=== PATIENT | female | born 1950 | race Caucasian/White ===

== ENCOUNTER 2021-03-23 06:52 | Day surgery (SDC) | payer MEDICARE, OTHER, SELFPAY ==
[2021-03-17 13:02] VITALS: BMI 25.2
[2021-03-17 14:22] VITALS: BMI 24.9
--- NOTE | 2021-03-22 11:51 | P.CONAN_ITS ---
HPI - Anesthesia Eval Consult details Narrative: 70yo F for Right Hammertoe Repair 2nd, 3rd & 4th Toe, Metatarsal Head Resection 2nd and 3rd Toe PCP cleared [facility] Past Medical History Medical History Arthritis, rheumatoid Heather's disease Depression GERD (gastroesophageal reflux disease) Hard of hearing History of anemia History of blood transfusion HTN (hypertension) Hx pulmonary embolism Lumbar post-laminectomy syndrome Nausea Osteoarthritis Peripheral neuropathy Rotator cuff syndrome Scoliosis Spinal stenosis Torn rotator cuff Tremor Wears hearing aid in both ears Surgical History Surgical History History of esophagogastroduodenoscopy (EGD) History of total hip replacement Hx of appendectomy Hx of cataract extraction Hx of colonoscopy Status post transsphenoidal pituitary resection Social History Social History (Updated 03/17/21 @ 14:21 by Anna Ramirez RN) Alcohol intake: current Alcohol intake frequency: a few times a month Alcohol type: wine Patient Tobacco Use Status: Former Tobacco user Quit Date: 1990 Use of substances other than those prescribed or required for medical reasons: No Are you DNR?: No Advance Directives: No Advance Directives Information Provided: Yes (mailed) Advance Directives on File: No Meds Allergies Allergy/AdvReac Type Severity Reaction Status Date / Time ciprofloxacin Allergy Unknown Verified 03/23/21 07:14 levofloxacin [From Allergy Unknown Verified 03/23/21 07:14 Levaquin] Home Medications Medication Instructions Recorded Confirmed Last Taken Type acetaminophen 650 mg PO Q6H 03/17/21 03/17/21 Unknown History 325 mg tablet PRN alendronate 70 70 mg PO QWEEK 03/17/21 03/17/21 Unknown History mg tablet amoxicillin 500 2,000 mg PO 03/17/21 03/17/21 Unknown History mg capsule ONCE baclofen 10 mg 10 mg PO BID 03/17/21 03/17/21 Unknown History tablet bupropion HCl 150 mg PO QAM 03/17/21 03/17/21 03/23/21 06:10 History 150 mg tablet,12 hr sustained-relea se cabergoline 0.5 0.5 mg PO 5XW 03/17/21 03/17/21 Unknown History mg tablet calcium cap PO 03/17/21 Unknown History carbonate 600 mg (1,500 mg)-vitamin D3 500 unit capsule (Calcium 600 with Vitamin D3) gabapentin 300 300 mg PO DAILY 03/17/21 03/17/21 Unknown History mg tablet hydrochlorothia 25 mg PO DAILY 03/17/21 03/17/21 Unknown History zide 25 mg tablet ibuprofen 800 800 mg PO Q8H 03/17/21 03/17/21 Unknown History mg tablet PRN metoprolol 50 mg PO BID 03/17/21 03/17/21 03/23/21 06:10 History tartrate 50 mg tablet omeprazole 20 20 mg PO DAILY 03/17/21 03/17/21 03/23/21 06:10 History mg tablet,delayed release sertraline 50 50 mg PO DAILY 03/17/21 03/17/21 03/23/21 06:10 History mg tablet simvastatin 40 40 mg PO 03/17/21 03/17/21 Unknown History mg tablet BEDTIME Exam Exam Date and Time: March 22, 2021 1151 Height,Weight and Vital Signs: Height 5 ft 4 in Weight 65.771 kg Narrative Narrative: EKG @ PCP = NSR Assessment and Plan Assessment Anesthesia Assessment: Chart Reviewed
--- NOTE | 2021-03-22 11:51 | HO.ANESPROP2 ---
HPI - Anesthesia Eval Consult details Narrative: 70yo F for Right Hammertoe Repair 2nd, 3rd & 4th Toe, Metatarsal Head Resection 2nd and 3rd Toe PCP cleared [facility] Past Medical History Medical History Arthritis, rheumatoid Heather's disease Depression GERD (gastroesophageal reflux disease) Hard of hearing History of anemia History of blood transfusion HTN (hypertension) Hx pulmonary embolism Lumbar post-laminectomy syndrome Nausea Osteoarthritis Peripheral neuropathy Rotator cuff syndrome Scoliosis Spinal stenosis Torn rotator cuff Tremor Wears hearing aid in both ears Surgical History Surgical History History of esophagogastroduodenoscopy (EGD) History of total hip replacement Hx of appendectomy Hx of cataract extraction Hx of colonoscopy Status post transsphenoidal pituitary resection Social History Social History (Updated 03/17/21 @ 14:21 by Anna Ramirez RN) Alcohol intake: current Alcohol intake frequency: a few times a month Alcohol type: wine Patient Tobacco Use Status: Former Tobacco user Quit Date: 1990 Use of substances other than those prescribed or required for medical reasons: No Are you DNR?: No Advance Directives: No Advance Directives Information Provided: Yes (mailed) Advance Directives on File: No Meds Allergies Allergy/AdvReac Type Severity Reaction Status Date / Time ciprofloxacin Allergy Unknown Verified 03/23/21 07:14 levofloxacin [From Levaquin] Allergy Unknown Verified 03/23/21 07:14 Home Medications Medication Instructions Recorded Confirmed Last Taken Type acetaminophen 325 mg tablet 650 mg PO Q6H PRN 03/17/21 03/17/21 Unknown History alendronate 70 mg tablet 70 mg PO QWEEK 03/17/21 03/17/21 Unknown History amoxicillin 500 mg capsule 2,000 mg PO ONCE 03/17/21 03/17/21 Unknown History baclofen 10 mg tablet 10 mg PO BID 03/17/21 03/17/21 Unknown History bupropion HCl 150 mg tablet,12 hr 150 mg PO QAM 03/17/21 03/17/21 03/23/21 06:10 History sustained-release cabergoline 0.5 mg tablet 0.5 mg PO 5XW 03/17/21 03/17/21 Unknown History calcium carbonate 600 mg (1,500 cap PO 03/17/21 Unknown History mg)-vitamin D3 500 unit capsule (Calcium 600 with Vitamin D3) gabapentin 300 mg tablet 300 mg PO DAILY 03/17/21 03/17/21 Unknown History hydrochlorothiazide 25 mg tablet 25 mg PO DAILY 03/17/21 03/17/21 Unknown History ibuprofen 800 mg tablet 800 mg PO Q8H PRN 03/17/21 03/17/21 Unknown History metoprolol tartrate 50 mg tablet 50 mg PO BID 03/17/21 03/17/21 03/23/21 06:10 History omeprazole 20 mg tablet,delayed 20 mg PO DAILY 03/17/21 03/17/21 03/23/21 06:10 History release sertraline 50 mg tablet 50 mg PO DAILY 03/17/21 03/17/21 03/23/21 06:10 History simvastatin 40 mg tablet 40 mg PO BEDTIME 03/17/21 03/17/21 Unknown History Exam Exam Date and Time: March 22, 2021 1151 Height,Weight and Vital Signs: Height 5 ft 4 in Weight 65.771 kg Narrative Narrative: EKG @ PCP = NSR Assessment and Plan Assessment Anesthesia Assessment: Chart Reviewed
--- NOTE | 2021-03-22 12:13 | HP_ITS ---
DATE OF SERVICE: 03/23/2021 DATE OF PROPOSED SURGERY: 03/23/2021. PREOPERATIVE DIAGNOSES: 1. Arthritis, right second metatarsophalangeal joint with dislocation. 2. Arthritis of the right third metatarsophalangeal joint. 3. Hammertoe deformities, right second toe. 4. Hammertoe deformities, right third toe. 5. Hammertoe deformities, right fourth toe. PLANNED PROCEDURES: 1. Total metatarsal head resection, right second and third metatarsophalangeal joints with reapproximation of the metatarsophalangeal joint and ORIF, right second MTP joint dislocation. 2. Hammertoe repair, right second, third, and fourth toes. PLANNED ANESTHESIA: MAC anesthesia. Planned use of mini C-arm visualization during the procedures. CHIEF COMPLAINT AND HISTORY OF PRESENT ILLNESS: Isa Bello is a 70-year-old female, who relates history of progressively painful overlapping hammertoes and multiple joints involving the right forefoot. The condition has been present over the past several years and has gradually worsened due to her rheumatoid arthritis. Conservative treatment consisting of accommodative padding as well as altered shoe gear has proven ineffective and the patient is now requesting surgical treatment. PAST MEDICAL HISTORY: Remarkable for rheumatoid arthritis, history of multiple musculoskeletal pain, depression, hypertension, anemia, high cholesterol, sciatica. CURRENT MEDICATIONS: Alendronate, baclofen, , cabergoline, hydrochlorothiazide, sertraline, simvastatin, metoprolol, folic acid, gabapentin. ALLERGIES: THE PATIENT HAS NEGATIVE REACTION TO LEVAQUIN AND CIPROFLOXACIN. FAMILY HISTORY: Significant for arthritis, hypertension, diabetes. SOCIAL HISTORY: The patient denies smoking, denies use of any recreational drugs. The patient does relates scant alcohol consumption and does drink coffee 1 cup daily. PODIATRIC PHYSICAL EXAM: VASCULAR EXAM: Reveals normal pulses. The DP and PT arteries bilateral with normal cap refill time noted bilateral feet. NEUROLOGIC EXAM: Reveals intact sensation. DERMATOLOGIC EXAM: Reveals intact skin with erythema, dorsum right second and third toe PIP joints. ORTHOPEDIC EXAM: Reveals hammertoe contracture of right second, third and fourth, with the right second toe completely overlapping the right great toe and dorsal and medial subluxation and dislocation of the right second and third metatarsophalangeal joints. The patient was seen most recently in my office on February 27, 2021. Preoperative informed consent was obtained from the patient that day. Preoperative medical clearance will be provided by her primary care physician, Dr. Kaur. DAMIEN Delaney/JIM / [id number]
[2021-03-23] VITALS (7 sets, daily range): BP systolic 121–172; BP diastolic 62–84; PULSE 49–66; RESP 16–18; TEMP 36.1–36.4; O2SAT 95–100
--- NOTE | ~2021-03-23 | FL_ITS ---
EXAMINATION: XR FLUOROSCOPY WITH IMAGES CLINICAL INFORMATION: Hammertoe. COMPARISON: None. TECHNIQUE: Fluoroscopy performed by Dr. Ricki Johnson Fluoroscopy time: 16.3 seconds DAP: [id number] mGycm2 Images: 1 FINDINGS: A single image was provided to the referring physician for insertion of pins for a hammertoe of right foot. No other images were obtained. FL/FL guidance in OR IMPRESSION: Fluoroscopy was provided to referring physician for correction of hammertoe.
[2021-03-23] MEDS: Lactated Ringers 1,000 ML 100 ML IVCONT (07:44)
--- NOTE | 2021-03-23 08:28 | MHC.SHP ---
Pre-Procedural Eval Section A Date of Service: 03/23/21 The patient is an INPATIENT: No The History & Physical has been completed within 30 days and I have reviewed it.: Yes Section B Chief Complaint: rheumatoid arthritis,hammer toe Relevant Family History (Specify if Yes): No Relevant Social History: None Allergies: Allergies Allergy/AdvReac Type Severity Reaction Status Date / Time ciprofloxacin Allergy Unknown Verified 03/23/21 07:14 levofloxacin [From Levaquin] Allergy Unknown Verified 03/23/21 07:14 Plan Diagnosis/Plan: Unchanged I have reviewed the history and physical and performed a pertinent physical examination on my patient. No changes have occurred unless specified.
--- NOTE | 2021-03-23 10:07 | PM.PROC ---
Brief Operative Note Date of procedure: 03/23/21 Pre-op diagnosis: arthritis with dislocation right 2,3 mtpj; hammertoe 2,3,4 right Post-op diagnosis: same Procedure: open reduction and internal fixation of right 2nd and 3rd mtpj dislocation with resection of metatarsal heads 2,3; hammertoe repair right 2,3,4 toes with kwire fixation Anesthesia: MAC Surgeon: Ricki Johnson Bench Assembly Inspector: Doretha Mclean IV fluids (mL): 1.0 Condition: stable Disposition: PACU
--- NOTE | 2021-03-23 20:47 | OP_ITS ---
SURGEON: Ricki Johnson DPM PREOPERATIVE DIAGNOSIS: POSTOPERATIVE DIAGNOSIS: PROCEDURE PERFORMED: ESTIMATED BLOOD LOSS: COMPLICATIONS: ANESTHESIA: Consisted of a total of 14 mL of an equal mix of 2% lidocaine with epinephrine 1:100,000 and 0.5% Marcaine plain. Intravenous sedation was provided by the Anesthesia Department. ASSISTANTS: Dr. Mclean. SPECIMENS: PREOPERATIVE DIAGNOSES: Arthritis with dislocation of the right second and third metatarsophalangeal joints; hammertoe deformity, right second, third, and fourth toes. PROCEDURES PERFORMED: Open reduction and internal fixation of right second and third metatarsophalangeal joint dislocations with resection of metatarsal heads of AC joints and hammertoe repair, right second, third, and fourth toes with K-wire fixation. INTRODUCTION: The patient was brought to the operating room and placed on the operating table in the supine position. After having been suitably anesthetized with local infiltrative anesthesia, the right lower extremity was then prepped and draped in usual sterile manner. Please note that prior to the start of the procedures, the right foot was exsanguinated utilizing Esmarch bandage and right ankle tourniquet was inflated to 250 mmHg pressure for the duration of the procedures. OPEN REDUCTION WITH INTERNAL FIXATION AND RESECTION OF THE RIGHT SECOND AND THIRD METATARSAL HEADS OF DISLOCATED JOINTS RIGHT SECOND AND THIRD METATARSOPHALANGEAL JOINTS. Attention was directed to the dorsal aspect of the right forefoot, where a lazy-S incision was effected on the dorsal aspect between the right second and third metatarsals extending from the midshaft area just beyond the metatarsophalangeal joints. The incision was deepened in same plane. Hemostasis was acquired as necessary. The skin margins were underscored and retracted. A dorsal linear capsule incision was first effected of the right second metatarsophalangeal joint from the distal shaft up to and beyond the MTP joint. The incision was deepened in same plane. Hemostasis was acquired. The capsule was underscored and retracted. Utilizing a sagittal saw, the second metatarsal was osteotomized to resect the hypertrophic head of the second metatarsal and excised from the wound in toto via sharp dissection. Likewise, the third metatarsal was treated in the exact same manner as previously described for the second metatarsal. The wound was irrigated with copious amounts of sterile saline. The osteotomies were fine-tune to make sure there was adequate muslim of the metatarsal parabola. The fixation to reduce the dislocation was going to be used from the hammertoe repairs and was delayed until hammertoe procedures were performed. HAMMERTOE REPAIR OF RIGHT SECOND, THIRD, AND FOURTH TOES. Attention was directed to the dorsal aspect of the right second, third, and fourth toe, where separate dorsal linear incisions were effected over each digits overlying the proximal interphalangeal joint. Incisions were effected to be approximately 2 to 2.5 cm in length. The incisions were deepened in same plane. Hemostasis was acquired as necessary. The skin margins were underscored and retracted. A transverse incision was effected through the extensor tendon complex at each respective digit and then the extensor tendons were underscored and retracted both proximally and distally. The hypertrophic heads of the proximal phalanx were delivered from the wound and resected utilizing sagittal saw. The base of the middle phalanx from the second and third toes were resected. The fourth toe was left untouched at the base of the middle phalanx. Wound was again irrigated. The phalanges were then fixated to reduce hammertoe contracture as well as then advanced under mini C-arm visualization to fixate and reduce the previous dislocation of the second and third metatarsophalangeal joints. Two wires were used. Each measuring 0.045 inch in diameter and were driven from the distal aspect of the second toe into the second metatarsal, maintaining the rectus alignment and likewise doing the same for the third toe and third metatarsophalangeal joint. Excess K-wire was bent, cut, and capped. All skin margins were closed once there was capsular closure utilizing 3-0 Dexon and skin margins were closed using a combination of 3-0 and 2-0 nylon for the MTP joint incisions and 4-0 nylon for the digital or hammertoe incisions. CONCLUSION: At the conclusion of these procedures, the operative sites were injected with a total of 5 mL of Marcaine 0.5% plain and 1 mL of dexamethasone phosphate. Sterile Xeroform, 1-inch Conform, Kerlix fluffs, 4-inch Conform, and Betadine-soaked gauze were applied to the right lower extremity. The right ankle tourniquet was deflated. Normal blood flow was reestablished to the right lower extremity. The patient tolerated the surgery and anesthesia well and left the operating room via cart to the recovery room with vital signs stable. FINAL DISPOSITION: The patient is discharged home with instructions for self-care include the followin. To keep the dressings dry, clean, and intact. 2. To keep the right leg elevated above the ankle with ice above the ankle as well. 3. To take all medications as prescribed. 4. To limit walking activity and utilize the surgical shoe and walker for partial weightbearing right foot whenever walking. 5. The patient has instructions to take Motrin 600 mg 1 p.o. t.i.d. p.c., gabapentin 300 mg total #10 one p.o. daily at bedtime, oxycodone 5 mg total #10 one p.o. q.6h. The patient is also instructed to utilize Tylenol in between and to take aspirin 325 mg daily for DVT prophylaxis for the next month. DAMIEN Delaney/JIM / [id number]
== END 2021-03-23 11:25 | disposition home or self-care (01) ==
PROVIDERS: PCP Family Medicine; Visit Provider Podiatrist
PROC: (CPT 28285; principal; 2021-03-23 08:40)
PROC: (CPT 28645; 2021-03-23 08:40)
DX: M24.374 Pathological dislocation of right foot, not elsewhere classified (principal); M20.41 Other hammer toe(s) (acquired), right foot; M19.071 Primary osteoarthritis, right ankle and foot; Z88.1 Allergy status to other antibiotic agents
CPT/HCPCS: 28645 ×2; 28285 ×3; 28112; 88304; 88311; J0690; J1100; J2250; J3010

== ENCOUNTER 2021-07-31 10:40 | Outpatient (REF) | payer MEDICARE, OTHER, SELFPAY ==
--- NOTE | ~2021-07-31 | MM_ITS ---
EXAMINATION: MM SCREENING DIGITAL BREAST TOMOSYNTHESIS, BILATERAL CLINICAL INFORMATION: Screening. Asymptomatic. The lifetime risk of breast cancer based on the Tyrer-Cuzick Model is 10%. COMPARISON: Mammography: 03/08/2020, 03/03/2019, 02/13/2018 TECHNIQUE: Digital breast tomosynthesis is performed in both the craniocaudal and mediolateral oblique views along with computer-aided detection (CAD). Synthesized 2D images are generated from the tomosynthesis. FINDINGS: There are scattered areas of fibroglandular density (ACR BI-RADS breast composition Category b). There are no significant masses, abnormal calcifications, or other abnormalities. Parenchymal pattern is similar to prior studies. Incidental intramammary node again seen posterior upper outer right breast. There are scattered vascular and benign round calcifications again seen. There are no significant changes. MM/MM tomosynthesis screening BI IMPRESSION: No mammographic evidence of malignancy. ASSESSMENT: BI-RADS 2: Benign RECOMMENDATION: Routine annual mammography screening. This patient's information was entered into a reminder system with a target due date for their next mammogram.
== END 2021-07-31 10:41 | disposition home or self-care (01) ==
LOC: HO.MAMMO 10:40
PROVIDERS: Visit Provider Family Medicine
DX: Z12.31 Encounter for screening mammogram for malignant neoplasm of breast (principal)
CPT/HCPCS: 77063; 77067

== ENCOUNTER → 2022-07-20 14:16 | Outpatient (BNVA) | payer MEDICARE, OTHER, SELFPAY | PROVIDERS: PCP Family Medicine; Visit Provider Student in an Organized Health Care Education/Training Program | DX: M06.9 Rheumatoid arthritis, unspecified (principal); M19.90 Unspecified osteoarthritis, unspecified site; G62.9 Polyneuropathy, unspecified; M96.1 Postlaminectomy syndrome, not elsewhere classified; R10.30 Lower abdominal pain, unspecified | CPT/HCPCS: 99202 ==

== ENCOUNTER 2022-08-31 09:53 | Outpatient (REF) | payer MEDICARE, OTHER, SELFPAY ==
--- NOTE | ~2022-08-31 | MM_ITS ---
EXAMINATION: MM SCREENING DIGITAL BREAST TOMOSYNTHESIS, BILATERAL CLINICAL INFORMATION: Screening. Asymptomatic. The lifetime risk of breast cancer based on the Tyrer-Cuzick Model is 9%. COMPARISON: Mammography: 07/31/2021, 03/08/2020, 03/03/2019 TECHNIQUE: Digital breast tomosynthesis is performed in both the craniocaudal and mediolateral oblique views along with computer-aided detection (CAD). Synthesized 2D images are generated from the tomosynthesis. FINDINGS: There are scattered areas of fibroglandular density (ACR BI-RADS breast composition Category b). There are no significant masses, abnormal calcifications, or other abnormalities. Parenchymal pattern borders on predominantly fatty. Background stromal markings are similar to prior studies and there is no developing density or architectural abnormality. Incidental intramammary node again seen posterior upper outer right breast. The axilla are unremarkable. No significant changes from prior exams. MM/MM tomosynthesis screening BI IMPRESSION: No mammographic evidence of malignancy. ASSESSMENT: BI-RADS 2: Benign RECOMMENDATION: Routine annual mammography screening. This patient's information was entered into a reminder system with a target due date for their next mammogram.
== END 2022-08-31 09:54 | disposition home or self-care (01) ==
LOC: HO.MAMMO 09:53
PROVIDERS: Visit Provider Family Medicine
DX: Z12.31 Encounter for screening mammogram for malignant neoplasm of breast (principal)
CPT/HCPCS: 77063; 77067

== ENCOUNTER 2023-11-07 11:22 | Outpatient (REF) | payer MEDICARE, OTHER, SELFPAY | END 2023-11-07 11:23 | disposition home or self-care (01) | LOC: HO.10HDL 11:22 | PROVIDERS: Visit Provider Otolaryngology | DX: J30.89 Other allergic rhinitis (principal) | CPT/HCPCS: 36415; 82785; 86003 ==

== ENCOUNTER 2024-01-14 10:27 | Outpatient (REF) | payer MEDICARE, OTHER, SELFPAY | END 2024-01-14 10:28 | disposition home or self-care (01) | LOC: HO.MAMMO 10:27 | PROVIDERS: PCP Internal Medicine; Visit Provider Internal Medicine | DX: Z12.31 Encounter for screening mammogram for malignant neoplasm of breast (principal) | CPT/HCPCS: 77063; 77067 ==

== ENCOUNTER → 2024-01-14 10:45 | Outpatient (BNV) | payer MEDICARE, OTHER, SELFPAY | PROVIDERS: PCP Internal Medicine; Visit Provider Radiology Diagnostic Radiology | DX: Z12.31 Encounter for screening mammogram for malignant neoplasm of breast (principal) | CPT/HCPCS: 77063; 77067 ==

== ENCOUNTER 2025-03-16 13:52 | Outpatient (REF) | payer SELFPAY ==
--- OUTSIDE RECORDS SUMMARY | 2016-02-23 | XMS_ITS | Encounter Summary ---
Author Organization [facility] Address [address] [place] [address] Phone Care Team Providers Care Study Coordinator Name Role Phone Heidi Solano MD Primary Care Provider + Reason for Visit * MRI/CAT Scan - Closed Specialty Diagnoses / Procedures Referred By Jennifer mcdaniel Referred To Contact Radiology Procedures MRI Spine (Neuro) Outside (No Interpretation) Dimitry Kent MD [address] [place] [phone] Phone: tel: fax: mailto:[email or web address] Referral ID Status Reason Start Date Expiration Date Visits Re quested Visits Authorized [id number] Closed 02/24/2016 02/23/2017 1 1 Encounter Details Date Type Department Care Team (Late st Contact Info) Description 02/23/2016 Hospital Encounter [facility] [address] [place] [address] Dimitry Kent MD [address] [place] [phone] [email or web address] Social History Tobacco Use Types Packs/Day Years [...] Care Team (Late st Contact Info) Description 04/20/2025 3:00 PM EST Telemedicine [facility] Clinical Center [address], [address] [place] [address] Kvng Agarwal MD, DSc [address] [facility] [address] [place] [address] [email or web address] 06/10/2029 Procedure Pass [facility] PERIOPERATIVE DEPT [address] [place] [address] [phone] documented as of this encounter Procedures Procedure Name Priority Date/Time Associated Diagnosis Comments MRI SPINE NEUROLOGIC FOCUS OUTSIDE (NO INTERPRETATION) Routine 02/23/2016 12:00 AM EDT documented in this encounter Results * MRI Spine (Neuro) Outside (No Interpretation) (02/23/2016 12:00 AM EDT) Narrative [facility] IMG INTERFACES - 02/24/2016 2:00 PM EDT This study is for PACS storage only and not for interpretation. Procedure Note SYSTEMGENERATED, DOCUMENTATION - 02/24/2016 This study is for PACS storage only and not for interpretation. us Dimitry Kent MD IMG OUTSIDE IMAGING W/OUT INT ERPRETATION Final Result [facility] IMG INTERFACES documented in this encounter Visit Diagnoses Not on filedocumented in this encounter Care Teams Study Coordinator Relationship Specialty Start Date End Date Heidi Solano MD [email or web address] PCP - General Family Medicine 08/12/14 10/23/16 documented as of this encounter Additional Source Comments The information contained in this document represents components of the legal health record. It is not the complete legal health record.[facility]
--- OUTSIDE RECORDS SUMMARY | 2016-07-13 01:00 | XMS_ITS | Encounter Summary ---
Author Organization [facility] Address [address] [facility] [address] [place] [address] Phone Care Team Providers Care Aircraft Fuselage Framer Name Role Phone Heidi Solano MD Primary Care Provider + Reason for Visit * MRI/CAT Scan - Closed Specialty Diagnoses / Procedures Referred By Jennifer mcdaniel Referred To Contact Procedures CT Spine (Neuro) Focus Outside (No Interpretation) Eliazar Peace MD [facility] [place] [address] Phone: tel: mailto:[email or web address] Referral ID Status Reason Start Date Expiration Date Visits Re quested Visits Authorized [id number] Closed 07/24/2016 07/24/2017 1 1 Encounter Details Date Type Department Care Team (Late st Contact Info) Description 07/13/2016 Hospital Encounter [facility] [address] [place] [address] Eliazar Peace MD [address] [place] [address] [email or web address] Social History Tobacco Use Types Packs/Day Years [...] Info) Description 04/20/2025 3:00 PM EST Telemedicine [facility] Clinical Center [address] [place] [address], [address] [place] [address] Kvng Agarwal MD, DSc [address] [facility] [address] [place] [address] BRYAN@[email or web address] 06/10/[address] [facility] PERIOPERATIVE DEPT [address] [place] [phone] documented as of this encounter Procedures Procedure Name Priority Date/Time Associated Diagnosis Comments CT SPINE (NEURO) OUTSIDE (NO INTERPRETATION) Routine 07/13/2016 12:00 AM EST documented in this encounter Results * CT Spine (Neuro) Focus Outside (No Interpretation) (07/13/2016 12:00 AM EST) Narrative [facility] IMG INTERFACES - 07/24/2016 12:24 PM EST This study is for PACS storage only and not for interpretation. us Eliazar Peace MD IMG OUTSIDE IMAGING W/OUT INTE RPRETATION Final Result [facility] IMG INTERFACES documented in this encounter Visit Diagnoses Not on filedocumented in this encounter Care Teams Aircraft Fuselage Framer Relationship Specialty Start Date End Date Heidi Solano MD [email or web address] PCP - General Family Medicine 08/12/14 10/23/16 documented as of this encounter Additional Source Comments The information contained in this document represents components of the legal health record. It is not the complete legal health record[facility]
--- NOTE | 2025-03-16 15:40 | MHC.AU.HA3 ---
Hearing Instrument Follow-Up- Binaural Date of Visit: 03/16/25 Right Ear: Make, Model, Color, Serial Number: Ottoi Hannah 1 [employer] SN: [id number] Cotton Opener Repair Warranty: 09/25/2026 Cotton Opener Loss and Damage Warranty: 09/25/2026 [facility] Service Plan: N/A Battery Size: Rechargeable Charge Entry/Slim Tube: 2/85 Earmold/Dome/CShell/SlimTip:8mm power dome with retention tail Type of Wax Guard: miniFit Dispensed By: Office of Dr. Lopez Date of Fitting: August 2023 Left Ear: Make, Model, Color, Serial Number: Ottoi Roseon 1 [employer] SN: [id number] Cotton Opener Repair Warranty: 09/25/2026 Cotton Opener Loss and Damage Warranty: 09/25/2026 [facility] Service Plan: N/A Battery Size: Rechargeable Charge Entry/Slim Tube: 2/85 Earmold/Dome/CShell/SlimTip: 8mm power dome with retention tail Type of Wax Guard: miniFit Dispensed By: Office of Dr. Lopez Date of Fitting: August 2023 Follow-Up Summary: Transfer care from Rodrigo Carlton who recently retired. Thinks HAs not providing enough benefit, still difficulty with understanding conversations, especially at book club or chair yoga. Lots of wax build up noted on domes. Cleaned HAs. Replaced domes, wax guards, and retention tails. Ran feedback technical support manager with 8mm double huerta domes which noted significant decrease in amplification. Switched to 8mm power dome. Reran feedback technical support manager with noted improvement. Increased high frequencies slightly. Reported sound clearer after cleaning and adjustment. Updated firmware. Helped re-pair to phone and [employer] kiel. Scheduled follow up to check in re: programming changes. Recommended full reprogramming with real ear measures following updated hearing test. Recommendations: An additional follow-up was scheduled to monitor progress. Diagnosis Code(s): Primary Diagnosis: H90.3 Bilateral Sensorineural Hearing Loss Signature: Provider: Lori Ibrara, [facility]
--- OUTSIDE RECORDS SUMMARY | 2025-03-16 17:07 | XMS_ITS | Encounter Summary ---
Author Organization [facility] Address [address] [facility] [address] [place] [address] Phone Care Team Providers Care Electrification Adviser Name Role Phone Whitney Kaur MD, MPH Primary Care Provider + Freda Garg MD Unavailable Mike Valladares MD Unavailable [phone] Freda Garg MD Unavailable Eren Mahoney MD Unavailable Whitney Kaur MD, MPH Unavailable [phone] Dajuan Hammer MD Primary Care Provider [phone] Whitney Kaur MD, MPH Primary Care Provider + Dajuan Hammer MD Unavailable [phone] Kim Noel MD Primary Care Provide r Encounter Details Date Type Department Care Team (Late st Contact Info) Description 04/16/2017 Procedure Pass [facility] [place], Goran 2 [address] [facility], 2nd Floor, [address] [place] [address] Social History Tobacco Use Types Packs/Day Years Used Date Smoking Tobacco: Former Cigarettes 1.5 10 0 10/19/1976 - 10/19/1986 Smokeless Tobacco: Never Alcohol Use Standard Drinks/Week Comments Yes 3 (1 standard drink = 0.6 oz pur e alcohol) Comments Unknown Sex and Gender Information Value Date Recorded Sex Assigned at Female 10/13/2022 10:34 AM EDT Legal Sex Female 3:24 PM EST Gender Identity Female 10/13/2022 10:34 AM EDT Sexual Orientation Not on file documented as of this encounter Functional Status * Patient is deaf or has serious difficulty with hearing Answer Date of Assessment Author No 10/29/2016 8:45 AM Rosa Schafer PA-C * 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, even when wearing glasses Answer Date of Assessment Author No 10/29/2016 8:45 AM Rosa Schafer PA-C * Patient has serious difficulty walking or climbing stairs (5yr old or older) Answer Date of Assessment Author No 10/29/2016 8:45 AM Rosa Schafer PA-C * Patient has serious difficulty dressing or bathing (5yr old or older) Answer Date of Assessment Author No 10/29/2016 8:45 AM Rosa Schafer PA-C * Patient has serious difficulty doing errands alone such as visiting a doctor???s office or shopping, due to physical, mental, or emotional condition (15 years old or older) Answer Date of Assessment Author No 10/29/2016 8:45 AM Rosa Schafer PA-C documented as of this encounter Mental Status * Patient has serious difficulty concentrating, remembering, or making decisions due to physical, mental, or emotional condition Answer Entry Date Author No 10/29/2016 8:45 AM Rosa Schafer PA-C documented in this encounter Plan of Treatment Upcoming Encounters Date Type Department Care Team (Late st Contact Info) Description 04/20/2025 3:00 PM EST Telemedicine [address], [address] [place] [address] Kvng Agarwal MD, DSc [address] [place] [address] [address] [email or web address] 06/10/2029 Procedure Pass [facility] [place] PER[facility]OPER[facility]IVE DEPT 55 [place] [address] documented as of this encounter Visit Diagnoses Not on filedocumented in this encounter Care Teams Electrification Adviser Relationship Specialty Start Date End Date Whitney Kaur MD, MPH 70 [place] [address] [email or web address] PCP - General 02/06/17 02/24/18 Dajuan Hammer MD 55 [facility] [address] [place] [phone] [email or web address] PCP - General Rheumatology 02/25/18 04/16/18 Whitney Kaur MD, MPH 70 [place] [address] [email or web address] PCP - General Family Medicine 04/17/18 06/25/23 Kim Noel MD [address] [place] [address] PCP - General Internal Medicine 06/26/23 Freda Garg MD [address] [place] [address] [email or web address] Referring OBGYN Obstetrics and Gynecology 02/28/17 Mike Valladares MD [address] [place] [address], 2nd [place] [address] [email or web address] Historical LMR Provider 03/27/17 06/17/21 Freda Garg MD [address] [place] [address] Historical LMR Provider 03/27/17 Eren Mahoney MD [address] [facility], [address] [place] [address] julio Historical LMR Provider 03/27/17 06/17/21 Whitney Kaur MD, MPH 70 [place] [address] Historical LMR Provider 03/27/17 Dajuan Hammer MD [address] [place] [phone] [email or web address] [facility] Referring Physician Rheumatology 04/17/18 documented as of this encounter Additional Source Comments The information contained in this document represents components of the legal health record. It is not the complete legal health record.[facility]
--- OUTSIDE RECORDS SUMMARY | 2025-03-16 17:07 | XMS_ITS | Encounter Summary ---
Author Organization [facility] Address [address] [facility] [address] [place] [address] Phone Care Team Providers Care Torsion Spring Coiling Machine Setter Name Role Phone Whitney Kaur MD, MPH Primary Care Provider + Freda Garg MD Unavailable Mike Valladares MD Unavailable Freda Garg MD Unavailable Eren Mahoney MD Unavailable Whitney Kaur MD, MPH Unavailable [phone] Dajuan Hammer MD Primary Care Provider [phone] Whitney Kaur MD, MPH Primary Care Provider + Dajuan Hammer MD Unavailable Kim Noel MD Primary Care Provide r Encounter Details Date Type Department Care Team (Late st Contact Info) Description 04/16/2017 Procedure Pass [facility] [place] [place]. [place] [address] [facility], 1st [place] [address] Social History Tobacco Use Types Packs/Day Years [...] Info) Description 04/20/2025 3:00 PM EST Telemedicine [address], [address] [place] [address] Kvng Agarwal MD, DSc [address] [place] [address] [address] [place] [address] [email or web address] 06/10/2029 Procedure Pass [facility] [place] [place] [facility]IOPER[facility]IVE [place]PT 55 [place] [address] documented as of this encounter Visit Diagnoses Not on filedocumented in this encounter Care Teams Torsion Spring Coiling Machine Setter Relationship Specialty Start Date End Date Whitney Kaur MD, MPH 70 [place] [address] [email or web address] PCP - General 02/06/17 02/24/18 Dajuan Hammer MD 55 [facility] [address]BYAW [address] [place] [phone] [email or web address] [email or web address] PCP - General Rheumatology 02/25/18 04/16/18 Whitney Kaur MD, MPH 70 [place] [address] [email or web address] PCP - General Family Medicine 04/17/18 06/25/23 Kim Noel MD [address] [place] [address] PCP - General Internal Medicine 06/26/23 Freda Garg MD [address] [place] [address] [email or web address] Referring OBGYN Obstetrics and Gynecology 02/28/17 Mike Valladares MD [address] [place] [address], 2nd [place] [address] [email or web address] Historical LMR Provider 03/27/17 06/17/21 Freda Garg MD [address] [place] [address] [email or web address] Historical LMR Provider 03/27/17 Eren Mahoney MD 22 [facility], [address] [place] [address] julio Historical LMR Provider 03/27/17 06/17/21 Whitney Kaur MD, MPH [address] [place] [address] Historical LMR Provider 03/27/17 Dajuan Hammer MD [address] [place] [phone] [email or web address] [email or web address] Referring Physician Rheumatology 04/17/18 documented as of this encounter Additional Source Comments The information contained in this document represents components of the legal health record. It is not the complete legal health record.[facility]
--- OUTSIDE RECORDS SUMMARY | 2025-03-16 17:07 | XMS_ITS | Patient Health Record ---
Author Organization [facility] Address [address] [address] Support Name Relationship Address Phone GRETEL MEEK Guarantor Unknown [phone] Reason For Referral No Information Medications Medication SIG (Take, Route, Frequency, Duration) Notes Start Date End Date Status Leflunomide 20MG ORAL; Duration: -3 [facility] 03/05/2014 Active Metoprolol Tartrate 100MG 1 ORAL twice d aily; Duration: -3 [facility] 12/28/2011 Active Wellbutrin XL 150MG 1 ORAL daily; Duration: -3 [facility] 12/28/2011 Active Vitamin B-12 100MCG ORAL; Duration: -3 [facility] 12/28/2011 Active hydroCHLOROthiazide 12.5MG 1 ORAL daily; Duration: -3 [facility] 02/20/2013 Active Hydroxychloroquine Sulfate 200MG ORAL; Duration: -3 [facility] 03/05/2014 Active Sertraline HCl 50MG 1 ORAL daily; Duration: -3 [facility] 12/28/2011 Active Simvastatin 40MG 1 ORAL DAILY; Duration: -3 [facility] 12/28/2011 Active Folic Acid 1MG 1 ORAL daily; Duration: -3 [facility] 12/28/2011 Active sulfaSALAzine 500MG ORAL; Duration: -3 [facility] 03/05/2014 Active Gabapentin 300MG 1 ORAL three times daily; Duration: -3 [facility] 12/28/2011 Active Terconazole 0.4% 1 Vaginal once daily at hs1; Duration: -3 [facility] 03/05/2014 Active Problems Problem Type SNOMED Code ICD Code Onset Dates Problem Status W/U Status Risk Notes Problem Hyperlipidemia (58139701) Other and unspecified hyperlipidemia (272.4) Active confirmed Major Problem Benign essential hypertension (7014701) Essential hypertension, benign (401.1) Active confirmed Major Problem Rheumatoid arthritis (15069994) Rheumatoid arthritis (714.0) Active confirmed Major Problem Gynecological examination normal (008980711962245) Routine gynecological examination (V72.31) Active confirmed Diag Problem Dietary management surveillance (868810680) Dietary surveillance and counseling (V65.3) Active confirmed Diag Problem Exercises teaching, guidance, and counseling (395496300) Exercise counseling (V65.41) Active confirmed Diag Plan Of Treatment No Information Insurance Providers Payer Name Payer Address Payer Phone Subscriber Number Group Number Insured Name Patient Relationship to Insured Coverage Start Date Coverage End Date [facility] [address] [place] [id number] [id number] GRETEL MEEK Self - patient is the insured
--- OUTSIDE RECORDS SUMMARY | 2025-03-16 17:07 | XMS_ITS | Encounter Summary ---
Author Organization [facility] Address [address] [facility] [address] [place] [address] Phone Care Team Providers Care Public Relations Player Name Role Phone Whitney Kaur MD, MPH Primary Care Provider + Freda Garg MD Unavailable Mike Valladares MD Unavailable [phone] Freda Garg MD Unavailable Eren Mahoney MD Unavailable [phone] Whitney Kaur MD, MPH Unavailable [phone] Dajuan Hammer MD Primary Care Provider [phone] Whitney Kaur MD, MPH Primary Care Provider + Dajuan Hammer MD Unavailable [phone] Kim Noel MD Primary Care Provide r Encounter Details Date Type Department Care Team (Late st Contact Info) Description 04/24/2017 Ancillary Orders [facility] Neurosurgery [address] [place] [address], 3rd Floor, [address] [place] [address] Saba Lai MD [address] [address] [email or web address] Pituitary tumor Social History Tobacco Use Types Packs/Day Years [...] Info) Description 04/20/2025 3:00 PM EST Telemedicine [facility] [address] [place] [address], [address] [place] [address] Kvng Agarwal MD, DSc [address] [place] [address] [email or web address] 06/10/2029 Procedure Pass [facility] PERIOPERATIVE DEPT 55 [place] [address] documented as of this encounter Results * [place] Fluoroscopy Guidance - No Charge (05/14/2017 12:00 PM EST) 05/15/2017 12:2 2 AM EST Narrative [facility] - 05/15/2017 12:22 AM EST Dose (mGy): 1.09 mGy Dose Area Product (DAP): n/a Fluoro time (min): 8.3 sec Number of Spot Films: n/a Procedure Note Manager Of Global, Dictation - 05/15/2017 Dose (mGy): 1.09 mGy Dose Area Product (DAP): n/a Fluoro time (min): 8.3 sec Number of Spot Films: n/a us Saba Lai MD IMG [place] EXAMS Final Resul t [facility] [address] [facility] 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 documented in this encounter Care Teams Public Relations Player Relationship Specialty Start Date End Date Whitney Kaur MD, MPH 70 [place] [address] [email or web address] PCP - General 02/06/17 02/24/18 Dajuan Hamemr MD [address] [place] [address] [place] [address] [place] [phone] [email or web address] PCP - General Rheumatology 02/25/18 04/16/18 Whitney Kaur MD, MPH 70 [place] [address] PCP - General Family Medicine 04/17/18 06/25/23 Kim Noel MD [address] [place] [address] PCP - General Internal Medicine 06/26/23 Freda aGrg MD 22 [facility], [address] [address] Referring OBGYN Obstetrics and Gynecology 02/28/17 Mike Valladares MD 22 [facility], 2nd [place] [address] Historical LMR Provider 03/27/17 06/17/21 Freda Garg MD [address] [address] Historical LMR Provider 03/27/17 Eren Mahoney MD [address] [place] [address], [address] [address] julio Historical LMR Provider 03/27/17 06/17/21 Whitney Kaur MD, MPH 70 [place] [address] Historical LMR Provider 03/27/17 Dajuan Hammer MD [address] [phone] [email or web address] Referring Physician Rheumatology 04/17/18 documented as of this encounter Additional Source Comments The information contained in this document represents components of the legal health record. It is not the complete legal health record.[facility]
--- OUTSIDE RECORDS SUMMARY | 2025-03-16 17:07 | XMS_ITS | Clinical Summary ---
Author Organization [employer] Address [address] [facility] 7t [place] [address] Care Team Providers Care Adult Neurologist Name Role Phone Unavailable Primary Care Provider Unavailabl e Allergies Active Allergy Reactions Criticality Noted Date Comments Ciprofloxacin Rash Low 07/25/2023 Other Reaction(s): rash, itching Medications buPROPion SR (Wellbutrin SR) 150 MG 12 hr tablet Take 1 tablet by mouth 2 times daily. 09/14/2024 Active cabergoline (Dostinex) 0.5 MG tablet TAKE 1 TABLET (0.5 MG TOTAL) BY MOUTH 4 (FOUR) TIMES A WEEK. PLEASE TAKE AT BEDTIME WITH SMALL SNACK Active methylPREDNISol one (Medrol Dospak) 4 MG tablets TAKE 6 TABLETS ON DAY 1 DIRECTED ON PACKAGE AND DECREASE BY 1 TAB EACH DAY FOR A TOTAL OF 6 DAYS 09/22/2024 Active metoprolol tartrate (Lopressor) 50 MG tablet Take 50 mg by mouth 2 times daily. Active simvastatin (Zocor) 40 MG tablet Take 40 mg by mouth Once per day. Active Active Problems No known active problems Social History Tobacco Use Types Packs/Day Years Used Date Smoking Tobacco: Unknown Tobacco Cessation:Counseling Given: Not Answered Comments Unknown Sex and Gender Information Value Date Recorded Sex Assigned at Female 08/26/2024 9:04 AM EDT Legal Sex Female 9:03 AM EDT Gender Identity Female 08/26/2024 9:04 AM EDT Sexual Orientation Don't know 08/26/2024 9: 04 AM EDT Plan of Treatment Health Maintenance Due Date Last Done Comments CT Colonography 1950 Colonoscopy 1950 Colorectal Cancer Screening 1950 Depression Screening 1950 FIT DNA/Cologuard 1950 FIT 1950 FOBT 1950 Lipid Panel 1950 SDOH Screening 1950 Sigmoidoscopy 1951 Alcohol/Substance Use Screening 1963 Hepatitis C Screening 1969 Hepatitis A Vaccines (1 of 2 - Risk 2-dose series) 1970 Mammogram 1991 Hepatitis B Vaccines (1 of 3 - Risk 3-dose series) 2011 Influenza Vaccine (#1) 2025 , 02/16/2024, 03/26/2023, Additional history exists Tobacco Screening 10/06/2025 10/06/2024 DTaP/Tdap/Td Vaccines (4 - Td or Tdap) 02/19/2034 02/20/2024, 10/30/2013, 03/14/2012 Zoster Vaccines Completed 07/22/2019, 05/05/2019 Pneumococcal Vaccine: 50+ Years Completed 12/24/2022, 06/11/2015, 11/08/2005, Additional history exists RSV Patients and Patients Aged 60 years or older Completed 04/26/2023 COVID-19 Vaccine Completed 10/01/2024, 01/2024, 04/02/2023, Additional history exists HIB Vaccines Aged Out No longer eligi ble based on patient's age to complete this topic HPV Vaccines Aged Out No longer eligi ble based on patient's age to complete this topic IPV Vaccines Aged Out No longer eligi ble based on patient's age to complete this topic Meningococcal B Vaccine Aged Out No l onger eligible based on patient's age to complete this topic Meningococcal Vaccine Aged Out No patrice fina eligible based on patient's age to complete this topic RSV under 20 months Aged Out No longe r eligible based on patient's age to complete this topic Rotavirus Vaccines Aged Out No longer eligible based on patient's age to complete this topic Insurance * Guarantor: Isa Bello Account Type Relation to Patient Date of Phone Billing Address Personal/Family Self 1950 [address] [place] [address] MEDICARE
--- OUTSIDE RECORDS SUMMARY | 2025-03-16 17:07 | XMS_ITS | Encounter Summary ---
Author Organization [facility] Address [address] [facility] [address] [place] [address] Phone Care Team Providers Care Sulfuric Acid Plant Operator Name Role Phone Whitney Kaur MD, MPH Primary Care Provider + Freda Garg MD Unavailable Mike Valladares MD Unavailable Freda Garg MD Unavailable Eren Mahoney MD Unavailable [phone] Whitney Kaur MD, MPH Unavailable [phone] Dajuan Hammer MD Primary Care Provider [phone] Whitney Kaur MD, MPH Primary Care Provider + Dajuan Hammer MD Unavailable [phone] Kim Noel MD Primary Care Provide r Encounter Details Date Type Department Care Team (Late st Contact Info) Description 05/16/2017 Procedure Pass [facility] INDERJIT, Judy [address] [facility], 6th [place] [address] Social History Tobacco Use Types Packs/Day Years [...] Entry Date Author No 10/29/2016 8:45 AM Rsoa Schafer PA-C documented in this encounter Plan of Treatment Upcoming Encounters Date Type Department Care Team (Late st Contact Info) Description 04/20/2025 3:00 PM EST Telemedicine [address], [address] [place] [address] Kvng Agarwal MD, DSc [address] [place] [address] [address] [place] [address] [email or web address] 06/10/2029 Procedure Pass [facility] PERIOPERATIVE DEPT 55 [place] [address] documented as of this encounter Visit Diagnoses Not on filedocumented in this encounter Care Teams Sulfuric Acid Plant Operator Relationship Specialty Start Date End Date Whitney Kaur MD, MPH [address] [place] [address] [email or web address] PCP - General 02/06/17 02/24/18 Dajuan Hammer MD 55 [facility] [address] [place] [phone] [email or web address] [email or web address] PCP - General Rheumatology 02/25/18 04/16/18 Whitney Kaur MD, MPH [address] [place] [address] [email or web address] PCP - General Family Medicine 04/17/18 06/25/23 Kim Noel MD [address] [place] [address] PCP - General Internal Medicine 06/26/23 Freda Garg MD [address] [place] [address] [email or web address] Referring OBGYN Obstetrics and Gynecology 02/28/17 Mike Valladares MD [address] [place] [address], 2nd [place] [address] [email or web address] Historical LMR Provider 03/27/17 06/17/21 Freda Garg MD [address] [place] [address] [email or web address] Historical LMR Provider 03/27/17 Eren Mahoney MD 22 [facility], [address] [place] [address] julio Historical LMR Provider 03/27/17 06/17/21 Whitney Kaur MD, MPH [address] [place] [address] Historical LMR Provider 03/27/17 Dajuan Hammer MD [address] [place] [phone] [email or web address] [facility] Referring Physician Rheumatology 04/17/18 documented as of this encounter Additional Source Comments The information contained in this document represents components of the legal health record. It is not the complete legal health record.[facility]
--- OUTSIDE RECORDS SUMMARY | 2025-03-16 17:07 | XMS_ITS | Encounter Summary ---
Author Organization [facility] Address [address] [facility] [address] [place] [address] Phone Care Team Providers Care Asbestos Wire Finisher Name Role Phone Freda Garg MD Unavailable Mike Valladares MD Unavailable [phone] Freda Garg MD Unavailable Eren Mahoney MD Unavailable [phone] Whitney Kaur MD, MPH Unavailable [phone] Whitney Kaur MD, MPH Primary Care Provider + Dajuan Hammer MD Unavailable [phone] Kim Noel MD Primary Care Provide r Encounter Details Date Type Department Care Team (Late st Contact Info) Description 08/10/2020 Procedure Pass [facility], [address] [address] Social History Tobacco Use Types Packs/Day Years [...] Telemedicine [facility] Center [address] [place] [address], [address] [place] [address] Kvng Agarwal MD, DSc [address] [facility] [address] [place] [address] [email or web address] 06/10/2029 Procedure Pass [facility] PERIOPER[facility]IVE DEPT [address] [place] [phone] documented as of this encounter Visit Diagnoses Not on filedocumented in this encounter Care Teams Asbestos Wire Finisher Relationship Specialty Start Date End Date Whitney Kaur MD, MPH 70 [place] [address] [email or web address] PCP - General Family Medicine 04/17/18 06/25/23 Kim Noel MD [address] [place] [address] PCP - General Internal Medicine 06/26/23 Freda Garg MD [address] [address] [email or web address] Referring OBGYN Obstetrics and Gynecology 02/28/17 Mike Valladares MD 22 [facility], 2nd [place] [address] [email or web address] Historical LMR Provider 03/27/17 06/17/21 Freda Garg MD [address] [place] [address] Historical LMR Provider 03/27/17 Eren Mahoney MD [address] [place] [address] julio Historical LMR Provider 03/27/17 06/17/21 Whitney Kaur MD, MPH 70 [place] [address] [email or web address] Historical LMR Provider 03/27/17 Dajuan Hammer MD [address] [place] [address] [address] [place] [phone] [email or web address] Referring Physician Rheumatology 04/17/18 documented as of this encounter Additional Source Comments The information contained in this document represents components of the legal health record. It is not the complete legal health record.[facility]
--- OUTSIDE RECORDS SUMMARY | 2025-03-16 17:07 | XMS_ITS | Encounter Summary ---
Author Organization [facility] Address [address] [place] [address] Phone Care Team Providers Care Earth Science Laboratory Technician Name Role Phone Whitney Kaur MD, MPH Primary Care Provider + Freda Garg MD Unavailable Mike Valladares MD Unavailable [phone] Freda Garg MD Unavailable Eren Mahoney MD Unavailable [phone] Whitney Kaur MD, MPH Unavailable [phone] Dajuan Hammer MD Primary Care Provider [phone] Whitney Kaur MD, MPH Primary Care Provider + Dajuan Hammer MD Unavailable [phone] Kim Noel MD Primary Care Provide r Encounter Details Date Type Department Care Team (Late st Contact Info) Description 05/14/2017 Procedure Pass [facility] PERIOPER[facility]IVE DEPT [address] [place] [phone] Social History Tobacco Use Types Packs/Day Years [...] Info) Description 04/20/2025 3:00 PM EST Telemedicine [facility] [address] [facility], [address] [place] [address] Kvng Agarwal MD, DSc [address] [facility] [address] [place] [address] [email or web address] 06/10/2029 Procedure Pass [facility] PERIOPER[facility]IVE DEPT [address] [place] [phone] documented as of this encounter Visit Diagnoses Not on filedocumented in this encounter Care Teams Earth Science Laboratory Technician Relationship Specialty Start Date End Date Whitney Kaur MD, MPH [address] [place] [address] [email or web address] PCP - General 02/06/17 02/24/18 Dajuan Hammer MD [address] [facility] [address] [place] [phone] [email or web address] [facility] PCP - General Rheumatology 02/25/18 04/16/18 Whitney Kaur MD, MPH [address] [place] [address] [email or web address] PCP - General Family Medicine 04/17/18 06/25/23 Kim Noel MD [address] [place] [address] PCP - General Internal Medicine 06/26/23 Freda Garg MD [address] [place] [address] [email or web address] Referring OBGYN Obstetrics and Gynecology 02/28/17 Mike Valladares MD [address] [place] [address], 2nd [place] [address] [email or web address] Historical LMR Provider 03/27/17 06/17/21 Freda Garg MD [address] [place] [address] Historical LMR Provider 03/27/17 Eren Mahoney MD [address] [facility] [address] [place] [address] julio [email or web address] Historical LMR Provider 03/27/17 06/17/21 Whitney Kaur MD, MPH [address] [place] [address] [email or web address] Historical LMR Provider 03/27/17 Dajuan Hammer MD [address] [place], [place] [address] [phone] [email or web address] [facility] Referring Physician Rheumatology 04/17/18 documented as of this encounter Additional Source Comments The information contained in this document represents components of the legal health record. It is not the complete legal health record.[facility]
--- OUTSIDE RECORDS SUMMARY | 2025-03-16 17:08 | XMS_ITS | Encounter Summary ---
Author Organization [facility] Address [address] [facility] [address] [place] [address] Phone Care Team Providers Care Retail Sales Associate Name Role Phone Freda Garg MD Unavailable Freda Garg MD Unavailable Whitney Kaur MD, MPH Unavailable [phone] Whitney Kaur MD, MPH Primary Care Provider + Dajuan Hammer MD Unavailable [phone] Kim Noel MD Primary Care Provide r Encounter Details Date Type Department Care Team (Late st Contact Info) Description 07/26/2022 Procedure Pass [place] Admitting Dept - Virtual Department [address] [place] [address] Social History Tobacco Use Types Packs/Day Years Used Date Smoking Tobacco: Former Cigarettes 1.5 10 0 10/19/1976 - 10/19/1986 Smokeless Tobacco: Never Alcohol Use Standard Drinks/Week Comments Yes 1 (1 standard drink = 0.6 oz pur e alcohol) Comments No Sex and Gender Information Value [...] Info) Description 04/20/2025 3:00 PM EST Telemedicine [address], [address] [place] [address] Kvng Agarwal MD, DSc [address] [place] [address] [address] [place] [address] [email or web address] 06/10/2029 Procedure Pass [facility] [address] [place] [phone] documented as of this encounter Visit Diagnoses Not on filedocumented in this encounter Care Teams Retail Sales Associate Relationship Specialty Start Date End Date Whitney Kaur MD, MPH [address] [place] [address] [email or web address] PCP - General Family Medicine 04/17/18 06/25/23 Kim Noel MD [address] [address] PCP - General Internal Medicine 06/26/23 Freda Garg MD [address] [address] [email or web address] Referring OBGYN Obstetrics and Gynecology 02/28/17 Freda Garg MD [address] [address] Historical LMR Provider 03/27/17 Whitney Kaur MD, MPH 70 [place] [address] [email or web address] Historical LMR Provider 03/27/17 Dajuan Hammer MD 55 [facility] [address] [place] [phone] [email or web address] [email or web address] Referring Physician Rheumatology 04/17/18 documented as of this encounter Additional Source Comments The information contained in this document represents components of the legal health record. It is not the complete legal health record.[facility]
--- OUTSIDE RECORDS SUMMARY | 2025-03-16 17:08 | XMS_ITS | Encounter Summary ---
Author Organization [facility] Address [address] [place] [address] Phone Care Team Providers Care Blender Conveyor Operator Name Role Phone Heidi Solano MD Primary Care Provider + Whitney Kaur MD, MPH Primary Care Provider + Freda Garg MD Unavailable Mike Valladares MD Unavailable Freda Garg MD Unavailable Eren Mahoney MD Unavailable Whitney Kaur MD, MPH Unavailable Dajuan Hammer MD Primary Care Provider [phone] Whitney Kaur MD, MPH Primary Care Provider + Dajuan Hammer MD Unavailable Kim Noel MD Primary Care Provide r Encounter Details Date Type Department Care Team (Latest Contact Info) Description 02/04/[address] [facility]PARTMENT [address] [place] [phone] Eliazar Peace MD [address] [place] [address] [email or web address] Other form of scoliosis of lumbar spine Social History Tobacco Use Types Packs/Day Years Used Date Smoking Tobacco: Former Cigarettes 1.5 10 0 10/19/1976 - 10/19/1986 Alcohol Use Standard Drinks/Week Comments Yes 3 [...] Info) Description 04/20/2025 3:00 PM EST Telemedicine [address], [address] [place] [address] Kvng Agarwal MD, DSc [address] [facility] [address] [place] [address] [email or web address] 06/10/[address] [facility] PERIOPERATIVE DEPT 55 [place] [phone] documented as of this encounter Visit Diagnoses Diagnosis Other form of scoliosis of lumbar spine documented in this encounter Care Teams Blender Conveyor Operator Relationship Specialty Start Date End Date Heidi Solano MD [email or web address] PCP - General Family Medicine 01/14/17 02/05/17 Whitney Kaur MD, MPH 70 [place] [address] [email or web address] PCP - General 02/06/17 02/24/18 Dajuan Hammer MD 55 [facility] [address] [place] [phone] [email or web address] PCP - General Rheumatology 02/25/18 04/16/18 Whitney Kaur MD, MPH 70 [place] [address] [email or web address] PCP - General Family Medicine 04/17/18 06/25/23 Kim Noel MD [address] [address] PCP - General Internal Medicine 06/26/23 Freda Garg MD [address] [place] [address], [address] [place] [address] Referring OBGYN Obstetrics and Gynecology 02/28/17 Mike Valladares MD 22 [facility], 2nd [place] [address] Historical LMR Provider 03/27/17 06/17/21 Freda Garg MD [address] [place] [address] Historical LMR Provider 03/27/17 Eren Mahoney MD [address] [place] [address] julio Historical LMR Provider 03/27/17 06/17/21 Whitney Kaur MD, MPH [address] [place] [address] Historical LMR Provider 03/27/17 Dajuan Hammer MD [address] [place] [address] [address] [place] [phone] [email or web address] .[facility] Referring Physician Rheumatology 04/17/18 documented as of this encounter Additional Source Comments The information contained in this document represents components of the legal health record. It is not the complete legal health record.[facility]
--- OUTSIDE RECORDS SUMMARY | 2025-03-16 17:08 | XMS_ITS | Encounter Summary ---
Author Organization [facility] Address [address] [facility] [address] [place] [address] Phone Care Team Providers Care Teaching Aide Name Role Phone Freda Garg MD Unavailable Freda Garg MD Unavailable Whitney Kaur MD, MPH Unavailable [phone] Whitney Kaur MD, MPH Primary Care Provider + Dajuan Hammer MD Unavailable [phone] Kim Noel MD Primary Care Provide r Encounter Details Date Type Department Care Team (Late st Contact Info) Description 02/16/2022 Procedure Pass [facility] [address] [address] Social History Tobacco Use Types Packs/Day Years [...] Description 04/20/2025 3:00 PM EST Telemedicine [address], [address] [place] [address] Kvng Agarwal MD, DSc [address] [place] [address] [address] [place] [address] [email or web address] 06/10/2029 Procedure Pass [facility] PERI[facility] DEPT [address] [place] [phone] documented as of this encounter Visit Diagnoses Not on filedocumented in this encounter Care Teams Teaching Aide Relationship Specialty Start Date End Date Whitney Kaur MD, MPH [address] [place] [address] [email or web address] PCP - General Family Medicine 04/17/18 06/25/23 Kim Noel MD [address] [address] PCP - General Internal Medicine 06/26/23 Freda Garg MD [address] [address] [email or web address] Referring OBGYN Obstetrics and Gynecology 02/28/17 Freda Garg MD [address] [address] Historical LMR Provider 03/27/17 Whitney Kaur MD, MPH 70 [place] [address] [email or web address] Historical LMR Provider 03/27/17 Dajuan Hamemr MD 55 [facility] [address] [place] [phone] [email or web address] .[email or web address] Referring Physician Rheumatology 04/17/18 documented as of this encounter Additional Source Comments The information contained in this document represents components of the legal health record. It is not the complete legal health record.[facility]
--- OUTSIDE RECORDS SUMMARY | 2025-03-16 17:08 | XMS_ITS | Encounter Summary ---
Author Organization [facility] Address [address] [facility] [address] [place] [address] Phone Care Team Providers Care Mobility Scooter Repairer Name Role Phone Whitney Kaur MD, MPH Primary Care Provider + Freda Garg MD Unavailable Mike Valladares MD Unavailable Freda Garg MD Unavailable Eren Mahoney MD Unavailable Whitney Kaur MD, MPH Unavailable [phone] Dajuan Hammer MD Primary Care Provider [phone] Whitney Kaur MD, MPH Primary Care Provider + Dajuan Hammer MD Unavailable [phone] Kim Noel MD Primary Care Provide r Encounter Details Date Type Department Care Team (Late st Contact Info) Description 02/20/2017 Procedure Pass [facility] [address] [place] [phone] Social History Tobacco Use Types Packs/Day Years [...] Info) Description 04/20/2025 3:00 PM EST Telemedicine [facility] [address] [facility], [address] [place] [address] Kvng Agarwal MD, DSc [address] [facility] [address] [place] [address] [email or web address] 06/10/2029 Procedure Pass [facility] [address] [place] [phone] documented as of this encounter Visit Diagnoses Not on filedocumented in this encounter Care Teams Mobility Scooter Repairer Relationship Specialty Start Date End Date Whitney Kaur MD, MPH 70 [place] [address] [email or web address] PCP - General 02/06/17 02/24/18 Dajuan Hammer MD 55 [facility] [address] [place] [phone] [email or web address] [facility] PCP - General Rheumatology 02/25/18 04/16/18 Whitney Kaur MD, MPH 70 [place] [address] [email or web address] PCP - General Family Medicine 04/17/18 06/25/23 Kim Noel MD [address] [address] PCP - General Internal Medicine 06/26/23 Freda Garg MD [address] [place] [address] [email or web address] Referring OBGYN Obstetrics and Gynecology 02/28/17 Mike Valladares MD [address] [place] [address], 2nd [place] [address] [email or web address] Historical LMR Provider 03/27/17 06/17/21 Freda Garg MD [address] [place] [address] Historical LMR Provider 03/27/17 Eren Mahoney MD 22 [facility] 102 [place] [address] julio Historical LMR Provider 03/27/17 06/17/21 Whitney Kaur MD, MPH 70 [place] [address] [email or web address] Historical LMR Provider 03/27/17 Dajuan Hammer MD [address] [place] [phone] [email or web address] [facility] Referring Physician Rheumatology 04/17/18 documented as of this encounter Additional Source Comments The information contained in this document represents components of the legal health record. It is not the complete legal health record.[facility]
--- OUTSIDE RECORDS SUMMARY | 2025-03-16 17:08 | XMS_ITS | Encounter Summary ---
Author Organization [facility] Address [address] [facility] [address] [place] [address] Phone Care Team Providers Care Ensemble Member Name Role Phone Whitney Kaur MD, MPH Primary Care Provider + Freda Garg MD Unavailable Mike Valladares MD Unavailable Freda Garg MD Unavailable Eren Mahoney MD Unavailable Whitney Kaur MD, MPH Unavailable Dajuan Hammer MD Primary Care Provider [phone] Whitney Kaur MD, MPH Primary Care Provider + Dajuan Hammer MD Unavailable [phone] Kim Noel MD Primary Care Provide r Encounter Details Date Type Department Care Team (Late st Contact Info) Description 02/26/2017 Procedure Pass [facility] [address] [place] [address] Social History Tobacco Use Types Packs/Day Years [...] Info) Description 04/20/2025 3:00 PM EST Telemedicine [facility] [address] [facility], [address] [place] [address] Kvng Agarwal MD, DSc 55 [facility] [address] [place] [address] [email or web address] 06/10/2029 Procedure Pass [facility] [address] [place] [phone] documented as of this encounter Visit Diagnoses Not on filedocumented in this encounter Care Teams Ensemble Member Relationship Specialty Start Date End Date Whitney Kaur MD, MPH 70 [place] [address] [email or web address] PCP - General 02/06/17 02/24/18 Dajuan Hammer MD 55 [facility] [address] [place] [phone] [email or web address] .[facility] PCP - General Rheumatology 02/25/18 04/16/18 Whitney Kaur MD, MPH 70 [place] [address] [email or web address] PCP - General Family Medicine 04/17/18 06/25/23 Kim Noel MD [address] [place] [address] PCP - General Internal Medicine 06/26/23 Freda Garg MD [address] [place] [address] [email or web address] Referring OBGYN Obstetrics and Gynecology 02/28/17 Mike Valladares MD [address] [place] [address], 2nd [place] [address] [email or web address] Historical LMR Provider 03/27/17 06/17/21 Freda Garg MD [address] [place] [address] Historical LMR Provider 03/27/17 Eren Mahoney MD 22 [facility] 102 [place] [address] julio Historical LMR Provider 03/27/17 06/17/21 Whitney Kaur MD, MPH [address] [place] [address] [email or web address] Historical LMR Provider 03/27/17 Dajuan Hammer MD [address] [place] [phone] [email or web address] .[facility] Referring Physician Rheumatology 04/17/18 documented as of this encounter Additional Source Comments The information contained in this document represents components of the legal health record. It is not the complete legal health record.[facility]
--- OUTSIDE RECORDS SUMMARY | 2025-03-16 17:08 | XMS_ITS | Encounter Summary ---
Author Organization [facility] Address [address] [facility] [address] [place] [address] Phone Care Team Providers Care Template Checker Name Role Phone Whitney Kaur MD, MPH Primary Care Provider + Freda Garg MD Unavailable Mike Valladares MD Unavailable [phone] Freda Garg MD Unavailable Eren Mahoney MD Unavailable [phone] Whitney Kaur MD, MPH Unavailable Dajuan Hammer MD Primary Care Provider [phone] Whitney Kaur MD, MPH Primary Care Provider + Dajuan Hammer MD Unavailable Kim Noel MD Primary Care Provide r Encounter Details Date Type Department Care Team (Late st Contact Info) Description 03/27/2017 Procedure Pass [facility] [address] [place] [address] Social History Tobacco Use Types Packs/Day Years [...] Description 04/20/2025 3:00 PM EST Telemedicine [facility] [address] [facility], [address] [place] [address] Kvng Agarwal MD, DSc [address] [facility] [address] [place] [address] [email or web address] 06/10/2029 Procedure Pass [facility] PERI[facility]PT [address] [place] [phone] documented as of this encounter Visit Diagnoses Not on filedocumented in this encounter Care Teams Template Checker Relationship Specialty Start Date End Date Whitney Kaur MD, MPH [address] [place] [address] [email or web address] PCP - General 02/06/17 02/24/18 Dajuan Hammer MD 55 [facility] [address] [place] [phone] [email or web address] [email or web address] PCP - General Rheumatology 02/25/18 04/16/18 Whitney Kaur MD, MPH [address] [place] [address] [email or web address] PCP - General Family Medicine 04/17/18 06/25/23 Kim Noel MD [address] [place] [address] PCP - General Internal Medicine 06/26/23 Freda Garg MD [address] [place] [address] [email or web address] Referring OBGYN Obstetrics and Gynecology 02/28/17 Mike Valladares MD [address] [place] [address], 2nd [place] [address] [email or web address] Historical LMR Provider 03/27/17 06/17/21 Freda Garg MD [address] [place] [address] Historical LMR Provider 03/27/17 Eren Mahoney MD 22 [facility] [address] [place] [address] julio Historical LMR Provider 03/27/17 06/17/21 Whitney Kaur MD, MPH [address] [place] [address] [email or web address] Historical LMR Provider 03/27/17 Dajuan Hammer MD [address] [place] [phone] [email or web address] [facility] Referring Physician Rheumatology 04/17/18 documented as of this encounter Additional Source Comments The information contained in this document represents components of the legal health record. It is not the complete legal health record.[facility]
--- OUTSIDE RECORDS SUMMARY | 2025-03-16 17:08 | XMS_ITS | Encounter Summary ---
Author Organization [facility] Address [address] [facility] [address] [place] [address] Phone Care Team Providers Care Inserting Machine Operator Name Role Phone Whitney Kaur MD, MPH Primary Care Provider + Freda Garg MD Unavailable Mike Valladares MD Unavailable Freda Garg MD Unavailable Eren Mahoney MD Unavailable Whitney Kaur MD, MPH Unavailable Dajuan Hammer MD Primary Care Provider [phone] Whitney Kaur MD, MPH Primary Care Provider + Dajuan Hammer MD Unavailable [phone] Kim Noel MD Primary Care Provide r Encounter Details Date Type Department Care Team (Late st Contact Info) Description 03/27/2017 Procedure Pass [facility] Imaging [address] [place] [address] Social History Tobacco Use Types Packs/Day Years [...] Info) Description 04/20/2025 3:00 PM EST Telemedicine [facility] Clinical Center [address] [facility], [address] [place] [address] Kvng Agarwal MD, DSc 55 [facility] [address] [place] [address] [email or web address] 06/10/2029 Procedure Pass [facility] PERIOPERATIVE DEPT [address] [place] [phone] documented as of this encounter Visit Diagnoses Not on filedocumented in this encounter Care Teams Inserting Machine Operator Relationship Specialty Start Date End Date Whitney Kaur MD, MPH [address] [place] [address] [email or web address] PCP - General 02/06/17 02/24/18 Dajuan Hammer MD 55 [facility] [address] [place] [phone] [email or web address] [email or web address] PCP - General Rheumatology 02/25/18 04/16/18 Whitney Kaur MD, MPH [address] [place] [address] [email or web address] PCP - General Family Medicine 04/17/18 06/25/23 Kim Noel MD [address] [place] [address] PCP - General Internal Medicine 06/26/23 Freda Garg MD [address] [place] [address] [email or web address] Referring OBGYN Obstetrics and Gynecology 02/28/17 Mike Valladares MD [address] [place] [address], 2nd [place] [address] [email or web address] Historical LMR Provider 03/27/17 06/17/21 Freda Garg MD [address] [place] [address] Historical LMR Provider 03/27/17 Eren Mahoney MD 22 [facility] 102 [place] [address] julio Historical LMR Provider 03/27/17 06/17/21 Whitney Kaur MD, MPH [address] [place] [address] [email or web address] Historical LMR Provider 03/27/17 Dajuan Hammer MD [address] [place] [phone] [email or web address] [email or web address] Referring Physician Rheumatology 04/17/18 documented as of this encounter Additional Source Comments The information contained in this document represents components of the legal health record. It is not the complete legal health record.[facility]
--- OUTSIDE RECORDS SUMMARY | 2025-03-16 17:08 | XMS_ITS | Encounter Summary ---
Author Organization [facility] Address [address] [facility] [address] [place] [address] Phone Care Team Providers Care Tray Packer Name Role Phone Freda Garg MD Unavailable Freda Garg MD Unavailable Whitney Kaur MD, MPH Unavailable [phone] Whitney Kaur MD, MPH Primary Care Provider + Dajuan Hammer MD Unavailable [phone] Kim Noel MD Primary Care Provide r Encounter Details Date Type Department Care Team (Late st Contact Info) Description 07/25/2021 Procedure Pass MRI, [facility] - [address], [address] [place] [address] Social History Tobacco Use Types Packs/Day Years [...] Info) Description 04/20/2025 3:00 PM EST Telemedicine [address], [address] [place] [address] Kvng Agarwal MD, DSc [address] [place] [address] [address] [place] [address] [email or web address] 06/10/2029 Procedure Pass [facility] PERIOPER[facility]IVE DEPT [address] [place] [phone] documented as of this encounter Visit Diagnoses Not on filedocumented in this encounter Care Teams Tray Packer Relationship Specialty Start Date End Date Whitney Kaur MD, MPH [address] [place] [address] [email or web address] PCP - General Family Medicine 04/17/18 06/25/23 Kim Noel MD [address] [address] PCP - General Internal Medicine 06/26/23 Freda Garg MD [address] [address] [email or web address] Referring OBGYN Obstetrics and Gynecology 02/28/17 Freda Garg MD [address] [address] Historical LMR Provider 03/27/17 Whitney Kaur MD, MPH 70 [place] [address] [email or web address] Historical LMR Provider 03/27/17 Dajuan Hammer MD 55 [facility] [address] [place] [phone] [email or web address] [facility] Referring Physician Rheumatology 04/17/18 documented as of this encounter Additional Source Comments The information contained in this document represents components of the legal health record. It is not the complete legal health record.[facility]
--- OUTSIDE RECORDS SUMMARY | 2025-03-16 17:08 | XMS_ITS | Encounter Summary ---
Author Organization [facility] Address [address] [facility] [address] [place] [address] Phone Care Team Providers Care Director Of Vendor Management Name Role Phone Whitney Kaur MD, MPH Primary Care Provider + Freda Garg MD Unavailable Mike Valladares MD Unavailable Freda Garg MD Unavailable Eren Mahoney MD Unavailable [phone] Whitney Kaur MD, MPH Unavailable Dajuan Hammer MD Primary Care Provider [phone] Whitney Kaur MD, MPH Primary Care Provider + Dajuan Hammer MD Unavailable [phone] Kim Noel MD Primary Care Provide r Encounter Details Date Type Department Care Team (Late st Contact Info) Description 02/26/2017 Procedure Pass [facility] [address] [place] [address] Social History Tobacco Use Types Packs/Day Years [...] Info) Description 04/20/2025 3:00 PM EST Telemedicine [facility] Clinical Center [address] [facility], [address] [place] [address] Kvng Agarwal MD, DSc 55 [facility] [address] [place] [address] [email or web address] 06/10/2029 Procedure Pass [facility] PERI[facility]IVE DEPT [address] [place] [phone] documented as of this encounter Visit Diagnoses Not on filedocumented in this encounter Care Teams Director Of Vendor Management Relationship Specialty Start Date End Date Whitney Kaur MD, MPH 70 [place] [address] [email or web address] PCP - General 02/06/17 02/24/18 Dajuan Hammer MD 55 [facility] [address] [place] [phone] [email or web address] [email or web address] PCP - General Rheumatology 02/25/18 04/16/18 Whitney Kaur MD, MPH 70 [place] [address] [email or web address] PCP - General Family Medicine 04/17/18 06/25/23 Kim Noel MD [address] [place] [address] PCP - General Internal Medicine 06/26/23 Freda Garg MD [address] [place] [address] [email or web address] Referring OBGYN Obstetrics and Gynecology 02/28/17 Mike Valladares MD [address] [place] [address], 2nd [place] [address] [email or web address] Historical LMR Provider 03/27/17 06/17/21 Freda Garg MD [address] [place] [address] Historical LMR Provider 03/27/17 Eren Mahoney MD 22 [facility], [facility] 102 [place] [address] julio Historical LMR Provider 03/27/17 06/17/21 Whitney Kaur MD, MPH [address] [place] [address] [email or web address] Historical LMR Provider 03/27/17 Dajuan Hammer MD [address] [place] [phone] [email or web address] Referring Physician Rheumatology 04/17/18 documented as of this encounter Additional Source Comments The information contained in this document represents components of the legal health record. It is not the complete legal health record.[facility]
--- OUTSIDE RECORDS SUMMARY | 2025-03-16 17:08 | XMS_ITS | Encounter Summary ---
Author Organization [facility] Address [address] [facility] [address] [place] [address] Phone Care Team Providers Care Delimer Name Role Phone Freda Garg MD Unavailable Freda Garg MD Unavailable Whitney Kaur MD, MPH Unavailable [phone] Dajuan Hammer MD Unavailable [phone] Kim Noel MD Primary Care Provide r Encounter Details Date Type Department Care Team (Late st Contact Info) Description 04/01/2024 Procedure Pass [facility], [address] [address] Social History Tobacco Use Types Packs/Day Years [...] Info) Description 04/20/2025 3:00 PM EST Telemedicine [facility]ocrine Clinical Center [address] [facility], [address] [place] [address] Kvng Agarwal MD, DSc 55 [facility] [address] [place] [address] [email or web address] 06/10/2029 Procedure Pass [facility] PERIOPERATIVE DEPT 55 [place] [phone] documented as of this encounter Visit Diagnoses Not on filedocumented in this encounter Care Teams Delimer Relationship Specialty Start Date End Date Kim Noel MD [address] [address] PCP - General Internal Medicine 06/26/23 Freda Garg MD 22 [facility] 102 [place] [address] [email or web address] Referring OBGYN Obstetrics and Gynecology 02/28/17 Freda Garg MD 22 [facility] 102 [place] [address] [email or web address] Historical LMR Provider 03/27/17 Whitney Kaur MD, MPH 70 [place] [address] [email or web address] Historical LMR Provider 03/27/17 Dajuan Hammer MD 55 [facility] [place] [address] [place] [phone] [email or web address] Referring Physician Rheumatology 04/17/18 documented as of this encounter Additional Source Comments The information contained in this document represents components of the legal health record. It is not the complete legal health record.[facility]
--- OUTSIDE RECORDS SUMMARY | 2025-03-16 17:08 | XMS_ITS | Encounter Summary ---
Author Organization [facility] Address [address] [facility] [address] [place] [address] Phone Care Team Providers Care Market Developer Name Role Phone Freda Garg MD Unavailable Freda Garg MD Unavailable Whitney Kaur MD, MPH Unavailable [phone] Dajuan Hammer MD Unavailable [phone] Kim Noel MD Primary Care Provide r Encounter Details Date Type Department Care Team (Late st Contact Info) Description 06/26/2023 Procedure Pass [facility] Admitting Dept Virtual Department 30 [place], [place] [phone] Social History Tobacco Use Types Packs/Day Years [...] Info) Description 04/20/2025 3:00 PM EST Telemedicine [facility] Neuro[facility]ocrine Clinical Center [address] [facility], [address] [place] [address] Kvng Agarwal MD, DSc [address] [facility] [address] [place] [address] [email or web address] 06/10/2029 Procedure Pass [facility] PERIOPERATIVE DEPT 55 [place] [phone] documented as of this encounter Visit Diagnoses Not on filedocumented in this encounter Care Teams Market Developer Relationship Specialty Start Date End Date Kim Noel MD [address] [address] PCP - General Internal Medicine 06/26/23 Freda Garg MD 22 [facility] 102 [place] [address] [email or web address] Referring OBGYN Obstetrics and Gynecology 02/28/17 Freda Garg MD 22 [facility] 102 [place] [address] [email or web address] Historical LMR Provider 03/27/17 Whitney Kaur MD, MPH 70 [place] [address] [email or web address] Historical LMR Provider 03/27/17 Dajuan Hammer MD [address] [facility] [address] [place] [phone] [email or web address] Referring Physician Rheumatology 04/17/18 documented as of this encounter Additional Source Comments The information contained in this document represents components of the legal health record. It is not the complete legal health record.[facility]
--- OUTSIDE RECORDS SUMMARY | 2025-03-16 17:08 | XMS_ITS | Encounter Summary ---
Author Organization [facility] Address [address] [facility] [address] [place] [address] Phone Care Team Providers Care Coal Passer Name Role Phone Whitney Kaur MD, MPH Primary Care Provider + Freda Garg MD Unavailable Mike Valladares MD Unavailable [phone] Freda Garg MD Unavailable Eren Mahoney MD Unavailable Whitney Kaur MD, MPH Unavailable [phone] Dajuan Hammer MD Primary Care Provider [phone] Whitney Kaur MD, MPH Primary Care Provider + Dajuan Hammer MD Unavailable Kim Noel MD Primary Care Provide r Encounter Details Date Type Department Care Team (Late st Contact Info) Description 07/26/2017 Documentation [facility] [address] [facility], 5th Floor, [address] [place] [address] Kevin Medina MD 55 [facility] [address] [place] [address] [email or web address] Social History Tobacco Use Types Packs/Day Years [...] Info) Description 04/20/2025 3:00 PM EST Telemedicine [address], [address] [place] [address] Kvng Agarwal MD, DSc [address] [facility] [address] [place] [address] [email or web address] 06/10/2029 Procedure Pass [facility]PT 55 [place] [phone] documented as of this encounter Visit Diagnoses Not on filedocumented in this encounter Care Teams Coal Passer Relationship Specialty Start Date End Date Whitney Kaur MD, MPH 70 [place] [address] [email or web address] PCP - General 02/06/17 02/24/18 Dajuan Hammer MD [address] [place] [address] [address] [place] [phone] [email or web address] PCP - General Rheumatology 02/25/18 04/16/18 Whitney Kaur MD, MPH 70 [place] [address] [email or web address] PCP - General Family Medicine 04/17/18 06/25/23 Kim Noel MD [address] [place] [address] PCP - General Internal Medicine 06/26/23 Freda Garg MD 22 [facility], [address] [place] [address] [email or web address] Referring OBGYN Obstetrics and Gynecology 02/28/17 Mike Valladares MD 22 [facility], 2nd [place] [address] Historical LMR Provider 03/27/17 06/17/21 Freda Garg MD [address] [place] [address] Historical LMR Provider 03/27/17 Eren Mahoney MD [address] [place] [address] julio Historical LMR Provider 03/27/17 06/17/21 Whitney Kaur MD, MPH [address] [place] [address] Historical LMR Provider 03/27/17 Dajuan Hammer MD [address] [place] [address] [address] [place] [phone] [email or web address] .[email or web address] Referring Physician Rheumatology 04/17/18 documented as of this encounter Additional Source Comments The information contained in this document represents components of the legal health record. It is not the complete legal health record.[facility]
--- OUTSIDE RECORDS SUMMARY | 2025-03-16 17:08 | XMS_ITS | Encounter Summary ---
Author Organization [facility] Address [address] [place] [address] Phone Care Team Providers Care Co Founder & Ceo Name Role Phone Freda Garg MD Unavailable Mike Valladares MD Unavailable [phone] Freda Garg MD Unavailable Eren Mahoney MD Unavailable [phone] Whitney Kaur MD, MPH Unavailable [phone] Whitney Kaur MD, MPH Primary Care Provider + Dajuan Hammer MD Unavailable [phone] Kim Noel MD Primary Care Provide r Reason for Referral * MRI/CAT Scan - Closed Specialty Diagnoses / Procedures Referred By Jennifer t Referred To Contact Radiology Diagnoses Lower abdominal pain Upper abdominal pain Nausea Constipation, unspecified constipation type Procedures CT Abdomen/Pelvis Isabela Carmona PA-C Phone: tel: fax: mailto: Referral ID Status Reason Start Date Expiration Date Visits Re quested Visits Authorized [id number] Closed 04/03/2021 04/03/2022 1 1 Encounter Details Date Type Department Care Team (Latest Contact Info) Description 04/03/2021 Transcribe Orders Virtual Department [address] [place] [address] Isabela Carmona PA-C [address], 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, even when wearing glasses Answer Date of Assessment Author No 10/29/2016 8:45 AM Rosa Schafer PA-C * Patient has serious difficulty walking or climbing stairs (5yr old or older) Answer Date of Assessment Author No 10/29/2016 8:45 AM EDRosa Tafoya PA-C * Patient has serious difficulty dressing or bathing (5yr old or older) Answer Date of Assessment Author No 10/29/2016 8:45 AM Rosa Schafer PA-C * Patient has serious difficulty doing errands alone such as visiting a doctor???s office or shopping, due to physical, mental, or emotional condition (15 years old or older) Answer Date of Assessment Author No 10/29/2016 8:45 AM EDT Rosa Ga PA-C documented as of this encounter Mental Status * Patient has serious difficulty concentrating, remembering, or making decisions due to physical, mental, or emotional condition Answer Entry Date Author No 10/29/2016 8:45 AM EDT Rosa Ga PA-C documented in this encounter Plan of Treatment Upcoming Encounters Date Type Department Care Team (Late st Contact Info) Description 04/20/2025 3:00 PM EST Telemedicine [facility] [address], [address] [place] [address] Kvng Agarwal MD, DSc [address] [place] [address] [address] [place] [address] [email or web address] 06/10/2029 Procedure Pass [facility] [address] [place] [phone] documented as of this encounter Results * CT ABDOMEN/PELVIS WITH CONTRAST (04/27/2021 1:48 PM EST) Anatomical Region Laterality Modality Abdomen, Pelvis Computed Tomogra phy 04/27/2021 1:57 PM EST Impressions 04/27/2021 2:20 PM EST 1.Large hiatal hernia. No evidence of obstruction. No evidence of acute pathology in the abdomen or pelvis. 2.A few tiny hypodense lesions within the liver and a 5 mm hypodense lesion in the spleen too small to actively characterize but very likely benign. 3.Mild pelvocaliectasis versus small parapelvic cysts on the left. 4.Scoliosis and prominent degenerative changes in the lumbar spine. Narrative 04/27/2021 2:[address] ABDOMEN/PELVIS WITH CONTRAST HISTORY: Upper and lower abdominal pain, nausea, constipation. TECHNIQUE: Multidetector-row CT of the abdomen and pelvis was performed after administration of intravenous contrast using tailored dose modulation techniques. Images were reconstructed in the axial, coronal, and sagittal planes. COMPARISON: MRI pelvis 02/14/2017. FINDINGS: Lower Chest: No significant abnormalities. Liver: There are approximately 3 tiny scattered hypodense lesions within the liver too small to actively characterize but very likely benign, probably cysts and/or hemangiomas. Liver margins are smooth. Liver normal in size. Biliary: No evidence of biliary ductal dilatation. Spleen: 5 mm hypodense focus within the central portion of the spleen too small to actively characterize but also very likely benign, probably a cyst or hemangioma. Pancreas: The pancreas is diffusely atrophic but no focal pancreatic lesions. Peripancreatic fat well-preserved. Adrenal Glands: No evidence of adrenal masses. Kidneys/Ureters: Mild-moderate diffuse cortical atrophy of the kidneys. Kidneys enhance normally. 1.8 cm cyst in the interpolar region of the right kidney. Mild cystic changes in the central portion of the left kidney consistent with mild pelvocaliectasis or small parapelvic cysts. The ureters are normal in caliber. Bowel: Large hiatal hernia. No marked bowel distention or evidence of bowel wall thickening. Multiple diverticula within the distal descending and sigmoid colon. No free air. Peritoneum/Retroperitoneum: No free fluid, free air or evidence of organized collection. Lymph Nodes: No suspicious lymph nodes. Pelvic Organs/Bladder: The bladder is largely obscured by intense metallic streak artifact from the left hip prosthesis. The uterus is partially visualized. No visible pelvic masses. Vessels: The portal vein is patent. Abdominal aorta is normal in caliber. Diffuse atherosclerotic changes. Bones/Soft Tissues: Moderate-severe levoscoliotic deformity involving the lumbar spine. Severe degenerative changes at L2-L3, L3-L4 and L4-L5. A left total hip prosthesis is in place. Procedure Note Syed Galvez MD - 04/27/2021 CT ABDOMEN/PELVIS WITH CONTRAST HISTORY: Upper and lower abdominal pain, nausea, constipation. TECHNIQUE: Multidetector-row CT of the abdomen and pelvis was performedafter administration of intravenous contrast using tailored dosemodulation techniques. Images were reconstructed in the axial, coronal,and sagittal planes. COMPARISON: MRI pelvis 02/14/2017. FINDINGS: Lower Chest: No significant abnormalities. Liver: There are approximately 3 tiny scattered hypodense lesions withinthe liver too small to actively characterize but very likely benign,probably cysts and/or hemangiomas. Liver margins are smooth. Liver normalin size. Biliary: No evidence of biliary ductal dilatation. Spleen: 5 mm hypodense focus within the central portion of the spleen toosmall to actively characterize but also very likely benign, probably acyst or hemangioma. Pancreas: The pancreas is diffusely atrophic but no focal pancreaticlesions. Peripancreatic fat well-preserved. Adrenal Glands: No evidence of adrenal masses. Kidneys/Ureters: Mild-moderate diffuse cortical atrophy of the kidneys.Kidneys enhance normally. 1.8 cm cyst in the interpolar region of theright kidney. Mild cystic changes in the central portion of the leftkidney consistent with mild pelvocaliectasis or small parapelvic cysts.The ureters are normal in caliber. Bowel: Large hiatal hernia. No marked bowel distention or evidence ofbowel wall thickening. Multiple diverticula within the distal descendingand sigmoid colon. No free air. Peritoneum/Retroperitoneum: No free fluid, free air or evidence oforganized collection. Lymph Nodes: No suspicious lymph nodes. Pelvic Organs/Bladder: The bladder is largely obscured by intense metallicstreak artifact from the left hip prosthesis. The uterus is partiallyvisualized. No visible pelvic masses. Vessels: The portal vein is patent. Abdominal aorta is normal in caliber.Diffuse atherosclerotic changes. Bones/Soft Tissues: Moderate-severe levoscoliotic deformity involving thelumbar spine. Severe degenerative changes at L2-L3, L3-L4 and L4-L5. Aleft total hip prosthesis is in place. IMPRESSION: 1.Large hiatal hernia. No evidence of obstruction. No evidence of acutepathology in the abdomen or pelvis. 2.A few tiny hypodense lesions within the liver and a 5 mm hypodenselesion in the spleen too small to actively characterize but very likelybenign. 3.Mild pelvocaliectasis versus small parapelvic cysts on the left. 4.Scoliosis and prominent degenerative changes in the lumbar spine. Isabela Carmona PA-C IMNupur CT ABD/PELVIS Final Result documented in this encounter Visit Diagnoses Diagnosis Lower abdominal pain- Primary Abdominal pain, other specified site Upper abdominal pain Nausea Nausea alone Constipation, unspecified constipation type Lower abdominal pain Abdominal pain, other specified site Upper abdominal pain Nausea Nausea alone Constipation, unspecified constipation type documented in this encounter Care Teams Co Founder & Ceo Relationship Specialty Start Date End Date Whitney Kaur MD, MPH [address] [place] [address] PCP - General Family Medicine 04/17/18 06/25/23 Kim Noel MD [address] [place] [address] PCP - General Internal Medicine 06/26/23 Freda Garg MD [address] [facility], [address] [address] Referring OBGYN Obstetrics and Gynecology 02/28/17 Mike Valladares MD [address] [facility], [address]nd [place] [address] Historical LMR Provider 03/27/17 06/17/21 Freda Garg MD [address] [place] [address], [address] [address] Historical LMR Provider 03/27/17 Eren Mahoney MD [address] [place] [address], [address] [address] julio Historical LMR Provider 03/27/17 06/17/21 Whitney Kaur MD, MPH 70 [place] [address] Historical LMR Provider 03/27/17 Dajuan Hammer MD 55 [facility] [address] [phone] (work) [email or web address] Referring Physician Rheumatology 04/17/18 documented as of this encounter Additional Source Comments The information contained in this document represents components of the legal health record. It is not the complete legal health record.[facility]
--- OUTSIDE RECORDS SUMMARY | 2025-03-16 17:08 | XMS_ITS | Encounter Summary ---
Author Organization [facility] Address [address] [place] [address] Phone Care Team Providers Care Trauma Nurse Name Role Phone Freda Garg MD Unavailable Mike Valladares MD Unavailable [phone] Freda Garg MD Unavailable Eren Mahoney MD Unavailable Whitney Kaur MD, MPH Unavailable [phone] Whitney Kaur MD, MPH Primary Care Provider + Dajuan Hammer MD Unavailable [phone] Kim Noel MD Primary Care Provide r Encounter Details Date Type Department Care Team (Latest Contact Info) Description 05/12/2021 Transcribe Orders Virtual Department [address] [place] [address] Syed Maharaj MD [address] [place] [phone] [email or web address] Encounter for preprocedure screening laboratory testing for COVID-19 (Primary Dx) Social History Tobacco Use Types Packs/Day Years [...] Description 04/20/2025 3:00 PM EST Telemedicine [address], [address] [place] [address] Kvng Agarwal MD, DSc [address] [place] [address] [id number] [place] [address] [email or web address] 06/10/[address] [facility] PERIOPER[facility]IVE DEPT [address] [place] [address] documented as of this encounter Results * COVID-19 PCR Order (05/14/2021 3:25 PM EST) COVID-19 Comment [id number] [facility] COVID Testing Status Sent to [facility] Micro Lab [facility] Other 05/14/2021 3:25 PM EST 05/14/2021 6:11 PM EST us Syed Maharaj MD BODY FLUIDS AND STOOLS ORDER DELMA Final Result Performing Organization Address City/State/[facility] Co de Phone Number [facility] [address] [place] [address] documented in this encounter Visit Diagnoses Diagnosis Encounter for preprocedure screening laboratory testing for COVID-19- Primary documented in this encounter Care Teams Trauma Nurse Relationship Specialty Start Date End Date Whitney Kaur MD, MPH [address] [place] [address] [email or web address] PCP - General Family Medicine 04/17/18 06/25/23 Kim Noel MD [address] [address] PCP - General Internal Medicine 06/26/23 Freda Garg MD [address] [facility], [address] [place] [address] [email or web address] Referring OBGYN Obstetrics and Gynecology 02/28/17 Mike Valladares MD [address] [facility], 2[address] [place] [address] [email or web address] Historical LMR Provider 03/27/17 06/17/21 Freda Garg MD [address] [address] Historical LMR Provider 03/27/17 Eren Mahoney MD [address] [place] [address] julio Historical LMR Provider 03/27/17 06/17/21 Whitney Kaur MD, MPH [address] [place] [address] Historical LMR Provider 03/27/17 Dajuan Hammer MD [address] [place] [phone] [email or web address] Referring Physician Rheumatology 04/17/18 documented as of this encounter Additional Source Comments The information contained in this document represents components of the legal health record. It is not the complete legal health record.[facility]
--- OUTSIDE RECORDS SUMMARY | 2025-03-16 17:08 | XMS_ITS | Patient Health Record ---
[facility] Address [address] [place] [address] Care Team Providers Care Security Assessor Name Role Phone Whitney Kaur MD Primary Care Provider Ricki Matson [phone] Allergies Allergen (clinical drug ingredient) Drug/Non Drug Allergy documented on EMR Reaction Allergy Type Onset Date Status ciprofloxacin Cipro rash, itching Drug Allergy Active Levaquin itchy, rash Drug Allergy Activ e Reason For Referral No Information Medications Medication SIG (Take, Route, Frequency, Duration) Notes Start Date End Date Status Cimetidine 300 MG 1 tablet at bedtime Orally Once a day Active buPROPion HCl 100 MG 1 tablet Orally Onc e a day Active Baclofen 10 MG/20ML Intrathecal Active Alendronate Sodium A ctive hydroCHLOROthiazide 25 MG 1 tablet in th e morning Orally Once a day Active Folic Acid 2.5 mg No t-Taking Gabapentin 300 MG 1 capsule Orally Once a day hs; Duration: 10 days 02/27/2021 Active Cabergoline 0.5 MG 1 tablet Orally Active Calcium Active Metoprolol Succinate 200 mg once a day Not-Taking Methotrexate 2.5 mg Not-Taking hydroCHLOROthiazide 12.5 mg Not-Taking Gabapentin 300 MG 2 capsules Orally p.m.; Duration: 30 day(s) Not-Taking Vitamin D 2000 mg once a day N ot-Taking Orencia Not-Taking Sertraline HCl 50 mg Active Metoprolol Tartrate 50 MG 1 tablet with food Orally Twice a day Active Iron Active Ibuprofen 600 MG 1 tablet with food or milk as needed Orally Three times a day; Duration: 10 days 02/27/2021 Active Actemra Not-Taking Vitamin D 400 UNIT/ML Orally Active Vitamin C 500 MG Orally Act isamar Simvastatin 40 mg Ac tive buPROPion HCl 150 mg Not-Taking Desipramine HCl 10 MG Orally Not-Taking Immunizations Vaccine Route Administration Date Status Comme nts Influenza Unknown 03/10/2021 Administered COVID-19 Moderna Vaccine Unknown 04/13/2021 Administered 1st 07/30/2020 2nd 08/27/2020 Social History Tobacco Use: Social History Observation Description Date Details (start date - stop date) Former Smoker NA - NA Tobacco Use/Smoking Question Answer Notes Are you a: former smoker Additional Findings: Tobacco Non-User Current no n-smoker Alcohol Screen Question Answer Notes Did you have a drink containing alcohol in the p ast year? Yes Points 0 Interpretation Negative Tobacco use other than smoking: Question Answer Notes Are you an other tobacco user? No Problems Problem Type SNOMED Code ICD Code Onset Dates Problem Status W/U Status Risk Notes Problem Acquired hammer toe of right foot (39514274297031 05) Other hammer toe(s) (acquired), right foot (M20.41) Active confirmed Problem Rheumatoid arthritis (23843413) Rheumatoid arthritis involving multiple sites with positive rheumatoid factor (M05.79) Active confirmed Plan Of Treatment Pending Test Test Name Order Date X ray : Foot, right 3V 03/10/2018 X ray : Foot, right 3V 11/16/2020 X ray : Foot, right 3V 03/27/2021 X ray : Foot, right 3V 04/12/2021 X ray : Foot, right 3V 05/01/2021 X ray : Foot, right 3V 06/14/2021 X ray : Foot, right 3V 05/13/2012 18499- Debride <25 sq cm 05/30/2012 [id number] SKIN/TISSUE 05/30/2012 [id number] SKIN/TISSUE 05/13/2012 Insurance Providers Payer Name Payer Address Payer Phone Subscriber Number Group Number Insured Name Patient Relationship to Insured Coverage Start Date Coverage End Date Medicare National [employer] [address] [place] [address] [id number] Isa Bello Self - patient is the insured 7 [employer]) [address] [place] [address] [phone] [id number] Isa Bello Self - patient is the insured Medical (General) History Medical History History ICD Code Arthritis back, hip, knee pain broken bones chicken pox depression hypertension joint implants/screws measles mumps neuropathy psoriasis/eczema transfusions Anemia Cholesterol Sciatica Vascular phlebitis (clots) Neuralgia - Neuritis Ulcer of Other Part of Foot Arthritis - Degenerative Hammer toe Pain in Limb Surgical History Surgery Date(Month/Year) bunionectomy rotator cuff 2009 sparc sling 2006 left hip replacement 2016 lumbar laminectomy 2014 Pituitary Adenoma - complication of pulm onary embolism 2017 MT head resection R 2,3, HT Repair R 2-4 03/23/2021 Hospitalization History Reason Date(Month/Year) [facility] -2 days GI issues -Antibi otics given 05/2021
--- OUTSIDE RECORDS SUMMARY | 2025-03-16 17:08 | XMS_ITS | Encounter Summary ---
Author Organization [facility] Address [address] [place] [address] Phone Care Team Providers Care Bariatric Nurse Name Role Phone Freda Garg MD Unavailable Mike Valladares MD Unavailable [phone] Freda Garg MD Unavailable Eren Mahoney MD Unavailable Whitney Kaur MD, MPH Unavailable [phone] Whitney Kaur MD, MPH Primary Care Provider + Dajuan Hammer MD Unavailable [phone] Kim Noel MD Primary Care Provide r Encounter Details Date Type Department Care Team (Late st Contact Info) Description 04/03/2021 Procedure Pass [facility], Ct Scan - [facility] [address] [place] [address] Social History Tobacco Use Types Packs/Day Years [...] 8:45 AM EDRosa Tafoya PA-C * 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, even when wearing glasses Answer Date of Assessment Author No 10/29/2016 8:45 AM EDRosa Tafoya PA-C * Patient has serious difficulty walking [...] Info) Description 04/20/2025 3:00 PM EST Telemedicine [facility] [address] [place] [address], [address] [place] [address] Kvng Agarwal MD, DSc [address] [facility] [address] [place] [address] [email or web address] 06/10/2029 Procedure Pass [facility] PERIOPER[facility]IVE DEPT [address] [place] [phone] documented as of this encounter Visit Diagnoses Not on filedocumented in this encounter Care Teams Bariatric Nurse Relationship Specialty Start Date End Date Whitney Kaur MD, MPH [address] [place] [address] PCP - General Family Medicine 04/17/18 06/25/23 Kim Noel MD [address] [place] [address] PCP - General Internal Medicine 06/26/23 Freda Garg MD [address] [place] [address] [email or web address] Referring OBGYN Obstetrics and Gynecology 02/28/17 Mike Valladares MD [address] [facility] 2[address] [place] [address] [email or web address] Historical LMR Provider 03/27/17 06/17/21 Freda Garg MD [address] [place] [address] Historical LMR Provider 03/27/17 Eren Mahoney MD [address] [place] [address] julio Historical LMR Provider 03/27/17 06/17/21 Whitney Kaur MD, MPH [address] [place] [address] Historical LMR Provider 03/27/17 Dajuan Hammer MD [address] [place], [place] [address] [place] [address] [email or web address] Referring Physician Rheumatology 04/17/18 documented as of this encounter Additional Source Comments The information contained in this document represents components of the legal health record. It is not the complete legal health record.[facility]
--- OUTSIDE RECORDS SUMMARY | 2025-03-16 17:08 | XMS_ITS | Clinical Summary ---
Author Organization [facility] Address [address] [place] [address] Phone Care Team Providers Care Communication Assistant Name Role Phone Freda Garg MD Unavailable Freda Garg MD Unavailable Whitney Kaur MD, MPH Unavailable [phone] Dajuan Hammer MD Unavailable [phone] Kim Noel MD Primary Care Provide r Allergies Active Allergy Reactions Criticality Noted Date Comments Ciprofloxacin Rash Low 07/25/2023 Levaquin (Levofloxacin) Itching,Rash Medium 11/17/2014 Medications sertraline (ZOLOFT) 50 MG tablet Take 1 tablet by mouth daily. 11/17/2014 Active simvastatin (ZOCOR) 40 MG tablet 40 mg nightly. Dose: Not available; Form: Not available; Route: PO; Frequency: Not available; Directions: As directed; Details: Dispense: Tablet(s); Date: 11/17/2014 11/17/2014 Active buPROPion (WELLBUTRIN) 100 MG immediate release tablet 150 mg 2 (two) times a day. Dose: Variable: See CMLV for Details; Form: Take 1 TABLET; Route: PO; Frequency: Not available; Directions: Not available; Details: Dispense: Tablet(s); Date: 11/17/2014 11/17/2014 Active metoprolol tartrate (LOPRESSOR) 100 MG tablet Take 0.5 tablets (50 mg total) by mouth 2 (two) times a day. Dose: Variable: [facility]; Form: Take 1 TABLET; Route: PO; Frequency: Not available; Directions: Not available; Details: Dispense: Tablet(s); Date: 11/17/2014 06/20/2018 Active pantoprazole (PROTONIX) 40 MG tablet Take 40 mg by mouth daily. 07/24/2021 Active losartan (COZAAR) 100 MG tablet 07/24/2022 Active acetaminophen (TYLENOL) 325 mg tablet Take 2 tablets (650 mg total) by mouth every 6 (six) hours as needed. 07/26/2022 Active calcium carbonate-vitam in D3 600 mg-12.5 mcg (500 unit) Cap Take 1 capsule by mouth daily. 30 capsule 11 09/28/2023 Active cabergoline (DOSTINEX) 0.5 mg tablet TAKE 1 TABLET (0.5 MG TOTAL) BY MOUTH 4 (FOUR) TIMES A WEEK. PLEASE TAKE AT BEDTIME WITH SMALL SNACK 48 tablet 3 10/14/2024 Active Active Problems Problem Noted Date Diagnosed Date Endometrial polyp 01/15/2022 Overview (01/15/2022): Incidental finding, no bleeding approx 10 x 5 mm at fundus Assessment & Plan (01/18/2022 11:02 AM EDT): Suspect benign etiology, though there is very small chance not benign Ms Bello Prefers to avoid surgery juan david as this is incidental finding and she has other active medical issues Therefor, I recommend setting up repeat imaging to ensure no growth; she can call and elect hysteroscopy Lower abdominal pain 09/26/2021 Overview (09/26/2021): Pulling sensation across the lower abdominal wall only present with standing or walking. DRILLING INSPECTOR exam is benign Assessment & Plan (07/26/2023 1:27 PM EST): Symptoms persist, GI recommended evaluation here. I find no evidence of prolapse on exam today Requested copy of the abd/CT from [facility] to review Assessment & Plan (09/26/2021 10:47 AM EDT): Pain is reportedly new since she last had a pelvic ultrasound and abdominal pelvic CT in January and April 2021 respectively. Although I highly doubt any DRILLING INSPECTOR etiology and she has had multiple imaging studies of the pelvis over the years, another pelvic ultrasound is ordered today. 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 MRI lumbar spine order placed 01/2016 for revaluation Scoliosis of lumbar spine 06/25/2015 RCT (rotator cuff tear) 06/25/2015 Overview (06/25/2015): Right. 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 However, she has failed several oral and biologic DMARDs (MTX ~12 months [ineffective], enbrel 3-6 months [ineffective], humira 3-6 month [ineffective], golimumab 3-6 months [ineffective], orencia 2 years [ineffective], LEF >6 months [ineffective], HCQ [ineffective], and SSZ 1 week [GI intolerance]). 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 Resolved Problems Problem Noted Date Diagnosed Date Resolved Date Long-term current use of tofacitinib 09/10/2018 03/19/2019 Immunosuppressed status 09/12/201703/10 Hypertension 06/25/2015 02/25/2018 Immunizations Immunization Administration Dates Next Due Influenza High-Dose Quadriva lent Preservative Free IM 03/15/2021,03/16/2020 Influenza High-Dose Trivalen t Preservative Free IM 04/08/2019,04/07/2018,04/04/2017 Influenza Quadrivalent w/ Preservative IM 2014,05/20/2013,03/14/2012 Influenza, Unspecified Formulation 08/18/2015(De ferred: Other - 00) Pneumococcal, Unspecified Formulation 11/08/2005 ,11/08/2004 Td, unspecified formulation 10/30/2013 Tdap 03/14/2012 Zoster recombinant 07/22/2019,05/05/2019 Family History Medical History Relation Comments Diabetes Sister Relation Status Comments Sister Social History Tobacco Use Types Packs/Day Years [...] AM EDT Sexual Orientation Not on file Last Filed Vital Signs Vital Sign Reading Time Taken Comments Blood Pressure 114/74 07/25/2023 10:37 AM EST Pulse 50 06/26/2023 10:52 AM EST Temperature 36.2 C (97.1 F) 06/26/2023 10:36 AM EST Respiratory Rate 12 06/26/2023 10:52 AM EST Oxygen Saturation 94% 06/26/2023 10:52 AM EST Inhaled Oxygen Concentration 40% 05/14/2017 3 :30 PM EST Weight 56.7 kg (125 lb) 09/09/2024 1:51 PM EDT Height 165.1 cm (5' 5 ) 09/09/2024 1:51 PM EDT Body Mass Index 20.8 09/09/2024 1:51 PM EDT Plan of Treatment Upcoming Encounters Date Type Department Care Team (Late st Contact Info) Description 04/20/2025 3:00 PM EST Telemedicine [address], [address] [place] [address] Kvng Agarwal MD, DSc [id number] [place] [address] [email or web address] 06/10/2029 Procedure Pass [facility] PERIOPERATIVE DEPT [address] [place] [phone] Health Maintenance Due Date Last Done Comments COLOGUARD 1996 FIT TEST 1996 FOBT 1996 SIGMOIDOSCOPY 1996 VIRTUAL COLONOSCOPY 1996 DEPRESSION SCREENING 04/18/2018 04/18/2017 LIPID PANEL 02/10/2020 02/09/2015, 01/25/2015 MAMMOGRAM 03/03/2021 03/03/2019, 01/07/2017 PAP SMEAR 09/20/2021 11/28/2015, 11/21/2015 POTASSIUM LEVEL 07/13/2023 07/13/2022, 09/0 02/2022, 03/31/2021, Additional history exists Adult Td,Tdap Booster 10/31/2023 10/30/2013, 012 BLOOD PRESSURE 01/23/2024 07/25/2023 INFLUENZA VACCINE (#1) 2025 , 06/21/2022, 03/15/2021, Additional history exists COVID-19 VACCINE ( season) 2025 04/02/2023, 10/02/2022, 03/21/2022, Additional history exists CREATININE LEVEL 10/14/2025 10/14/2024, 12/2024, 04/01/2024, Additional history exists COLONOSCOPY 06/26/2033 06/26/2023 COLORECTAL CANCER SCREENING 06/26/2033 HEPATITIS C SCREENING Completed 09/09/2014 ZOSTER VACCINES Completed 07/22/2019, 05/05/2019 PNEUMOCOCCAL VACCINES (50+ years) Completed 12/24/2022, 06/11/2015 RSV VACCINE Completed 04/26/2023 OSTEOPOROSIS SCREENING INITIAL (ONE-TIME) Completed 10/01/2023, 08/23/2021, 08/21/2019 SMOKING STATUS SCREENING (Once After 26 Yrs) Completed 10/14/2024 HEPATITIS A VACCINES Aged Out No long er eligible based on patient's age to complete this topic HIB VACCINES Aged Out No longer eligi ble based on patient's age to complete this topic MENINGOCOCCAL VACCINES (ACWY) Aged Out No longer eligible based on patient's age to complete this topic MENINGOCOCCAL VACCINES (B) Aged Out N o longer eligible based on patient's age to complete this topic Medical Devices Implanted Type 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 Professional Employer Consultant Device Identifier Shelf Expiration Date Model / Serial / Lot Prosthetic Joint Prosthetic Joint Left: Hip Bilateral Feet Pin,Left Thr [employer] Description:Per [email or web address] m, safe to 3T [id number] 06/24/17 Procedures Procedure Name Priority Date/Time Associated Diagnosis Comments BD DXA HIP AND FOREARM Routine 10/01/2023 9:47 AM EDT Thornfield 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) Personal history of radiation therapy Vitamin D deficiency, unspecified ENDOSCOPY, COLON 06/26/2023 10:0 4 AM EST BASIC METABOLIC PANEL Routine 07/13/2022 1:57 PM EST 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 No statistically significant change compared with 08/23/2021. Narrative 10/03/2023 9:35 AM EDT This is a 33-year-old female with a history of osteopenia. Compared with prior study 08/23/2021 100. Evaluation of the right hip and left forearm is obtained and appears technically adequate. The left forearm discloses a total bone mineral density of 0.459 g/cm2 with a T- score of -2.1. Z score 0 point. This is in the osteopenia range. No statistically significant change compared with 08/23/2021. The right hip (total) has a total bone mineral density of 0.841 g/cm2 with a T-score of -0.8. No statistically significant change compared with 08/23/2021. The right hip (neck) has a total bone mineral density of 0.723 g/cm2 with a T- score of -1.1. Z score 0.8. This is in the osteopenia range. Procedure Note Syed Galvez MD - 10/03/2023 This is a 33-year-old female with a history of osteopenia. Compared with prior study 08/23/2021 100. Evaluation of the right hip and left forearm is obtained and appearstechnically adequate. The left forearm discloses a total bone mineral density of 0.459 g/kn9lgun a T- score of -2.1. Z score 0 point. This is in the osteopenia range.No statistically significant change compared with 08/23/2021. The right hip (total) has a total bone mineral density of 0.841 g/no2llyg a T- score of -0.8. No statistically significant change compared with08/23/2021. The right hip (neck) has a total bone mineral density of 0.723 g/cm2 witha T- score of -1.1. Z score 0.8. This is in the osteopenia range. IMPRESSION: Bone mineral density falls within the osteopenia range. No statisticallysignificant change compared with 08/23/2021. us Kvng Agarwal MD, DSc IMG BD BONE DENSITY DE XA Final Result * ENDOSCOPY, COLON (06/26/2023 10:04 AM EST) Narrative Transcriptions Syed Duarte MD - 06/26/2023 10:04 AM EST [facility] Patient Name: Isa Eugenia Attending MD:: SYED DUARTE MD, Procedure Date: 06/26/2023 10:04 AM Date of : 1950 Age: 72 Admit Type: Outpatient Gender: Female Room: [place] [address] Referring MD: KIM NOEL Exam Type: Colonoscopy Indications: Pelvic pain Medications: Monitored Anesthesia Care Procedure: Informed consent was obtained from the patientafter discussion of the indications, limitations, alternatives, benefits, and risks of the procedure. Risks specifically discussed include but are not limited to medication reactions, missed lesions, bleeding, perforation, or the need for emergent surgery. Throughout the procedure, the patient's blood pressure, pulse, end-tidal CO2, and oxygensaturations were monitored continuously. The Colonoscope was introduced through the anus and advanced to the cecum, identified by theappendiceal orifice. The colonoscopy was performed without difficulty. The patient tolerated the procedurewell. The quality of the bowel preparation was fair. Anatomical landmarks were photographed. Complications: No immediate complications. Estimated blood loss:None. Findings: The perianal and digital rectal examinations were normal. Multiple small and large-mouthed diverticula were found in the sigmoid colon and descending colon. The rectum, recto-sigmoid colon, sigmoid colon, descending colon, splenic flexure, transversecolon, hepatic flexure, ascending colon, cecum,appendiceal orifice, ileocecal valve, rectum (on retroflexion)and ascending colon (on retroflexion) appearednormal. 2 plus internal hemorrhoids were noted. Impression: - Preparation of the colon was fair. - Diverticulosis in the sigmoid colon and in the descending colon. - The rectum (on retroflexion), ascending colon (on retroflexion), rectum, sigmoid colon, descending colon, splenic flexure, transverse colon, hepatic flexure, ascending colon, cecum, recto-sigmoidcolon, ileocecal valve and appendiceal orifice arenormal. - No specimens collected. Recommendation: - Discharge patient to home. - High fiber diet. - Continue present medications. - Repeat colonoscopy in 5 years for surveillance. - A two day preparation will be utilized on thenext colonoscopy. - You have diverticulosis so please eat a highfiber diet. SYED DUARTE MD 06/26/2023 10:35:28 AM This report has been signed electronically. Number of Addenda: 0 Note Initiated On: 06/26/2023 10:04 AM Procedure Code(s): --- Professional --- 16029, Colonoscopy, flexible; diagnostic, including collection of specimen(s) by brushing or washing, when performed (separateprocedure) --- Technical --- 08514, Colonoscopy, flexible; diagnostic, including collection of specimen(s) by brushing or washing, when performed (separateprocedure) Diagnosis Code(s): --- Professional --- R10.2, Pelvic and perineal pain K57.30, Diverticulosis of large intestine without perforation or abscess without bleeding --- Technical --- R10.2, Pelvic and perineal pain K57.30, Diverticulosis of large intestine without perforation or abscess without bleeding CPT copyright 2021 [employer]. All rights reserved. The codes documented in this report are preliminary and upon certified medical records coder reviewmay be revised to meet current compliance requirements. Procedure Date: 06/26/2023 10:04:02 AM [address] [place] [address] us Kim Noel MD GI PROCEDURE ORDERABL ES Final Result * (ABNORMAL) Basic metabolic panel (07/13/2022 1:57 PM EST) SODIUM 140 135 - 145 mmol/L [facility] CHLORIDE 99(L) 100 - 108 mmol/L [facility] POTASSIUM 4.9 3.5 - 5.0 mmol/L [facility] CO2 30 23.0 - 31.9 mmol/L [facility] BUN 37(H) 8 - 25 mg/dL [facility] CREATININE 1.41 0.6 - 1.5 mg/dL [facility] GLUCOSE 76 70 - 110 mg/dL [facility] CALCIUM 9.6 8.5 - 10.0 mg/dL [facility] EGFR 40(L) >59 mL/min/1.7 3m2 [facility] Comment:Estimated glomerular filtration rate calculated using the CKD-EPI refit equation. ANION GAP 11 3 - 15 mmol/L [facility] 07/13/2022 1:57 PM EST 07/13/2022 2:50 PM EST Ricardo Ratliff MD LAB BLOOD ORDERABLES Final R esult Performing Organization Address City/State/[facility] Co de Phone Number [address] * MAMMOGRAPHY FOR RESULT ENTRY ONLY (03/03/2019) Freda Garg MD HEALTH MAINTENANCE Final Result * PAP SMEAR FOR RESULT ENTRY ONLY (11/21/2015) Pap smear NIL, HPV Negative (-16/-18) Sophia Dillard MD HEALTH MAINTENANCE Final Result * Lipid panel (02/09/2015 10:58 PM EDT) High Density Lipoprotein 58 35 - 100 mg/dL [facility] Cholesterol 207 mg/dL [facility] Comment:DESIRABLE: <200 Triglycerides 131 40 - 150 mg/dL [facility] Low Density Lipoprotein 123 mg/dL [facility] Comment:DESIRABLE: <130 Cardiac Risk Ratio 3.6 [facility] Comment:NORMAL RISK RATIO: 5 .0 OR LESS 02/09/2015 10:5 8 PM EDT 02/09/2015 10:58 PM EDT Comment:BLOOD us Eliazar Carr MD LAB BLOOD ORDERABLES Edited Resu lt - Final Performing Organization Address [facility]/ZIP Co de Phone Number [address] [address] * HCV antibody, qualitative (09/09/2014 5:23 PM EDT) HCV Antibody Negative [facility] Comment: Antibodies to HCV not detected. Does not exclude the possibility of exposure to HCV. 09/09/2014 5:23 PM EDT 09/09/2014 8:57 PM EDT Comment:BLOOD us Malia Reis MD LAB BLOOD ORDERABLES Final Resu lt Performing Organization Address City/[facility] Co de Phone Number [address] [address] from Last 3 Months or Most Recently Relevant to Health Maintenance Insurance * Guarantor: Isa Bello Account Type Relation to Patient Date of Phone Billing Address Personal/Family Self 1950 [address] [place] [address] MEDICARE PART A & B [facility] SUPPLEMENT * Guarantor: Isa Bello Bladimir Account Type Relation to Patient Date of Phone Billing Address Personal/Family Self [address] [place] [address] MEDICARE PART A & B [facility] MEDICARE SUPPLEMENT * Guarantor: Isa Bello Bladimir Account Type Relation to Patient Date of Phone Billing Address Personal/Family Self 1950 [address] [place] [address] MEDICARE PART A & B MEDICARE PART A & B MEDICARE PART A & B [employer] MEDICARE SUPPLEMENT * Guarantor: Isa Bello Account Type Relation to Patient Date of Phone Billing Address Personal/Family Self 1950 [address] [place] [address] MEDICARE PART A & B [employer] [place] [address] * Guarantor: Isa Bello Account Type Relation to Patient Date of Phone Billing Address Personal/Family Self 1950 [address] [place] [address] MEDICARE PART A & B [employer] MEDICARE SUPPLEMENT * Guarantor: Isa Bello Account Type Relation to Patient Date of Phone Billing Address Personal/Family Self 1950 [address] [place] [address] MEDICARE PART A & B * Guarantor: Isa Bello Account Type Relation to Patient Date of Phone Billing Address Personal/Family Self 1950 [address] [place] [address] MEDICARE PART A & [place] [address] EXTENSION MEDICARE SUPPLEMENT [employer] DENTAL Advance Directives For more information, please contact: [phone] (9AM - 5PM [facility], Saturday-Saturday) Documents on File Type Date Recorded Patient Archival Records Clerk Expl anation Healthcare Proxy 10/30/2016 1:39 PM HEALTH CARE PROXY- 10/30/16 * Full Code (Latest Code Status on File) Date Activated Date Inactivated Comments 07/26/2022 12:33 PM Question Answer Comments Code Status Confirmed With: Patient * Full Code (Presumed) Date Activated Date Inactivated Comments 05/14/2017 12:54 PM 05/24/2017 5:27 PM Care Teams Communication Assistant Relationship Specialty Start Date End Date Kim Noel MD [address] [place] [address] PCP - General Internal Medicine 06/26/23 Freda Garg MD [address] [place] [address] Referring OBGYN Obstetrics and Gynecology 02/28/17 Freda Garg MD [address] [place] [address] Historical LMR Provider 03/27/17 Whitney Kaur MD, MPH [address] [place] [address] [email or web address] Historical LMR Provider 03/27/17 Dajuan Hammer MD [address] [address] [email or web address] Referring Physician Rheumatology 04/17/18 Additional Source Comments The information contained in this document represents components of the legal health record. It is not the complete legal health record.[facility]
--- OUTSIDE RECORDS SUMMARY | 2025-03-16 17:08 | XMS_ITS | Encounter Summary ---
Author Organization [facility] Address [address] [place] [address] Phone Care Team Providers Care Electronic Warfare Officer Name Role Phone Whitney Kaur MD, MPH Primary Care Provider + Heidi Solano MD Primary Care Provider + Whitney Kaur MD, MPH Primary Care Provider + Freda Garg MD Unavailable Mike Valladares MD Unavailable [phone] Freda Garg MD Unavailable Eren Mahoney MD Unavailable Whitney Kaur MD, MPH Unavailable Dajuan Hammer MD Primary Care Provider [phone] Whitney Kaur MD, MPH Primary Care Provider + Dajuan Hammer MD Unavailable [phone] Kim Noel MD Primary Care Provide r Encounter Details Date Type Department Care Team (Late st Contact Info) Description 10/29/2016 Procedure Pass [facility] PERIOPERATIVE DEPT [address] [place] [address] Social History Tobacco Use Types Packs/Day Years [...] Info) Description 04/20/2025 3:00 PM EST Telemedicine [facility] [address] [place] [address], [address] [place] [address] Kvng Agarwal MD, DSc [address] [place] [address] [place] [id number] [email or web address] 06/10/2029 Procedure Pass [facility] PERIOPERATIVE DEPT [address] [place] [address] documented as of this encounter Visit Diagnoses Not on filedocumented in this encounter Care Teams Electronic Warfare Officer Relationship Specialty Start Date End Date Whitney Kaur MD, MPH [address] [place] [address] [email or web address] PCP - General Family Medicine 10/24/16 01/13/17 Heidi Solano MD [address] [place] [address] [email or web address] PCP - General Family Medicine 01/14/17 02/05/17 Whitney Kaur MD, MPH [address] [place] [address] [email or web address] PCP - General 02/06/17 02/24/18 Dajuan Hammer MD [address] [phone] [email or web address] PCP - General Rheumatology 02/25/18 04/16/18 Whitney Kaur MD, MPH [address] [place] [address] [email or web address] PCP - General Family Medicine 04/17/18 06/25/23 Kim Noel MD [address] [place] [address] PCP - General Internal Medicine 06/26/23 Freda Garg MD [address] [address] Referring OBGYN Obstetrics and Gynecology 02/28/17 Mike Valladares MD [address] [facility] [address]nd [place] [address] Historical LMR Provider 03/27/17 06/17/21 Freda Garg MD [address] [address] Historical LMR Provider 03/27/17 Eren Mahoney MD [address] [place] [address] julio Historical LMR Provider 03/27/17 06/17/21 Wihtney Kaur MD, MPH [address] [place] [address] Historical LMR Provider 03/27/17 Dajuan Hammer MD [address] [place] [phone] [email or web address] Referring Physician Rheumatology 04/17/18 documented as of this encounter Additional Source Comments The information contained in this document represents components of the legal health record. It is not the complete legal health record.[facility]
--- OUTSIDE RECORDS SUMMARY | 2025-03-16 17:08 | XMS_ITS | Patient Health Record ---
Author Organization [facility] Address [address] [place] [address] Care Team Providers Care Swimming Pool Cleaner Name Role Phone Ricardo Shelton Unavailable [phone] Reason For Referral No Information Plan Of Treatment No Information
--- OUTSIDE RECORDS SUMMARY | 2025-03-16 17:08 | XMS_ITS | Encounter Summary ---
Author Organization [facility] Address [address] [place] [address] Phone Care Team Providers Care Sintering Plant Supervisor Name Role Phone Freda Garg MD Unavailable Freda Garg MD Unavailable Whitney Kaur MD, MPH Unavailable [phone] Whitney Kaur MD, MPH Primary Care Provider + Dajuan Hammer MD Unavailable [phone] Kim Noel MD Primary Care Provide r Encounter Details Date Type Department Care Team (Late st Contact Info) Description 03/22/2023 Procedure Pass [facility], [address] [address] Social History Tobacco Use Types Packs/Day Years [...] with a working camera? Not on file Comments No Sex and Gender Information Value [...] Description 04/20/2025 3:00 PM EST Telemedicine [address], [address] [place] [address] Kvng Agarwal MD, DSc [address] [place] [address] [id number] [place] [address] [email or web address] 06/10/2029 Procedure Pass [facility] [address] [place] [phone] documented as of this encounter Visit Diagnoses Not on filedocumented in this encounter Care Teams Sintering Plant Supervisor Relationship Specialty Start Date End Date Whitney Kaur MD, MPH 70 [place] [address] [email or web address] PCP - General Family Medicine 04/17/18 06/25/23 Kim Noel MD [address] [address] PCP - General Internal Medicine 06/26/23 Freda Garg MD [address] [address] [email or web address] Referring OBGYN Obstetrics and Gynecology 02/28/17 Freda Garg MD [address] [address] [email or web address] Historical LMR Provider 03/27/17 Whitney Kaur MD, MPH [address] [place] [address] [email or web address] Historical LMR Provider 03/27/17 Dajuan Hammer MD 55 [facility] [address] [address] [email or web address] Referring Physician Rheumatology 04/17/18 documented as of this encounter Additional Source Comments The information contained in this document represents components of the legal health record. It is not the complete legal health record.[facility]
--- OUTSIDE RECORDS SUMMARY | 2025-03-16 17:08 | XMS_ITS | Encounter Summary ---
Author Organization [facility] Address [address] [place] [address] Phone Care Team Providers Care Oven Attendant Name Role Phone Freda Garg MD Unavailable Mike Valladares MD Unavailable [phone] Freda Garg MD Unavailable Eren Mahoney MD Unavailable Whitney Kaur MD, MPH Unavailable Whitney Kaur MD, MPH Primary Care Provider + Dajuan Hammer MD Unavailable [phone] Kim Noel MD Primary Care Provide r Encounter Details Date Type Department Care Team (Latest Contact Info) Description 03/31/2021 Transcribe Orders [facility] Laboratory [address] [place] [address] Isabela Carmona PA-C [address] [place] [address] Constipation, unspecified constipation type (Primary Dx); Lower abdominal pain; Upper abdominal pain; Nausea Social History Tobacco Use Types Packs/Day Years [...] Info) Description 04/20/2025 3:00 PM EST Telemedicine [address], [address] [place] [address] Kvng Agarwal MD, DSc [address] [place] [address] [address] [email or web address] 06/10/2029 Procedure Pass [facility] [address] [place] [address] documented as of this encounter Results * TSH (03/31/2021 3:48 PM EDT) TSH 1.94 0.27 - 4.20 uIU/mL [facility] Blood 03/31/2021 3:48 PM EDT 03/31/2021 3:53 PM EDT us Isabela Carmona PA-C LAB BLOOD ORDERABLES Final Resu lt Performing Organization Address [facility]/ZIP Co de Phone Number [address] [address] * (ABNORMAL) Lipase (03/31/2021 3:48 PM EDT) LIPASE 64(H) 16 - 63 U/L [facility] Blood 03/31/2021 3:48 PM EDT 03/31/2021 3:53 PM EDT us Isabela Carmona PA-C LAB BLOOD ORDERABLES Final Resu lt Performing Organization Address [facility]/ZIP Co de Phone Number [address] [address] * (ABNORMAL) C-Reactive Protein (03/31/2021 3:48 PM EDT) C REACTIVE PROTEIN 10.3(H) 0.0 - 4.0 mg/L [facility] Blood 03/31/2021 3:48 PM EDT 03/31/2021 3:53 PM EDT us Isabela Carmona PA-C LAB BLOOD ORDERABLES Final Resu lt Performing Organization Address City/[facility]/ZIP Co de Phone Number [address] [address] * (ABNORMAL) Comprehensive metabolic panel (03/31/2021 3:48 PM EDT) SODIUM 142 133 - 146 mmol/L [facility] POTASSIUM 4.3 3.3 - 5.1 mmol/L [facility] CHLORIDE 101 96 - 108 mmol/L [facility] CO2 32 21 - 35 mmol/L [facility] BUN 22(H) 6 - 19 mg/dL [facility] CREATININE 0.90 0.5 - 1.5 mg/dL [facility] GLUCOSE 83 70 - 99 mg/dL [facility] ALBUMIN 4.1 3.9 - 4.8 g/dL [facility] TOTAL PROTEIN 7.1 6.5 - 8.0 g/dL [facility] CALCIUM 9.3 8.4 - 10.3 mg/dL [facility] ALKALINE PHOSPHATASE 82 39 - 117 U/L [facility] TOTAL BILIRUBIN 0.3 0.0 - 1.2 mg/dL [facility] AST 25 0 - 37 U/L [facility] ALT 16 0 - 40 U/L [facility] GLOBULIN 3.0 1 - 4.8 g/dL [facility] EGFR 65 >59 mL/min/1.7 3m2 [facility] Comment:Estimated glomerular filtration rate calculated using the CKD-EPI equation. ANION GAP 13 10 - 20 mmol/L [facility] Blood 03/31/2021 3:48 PM EDT 03/31/2021 3:53 PM EDT us Isabela Carmona PA-C LAB BLOOD ORDERABLES Final Resu lt [facility] [address] [place] [address] * (ABNORMAL) CBC (03/31/2021 3:48 PM EDT) WBC 9.82 4.00 - 11.00 K/uL [facility] RBC 3.97 3.72 - 5.30 M/uL [facility] HGB 12.8 11.4 - 15.9 g/dL [facility] HCT 39.9 34.2 - 46.8 % [facility] PLT 275 140 - 430 K/uL [facility] MCV 100.5(H) 78.0 - 97.0 fL [facility] MCH 32.2 25.0 - 33.0 pg [facility] MCHC 32.1 32.0 - 36.0 g/dL [facility] RDW 14.3 11.0 - 16.0 % [facility] MPV 11.6 8.4 - 12.8 fl [facility] NRBC 0.00 0 /100 WBCs [facility] ABSOLUTE NRBC 0.00 0 K/uL [facility] Blood 03/31/2021 3:48 PM EDT 03/31/2021 3:53 PM EDT Isabela Carmona PA-C LAB BLOOD ORDERABLES Final Resu lt Performing Organization Address [facility]/ZIP Co de Phone Number [address] [address] * Immunoglobulin A (03/31/2021 3:48 PM EDT) IgA 225 70 - 400 mg/dL [facility] Blood 03/31/2021 3:48 PM EDT 03/31/2021 3:53 PM EDT Isabela Carmona PA-C LAB BLOOD ORDERABLES Final Resu lt Performing Organization Address [facility]/ZIP Co de Phone Number [address] [address] * Tissue transglutaminase IgA (03/31/2021 3:48 PM EDT) TTG IGA ANTIBODY <1.2 <4.0 (Negative) U/mL [facility]PATH [address] Blood 03/31/2021 3:48 PM EDT 03/31/2021 3:53 PM EDT Isabela Carmona PA-C LAB BLOOD ORDERABLES Final [facility]u lt [facility] [address] [place] [address] documented in this encounter Visit Diagnoses Diagnosis Constipation, unspecified constipation type- Primary Lower abdominal pain Abdominal pain, other specified site Upper abdominal pain Nausea Nausea alone documented in this encounter Care Teams Oven Attendant Relationship Specialty Start Date End Date Whitney Kaur MD, MPH [address] [place] [address] [email or web address] PCP - General Family Medicine 04/17/18 06/25/23 Kim Noel MD [address] [place] [address] PCP - General Internal Medicine 06/26/23 Freda Garg MD [address] [place] [address] Referring OBGYN Obstetrics and Gynecology 02/28/17 Mike Valladares MD [address] [place] [address], 2nd [place] [address] Historical LMR Provider 03/27/17 06/17/21 Freda Garg MD [address] [place] [address] Historical LMR Provider 03/27/17 Eren Mahoney MD [address] [place] [address] julio Historical LMR Provider 03/27/17 06/17/21 Whitney Kaur MD, MPH [address] [place] [address] [email or web address] Historical LMR Provider 03/27/17 Dajuna Hammer MD [address] [facility] [address] [place] [phone] [email or web address] Referring Physician Rheumatology 04/17/18 documented as of this encounter Additional Source Comments The information contained in this document represents components of the legal health record. It is not the complete legal health record.[facility]
--- OUTSIDE RECORDS SUMMARY | 2025-03-16 17:08 | XMS_ITS | Encounter Summary ---
Author Organization [facility] Address [address] [place] [address] Phone Care Team Providers Care Hospital Television Rental Clerk Name Role Phone Heidi Solano MD Primary Care Provider + Whitney Kaur MD, MPH Primary Care Provider + Heidi Solano MD Primary Care Provider + Whitney Kaur MD, MPH Primary Care Provider + Freda Garg MD Unavailable Mike Valladares MD Unavailable [phone] Freda Garg MD Unavailable Eren Mahoney MD Unavailable [phone] Whitney Kaur MD, MPH Unavailable [phone] Dajuan Hammer MD Primary Care Provider [phone] Whitney Kaur MD, MPH Primary Care Provider + Dajuan Hammer MD Unavailable [phone] Kim Noel MD Primary Care Provide r Encounter Details Date Type Department Care Team (Late st Contact Info) Description 07/24/2016 Procedure Pass [facility] General Imaging [address] [place] [address] Social History Tobacco Use Types Packs/Day Years Used Date Smoking Tobacco: Former Cigarettes 1.5 10 0 10/20/1971 - 10/19/1981 Smokeless Tobacco: Never Alcohol Use Standard Drinks/Week Comments Yes 1 (1 standard drink = 0.6 oz pur e alcohol) weekly Comments No Sex and Gender Information Value Date Recorded Sex Assigned at Female 10/13/2022 10:34 AM EDT Legal Sex Female 3:24 PM EST Gender Identity Female 10/13/2022 10:34 AM EDT Sexual Orientation Not on file documented as of this encounter Plan of Treatment Upcoming Encounters Date Type Department Care Team (Late st Contact Info) Description 04/20/2025 3:00 PM EST Telemedicine [facility] [address], [address] [place] [address] Kvng Agarwal MD, DSc [address] [facility] [address] [place] [address] [email or web address] 06/10/2029 Procedure Pass [facility] [address] [place] [address] documented as of this encounter Visit Diagnoses Not on filedocumented in this encounter Care Teams Hospital Television Rental Clerk Relationship Specialty Start Date End Date Heidi Solano MD [email or web address] PCP - General Family Medicine 08/12/14 10/23/16 Whitney Kaur MD, MPH [address] [place] [address] [email or web address] PCP - General Family Medicine 10/24/16 01/13/17 Heidi Solano MD [email or web address] PCP - General Family Medicine 01/14/17 02/05/17 Whitney Kaur MD, MPH [address] [place] [address] [email or web address] PCP - General 02/06/17 02/24/18 Dajuan Hammer MD 55 [facility] [address] [place] [phone] [email or web address] PCP - General Rheumatology 02/25/18 04/16/18 Whitney Kaur MD, MPH [address] [place] [address] [email or web address] PCP - General Family Medicine 04/17/18 06/25/23 Kim Noel MD [address] [place] [address] PCP - General Internal Medicine 06/26/23 Freda Garg MD [address] [place] [address] [email or web address] Referring OBGYN Obstetrics and Gynecology 02/28/17 Mike Valladares MD [address] [place] [address], 2nd [place] [address] [email or web address] Historical LMR Provider 03/27/17 06/17/21 Freda Garg MD [address] [place] [address] [email or web address] Historical LMR Provider 03/27/17 Eren Mahoney MD [address] [place] [address] [place] [address] [email or web address] Historical LMR Provider 03/27/17 06/17/21 Whitney Kaur MD, MPH [address] [place] [address] [email or web address] Historical LMR Provider 03/27/17 Dajuan Hammer MD [address] [place], [place] [address] [address] [email or web address] Referring Physician Rheumatology 04/17/18 documented as of this encounter Additional Source Comments The information contained in this document represents components of the legal health record. It is not the complete legal health record.[facility]
--- OUTSIDE RECORDS SUMMARY | 2025-03-16 17:08 | XMS_ITS | Encounter Summary ---
Author Organization [facility] Address [address] [place] [address] Phone Care Team Providers Care Business Broker Name Role Phone Whitney Kaur MD, MPH Primary Care Provider + Freda Garg MD Unavailable Mike Valladares MD Unavailable Freda Garg MD Unavailable Eren Mahoney MD Unavailable [phone] Whitney Kaur MD, MPH Unavailable Dajuan Hammer MD Primary Care Provider [phone] Whitney Kaur MD, MPH Primary Care Provider + Dajuan Hammer MD Unavailable Kim Noel MD Primary Care Provide r Encounter Details Date Type Department Care Team (Late st Contact Info) Description 06/25/2017 Procedure Pass [facility] - MRI [address], 6th [place] [address] Social History Tobacco Use Types Packs/Day Years [...] Info) Description 04/20/2025 3:00 PM EST Telemedicine [address], [address] [place] [address] Kvng Agarwal MD, DSc [address] [place] [address] [place] [address] [email or web address] 06/10/2029 Procedure Pass [facility] [address] [place] [address] documented as of this encounter Visit Diagnoses Not on filedocumented in this encounter Care Teams Business Broker Relationship Specialty Start Date End Date Whitney Kaur MD, MPH [address] [place] [address] [email or web address] PCP - General 02/06/17 02/24/18 Dajuan Hammer MD [address] [employer] [facility] [facility] [address] [place] [phone] [email or web address] PCP - General Rheumatology 02/25/18 04/16/18 Whitney Kaur MD, MPH 70 [place] [address] [email or web address] PCP - General Family Medicine 04/17/18 06/25/23 Kim Noel MD [address] [place] [address] PCP - General Internal Medicine 06/26/23 Freda Garg MD [address] [place] [address] [email or web address] Referring OBGYN Obstetrics and Gynecology 02/28/17 Mike Valladares MD [address] [place] [address], 2[address] [place] [address] [email or web address] Historical LMR Provider 03/27/17 06/17/21 Freda Garg MD [address] [place] [address] Historical LMR Provider 03/27/17 Eren Mahoney MD [address] [place] [address] [address] [place] [address] julio Historical LMR Provider 03/27/17 06/17/21 Whitney Kaur MD, MPH [address] [place] [address] Historical LMR Provider 03/27/17 Dajuan Hammer MD [address] [place] [phone] [email or web address] Referring Physician Rheumatology 04/17/18 documented as of this encounter Additional Source Comments The information contained in this document represents components of the legal health record. It is not the complete legal health record.[facility]
--- OUTSIDE RECORDS SUMMARY | 2025-03-16 17:08 | XMS_ITS | Encounter Summary ---
Author Organization [facility] Address [address] [place] [address] Phone Care Team Providers Care Terrestrial Ecologist Name Role Phone Freda Garg MD Unavailable Freda Garg MD Unavailable Whitney Kaur MD, MPH Unavailable [phone] Whitney Kaur MD, MPH Primary Care Provider + Dajuan Hammer MD Unavailable [phone] Kim Noel MD Primary Care Provide r Encounter Details Date Type Department Care Team (Late st Contact Info) Description 07/13/2022 Procedure Pass [facility], [facility] [address] [place] [address] Social History Tobacco Use Types Packs/Day Years [...] Info) Description 04/20/2025 3:00 PM EST Telemedicine [address], [address] [place] [address] Kvng Agarwal MD, DSc [address] [place] [address] [address] [place] [address] [email or web address] 06/10/2029 Procedure Pass [facility] [address] [place] [phone] documented as of this encounter Visit Diagnoses Not on filedocumented in this encounter Care Teams Terrestrial Ecologist Relationship Specialty Start Date End Date Whitney Kaur MD, MPH [address] [place] [address] [email or web address] PCP - General Family Medicine 04/17/18 06/25/23 Kim Noel MD [address] [address] PCP - General Internal Medicine 06/26/23 Freda Garg MD [address] [address] [email or web address] Referring OBGYN Obstetrics and Gynecology 02/28/17 Freda Garg MD [address] [address] Historical LMR Provider 03/27/17 Whitney Kaur MD, MPH 70 [place] [address] [email or web address] Historical LMR Provider 03/27/17 Dajuan Hammer MD [address] [facility] [address] [place] [phone] [email or web address] Referring Physician Rheumatology 04/17/18 documented as of this encounter Additional Source Comments The information contained in this document represents components of the legal health record. It is not the complete legal health record.[facility]
== END 2025-03-16 13:53 | disposition home or self-care (01) ==
LOC: HO.HAP 13:52
PROVIDERS: Visit Provider Internal Medicine
DX: Z46.1 Encounter for fitting and adjustment of hearing aid (principal); H90.3 Sensorineural hearing loss, bilateral
CPT/HCPCS: 92593

== ENCOUNTER 2025-04-22 11:04 | Outpatient (REF) | payer MEDICARE, OTHER, SELFPAY ==
--- OUTSIDE RECORDS SUMMARY | 2016-02-22 23:00 | XMS_ITS | Encounter Summary ---
Author Organization [facility] Address [address] [place] [address] Phone Care Team Providers Care Family Educator Name Role Phone Heidi Solano MD Primary Care Provider + Reason for Visit * MRI/CAT Scan - Closed Specialty Diagnoses / Procedures Referred By Jennifer jama Referred To Contact Radiology Procedures MRI Spine (Neuro) Outside (No Interpretation) Dimitry Kent MD [address] [place] [address] Phone: tel: fax: mailto:[email or web address] Referral ID Status Reason Start Date Expiration Date Visits Re quested Visits Authorized [id number] Closed 02/24/2016 02/23/2017 1 1 Encounter Details Date Type Department Care Team (Late st Contact Info) Description 02/23/2016 Hospital Encounter [facility] [address] [place] [address] Dimitry Kent MD [address] [place] [phone] [email or web address] Social History Tobacco Use Types Packs/Day Years Used Date Smoking Tobacco: Former Cigarettes 1.5 10 0 10/20/1971 - 10/19/1981 Smokeless Tobacco: Never Alcohol Use Standard Drinks/Week Comments Yes 1 (1 standard drink = 0.6 oz pur e alcohol) weekly Education Answer Date Recorded Are you interested in more education? Not on adair e 10/05/2022 Are you concerned about learning? Not on file 10/05/2022 No 10/05/2022 No 10/05/2022 Digital Access Answer Date Recorded No 11/05/2022 No 11/05/2022 Reliable internet access at home? Not on file 11/05/2022 Device with a working camera? Not on file Intimate Partner Violence Answer Date R ecorded Are you denied basic needs s uch as food, clothing, or medical care? No 06/26/2023 In the past 12 months have y ou been in a relationship with a person who hurts, threatens, or tries to control you? No 06/26/2023 Are you denied basic needs s uch as food, clothing, or medical care? No 06/26/2023 In the past 12 months have y ou been in a relationship with a person who hurts, threatens, or tries to control you? No 06/26/2023 Comments No Sex and Gender Information Value Date Recorded Sex Assigned at Female 10/13/2022 10:34 AM EDT Legal Sex Female 3:24 PM EST Gender Identity Female 10/13/2022 10:34 AM EDT Sexual Orientation Not on file documented as of this encounter Plan of Treatment Upcoming Encounters Date Type Department Care Team (Late st Contact Info) Description 10/22/2025 1:30 PM EDT Telemedicine [facility] Clinical Center [address] [place] [address], [address] [place] [address] Kvng Agarwal MD, DSc [address] [facility] [address] [place] [address] [email or web address] 06/10/2029 Procedure Pass [facility] [address] [place] [address] [phone] documented as of this encounter Procedures Procedure Name Priority Date/Time Associated Diagnosis Comments MRI SPINE NEUROLOGIC FOCUS OUTSIDE (NO INTERPRETATION) Routine 02/23/2016 12:00 AM EDT documented in this encounter Results * MRI Spine (Neuro) Outside (No Interpretation) (02/23/2016 12:00 AM EDT) Narrative [facility]G INTERFACES - 02/24/2016 2:00 PM EDT This study is for PACS storage only and not for interpretation. Procedure Note SYSTEMGENERATED, DOCUMENTATION - 02/24/2016 This study is for PACS storage only and not for interpretation. us Dimitry Kent MD IMG OUTSIDE IMAGING W/OUT INT ERPRETATION Final Result [facility] documented in this encounter Visit Diagnoses Not on filedocumented in this encounter Care Teams Family Educator Relationship Specialty Start Date End Date Heidi Solano MD [email or web address] PCP - General Family Medicine 08/12/14 10/23/16 documented as of this encounter Additional Source Comments The information contained in this document represents components of the legal health record. It is not the complete legal health record.[facility]
--- OUTSIDE RECORDS SUMMARY | 2016-07-13 | XMS_ITS | Encounter Summary ---
Author Organization [facility] Address [id number] [place] [address] Phone Care Team Providers Care Tube Bender Name Role Phone Heidi Solano MD Primary Care Provider + Reason for Visit * MRI/CAT Scan - Closed Specialty Diagnoses / Procedures Referred By Jennifer mcdaniel Referred To Contact Procedures CT Spine (Neuro) Focus Outside (No Interpretation) Eliazar Peace MD [address] [facility] [address] [place] [address] Phone: tel: mailto:[email or web address] Referral ID Status Reason Start Date Expiration Date Visits Re quested Visits Authorized [id number] Closed 07/24/2016 07/24/2017 1 1 Encounter Details Date Type Department Care Team (Late st Contact Info) Description 07/13/2016 Hospital Encounter [facility] General Imaging [address] [place] [address] Eliazar Peace MD [address] [facility] [address] [place] [address] [email or web address] Social History Tobacco Use Types [...] Info) Description 10/22/2025 1:30 PM EDT Telemedicine [facility] Clinical Center [address] [place] [address], [address] [place] [address] Kvng Agarwal MD, DSc [address] [facility] [address] [place] [address] [email or web address] 06/10/2029 Procedure Pass [facility] PERIOPERATIVE DEPT [address] [place] [address] [phone] documented as of this encounter Procedures Procedure Name Priority Date/Time Associated Diagnosis Comments CT SPINE (NEURO) OUTSIDE (NO INTERPRETATION) Routine 07/13/2016 12:00 AM EST documented in this encounter Results * CT Spine (Neuro) Focus Outside (No Interpretation) (07/13/2016 12:00 AM EST) Narrative [facility] IMG INTERFACES - 07/24/2016 12:24 PM EST This study is for PACS storage only and not for interpretation. us Eliazar Peace MD IMG OUTSIDE IMAGING W/OUT INTE RPRETATION Final Result [facility] IMG INTERFACES documented in this encounter Visit Diagnoses Not on filedocumented in this encounter Care Teams Tube Bender Relationship Specialty Start Date End Date Heidi Solano MD [email or web address] PCP - General Family Medicine 08/12/14 10/23/16 documented as of this encounter Additional Source Comments The information contained in this document represents components of the legal health record. It is not the complete legal health record.[facility]
--- OUTSIDE RECORDS SUMMARY | 2025-04-20 15:00 | XMS_ITS | Encounter Summary ---
Author Organization [facility] Address [id number] [place] [address] Phone Care Team Providers Care Ecological Risk Assessor Name Role Phone Freda Garg MD Unavailable Freda Garg MD Unavailable Whitney Kaur MD, MPH Unavailable [phone] Dajuan Hammer MD Unavailable [phone] Kim Noel MD Primary Care Provide r Reason for Referral * MRI/CAT Scan - New Request Specialty Diagnoses / Procedures Referred By Contac t Referred To Contact Radiology Diagnoses [place] 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) Procedures MRI Brain Kvng Agarwal MD, DSc [address] [place] [address] [id number] [place] [address] Phone: tel: fax: mailto:[email or web address] Referral ID Status Reason Start Date Expiration Date V isits Requested Visits Authorized [id number] New Request 04/20/2025 1 1 Reason for Visit * Reason Comments Pituitary Problem Encounter Details Date Type Department Care Team (Latest Contact Info) Description 04/20/2025 3:00 PM EST Telemedicine [facility] [address], [address] [place] [address] Kvng Agarwal MD, DSc [address] [place] [address] [email or web address] Heather disease (Primary Dx); Benign neoplasm of pituitary gland and craniopharyngeal duct (pouch); Personal history of radiation therapy; Vitamin D deficiency, unspecified Social History Tobacco Use Types Packs/Day Years [...] 06/26/2023 Are you denied basic needs s [facility] as food, clothing, or medical care? No [...] Rosa Schafer PA-C documented in this encounter Progress Notes * Kvng Agarwal MD, DSc - 04/20/2025 3:00 PM EST [facility] ?Date: 04/20/2025 Pt Name: Isa Bello MR#: [id number] PCP: Kim Noel MD cc: Saroj Rice MD ? Pt ? ? 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 ? HPI: ?74 yr woman with Illiop[place]'s disease, HTN, dyslipidemia, essential tremor, inflammatory arthritis, depression, who was seen in follow up after undergoing TSS (05/14/2017) and fractionated RT (completed on 04/16/2018), currently on cabergoline therapy. Today's visit was conducted virtually. 03/27/2017 visit: Over the past ten years, patient has noted increased abdominal girth and evidently gained 20 lb (in a central distribution). She notes h/o overweight in childhood and some weight retention after 3 pregnancies. She is being treated for hypertension for >10 yr. She developed a right leg ulcer (after her catscratched her) which took 9 weeks to heal. She has also noted fatigue, skin thinning, low back pain(spinal stenosis, scoliosis). She is being treated for depression over the past 17 yr. She says that she feels well at present (on current antidepressant regimen). She notes a history of stress fracture (left leg) about 10 years ago without evident trauma. She has noted no headache, peripheral vision loss, known CAD, h/o DVT, weakness, kidney stones, hirsutism, acne, edema. She has received 2 glucocorticoid injections in 2012 but notes no other glucocorticoid use. Her PCP and bus monitor suspected the possibility of hypercortisolism because of central weight distribution and referred her to Dr. Doran of endocrinology who obtained additional tests (as shown below). Additional data: 09/01/2014 TSH: 1.1 09/09/2014 HbA1c: 5.4% 01/25/2015 TSH: 1.9 07/09/2016 BMD examination: Lumbar spine: T score: -1.8; Z score: -0.6; total femur: T score: -0.4;Z score: 0.5 10/16/2016 sodium: 143; potassium: 3.7; creatinine: 0.6; glucose: 68; calcium: 8.9; vitamin D: 36 ?01/19/2017 24 hr UFC: 131 (4 to 50); volume: 1.1 liters; creatinine: 0.8 g/24 hr 02/07/2017 sodium: 142; potassium: 3.7; calcium: 9.4; glucose: 107; creatinine: 0.7 02/14/2017 Pelvic MRI: no ovarian or adnexal mass 02/14/2017 Late night salivary cortisol: 0.40 (normal, up to 0.09) 02/15/2017 Late night salivary cortisol: 0.43 (normal, up to 0.09) 02/16/2017 24 hr UFC: 149 (4 to 50); creatinine: 0.96 g/24 hr; volume: 1.5 liters 02/19/2017 ACTH: 76; cortisol: 19.2 02/21/2017 ACTH: 49; cortisol: 19.2 02/28/2017 ACTH: 41; morning cortisol: 15.7 03/01/2017 8 mg DST cortisol: 4.7 (no dexamethasone level) 03/11/2017 creatinine: 0.7 03/12/2017 Pituitary MRI: no evident sellar mass per report; to my review, there is a 2.3 cm by 1.7cm by 2.2 cm partly cystic mass in the anterior sella which 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 03/27/2017 prolactin: 20.8; IGF-1: 262; TSH: 2.1; total T4: 7.1; free T4: 1.4; FSH: 1.2; LH: below 0.1; testosterone: 79 05/14/2017 TSS (Joelle Becker) - Pathology: adenoma with hemorrhage; most tumor cells are reactivefor prolactin and ACTH. The Ki-67 proliferation rate is <1% (3 positive nuclei /1040 cells counted). 05/15/2017 morning cortisol: 23.9 05/17/2017 morning cortisol: 14.5 05/19/2017 morning cortisol: 7.3 05/20/2017 morning cortisol: 9.2 05/20/2017 24 hr UFC: 9.6; volume: 2.5 liters; creatinine: 0.7 g/24 hr 05/21/2017 24 hr UFC: 6.7; volume: 2.0 liters; creatinine: 0.8 g/24 hr 05/24/2017 morning cortisol: 14.5 05/27/2017 24 hour urine free cortisol: 27.4 mcg/24 hr (normal, 4 to 50). The urine volume was 1.1 liters and the urine creatinine was 0.98 g/24 hr (normal, 0.6 to 2.5). 05/25/2017 Late night salivary cortisol: 0.07 mcg/dl (normal, up to 0.09) 05/26/2017 Late night salivary cortisol: 0.09 mcg/dl (normal, up to 0.09) 05/27/2017 Late night salivary cortisol: 0.09 mcg/dl (normal, up to 0.09) ?06/25/2017 visit: Patient returns to [facility] after undergoing TSS in early May 2017. Postoperative course was complicated by PE. She has noted fatigue and mild nausea at times. She has noted no headache, visual symptoms, dizziness, presyncope, edema. She has lost 1 lb since her last visit. A recent pituitary MRI examination anticipated postoperative findings with a fat packing in place and possible residual tumor on the right side of the sella (reviewed images). She will be seeing Dr. Lai later today. 06/25/2017 prolactin: 22.7; IGF-1: 252; TSH: 3.0; total T4: 8.1; free T4: 1.4; CUSTOMER ADVOCACY MANAGER for cortisol: 31.1; FSH: 2.7; LH: <0.1 07/11/2017 24 hr UFC: 14 (normal, 3.5 to 45); volume: 0.9 liters; creatinine: 0.8 g / 24 hr 07/12/2017 24 hr UFC: 14 (normal, 3.5 to 45); volume: 1 liter; creatinine: 0.9 g / 24 hr 09/12/2017 11 pm salivary cortisol: 97 ng/dl (normal, up to 100) 09/13/2017 11 pm salivary cortisol: 110 ng/dl (normal, up to 100) 09/28/2017 11 pm salivary cortisol: 53 ng/dl (normal, up to 100) 09/30/2017 11 pm salivary cortisol: 53 ng/dl (normal, up to 100) 12/20/2017 visit: In the interim, patient lost 15 lb and noted resolution of facial rounding. Her blood pressure has been controlled on a lower dose of metoprolol (together with HCTZ). She has completed 3 months of warfarin for PE. She has noted no headache, visual symptoms, persistent nausea, dizziness, bruising, striae, edema, insomnia. She has been taking tocilizumab for arthritis and noted improvement in joint pain and activity. She underwent a pituitary MRI examination today which showed anticipated postoperative findings with a shrinking fat packing in place and residual tumor in the anterior sella (reviewed images). She will be seeing Dr. Lai in the next several weeks. 12/23/2017 Late night salivary cortisol: 153 ng/dl (normal, up to 100) 12/24/2017 Late night salivary cortisol: 176 ng/dl (normal, up to 100) 12/25/2017 Late night salivary cortisol: 539 ng/dl (normal, up to 100) 12/26/2017 Late night salivary cortisol: 565 ng/dl (normal, up to 100) 12/25/2017 24 hour urine free cortisol: 28.5 mcg / 24 hr (normal, 4 to 50). The urine volume was 1.9 liters and the urine creatinine was 0.8 g / 24 hr (normal, 0.6 to 2.5). 12/27/2017 24 hour urine free cortisol: 39.7 mcg / 24 hr (normal, 4 to 50). The urine volume was 1.2 liters and the urine creatinine was 0.9 g / 24 hr (normal, 0.6 to 2.5). 03/06/2018-04/16/2018 Fractionated radiation therapy (stereotactic localization) to a total dose of 5,400 cGy 03/25/2018 11 pm salivary cortisol: 54 (normal, up to 100) 03/26/2018 11 pm salivary cortisol: 368 (normal, up to 100) 06/07/2018 11 pm salivary cortisol: 78 (normal, up to 100) 06/08/2018 11 pm salivary cortisol: 71 (normal, up to 100) 06/17/2018 sodium: 142; potassium: 3.8; creatinine: 0.8; glucose: 72; calcium: 9.4 07/04/2018 visit: Patient has started cabergoline therapy in January 2018. She underwent fractionated radiation therapy (completed on 04/16/2018). She has had no headache, change in vision, recent weight change, bruising, nausea, syncope or presyncope, edema. She has been following up with Dr. Hammer for management of inflammatory polyarthritis, which has evidently flared in the past several months. She has also had ongoing low back pain (lumbar stenosis and scoliosis) and peripheral (small fiber) neuropathy. She is considering the possibility of undergoing surgery for lumbar stenosis and scoliosis. 10/01/2018 11 pm salivary cortisol: 104 (normal, up to 100) 10/02/2018 11 pm salivary cortisol: below 50 (normal, up to 100) 10/19/2018 11 pm salivary cortisol: 114 (normal, up to 100) 10/20/2018 11 pm salivary cortisol: 98 (normal, up to 100) 12/21/2018 11 pm salivary cortisol: 98 (normal, up to 100) 12/22/2018 11 pm salivary cortisol: below 50 (normal up to 100) 01/13/2019 visit: Patient has noted no headache or change in peripheral vision. She says that she underwent cataract extraction (OD) and noted some improvement in central vision. She has continued oncabergoline therapy without incident. She has been following up with Dr. Hammer for management of inflammatory polyarthritis. She has also had ongoing low back pain (lumbar stenosis and scoliosis) and peripheral (small fiber) neuropathy. She is considering the possibility of undergoing surgery forlumbar stenosis and scoliosis. She has lost 1 lb since her last visit. She has noted no persistent nausea, syncope, weakness, bruising, hirsutism, acne, edema. A recent pituitary MRI examination showed anticipated postoperative findings and stable residual tumor in the anterior sella in comparison with December 2017 MRI (reviewed images). 01/22/2019 Prolactin: below 1.0 ng/ml (normal, up to 30); IGF-1: 172 ng/ml (normal, 41 to 279); TSH:1.36 mcu/ml (normal, 0.4 to 4.5); thyroxine: 9.4 mcg/dl (normal, 5.1 to 11.9); free T4: 1.0 ng/dl (normal, 0.8 to 1.8); ACTH: 25 pg/ml (normal, 6 to 50); cortisol: 15 mcg/dl (normal, 4 to 22); FSH: 44.1 U/l (normal, 23 to 116); LH: 36.8 U/l (normal, 10 to 54.7); hemoglobin A1c: 5.6% (normal, up to 6.4%); 24 hour urine free cortisol: 25 mcg / 24 hr (normal, 4 to 50). The urine volume was 2.2 liters and the urine creatinine was 0.8 g / 24 hr (normal, 0.5 to 2.1). 07/22/2019 visit: Patient has continued on cabergoline therapy. She has noted no headache, change in vision, nausea, dizziness, weakness, bruising, striae, hirsutism, acne, edema, insomnia. She has gained 1 lb since her last visit. She has seen Dr. Hammer re: seronegative inflammatory arthritis and was advised to stop tofacitinib. She has had ongoing low back pain and has seen Dr. Kobi olivier: possible surgery for spinal stenosis and scoliosis. 07/22/2019 prolactin: 0.5; IGF-1: 167; TSH: 1.5; total T4: 8.5; free T4: 1.4; ACTH: 41; cortisol: 13.9; FSH: 37.7; LH: 37.3; vitamin D: 59; HbA1c: 5.8% 07/26/2019 24 hr UFC: 39.4 mcg/24 hr (4 to 50); volume: 1.3 liters; creatinine: 0.8 g/24 hr 07/28/2019 11 pm salivary cortisol: 182 ng/dl (normal, up to 100) 07/29/2019 11 pm salivary cortisol: 63 ng/dl (normal, up to 100) 08/13/2019 11 pm salivary cortisol: 77 ng/dl (normal, up to 100) 08/14/2019 11 pm salivary cortisol: 106 ng/dl (normal, up to 100) 08/21/2019 BMD examination: total hip: T score: -0.7; Z score: 0.7; femoral neck: T score: -1.1; Z score: 0.5; radius: T score: -2.6; Z score: -0.7 10/07/2019 24 hr UFC: 29 mcg/24 hr (4 to 50); volume: 1.5 liters; creatinine: 0.8 g/24 hr 01/21/2020 visit: Today's was a virtual visit. Patient has noted mild, occasional headache, relieved with Tylenol. She says that she has lost 5 lb over the past 6 months (latest weight: 145 lb). She has continued on cabergoline therapy without incident. She has noted no change in vision, nausea, dizziness, weakness, bruising, striae, hirsutism, acne, edema, insomnia. She has seen Dr. Harman olivier: seronegative inflammatory arthritis. She has had ongoing low back pain and has seen Dr. Kobi olivier: possible surgery for spinal stenosis and scoliosis (surgery was postponed because of the coronavirus epidemic). She says that her blood pressure has been controlled (120-140 / 70-80 mm Hg). 01/26/2020 calcium: 9.1; vitamin D: 45; creatinine: 0.8; ACTH: 26; cortisol: 13.0; TSH: 1.3; total T4: 8.7; free T4: 1.2 01/28/2020 24 hr UFC: 23.2 (4 to 50); volume: 2 liters; creatinine: 0.8 g / 24 hr 08/10/2020 visit: Today's was a virtual visit. Patient has noted no recent or frequent headache. She has continued on cabergoline therapy and has also started on alendronate since her last visit. Shehas been fatigued. She has had ongoing issues with the seronegative inflammatory arthritis. She hasnoted no recent weight change (latest weight: 145 lb), change in peripheral vision, nausea, heartburn, dizziness, weakness, bruising, striae, hirsutism, acne, edema, insomnia. She has deferred back surgery in light of the coronavirus epidemic. 08/15/2020 calcium: 9.6; prolactin: below 1; IGF-1: 158 (41 to 279); ACTH: 23; cortisol: 10.4; TSH:1.3; total T4: 9.2; free T4: 1.1 08/22/2020 24 hr UFC: 28.4 (4 to 50); volume: 1.5 liters; creatinine: 0.7 g / 24 hr 08/30/2020 vitamin D: 45 09/14/2020 Pituitary MRI: stable size of the pituitary adenoma in comparison with 2018 MRI examination (reviewed images) 02/22/2021 visit: Today's was a virtual visit. In the interim, patient noted intermittent nausea for several days, which has evidently subsided. She has seen an ENT specialist re: a bout of vertigo. She has had ongoing issues with seronegative inflammatory arthritis. She has seen Dr. Hammer in follow up re: seronegative arthritis. She has continued on cabergoline and alendronate. She has gained 2 lb since last visit (latest weight: 145 lb). She has noted mild, occasional headache but no changein peripheral vision, heartburn, abdominal pain, dizziness, weakness, bruising, striae, hirsutism, acne, edema, insomnia. She has deferred back surgery in light of the coronavirus epidemic. She says t hat her blood pressure has been 130-150 / 80 mm Hg. 02/24/2021 calcium: 9.0; vitamin D: 62; ACTH: 17; cortisol: 7.5; TSH: 1.6; free T4: 1.2; total T4: 8.8; HbA1c: 5.4% 03/10/2021 24 hr UFC: 23.2 (4 to 50); volume: 1.5 liters; creatinine: 0.7 g / 24 hr 07/25/2021 visit: Today's was a virtual visit. Patient has continued on cabergoline therapy. In theinterim, she saw Dr. Marte re: neuropathy. She has been prescribed naltrexone. She has also noted blurred vision in OD and saw her loss prevention supervisor. She has developed dyspepsia and saw a towel cabinet repairer. She was treated with antibiotics for H. pylori and stopped alendronate as a precaution. Her weight has been stable (144 lb). She has noted mild, occasional headache but no abdominal pain, dizziness, weakness, bruising, striae, hirsutism, acne, edema, insomnia. She has deferred back surgery in light of the coronavirus epidemic. She says that her blood pressure has been 140-150 / 80 mm Hg. She has a new baby grandson. 07/26/2021 calcium: 9.2; vitamin D: 52; prolactin: below 1; ACTH: 31.; cortisol: 11.3; TSH: 1.6; free T4: 1.2; HbA1c: 5.5% 08/02/2021 24 hr UFC: 3.7 mcg / 24 hr; volume: 0.5 liters; creatinine: 0.2 g / 24 hr (likely undercollection) 08/10/2021 Pituitary MRI: stable size of the pituitary adenoma in comparison with 2020 MRI; no pressure on the optic chiasm or nerves (reviewed images) 08/23/2021 BMD examination: total hip: T score: -0.6; femoral neck: T score: - 1.3; forearm: T score: -2.0 08/28/2021 24 hr UFC: 11.6 (4 to 50); volume: 2.1 liters; creatinine: 0.8 g / 24 hr (on cabergoline2.5 mg / week) 10/06/2021 24 hr UFC: 14.8 (4 to 50); volume; 1.5 liters; creatinine: 0.9 g / 24 hr (on cabergoline2.0 mg / week) 01/05/2022 visit: Patient has decreased her cabergoline dose to 2 mg / week since her last visit. She has lost 3 lb since her last visit. She has noted no headache. She has had blurred vision in OD and will be seen at [facility] for further evaluation. She has had dyspepsia and nausea. She underwent EGD and colonoscopy. She was treated for H. pylori infection. She also saw her bus monitor in follow up. She has noted no weakness, dizziness, syncope, bruising, striae, hirsutism, acne, edema, insomnia,heat or cold intolerance. 01/10/2022 prolactin: below 1.0; IGF-1: 130 (34 to 245); TSH: 2.2; free T4: 1.2; thyroxine: 8.3; ACTH: 31; cortisol: 12.9; calcium: 9.3; vitamin D: 54; HbA1c: 5.4% 01/12/2022 24 hr UFC: 17.2 (4 to 50); volume: 1.8 liters; creatinine: 0.8 g / 24 hr 07/13/2022 sodium: 140; potassium: 4.9; creatinine: 1.4; glucose: 76; calcium: 9.6 09/21/2022 MRI face (orbits): Interval worsening of atrophy and T2 hyperintensity in the right optic nerve without enhancement. No new atrophy with T2 hyperintensity in the right side of the optic chiasm. Mild atrophy and increased T2 signal in the left optic nerve, new compared to prior scan. Mild enhancement in the prechiasmatic segment of the left optic nerve is unchanged. Mild atrophy of the left side of the optic chiasm. Sequela of prior transsphenoidal resection of pituitary adenoma and residual enhancing soft tissue in the sella with extension into the sphenoid sinuses is better visuali zed on prior MRI of the pituitary. 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 The residual sellar mass appears to be stable (reviewed images). 10/18/2022 visit: Today's was a virtual visit. In the interim, she has been seen by Dr. Ratliff fordecreased vision (decreased visual acuity OU and VF defects OU) and was diagnosed with radiation induced optic neuropathy. She took a course of prednisone for 10 weeks but noted no improvement in vision (or arthritis) and stopped it [address] Ratliff has referred her to the low vision clinic. She has been reading with difficulty but does not drive. Her latest weight was 144 lb (stable weight since last visit). She has noted no headache, weakness, dizziness, syncope, bruising, striae, hirsutism, acne, edema, insomnia, heat or cold intolerance. Her blood pressure evidently improved (120/80 mm Hg) with the addition of losartan. Her youngest son will be getting at the end of December2022. 10/30/2022 11 pm salivary cortisol: 62 (normal, up to 100) 11/01/2022 11 pm salivary cortisol: 68 (normal, up to 100) 11/02/2022 prolactin: less than 1.0; IGF-1: 119 (34 to 245); ACTH: 36; cortisol: 13.1; TSH: 2.8; free T4: 1.1; FSH: 35; LH: 20; calcium: 9.4; vitamin D: 58; HbA1c: 5.3%; 24 hr UFC: 7.7 (4 to 50); volume: 1.5 liters; creatinine: 0.8 g / 24 hr 03/22/2023 visit: Patient returns to [facility] in the company of her son. She has noted no headache. Shehas lost 6 lb in past 6 months. She has had intermittent dyspepsia and bloating and has been seeinga towel cabinet repairer. She also saw a surgeon re: hiatal hernia. She has had trouble reading and hasbeen followed by Dr. Ratliff re: decreased visual acuity and VF defects OU (thought to be secondaryto radiation induced optic neuropathy). She has continued on cabergoline with good adherence. She has been using a cane for stability. She has noted no vomiting, weakness, syncope, bruising, striae, hirsutism, acne, insomnia, edema, heat or cold intolerance. 03/30/2023 11 pm salivary cortisol: 100 ng/dl (normal, up to 100) 03/31/2023 11 pm salivary cortisol: 106 ng/dl (normal, up to 100) 04/01/2023 prolactin: below 1.0; IGF-1: 108; ACTH: 28; cortisol: 11.5; TSH: 2.3; free T4: 1.3; thyroxine: 8.5; calcium: 9.3; vitamin D: 64; HbA1c: 5.2%; 24 hr UFC: 8.3 (normal, 4 to 50); volume: 1.7 liters; creatinine: 0.7 g / 24 hr 09/16/2023 Pituitary MRI: stable size and appearance of the residual adenoma in comparison with 2021 MRI (reviewed images) 09/27/2023 visit: Today's was a virtual visit. In the interim, patient has had intermittent nausea and diarrhea and was hospitalized at [facility]. She says that these symptoms resolved after she stopped having dairy. She evidently lost 14 lb in past 6 months (latest weight: 124 lb), but says that her weight has stabilized, and her appetite has been improving. She has noted no headache. She has been reading with difficulty and has been followed by Dr. Evy olivier: decreased acuity and VF defects OU (though to be secondary to radiation induced optic neuropathy). She has continued taking cabergoline. She has stopped taking HCTZ. She has been using a cane for stability. She has noted no vomiting, synco pe, bruising, striae, hirsutism, acne, insomnia, edema, heat or cold intolerance. She says that herblood pressure has been well controlled (120- 130/70 mm Hg). 10/01/2023 BMD examination: total hip: T score: -0.8; femoral neck: T score: - 1.1; distal forearm: T score: -2.1 10/08/2023 11 pm salivary cortisol: below 50 (normal, up to 100) 10/09/2023 11 pm salivary cortisol: 72 (normal, up to 100) 04/01/2024 visit: Today's was a virtual visit. Patient has noted no headache. She has noted no recent change in vision (she can read text but cannot drive). She plans to f/u with Dr. Evy olivier: radiation-induced optic neuropathy. She says that her weight has been fairly stable (latest weight: 125 lb). She has continued on cabergoline with good adherence. She has been using a cane for stability. She has noted no recent / persistent nausea, vomiting, syncope or presyncope, bruising, striae, hirsutism, acne, insomnia, edema, heat or cold intolerance. 04/17/2024 prolactin: 0.4; ACTH: 25.9; cortisol: 8.4; TSH: 2.2; thyroxine: 8.2; free T4: 1.2; FSH: 30; LH: 18; calcium: 9.0; vitamin D: 50; HbA1c: 5.6% 04/21/2024 11 pm salivary cortisol: below 50 (normal, up to 100) 04/22/2024 24 hr UFC: 9 mcg/24 hr (normal, up to 42) 10/08/2024 Pituitary MRI: stable size and appearance of the residual adenoma in comparison with 2021 and 2023 MRI (reviewed images) 10/14/2024 visit: Today's was a virtual visit. Patient can read text albeit with difficulty. She saw Dr. Ratliff in follow up regarding optic neuropathy (thought to reflect radiation injury). She wasthen seen at a low vision clinic. She has noted no headache or weight change (latest weight: 125 lb). She has continued on cabergoline with good adherence. She has been using a cane for stability and plans to start gentle yoga. She has noted no nausea, vomiting, syncope or presyncope, bruising, striae, hirsutism, acne, edema, insomnia, heat or cold intolerance, glucocorticoid use. Her latest blood pressure was 138/75 mm Hg. 11/03/2024 11 pm salivary cortisol: below 50 (normal, up to 100) 11/04/2024 11 pm salivary cortisol: below 50 (normal, up to 100) 11/04/2024 prolactin: 0.4; IGF-1: 62 (48 to 191); ACTH: 27; cortisol: 8.0; TSH: 2.0; thyroxine: 8.1; free T4: 1.1; FSH: 29; LH: 16; calcium: 9.0; vitamin D: 61; creatinine: 1.1; HbA1c: 5.5% 11/07/2024 24 hr UFC: 8 (normal, up to 42); creatinine: 0.5 (0.5 to 2.1) 04/20/2025 visit: Today's was a virtual visit. Patient has noted no headache. Her vision remains diminished (OU) without recent change. This has been attributed to radiation induced optic neuropathy (she follows up with Dr. Ratliff). She has gained 2 lb since her last visit (latest weight: 127 lb).She has continued on cabergoline with good adherence. She has noted no nausea, vomiting, syncope orpresyncope, bruising, striae, acne, edema, glucocorticoid use. In December 2024, she suffered a mechanical fall and had a head injury (no LOC). She says that she was observed overnight at [facility]SH. She plans to have surgery for hiatal hernia. ROS: Constitutional: energy, weight, thirst, sleep -- weight changes (as above); no insomnia (sleeps 7-9hours / night) Eyes: vision changes, diplopia -- wears glasses; s/p cataract extraction (OD); decreased vision (OU) attributed to radiation induced optic neuropathy ENT: teeth, neck mass -- hearing loss (wears hearing aids); tinnitus; intermittent vertigo (saw an ENT specialist) Cardiac: palpitations, chest pain -- hypertension; h/o tachycardia / palpitations (1998); PE (post TSS) GI: nausea, abdominal pain, appetite, BM -- dyspepsia and bloating (saw a towel cabinet repairer and was treated with antibiotics for H. pylori; she stopped alendronate as a precaution); diarrhea (resolved) Musculoskeletal: weakness, hands, feet, joint/muscle pain, broken bones -- low back pain; inflammatory polyarthritis (previously followed by Dr. Hammer of rheumatology) Skin: acne, hirsutism, skin tags, bruising, diaphoresis, flushing -- neg Neuro: headache, lightheadedness, tremor, confusion -- essential tremor; peripheral neuropathy (tingling, numbness in both lower legs/feet); gait instability (saw Dr. Marte) : menses, libido, urination -- menarche at age 14 yr; regular menses every month; delivered 3 children; menses stopped in her early 50s Breast: galactorrhea -- neg Psychiatric: depression, anxiety -- h/o depression (improved on medical therapy) ID: infections -- h/o UTI; pneumonia ?? ? ALL: ?Levofloxacin ? ? MEDS: Cabergoline 0.5 mg po four days a week (started in January 2018) Losartan 100 mg po daily Simvastatin 40 mg po daily Pantoprazole 40 mg po daily (started in January 2020) ?Sertraline 25 mg po daily Calcium and vitamin D 1 tablet po daily ?Probiotics ? PMH: Heather's disease (s/p TSS and RT; as above) Radiation-induced optic neuropathy HTN Dyslipidemia PE (post TSS) ?H/o palpitations / tachycardia (1998) Hiatal hernia H. pylori infection Urinary incontinence (s/p sling suspension) Inflammatory (seronegative) polyarthritis (since age 46 yr) UTI Pneumonia Lumbar stenosis / lumbosacral radiculopathy Small fiber peripheral neuropathy Scoliosis Rotator cuff tear Left wrist fracture at age 12 yr (while ice skating) Left ankle fracture after fall at age 30 yr (tennis playing) Right leg fracture after tripping off a snow bank at age 17 yr Left leg stress fracture (2006) Osteoporosis Osteoarthritis Carpal tunnel syndrome Hallux valgus Pernicious anemia Peripheral neuropathy (of unclear cause) Depression ?s/p appendectomy s/p D&C in the setting of endometrial polyp (July 2022) s/p laminectomy s/p bunionectomy s/p right shoulder surgery s/p total hip replacement s/p cataract extraction (OD) ? 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 ? FH: M: , ovarian cancer; DM2, HTN F: , lung cancer; HTN Sister: HTN, breast cancer, prediabetes Brother: HTN ?No family history of pituitary disease Impression: ?74 yr woman with Illiopolis's disease, HTN, dyslipidemia, essential tremor, depression, who was seen in endocrine follow up after undergoing TSS in early May 2017 and fractionated RT (completed 2017). At presentation, there was central fat distribution with disproportionate supraclavicular pannus, think friable skin and thin extremities. She has had no features of acromegaly on exam and no symptoms to suggest AI or DI. Preoperatively, laboratory tests showed two elevated 24 hr UFCs (about 2.5-3x/ULN) and 2 elevated late-night salivary cortisol tests. Her plasma ACTH level was not suppressed. Preoperatively, a pituitary MRI examination was reported as showing no evident sellarmass; to my review, there was a 2.3 cm by 1.7 cm by 2.2 cm partly cystic mass in the anterior sellawhich had extended into the sphenoid sinus (consistent with macroadenoma). She underwent TSS (05/14/2017). Pathology showed an adenoma, positive for ACTH and prolactin. Her postoperative course was complicated by PE. Her morning serum cortisol did not decline significantly, but two 24 hr UFCs were very low and three LNSC test results were normal, consistent with delayed remission. Additional testing (after TSS) showed two normal 24 hr UFCs and three out of four normal LNSCs. Her serum gonadotropins were low for menopause but her serum prolactin, IGF-1, TSH, free T4 were normal. Two postoperative MRI examinations showed anticipated postoperative changes and likely residual pituitary adenoma. Subsequently, her late-night salivary cortisol levels were found to be elevated (above normal) in December 2017. She began cabergoline therapy and underwent fractionated radiation therapy at OSH (completed in April 2018). Her most recent f/u pituitary MRI examination (October 2024) showed stable size and appearance of the residual pituitary adenoma in comparison with MRI examinations from 2021 and 2023. Her most recent 24 hr UFC was normal and wo late night salivary cortisol tests were normal (on cabergolinetreatment) in spring 2024. Additional test results showed no evidence of anterior hypopituitarism so far. She is at lifelong risk of anterior hypopituitarism after radiation therapy. Lifelong periodic evaluation of pituitary function is advisable. ? ? Plan: ?We reviewed available test results and imaging findings. We have discussed the role of medical therapy to control hypercortisolism until radiation therapy hopefully takes effect. We discussed the risk of anterior hypopituitarism after radiation therapy, pertinent symptoms and the role of replacement therapies. We discussed our recommendation for periodic surveillance of pituitary function. I would recommend checking 24 hr UFC (creatinine, volume) and 11 pm salivary cortisol x 2 nights. I wouldalso recommend checking serum prolactin, TSH, free T4, ACTH, morning cortisol, FSH, LH, calcium, vitamin D, HbA1c. C/w cabergoline 0.5 mg po 4 days a week pending test results (taken at bedtime with a snack; reviewed risks and benefits at length). I would recommend a f/u pituitary MRI examination in 6 months. She will continue following up with Dr. Ratliff at [facility] regarding radiation-induced optic neuropathy. I would also recommend a BMD examination in 12 months. Calcium and vitamin D recommendations reviewed. All questions answered. Contact patient with test results. RV at [facility] tentatively in 6 months (or sooner as needed). I personally spent a total of 40 min on care for this patient on the date of the encounter, >50% on counseling / education pertaining to evaluation and management of above pituitary condition and comorbidities. ??A virtual visit was used during the COVID-[address] of an in-person visit. This real-time, interactive virtual clinical encounter was conducted using videoconferencing technology from clinic or home office. The patient participated in the visit from home/temporary residence. Consent for virtual care, including informing the patient that insurance will be billed, and that in-person care is available in case of emergencies or as needed otherwise, was discussed at the time of scheduling. ? ?Kvng Agarwal MD, DSc documented in this encounter Plan of Treatment Upcoming Encounters Date Type Department Care Team (Late st Contact Info) Description 10/22/2025 1:30 PM EDT Telemedicine [facility] [address], [address] [place] [address] Kvng Agarwal MD, DSc [address] [place] [address] [address] [email or web address] 06/10/2029 Procedure Pass [facility] PERIOPERATIVE DEPT [address] [place] [phone] Scheduled Orders Name Type Priority Associated Diagnoses Orde r Schedule Cortisol, Saliva Lab Routine Illiopolis 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) Personal history of radiation therapy Vitamin D deficiency, unspecified Expected: 04/20/2025, Expires: 04/20/2026 Cortisol, Saliva Lab Routine Illiopolis 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) Personal history of radiation therapy Vitamin D deficiency, unspecified Expected: 04/20/2025, Expires: 04/20/2026 MRI Brain Imaging Routine Heather 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) Expected: 10/18/2025, Expires: 04/20/2026 documented as of this encounter Visit Diagnoses Diagnosis Illiopolis disease- Primary Heather's syndrome Benign neoplasm of pituitary gland and craniopharyngeal duct (pouch) Personal history of radiation therapy Personal history of irradiation, presenting hazards to health Vitamin D deficiency, unspecified documented in this encounter Care Teams Ecological Risk Assessor Relationship Specialty Start Date End Date Kim Noel MD [address] [address] PCP - General Internal Medicine 06/26/23 Freda Garg MD [address] [address] [email or web address] Referring OBGYN Obstetrics and Gynecology 02/28/17 Freda Garg MD [address] [address] Historical LMR Provider 03/27/17 Whitney Kaur MD, MPH [address] [place] [address] [email or web address] Historical LMR Provider 03/27/17 Dajuan Hammer MD 55 [facility] [address] [place] [address] [email or web address] Referring Physician Rheumatology 04/17/18 documented as of this encounter Additional Source Comments The information contained in this document represents components of the legal health record. It is not the complete legal health record.[facility]
--- OUTSIDE RECORDS SUMMARY | 2025-04-22 13:53 | XMS_ITS | Encounter Summary ---
Author Organization [facility] Address [address] [facility] [address] [place] [address] Phone Care Team Providers Care Mirror Fabrication Supervisor Name Role Phone Whitney Kaur MD, MPH Primary Care Provider + Freda Garg MD Unavailable Mike Valladares MD Unavailable Freda Garg MD Unavailable Eren Mahoney MD Unavailable Whitney Kaur MD, MPH Unavailable Dajuan Hammer MD Primary Care Provider [phone] Whitney Kaur MD, MPH Primary Care Provider + Dajuan Hammer MD Unavailable Kim Noel MD Primary Care Provide r Encounter Details Date Type Department Care Team (Late st Contact Info) Description 07/26/2017 Documentation [facility] [address] [facility], 5th Floor, [address] [place] [address] Kevin Medina MD 55 [facility] [id number] [place] [address] [email or web address] Social History Tobacco Use Types Packs/Day Years [...] Info) Description 10/22/2025 1:30 PM EDT Telemedicine [address], [address] [place] [address] Kvng Agarwal MD, DSc [address] [facility] [address] [place] [address] [email or web address] 06/10/2029 Procedure Pass [facility] [address] [place] [phone] documented as of this encounter Visit Diagnoses Not on filedocumented in this encounter Care Teams Mirror Fabrication Supervisor Relationship Specialty Start Date End Date Whitney Kaur MD, MPH 70 [place] [address] [email or web address] PCP - General 02/06/17 02/24/18 Dajuan Hammer MD 55 [facility] [place] [address] [place] [phone] [email or web address] PCP - General Rheumatology 02/25/18 04/16/18 Whitney Kaur MD, MPH 70 [place] [address] [email or web address] PCP - General Family Medicine 04/17/18 06/25/23 Kim Noel MD [address] [place] [address] PCP - General Internal Medicine 06/26/23 Freda Garg MD [address] [facility], [address] [place] [address] [email or web address] Referring OBGYN Obstetrics and Gynecology 02/28/17 Mike Valladares MD 22 [facility], 2nd [place] [address] Historical LMR Provider 03/27/17 06/17/21 Freda Garg MD [address] [place] [address] Historical LMR Provider 03/27/17 Eren Mahoney MD [address] [place] [address] julio Historical LMR Provider 03/27/17 06/17/21 Whitney Kaur MD, MPH [address] [place] [address] Historical LMR Provider 03/27/17 Dajuan Hammer MD 55 [facility] [address] [place] [address] [email or web address] Referring Physician Rheumatology 04/17/18 documented as of this encounter Additional Source Comments The information contained in this document represents components of the legal health record. It is not the complete legal health record.[facility]
--- OUTSIDE RECORDS SUMMARY | 2025-04-22 13:53 | XMS_ITS | Clinical Summary ---
Author Organization [employer] Address [address] [facility] 7t [place] [address] Care Team Providers Care Car Audio Installer Name Role Phone Unavailable Primary Care Provider [...] of 3 - Risk 3-dose series) 2011 COVID-19 Vaccine ( season) 2025 10/01/2024, 02/16/2024, 04/02/2023, Additional history exists Influenza Vaccine (#1) 2025 , 02/16/2024, 03/26/2023, Additional history exists Tobacco Screening 10/06/2025 10/06/2024 DTaP/Tdap/Td Vaccines (4 - Td or Tdap) 02/19/2034 02/20/2024, 10/30/2013, 03/14/2012 Zoster Vaccines Completed 07/22/2019, 05/05/2019 Pneumococcal Vaccine: 50+ Years Completed 12/24/2022, 06/11/2015, 11/08/2005, Additional history exists RSV Patients and Patients Aged 60 years or older Completed 04/26/2023 HIB Vaccines Aged Out No longer eligi [...] Personal/Family Self 1950 [address] [place] [address] MEDICARE
--- OUTSIDE RECORDS SUMMARY | 2025-04-22 13:53 | XMS_ITS | Encounter Summary ---
Author Organization [facility] Address [address] [facility] [address] [place] [address] Phone Care Team Providers Care Field Auto Appraiser Name Role Phone Whitney Kaur MD, MPH Primary Care Provider + Freda Garg MD Unavailable Mike Valladares MD Unavailable Freda Garg MD Unavailable Eren Mahoney MD Unavailable Whitney Kaur MD, MPH Unavailable [phone] Dajuan Hammer MD Primary Care Provider [phone] Whitney Kaur MD, MPH Primary Care Provider + Dajuan Hammer MD Unavailable Kim Noel MD Primary Care Provide r Encounter Details Date Type Department Care Team (Late st Contact Info) Description 04/24/2017 Ancillary Orders [facility] [place] [address] [facility], 3rd Floor, [address] [place] [address] Saba Lai MD [address] [address] [email or web address] Pituitary tumor Social History Tobacco Use [...] Info) Description 10/22/2025 1:30 PM EDT Telemedicine [facility] [address] [place] [address], [address] [place] [address] Kvng Agarwal MD, DSc [address] [facility] [address] [place] [address] [email or web address] 06/10/2029 Procedure Pass [facility] [place] PERIOPER[facility]IVE DEPT 55 [place] [phone] documented as of this encounter Results * [place] Fluoroscopy Guidance - No Charge (05/14/2017 12:00 PM EST) 05/15/2017 12:2 2 AM EST Narrative [facility] - 05/15/2017 12:22 AM EST Dose (mGy): 1.09 mGy Dose Area Product (DAP): n/a Fluoro time (min): 8.3 sec Number of Spot Films: n/a Procedure Note Helminthologist, Dictation - 05/15/2017 Dose (mGy): 1.09 mGy Dose Area Product (DAP): n/a Fluoro time (min): 8.3 sec Number of Spot Films: n/a us Saba Lai MD IMG [place] EXAMS Final Resul t [facility] [address] [place] [address] documented in this encounter Visit Diagnoses Diagnosis Pituitary tumor Neoplasm of unspecified nature of endocrine glands and other parts of nervous system documented in this encounter Care Teams Field Auto Appraiser Relationship Specialty Start Date End Date Whitney Kaur MD, MPH [address] [place] [address] [email or web address] PCP - General 02/06/17 02/24/18 Dajuan Hammer MD [address] [place] [address] [place] [address] [place] [phone] [email or web address] PCP - General Rheumatology 02/25/18 04/16/18 Whitney Kaur MD, MPH 70 [place] [address] [email or web address] PCP - General Family Medicine 04/17/18 06/25/23 Kim Noel MD [address] [place] [address] PCP - General Internal Medicine 06/26/23 Freda Garg MD 22 [facility], [address] [address] [email or web address] Referring OBGYN Obstetrics and Gynecology 02/28/17 Mike Valladares MD 22 [facility], 2nd [place] [address] [email or web address] Historical LMR Provider 03/27/17 06/17/21 Freda Garg MD [address] [address] Historical LMR Provider 03/27/17 Eren Mahoney MD [address] [place] [address] julio Historical LMR Provider 03/27/17 06/17/21 Whitney Kaur MD, MPH 70 [place] [address] Historical LMR Provider 03/27/17 Dajuan Hammer MD [address] [address] [email or web address] Referring Physician Rheumatology 04/17/18 documented as of this encounter Additional Source Comments The information contained in this document represents components of the legal health record. It is not the complete legal health record.[facility]
--- OUTSIDE RECORDS SUMMARY | 2025-04-22 13:53 | XMS_ITS | Encounter Summary ---
Author Organization [facility] Address [address] [facility] [address] [place] [address] Phone Care Team Providers Care Filler Spreader Name Role Phone Whitney Kaur MD, MPH Primary Care Provider + Freda Garg MD Unavailable Mike Valladares MD Unavailable Freda Garg MD Unavailable Eren Mahoney MD Unavailable Whitney Kaur MD, MPH Unavailable Dajuan Hammer MD Primary Care Provider [phone] Whitney Kaur MD, MPH Primary Care Provider + Dajuan Hammer MD Unavailable Kim Noel MD Primary Care Provide r Encounter Details Date Type Department Care Team (Late st Contact Info) Description 04/16/2017 Procedure Pass [facility], [place] [address] [facility], 2nd Floor, [address] [place] [address] Social History Tobacco Use Types Packs/Day Years [...] Info) Description 10/22/2025 1:30 PM EDT Telemedicine [address], [address] [place] [address] Kvng Agarwal MD, DSc [address] [place] [address] [address] [email or web address] 06/10/2029 Procedure Pass [facility] PERIOPER[facility]PT [address] [place] [phone] documented as of this encounter Visit Diagnoses Not on filedocumented in this encounter Care Teams Filler Spreader Relationship Specialty Start Date End Date Whitney Kaur MD, MPH 70 [place] [address] [email or web address] PCP - General 02/06/17 02/24/18 Dajuan Hammer MD 55 [facility] [address] [address] [email or web address] PCP - General Rheumatology 02/25/18 04/16/18 Whitney Kaur MD, MPH 70 [place] [address] [email or web address] PCP - General Family Medicine 04/17/18 06/25/23 Kim Noel MD [address] [place] [address] PCP - General Internal Medicine 06/26/23 Freda Garg MD 22 [facility], [address] [place] [address] [email or web address] Referring OBGYN Obstetrics and Gynecology 02/28/17 Mike Valladares MD 22 [facility], 2nd [place] [address] [email or web address] Historical LMR Provider 03/27/17 06/17/21 Freda Garg MD 22 [facility], [address] [address] [email or web address] Historical LMR Provider 03/27/17 Eren Mahoney MD 22 [facility], [address] [address] julio Historical LMR Provider 03/27/17 06/17/21 Whitney Kaur MD, MPH 70 [place] [address] Historical LMR Provider 03/27/17 Dajuan Hammer MD [address] [place] [phone] [email or web address] Referring Physician Rheumatology 04/17/18 documented as of this encounter Additional Source Comments The information contained in this document represents components of the legal health record. It is not the complete legal health record.[facility]
--- OUTSIDE RECORDS SUMMARY | 2025-04-22 13:53 | XMS_ITS | Patient Health Record ---
Author Organization [facility] Address [address] [place] [address] Care Team Providers Care Casework Supervisor Name Role Phone Ricardo Shelton Unavailable [phone] Reason For Referral No Information Plan Of Treatment No Information
--- OUTSIDE RECORDS SUMMARY | 2025-04-22 13:53 | XMS_ITS | Encounter Summary ---
Author Organization [facility] Address [address] [place] [address] Phone Care Team Providers Care Slab Inspector Name Role Phone Whitney Kaur MD, MPH Primary Care Provider + Freda Garg MD Unavailable Mike Valladares MD Unavailable Freda Garg MD Unavailable Eren Mahoney MD Unavailable [phone] Whitney Kaur MD, MPH Unavailable Dajuan Hammer MD Primary Care Provider [phone] Whitney Kaur MD, MPH Primary Care Provider + Dajuan Hammer MD Unavailable [phone] Kim Noel MD Primary Care Provide r Encounter Details Date Type Department Care Team (Late st Contact Info) Description 04/16/2017 Procedure Pass [facility]. [facility] 1 [address] [facility], 1st [place] [address] Social History Tobacco Use Types Packs/Day Years [...] Info) Description 10/22/2025 1:30 PM EDT Telemedicine [facility] [address] [place] [address], [address] [place] [address] Kvng Agarwal MD, DSc [address] [place] [address] [place] [address] [email or web address] 06/10/2029 Procedure Pass [facility] PERIOPER[facility]IVE DEPT 55 [place] [phone] documented as of this encounter Visit Diagnoses Not on filedocumented in this encounter Care Teams Slab Inspector Relationship Specialty Start Date End Date Whitney Kaur MD, MPH [address] [place] [address] [email or web address] PCP - General 02/06/17 02/24/18 Dajuan Hammer MD 55 [facility] [address] [address] [email or web address] PCP - General Rheumatology 02/25/18 04/16/18 Whitney Kaur MD, MPH 70 [place] [address] [email or web address] PCP - General Family Medicine 04/17/18 06/25/23 Kim Noel MD [address] [place] [address] PCP - General Internal Medicine 06/26/23 Freda Garg MD [address] [place] [address], [address] [place] [address] [email or web address] Referring OBGYN Obstetrics and Gynecology 02/28/17 Mike Valladares MD [address] [place] [address], 2nd [place] [address] [email or web address] Historical LMR Provider 03/27/17 06/17/21 Freda Garg MD [address] [place] [address] [email or web address] Historical LMR Provider 03/27/17 Eren Mahoney MD [address] [place] [address] julio Historical LMR Provider 03/27/17 06/17/21 Whitney Kaur MD, MPH [address] [place] [address] [email or web address] Historical LMR Provider 03/27/17 Dajuan Hammer MD [address] [address] [email or web address] Referring Physician Rheumatology 04/17/18 documented as of this encounter Additional Source Comments The information contained in this document represents components of the legal health record. It is not the complete legal health record.[facility]
--- OUTSIDE RECORDS SUMMARY | 2025-04-22 13:53 | XMS_ITS | Encounter Summary ---
Author Organization [facility] Address [address] [place] [address] Phone Care Team Providers Care Pressure Sealer And Tester Name Role Phone Whitney Kaur MD, MPH Primary Care Provider + Freda Garg MD Unavailable Mike Valladares MD Unavailable Freda Garg MD Unavailable Eren Mahoney MD Unavailable Whitney Kaur MD, MPH Unavailable [phone] Dajuan Hammer MD Primary Care Provider [phone] Whitney Kaur MD, MPH Primary Care Provider + Dajuan Hammer MD Unavailable [phone] Kim Noel MD Primary Care Provide r Encounter Details Date Type Department Care Team (Late st Contact Info) Description 05/14/2017 Procedure Pass [facility] [address] [place] [phone] Social History Tobacco Use Types Packs/Day Years [...] Tafoya PA-C * Patient has serious difficulty doing [...] Info) Description 10/22/2025 1:30 PM EDT Telemedicine [address], [address] [place] [address] Kvng Agarwal MD, DSc [address] [place] [address] [place] [address] [email or web address] 06/10/2029 Procedure Pass [facility] 55 [place] [phone] documented as of this encounter Visit Diagnoses Not on filedocumented in this encounter Care Teams Pressure Sealer And Tester Relationship Specialty Start Date End Date Whitney Kaur MD, MPH 70 [place] [address] [email or web address] PCP - General 02/06/17 02/24/18 Dajuan Hammer MD 55 [facility] [address] [place] [phone] [email or web address] PCP - General Rheumatology 02/25/18 04/16/18 Whitney Kaur MD, MPH 70 [place] [address] [email or web address] PCP - General Family Medicine 04/17/18 06/25/23 Kim Noel MD [address] [place] [address] PCP - General Internal Medicine 06/26/23 Freda Garg MD [address] [place] [address] [email or web address] Referring OBGYN Obstetrics and Gynecology 02/28/17 Mike Valladares MD [address] [place] [address], 2nd [place] [address] [email or web address] Historical LMR Provider 03/27/17 06/17/21 Freda Garg MD [address] [place] [address] [place] [address] Historical LMR Provider 03/27/17 Eren Mahoney MD 22 [facility], [address] [address] julio Historical LMR Provider 03/27/17 06/17/21 Whitney Kaur MD, MPH 70 [place] [address] Historical LMR Provider 03/27/17 Dajuan Hammer MD 55 [facility] [address] [place] [address] [email or web address] Referring Physician Rheumatology 04/17/18 documented as of this encounter Additional Source Comments The information contained in this document represents components of the legal health record. It is not the complete legal health record.[facility]
--- OUTSIDE RECORDS SUMMARY | 2025-04-22 13:53 | XMS_ITS | Encounter Summary ---
Author Organization [facility] Address [address] [place] [address] Phone Care Team Providers Care Bolt Sawyer Name Role Phone Heidi Solano MD Primary Care Provider + Whitney Kaur MD, MPH Primary Care Provider + Heidi Solano MD Primary Care Provider + Whitney Kaur MD, MPH Primary Care Provider + Freda Garg MD Unavailable Mike Valladares MD Unavailable Freda Garg MD Unavailable Eren Mahoney MD Unavailable [phone] Whitney Kaur MD, MPH Unavailable Dajuan Hammer MD Primary Care Provider [phone] Whitney Kaur MD, MPH Primary Care Provider + Dajuan Hammer MD Unavailable [phone] Kim Noel MD Primary Care Provide r Encounter Details Date Type Department Care Team (Late st Contact Info) Description 07/24/2016 Procedure Pass [facility] 55 [place] [address] Social History Tobacco Use Types Packs/Day Years [...] Info) Description 10/22/2025 1:30 PM EDT Telemedicine [facility] Clinical Center [address] [facility], [address] [place] [address] Kvng Agarwal MD, DSc 55 [facility] [address] [place] [address] [email or web address] 06/10/2029 Procedure Pass [facility]PT 55 [place] [phone] documented as of this encounter Visit Diagnoses Not on filedocumented in this encounter Care Teams Bolt Sawyer Relationship Specialty Start Date End Date Heidi Solano MD [email or web address] PCP - General Family Medicine 08/12/14 10/23/16 Whitney Kaur MD, MPH 70 [place] [address] [email or web address] PCP - General Family Medicine 10/24/16 01/13/17 Heidi Solano MD [email or web address] PCP - General Family Medicine 01/14/17 02/05/17 Whitney Kaur MD, MPH 70 [place] [address] [email or web address] PCP - General 02/06/17 02/24/18 Dajuan Hammer MD 55 [facility] [address] [place] [phone] [email or web address] PCP - General Rheumatology 02/25/18 04/16/18 Whitney Kaur MD, MPH 70 [place] [address] [email or web address] PCP - General Family Medicine 04/17/18 06/25/23 Kim Noel MD [address] [place] [address] PCP - General Internal Medicine 06/26/23 Freda Garg MD [address] [place] [address] [email or web address] Referring OBGYN Obstetrics and Gynecology 02/28/17 Mike Valladares MD [address] [place] [address], 2nd [place] [address] Historical LMR Provider 03/27/17 06/17/21 Freda Garg MD [address] [place] [address] Historical LMR Provider 03/27/17 Eren Mahoney MD 22 [facility], [address] [place] [address] julio [email or web address] Historical LMR Provider 03/27/17 06/17/21 Whitney Kaur MD, MPH [address] [place] [address] [email or web address] Historical LMR Provider 03/27/17 Dajuan Hammer MD [address] [place] [address] [email or web address] Referring Physician Rheumatology 04/17/18 documented as of this encounter Additional Source Comments The information contained in this document represents components of the legal health record. It is not the complete legal health record.[facility]
--- OUTSIDE RECORDS SUMMARY | 2025-04-22 13:53 | XMS_ITS | Patient Health Record ---
Author Organization [facility] Address [address] [address] Support Name Relationship Address Phone GRETEL MEEK Guarantor Unknown [phone] Reason For Referral No Information Medications Medication SIG (Take, Route, Frequency, Duration) Notes Start Date End Date Status Leflunomide 20MG ORAL; Duration: -3 [facility] 03/05/2014 Active Metoprolol Tartrate 100MG 1 ORAL twice d aily; Duration: -3 [facility] 12/28/2011 Active Wellbutrin XL 150MG 1 ORAL daily; Duration: -3 [facility] 12/28/2011 Active Vitamin B-12 100MCG ORAL; Duration: -3 [facility] 12/28/2011 Active hydroCHLOROthiazide 12.5MG 1 ORAL daily; Duration: -3 [facility] 02/20/2013 Active Hydroxychloroquine Sulfate 200MG ORAL; Duration: -3 [facility] 03/05/2014 Active Sertraline HCl 50MG 1 ORAL daily; Duration: -3 [facility] 12/28/2011 Active Simvastatin 40MG 1 ORAL DAILY; Duration: -3 [facility] 12/28/2011 Active Folic Acid 1MG 1 ORAL daily; Duration: -3 [facility] 12/28/2011 Active sulfaSALAzine 500MG ORAL; Duration: -3 [facility] 03/05/2014 Active Gabapentin 300MG 1 ORAL three times daily; Duration: -3 [facility] 12/28/2011 Active Terconazole 0.4% 1 Vaginal once daily at hs1; Duration: -3 [facility] 03/05/2014 Active Problems Problem Type SNOMED Code ICD Code Onset Dates Problem Status W/U Status Risk Notes Problem Hyperlipidemia (66776380) Other and unspecified hyperlipidemia (272.4) Active confirmed Major Problem Benign essential hypertension (3519371) Essential hypertension, benign (401.1) Active confirmed Major Problem Rheumatoid arthritis (04800590) Rheumatoid arthritis (714.0) Active confirmed Major Problem Gynecological examination normal (263894381308084) Routine gynecological examination (V72.31) Active confirmed Diag Problem Dietary management surveillance (688518591) Dietary surveillance and counseling (V65.3) Active confirmed Diag Problem Exercises teaching, guidance, and counseling (609607853) Exercise counseling (V65.41) Active confirmed Diag Plan Of Treatment No Information Insurance Providers Payer Name Payer Address Payer Phone Subscriber Number Group Number Insured Name Patient Relationship to Insured Coverage Start Date Coverage End Date [facility] [address] [id number] GRETEL MEEK Self - patient is the insured
--- OUTSIDE RECORDS SUMMARY | 2025-04-22 13:53 | XMS_ITS | Encounter Summary ---
Author Organization [facility] Address [address] [place] [address] Phone Care Team Providers Care Banquet Attendant Name Role Phone Whitney Kaur MD, MPH Primary Care Provider + Freda Garg MD Unavailable Mike Valladares MD Unavailable [phone] Freda Garg MD Unavailable Eren Mahoney MD Unavailable [phone] Whitney Kaur MD, MPH Unavailable [phone] Dajuan Hammer MD Primary Care Provider [phone] Whitney Kaur MD, MPH Primary Care Provider + Dajuan Hammer MD Unavailable [phone] Kim Noel MD Primary Care Provide r Encounter Details Date Type Department Care Team (Late st Contact Info) Description 05/16/2017 Procedure Pass [facility] [address] [facility], 6th [place] [address] Social History Tobacco Use Types Packs/Day Years [...] of Assessment Author No 10/29/2016 8:45 AM Roas Schafer PA-C documented as of this encounter Mental Status * Patient has serious difficulty concentrating, remembering, or making decisions due to physical, mental, or emotional condition Answer Entry Date Author No 10/29/2016 8:45 AM Rosa Schafer PA-C documented in this encounter Plan of Treatment Upcoming Encounters Date Type Department Care Team (Late st Contact Info) Description 10/22/2025 1:30 PM EDT Telemedicine [facility] [address] [place] [address], [address] [place] [address] Kvng Agarwal MD, DSc [address] [place] [address] [place] [address] [email or web address] 06/10/2029 Procedure Pass [facility] 55 [place] [phone] documented as of this encounter Visit Diagnoses Not on filedocumented in this encounter Care Teams Banquet Attendant Relationship Specialty Start Date End Date Whitney Kaur MD, MPH 70 [place] [address] [email or web address] PCP - General 02/06/17 02/24/18 Dajuan Hammer MD 55 [facility] [address] [address] [email or web address] PCP - General Rheumatology 02/25/18 04/16/18 Whitney Kaur MD, MPH 70 [place] [address] [email or web address] PCP - General Family Medicine 04/17/18 06/25/23 Kim Noel MD [address] [place] [address] PCP - General Internal Medicine 06/26/23 Freda Garg MD [address] [place] [address], [address] [place] [address] [email or web address] Referring OBGYN Obstetrics and Gynecology 02/28/17 Mike Valladares MD [address] [place] [address], 2nd [place] [address] [email or web address] Historical LMR Provider 03/27/17 06/17/21 Freda Garg MD [address] [place] [address] [email or web address] Historical LMR Provider 03/27/17 Eren Mahoney MD [address] [place] [address] julio Historical LMR Provider 03/27/17 06/17/21 Whitney Kaur MD, MPH [address] [place] [address] [email or web address] Historical LMR Provider 03/27/17 Dajuan Hammer MD [address] [address] [email or web address] Referring Physician Rheumatology 04/17/18 documented as of this encounter Additional Source Comments The information contained in this document represents components of the legal health record. It is not the complete legal health record.[facility]
--- OUTSIDE RECORDS SUMMARY | 2025-04-22 13:53 | XMS_ITS | Encounter Summary ---
Author Organization [facility] Address [address] [place] [address] Phone Care Team Providers Care Reimbursement Analyst Name Role Phone Freda Garg MD Unavailable Mike Valladares MD Unavailable [phone] Freda Garg MD Unavailable Eren Mahoney MD Unavailable [phone] Whitney Kaur MD, MPH Unavailable [phone] Whitney Kaur MD, MPH Primary Care Provider + Dajuan Hammer MD Unavailable [phone] Kim Noel MD Primary Care Provide r Encounter Details Date Type Department Care Team (Late st Contact Info) Description 08/10/2020 Procedure Pass [facility], [address] [address] Social History Tobacco Use Types Packs/Day Years [...] 10/29/2016 8:45 AM EDT Rosa Ga PA-C * Patient is blind [...] Info) Description 10/22/2025 1:30 PM EDT Telemedicine [facility] Neuroendocrine Clinical Center [address] [facility], [address] [place] [address] Kvng Agarwal MD, DSc 55 [facility] [address] [place] [address] [email or web address] 06/10/2029 Procedure Pass [facility] PERIOPERATIVE DEPT [address] [place] [phone] documented as of this encounter Visit Diagnoses Not on filedocumented in this encounter Care Teams Reimbursement Analyst Relationship Specialty Start Date End Date Whitney Kaur MD, MPH 70 [place] [address] PCP - General Family Medicine 04/17/18 06/25/23 Kim Noel MD [address] [place] [address] PCP - General Internal Medicine 06/26/23 Freda Garg MD [address] [place] [address] Referring OBGYN Obstetrics and Gynecology 02/28/17 Mike Valladares MD [address] [place] [address], 2nd [place] [address] Historical LMR Provider 03/27/17 06/17/21 Freda Garg MD [address] [place] [address] Historical LMR Provider 03/27/17 Eren Mahoney MD [address] [place] [address] julio Historical LMR Provider 03/27/17 06/17/21 Whitney Kaur MD, MPH [address] [place] [address] Historical LMR Provider 03/27/17 Dajuan Hammer MD [address] [place] [address] [facility] [address] [place] [address] [email or web address] Referring Physician Rheumatology 04/17/18 documented as of this encounter Additional Source Comments The information contained in this document represents components of the legal health record. It is not the complete legal health record.[facility]
--- OUTSIDE RECORDS SUMMARY | 2025-04-22 13:53 | XMS_ITS | Patient Health Record ---
Author Organization [facility] Address [address] [place] [address] Care Team Providers Care Health Researcher Name Role Phone Whitney Kaur MD Primary Care Provider Ricki Matson [phone] Allergies Allergen (clinical drug ingredient) Drug/Non Drug [...] Vaccine Route Administration Date Status Comme nts COVID-19 Moderna Vaccine Unknown 04/13/2021 Administered 1st 07/30/2020 2nd 08/27/2020 Influenza Unknown 03/10/2021 Administered Social History Tobacco Use: Social History Observation [...] Problem Acquired hammer toe of right foot (92554528257385 05) Other hammer toe(s) (acquired), right foot (M20.41) Active confirmed Problem Rheumatoid arthritis (26837832) Rheumatoid arthritis involving multiple sites with positive [...] X ray : Foot, right 3V 05/13/2012 11034- Debride <25 sq cm 05/30/2012 24849-VVTPIMT SKIN/TISSUE 05/30/2012 12007-JJNEIRX SKIN/TISSUE 05/13/2012 Insurance Providers Payer Name Payer Address Payer Phone Subscriber Number Group Number Insured Name Patient Relationship to Insured Coverage Start Date Coverage End Date Medicare [employer] [address] [place] [address] [id number] Isa Bello Self - patient is the insured 7 Shoo[employer]) [address] [place] [address] [phone] [id number] Isa Bello Self - patient is [...] R 2-4 03/23/2021 Hospitalization History Reason Date(Month/Year) [facility] -2 days GI issues -Antibi otics given 05/2021
--- OUTSIDE RECORDS SUMMARY | 2025-04-22 13:54 | XMS_ITS | Encounter Summary ---
Author Organization [facility] Address [address] [facility] [address] [place] [address] Phone Care Team Providers Care Computer Methods Analyst Name Role Phone Freda Garg MD Unavailable Mike Valladares MD Unavailable [phone] Freda Garg MD Unavailable Eren Mahoney MD Unavailable [phone] Whitney Kaur MD, MPH Unavailable [phone] Whitney Kaur MD, MPH Primary Care Provider + Dajuan Hammer MD Unavailable [phone] Kim Noel MD Primary Care Provide r Encounter Details Date Type Department Care Team (Late st Contact Info) Description 07/04/2018 Procedure Pass [facility] [address] [facility], 6th [place] [address] Social History Tobacco Use Types Packs/Day Years [...] PM EDT Telemedicine [facility] Clinical Center [address] [facility], [address] [place] [address] Kvng Agarwal MD, DSc 55 [facility] [address] [place] [address] [email or web address] 06/10/2029 Procedure Pass [facility] [address] [place] [phone] documented as of this encounter Visit Diagnoses Not on filedocumented in this encounter Care Teams Computer Methods Analyst Relationship Specialty Start Date End Date Whitney Kaur MD, MPH 70 [place] [address] PCP - General Family Medicine 04/17/18 06/25/23 Kim Noel MD [address] [place] [address] PCP - General Internal Medicine 06/26/23 Freda Garg MD [address] [place] [address] Referring OBGYN Obstetrics and Gynecology 02/28/17 Mike Valladares MD [address] [place] [address], 2nd [place] [address] Historical LMR Provider 03/27/17 06/17/21 Freda Garg MD [address] [place] [address] Historical LMR Provider 03/27/17 Eren Mahoney MD [address] [place] [address] julio Historical LMR Provider 03/27/17 06/17/21 Whitney Kaur MD, MPH 70 [place] [address] Historical LMR Provider 03/27/17 Dajuan Hammer MD [address] [place] [address] [address] [place] [address] [email or web address] Referring Physician Rheumatology 04/17/18 documented as of this encounter Additional Source Comments The information contained in this document represents components of the legal health record. It is not the complete legal health record.[facility]
--- OUTSIDE RECORDS SUMMARY | 2025-04-22 13:54 | XMS_ITS | Encounter Summary ---
Author Organization [facility] Address [address] [place] [address] Phone Care Team Providers Care Online Program Coordinator Name Role Phone Whitney Kaur MD, MPH Primary Care Provider + Freda Garg MD Unavailable Mike Valladares MD Unavailable Freda Garg MD Unavailable Eren Mahoney MD Unavailable Whitney Kaur MD, MPH Unavailable Dajuan Hammer MD Primary Care Provider [phone] Whitney Kaur MD, MPH Primary Care Provider + Dajuan Hammer MD Unavailable [phone] Kim Noel MD Primary Care Provide r Encounter Details Date Type Department Care Team (Late st Contact Info) Description 02/26/2017 Procedure Pass [facility] General Imaging [address] [place] [address] Social History Tobacco Use Types Packs/Day Years [...] Info) Description 10/22/2025 1:30 PM EDT Telemedicine [facility] Clinical Center [address] [place] [address], [address] [place] [address] Kvng Agarwal MD, DSc [address] [place] [address] [address]12 [place] [address] [email or web address] 06/10/2029 Procedure Pass [facility] PER[facility]IVE DEPT 55 [place] [address] documented as of this encounter Visit Diagnoses Not on filedocumented in this encounter Care Teams Online Program Coordinator Relationship Specialty Start Date End Date Whitney Kaur MD, MPH 70 [place] [address] [email or web address] PCP - General 02/06/17 02/24/18 Dajuan Hammer MD 55 [facility] [address] [place] [phone] [email or web address] PCP - General Rheumatology 02/25/18 04/16/18 Whitney Kaur MD, MPH 70 [place] [address] [email or web address] PCP - General Family Medicine 04/17/18 06/25/23 Kim Noel MD [address] [place] [address] PCP - General Internal Medicine 06/26/23 Freda Garg MD [address] [place] [address] [email or web address] Referring OBGYN Obstetrics and Gynecology 02/28/17 Mike Valladares MD [address] [place] [address], 2nd [place] [address] [email or web address] Historical LMR Provider 03/27/17 06/17/21 Freda Garg MD [address] [place] [address] [email or web address] Historical LMR Provider 03/27/17 Eren Mahoney MD [address] [facility], [address] [place] [address] julio Historical LMR Provider 03/27/17 06/17/21 Whitney Kaur MD, MPH [address] [place] [address] Historical LMR Provider 03/27/17 Dajuan Hammer MD [address] [place] [phone] [email or web address] Referring Physician Rheumatology 04/17/18 documented as of this encounter Additional Source Comments The information contained in this document represents components of the legal health record. It is not the complete legal health record.[facility]
--- OUTSIDE RECORDS SUMMARY | 2025-04-22 13:54 | XMS_ITS | Encounter Summary ---
Author Organization [facility] Address [address] [place] [address] Phone Care Team Providers Care 3D Specialist Name Role Phone Heidi Solano MD Primary Care Provider + Whitney Kaur MD, MPH Primary Care Provider + Freda Garg MD Unavailable Mike Valladares MD Unavailable Freda Garg MD Unavailable Eren Mahoney MD Unavailable Whitney Kaur MD, MPH Unavailable [phone] Dajuan Hammer MD Primary Care Provider [phone] Whitney Kaur MD, MPH Primary Care Provider + Dajuan Hammer MD Unavailable [phone] Kim Noel MD Primary Care Provide r Encounter Details Date Type Department Care Team (Latest Contact Info) Description 02/04/2017 Ancillary Orders [facility] NEUROS[facility]GERY VIRTUAL DEPARTMENT [address] [place] [phone] Eliazar Peace MD [address] [place] [address] [email or web address] Other form of scoliosis of lumbar spine [...] Info) Description 10/22/2025 1:30 PM EDT Telemedicine [address], [address] [place] [address] Kvng Agarwal MD, DSc 55 [facility] [address] [place] [address] [email or web address] 06/10/2029 Procedure Pass [facility] PERIOPERATIVE DEPT 55 [place] [phone] documented as of this encounter Visit Diagnoses Diagnosis Other form of scoliosis of lumbar spine documented in this encounter Care Teams 3D Specialist Relationship Specialty Start Date End Date Heidi Solano MD [email or web address] PCP - General Family Medicine 01/14/17 02/05/17 Whitney Kaur MD, MPH 70 [place] [address] [email or web address] PCP - General 02/06/17 02/24/18 Dajuan Hammer MD 55 [facility] [address]BYAW [address] [place] [phone] [email or web address] PCP - General Rheumatology 02/25/18 04/16/18 Whitney Kaur MD, MPH 70 [place] [address] [email or web address] PCP - General Family Medicine 04/17/18 06/25/23 Kim Noel MD [address] [address] PCP - General Internal Medicine 06/26/23 Freda Garg MD 22 [facility], [address] [place] [address] Referring OBGYN Obstetrics and Gynecology 02/28/17 Mike Valladares MD [address] [place] [address], 2nd [place] [address] Historical LMR Provider 03/27/17 06/17/21 Freda Garg MD [address] [place] [address] Historical LMR Provider 03/27/17 Eren Mahoney MD [address] [place] [address] julio Historical LMR Provider 03/27/17 06/17/21 Whitney Kaur MD, MPH [address] [place] [address] [email or web address] Historical LMR Provider 03/27/17 Dajuan Hammer MD [address] [place], [place] [address] [address] [email or web address] Referring Physician Rheumatology 04/17/18 documented as of this encounter Additional Source Comments The information contained in this document represents components of the legal health record. It is not the complete legal health record.[facility]
--- OUTSIDE RECORDS SUMMARY | 2025-04-22 13:54 | XMS_ITS | Encounter Summary ---
Author Organization [facility] Address [address] [place] [address] Phone Care Team Providers Care Mirror Fabrication Supervisor Name Role Phone Whitney Kaur MD, MPH Primary Care Provider + Freda Garg MD Unavailable Mike Valladares MD Unavailable Freda Garg MD Unavailable Eren Mahoney MD Unavailable [phone] Whitney Kaur MD, MPH Unavailable Dajuan Hammer MD Primary Care Provider [phone] Whitney Kaur MD, MPH Primary Care Provider + Dajuan Hammer MD Unavailable [phone] Kim Noel MD Primary Care Provide r Encounter Details Date Type Department Care Team (Late st Contact Info) Description 03/27/2017 Procedure Pass [facility] General Imaging [address] [place] [address] Social History Tobacco Use Types Packs/Day Years [...] Assessment Author No 10/29/2016 8:45 AM Rosa Schafre PA-C * Patient is blind or has [...] Assessment Author No 10/29/2016 8:45 AM Rosa Shcafer PA-C documented as of this encounter Mental Status * Patient has serious difficulty concentrating, remembering, or making decisions due to physical, mental, or emotional condition Answer Entry Date Author No 10/29/2016 8:45 AM Rosa Schafer PA-C documented in this encounter Plan of Treatment Upcoming Encounters Date Type Department Care Team (Late st Contact Info) Description 10/22/2025 1:30 PM EDT Telemedicine [facility] Clinical Center [address] [place] [address], [address] [place] [address] Kvng Agarwal MD, DSc [address] [place] [address] [address]12 [place] [address] [email or web address] 06/10/2029 Procedure Pass [facility] PERI[facility]IVE DEPT 55 [place] [address] documented as of this encounter Visit Diagnoses Not on filedocumented in this encounter Care Teams Mirror Fabrication Supervisor Relationship Specialty Start Date End Date Whitney Kaur MD, MPH 70 [place] [address] [email or web address] PCP - General 02/06/17 02/24/18 Dajuan Hammer MD 55 [facility] [address] [place] [phone] [email or web address] PCP - General Rheumatology 02/25/18 04/16/18 Whitney Kaur MD, MPH 70 [place] [address] [email or web address] PCP - General Family Medicine 04/17/18 06/25/23 Kim Noel MD [address] [place] [address] PCP - General Internal Medicine 06/26/23 Freda Garg MD [address] [place] [address] [email or web address] Referring OBGYN Obstetrics and Gynecology 02/28/17 Mike Valladares MD [address] [place] [address], 2nd [place] [address] [email or web address] Historical LMR Provider 03/27/17 06/17/21 Freda Garg MD [address] [place] [address] [email or web address] Historical LMR Provider 03/27/17 Eren Mahoney MD 22 [facility], [address] [place] [address] julio Historical LMR Provider 03/27/17 06/17/21 Whitney Kaur MD, MPH [address] [place] [address] Historical LMR Provider 03/27/17 Dajuan Hammer MD [address] [place] [phone] [email or web address] Referring Physician Rheumatology 04/17/18 documented as of this encounter Additional Source Comments The information contained in this document represents components of the legal health record. It is not the complete legal health record.[facility]
--- OUTSIDE RECORDS SUMMARY | 2025-04-22 13:54 | XMS_ITS | Encounter Summary ---
Author Organization [facility] Address [address] [place] [address] Phone Care Team Providers Care College Teacher Name Role Phone Whitney Kaur MD, MPH Primary Care Provider + Freda Garg MD Unavailable Mike Valladares MD Unavailable [phone] Freda Garg MD Unavailable Eren Mahoney MD Unavailable [phone] Whitney Kaur MD, MPH Unavailable Dajuan Hammer MD Primary Care Provider [phone] Whitney Kaur MD, MPH Primary Care Provider + Dajuan Hammer MD Unavailable [phone] Kim Noel MD Primary Care Provide r Encounter Details Date Type Department Care Team (Late st Contact Info) Description 03/27/2017 Procedure Pass [facility] General Imaging [address] [place] [address] Social History Tobacco Use Types Packs/Day Years [...] Description 10/22/2025 1:30 PM EDT Telemedicine [facility] [address] [place] [address], [address] [place] [address] Kvng Agarwal MD, DSc [address] [place] [address] [address]12 [place] [address] [email or web address] 06/10/2029 Procedure Pass [facility] 55 [place] [address] documented as of this encounter Visit Diagnoses Not on filedocumented in this encounter Care Teams College Teacher Relationship Specialty Start Date End Date Whitney Kaur MD, MPH 70 [place] [address] [email or web address] PCP - General 02/06/17 02/24/18 Dajuan Hammer MD 55 [facility] [address] [place] [phone] [email or web address] [email or web address] PCP - General Rheumatology 02/25/18 04/16/18 Whitney Kaur MD, MPH 70 [place] [address] [email or web address] PCP - General Family Medicine 04/17/18 06/25/23 Kim Noel MD [address] [place] [address] PCP - General Internal Medicine 06/26/23 Freda Garg MD [address] [place] [address] [email or web address] Referring OBGYN Obstetrics and Gynecology 02/28/17 Mike Valladares MD [address] [place] [address], 2nd [place] [address] [email or web address] Historical LMR Provider 03/27/17 06/17/21 Freda Garg MD [address] [place] [address] [email or web address] Historical LMR Provider 03/27/17 Eren Mahoney MD 22 [facility], [address] [place] [address] julio Historical LMR Provider 03/27/17 06/17/21 Whitney Kaur MD, MPH [address] [place] [address] Historical LMR Provider 03/27/17 Dajuan Hammer MD [address] [place] [phone] [email or web address] Referring Physician Rheumatology 04/17/18 documented as of this encounter Additional Source Comments The information contained in this document represents components of the legal health record. It is not the complete legal health record.[facility]
--- OUTSIDE RECORDS SUMMARY | 2025-04-22 13:54 | XMS_ITS | Encounter Summary ---
Author Organization [facility] Address [address] [place] [address] Phone Care Team Providers Care Catcher Filter Tip Name Role Phone Freda Garg MD Unavailable Mike Valladares MD Unavailable [phone] Freda Garg MD Unavailable Eren Mahoney MD Unavailable [phone] Whitney Kaur MD, MPH Unavailable [phone] Whitney Kaur MD, MPH Primary Care Provider + Dajuan Hammer MD Unavailable [phone] Kim oNel MD Primary Care Provide r Encounter Details Date Type Department Care Team (Late st Contact Info) Description 03/25/2019 Procedure Pass [facility] MRI, [address] [facility], 2nd [place] [address] Social History Tobacco Use Types Packs/Day Years [...] Info) Description 10/22/2025 1:30 PM EDT Telemedicine [facility] Clinical Center [address] [facility], [address] [place] [address] Kvng Agarwal MD, DSc 55 [facility] [address]00[address] [place] [address] [email or web address] 06/10/2029 Procedure Pass [facility] PERIOPERATIVE DEPT [address] [place] [phone] documented as of this encounter Visit Diagnoses Not on filedocumented in this encounter Care Teams Catcher Filter Tip Relationship Specialty Start Date End Date Whitney Kaur MD, MPH 70 [place] [address] PCP - General Family Medicine 04/17/18 06/25/23 Kim Noel MD [address] [place] [address] PCP - General Internal Medicine 06/26/23 Freda Garg MD [address] [place] [address] Referring OBGYN Obstetrics and Gynecology 02/28/17 Mike Valladares MD [address] [place] [address], 2nd [place] [address] Historical LMR Provider 03/27/17 06/17/21 Freda Garg MD [address] [place] [address] Historical LMR Provider 03/27/17 Eren Mahoney MD [address] [place] [address] julio Historical LMR Provider 03/27/17 06/17/21 Whitney Kaur MD, MPH [address] [place] [address] Historical LMR Provider 03/27/17 Dajuan Hammer MD [address] [place] [address] [address] [place] [address] [email or web address] Referring Physician Rheumatology 04/17/18 documented as of this encounter Additional Source Comments The information contained in this document represents components of the legal health record. It is not the complete legal health record.[facility]
--- OUTSIDE RECORDS SUMMARY | 2025-04-22 13:54 | XMS_ITS | Encounter Summary ---
Author Organization [facility] Address [address] [facility] [address] [place] [address] Phone Care Team Providers Care Party Host Name Role Phone Freda Garg MD Unavailable Mike Valladares MD Unavailable [phone] Freda Garg MD Unavailable Eren Mahoney MD Unavailable [phone] Whitney Kaur MD, MPH Unavailable [phone] Whitney Kaur MD, MPH Primary Care Provider + Dajuan Hammer MD Unavailable [phone] Kim Noel MD Primary Care Provide r Encounter Details Date Type Department Care Team (Late st Contact Info) Description 04/03/2021 Procedure Pass [facility], Ct Scan - [address] [phone] Social History Tobacco Use Types Packs/Day Years [...] Info) Description 10/22/2025 1:30 PM EDT Telemedicine [facility] Neuroendocrine Clinical Center [address] [place] [address], [address] [place] [address] Kvng Agarwal MD, DSc 55 [facility] [address] [place] [address] [email or web address] 06/10/2029 Procedure Pass [facility] PERIOPERATIVE DEPT [address] [place] [phone] documented as of this encounter Visit Diagnoses Not on filedocumented in this encounter Care Teams Party Host Relationship Specialty Start Date End Date Whitney Kaur MD, MPH 70 [place] [address] [email or web address] PCP - General Family Medicine 04/17/18 06/25/23 Kim Noel MD [address] [place] [address] PCP - General Internal Medicine 06/26/23 Freda Garg MD [address] [place] [address] Referring OBGYN Obstetrics and Gynecology 02/28/17 Mike Valladares MD [address] [place] [address], 2nd [place] [address] Historical LMR Provider 03/27/17 06/17/21 Freda Garg MD [address] [place] [address] Historical LMR Provider 03/27/17 Eren Mahoney MD [address] [place] [address] julio Historical LMR Provider 03/27/17 06/17/21 Whitney Kaur MD, MPH [address] [place] [address] Historical LMR Provider 03/27/17 Dajuan Hammer MD [address] [place] [address] [address] [place] [address] [email or web address] Referring Physician Rheumatology 04/17/18 documented as of this encounter Additional Source Comments The information contained in this document represents components of the legal health record. It is not the complete legal health record.[facility]
--- OUTSIDE RECORDS SUMMARY | 2025-04-22 13:54 | XMS_ITS | Encounter Summary ---
Author Organization [facility] Address [address] [place] [address] Phone Care Team Providers Care Reproduction Machine Loader Name Role Phone Freda Garg MD Unavailable Freda Garg MD Unavailable Whitney Kaur MD, MPH Unavailable [phone] Dajuan Hammer MD Unavailable [phone] Kim Noel MD Primary Care Provide r Encounter Details Date Type Department Care Team (Late st Contact Info) Description 06/26/2023 Procedure Pass [facility] Endoscopy Admitting Dept Virtual Department 30 [place], [place] [phone] Social History Tobacco Use Types Packs/Day Years [...] Info) Description 10/22/2025 1:30 PM EDT Telemedicine [facility] Neuroendocrine Clinical Center [address] [facility], [address] [place] [address] Kvng Agarwal MD, DSc 55 [facility] [address] [place] [address] [email or web address] 06/10/2029 Procedure Pass [facility] PERIOPERATIVE DEPT 55 [place] [phone] documented as of this encounter Visit Diagnoses Not on filedocumented in this encounter Care Teams Reproduction Machine Loader Relationship Specialty Start Date End Date Kim Noel MD [address] [address] PCP - General Internal Medicine 06/26/23 Freda Garg MD 22 [facility] 102 [place] [address] [email or web address] Referring OBGYN Obstetrics and Gynecology 02/28/17 Freda Garg MD 22 [facility] 102 [place] [address] [email or web address] Historical LMR Provider 03/27/17 Whitney Kaur MD, MPH 70 [place] [address] [email or web address] Historical LMR Provider 03/27/17 Dajuan Hammer MD 55 [facility] [address] [place] [phone] [email or web address] Referring Physician Rheumatology 04/17/18 documented as of this encounter Additional Source Comments The information contained in this document represents components of the legal health record. It is not the complete legal health record.[facility]
--- OUTSIDE RECORDS SUMMARY | 2025-04-22 13:54 | XMS_ITS | Encounter Summary ---
Author Organization [facility] Address [address] [place] [address] Phone Care Team Providers Care Montessori Teacher Name Role Phone Whitney Kaur MD, MPH Primary Care Provider + Heidi Solano MD Primary Care Provider + Whitney Kaur MD, MPH Primary Care Provider + Freda Garg MD Unavailable Mike Valladares MD Unavailable [phone] Freda Garg MD Unavailable Eren Mahoney MD Unavailable [phone] Whitney Kaur MD, MPH Unavailable Dajuan Hammer MD Primary Care Provider [phone] Whitney Kaur MD, MPH Primary Care Provider + Dajuan Hammer MD Unavailable [phone] Kim Noel MD Primary Care Provide r Encounter Details Date Type Department Care Team (Late st Contact Info) Description 10/29/2016 Procedure Pass [facility] [address] [place] [address] Social History Tobacco Use Types [...] Info) Description 10/22/2025 1:30 PM EDT Telemedicine [address], [address] [place] [id number] Kvng Agarwal MD, DSc [address] [place] [address] [address] [place] [address] [email or web address] 06/10/2029 Procedure Pass [facility] 55 [place] [phone] documented as of this encounter Visit Diagnoses Not on filedocumented in this encounter Care Teams Montessori Teacher Relationship Specialty Start Date End Date Whitney Kaur MD, MPH 70 [place] [address] [email or web address] PCP - General Family Medicine 10/24/16 01/13/17 Heidi Solano MD 70 [place] [address] [email or web address] PCP - General Family Medicine 01/14/17 02/05/17 Whitney Kaur MD, MPH 70 [place] [address] [email or web address] PCP - General 02/06/17 02/24/18 Dajuan Hammer MD 55 [facility] [address] [place] [phone] [email or web address] PCP - General Rheumatology 02/25/18 04/16/18 Whitney Kaur MD, MPH 70 [place] [address] [email or web address] PCP - General Family Medicine 04/17/18 06/25/23 Kim Noel MD [address] [place] [address] PCP - General Internal Medicine 06/26/23 Freda Garg MD [address] [address] Referring OBGYN Obstetrics and Gynecology 02/28/17 Mike Valladares MD [address] [facility], 2nd [place] [address] Historical LMR Provider 03/27/17 06/17/21 Freda Garg MD [address] [place] [address] Historical LMR Provider 03/27/17 Eren Mahoney MD [address] [place] [address] julio Historical LMR Provider 03/27/17 06/17/21 Whitney Kaur MD, MPH 70 [place] [address] Historical LMR Provider 03/27/17 Dajuan Hammer MD 55 [facility] [address] [place] [phone] [email or web address] Referring Physician Rheumatology 04/17/18 documented as of this encounter Additional Source Comments The information contained in this document represents components of the legal health record. It is not the complete legal health record.[facility]
--- OUTSIDE RECORDS SUMMARY | 2025-04-22 13:54 | XMS_ITS | Encounter Summary ---
Author Organization [facility] Address [address] [place] [address] Phone Care Team Providers Care Activities Therapist Name Role Phone Freda Garg MD Unavailable Freda Garg MD Unavailable Whitney Kaur MD, MPH Unavailable [phone] Whitney Kaur MD, MPH Primary Care Provider + Dajuan Hammer MD Unavailable [phone] Kim Noel MD Primary Care Provide r Encounter Details Date Type Department Care Team (Late st Contact Info) Description 03/22/2023 Procedure Pass [facility] [address] [place] [address] Social History Tobacco Use Types Packs/Day Years [...] Info) Description 10/22/2025 1:30 PM EDT Telemedicine [address], [address] [place] [address] Kvng Agarwal MD, DSc [address] [place] [address] [place] [address] [email or web address] 06/10/2029 Procedure Pass [facility] 55 [place] [address] documented as of this encounter Visit Diagnoses Not on filedocumented in this encounter Care Teams Activities Therapist Relationship Specialty Start Date End Date Whitney Kaur MD, MPH 70 [place] [address] [email or web address] PCP - General Family Medicine 04/17/18 06/25/23 Kim Noel MD [address] [place] [address] PCP - General Internal Medicine 06/26/23 Freda Garg MD [address] [address] [email or web address] Referring OBGYN Obstetrics and Gynecology 02/28/17 Freda Garg MD [address] [address] [email or web address] Historical LMR Provider 03/27/17 Whitney Kaur MD, MPH 70 [place] [address] [email or web address] Historical LMR Provider 03/27/17 Dajuan Hammer MD [address] [phone] [email or web address] Referring Physician Rheumatology 04/17/18 documented as of this encounter Additional Source Comments The information contained in this document represents components of the legal health record. It is not the complete legal health record.[facility]
--- OUTSIDE RECORDS SUMMARY | 2025-04-22 13:54 | XMS_ITS | Encounter Summary ---
Author Organization [facility] Address [address] [place] [address] Phone Care Team Providers Care Biological Scientist Name Role Phone Freda Garg MD Unavailable Freda Garg MD Unavailable Whitney Kaur MD, MPH Unavailable [phone] Whitney Kaur MD, MPH Primary Care Provider + Dajuan Hammer MD Unavailable [phone] Kim Noel MD Primary Care Provide r Encounter Details Date Type Department Care Team (Late st Contact Info) Description 07/13/2022 Procedure Pass [facility] [address] [place] [address] Social History Tobacco Use Types Packs/Day Years [...] Info) Description 10/22/2025 1:30 PM EDT Telemedicine [address], [address] [place] [address] Kvng Agarwal MD, DSc [address] [place] [address] [address] [place] [address] [email or web address] 06/10/[address] [facility] [address] [place] [phone] documented as of this encounter Visit Diagnoses Not on filedocumented in this encounter Care Teams Biological Scientist Relationship Specialty Start Date End Date Whitney Kaur MD, MPH 70 [place] [address] [email or web address] PCP - General Family Medicine 04/17/18 06/25/23 Kim Noel MD [address] [address] PCP - General Internal Medicine 06/26/23 Freda Garg MD [address] [address] [email or web address] Referring OBGYN Obstetrics and Gynecology 02/28/17 Freda Garg MD [address] [address] [email or web address] Historical LMR Provider 03/27/17 Whitney Kaur MD, MPH 70 [place] [address] [email or web address] Historical LMR Provider 03/27/17 Dajuan Hammer MD [address] [place] [phone] [email or web address] Referring Physician Rheumatology 04/17/18 documented as of this encounter Additional Source Comments The information contained in this document represents components of the legal health record. It is not the complete legal health record.[facility]
--- OUTSIDE RECORDS SUMMARY | 2025-04-22 13:54 | XMS_ITS | Encounter Summary ---
Author Organization [facility] Address [address] [place] [address] Phone Care Team Providers Care Cooker Loader Name Role Phone Whitney Kaur MD, MPH Primary Care Provider + Freda Garg MD Unavailable Mike Valladares MD Unavailable Freda Garg MD Unavailable Eren Mahoney MD Unavailable [phone] Whitney Kaur MD, MPH Unavailable Dajuan Hammer MD Primary Care Provider [phone] Whitney Kaur MD, MPH Primary Care Provider + Dajuan Hammer MD Unavailable [phone] Kim Noel MD Primary Care Provide r Encounter Details Date Type Department Care Team (Late st Contact Info) Description 02/26/2017 Procedure Pass [facility] General Imaging [address] [place] [address] Social History Tobacco Use Types Packs/Day Years [...] Info) Description 10/22/2025 1:30 PM EDT Telemedicine [facility] [address] [place] [address], [address] [place] [address] Kvng Agarwal MD, DSc [address] [place] [address] [address] [place] [address] [email or web address] 06/10/2029 Procedure Pass [facility] 55 [place] [address] documented as of this encounter Visit Diagnoses Not on filedocumented in this encounter Care Teams Cooker Loader Relationship Specialty Start Date End Date Whitney Kaur MD, MPH 70 [place] [address] [email or web address] PCP - General 02/06/17 02/24/18 Dajuan Hammer MD 55 [facility] [address] [place] [phone] [email or web address] [email or web address] PCP - General Rheumatology 02/25/18 04/16/18 Whitney Kaur MD, MPH 70 [place] [address] [email or web address] PCP - General Family Medicine 04/17/18 06/25/23 Kim Noel MD [address] [place] [address] PCP - General Internal Medicine 06/26/23 Freda Garg MD [address] [place] [address] [email or web address] Referring OBGYN Obstetrics and Gynecology 02/28/17 Mike Valladares MD [address] [place] [address], 2nd [place] [address] [email or web address] Historical LMR Provider 03/27/17 06/17/21 Freda Garg MD [address] [place] [address] [email or web address] Historical LMR Provider 03/27/17 Eren Mahoney MD 22 [facility], [address] [place] [address] julio Historical LMR Provider 03/27/17 06/17/21 Whitney Kaur MD, MPH [address] [place] [address] Historical LMR Provider 03/27/17 Dajuan Hammer MD [address] [place] [phone] [email or web address] Referring Physician Rheumatology 04/17/18 documented as of this encounter Additional Source Comments The information contained in this document represents components of the legal health record. It is not the complete legal health record.[facility]
--- OUTSIDE RECORDS SUMMARY | 2025-04-22 13:54 | XMS_ITS | Encounter Summary ---
Author Organization [facility] Address [address] [place] [address] Phone Care Team Providers Care Tailings Man Name Role Phone Whitney Kaur MD, MPH Primary Care Provider + Freda Garg MD Unavailable Mike Valladares MD Unavailable Freda Garg MD Unavailable Eren Mahoney MD Unavailable Whitney Kaur MD, MPH Unavailable Dajuan Hammer MD Primary Care Provider [phone] Whitney Kaur MD, MPH Primary Care Provider + Dajuan Hammer MD Unavailable [phone] Kim Noel MD Primary Care Provide r Encounter Details Date Type Department Care Team (Late st Contact Info) Description 02/20/2017 Procedure Pass [facility] [address] [place] [phone] Social History Tobacco Use Types Packs/Day Years [...] Info) Description 10/22/2025 1:30 PM EDT Telemedicine [address], [address] [place] [address] Kvng Agarwal MD, DSc [address] [place] [address] [address] [email or web address] 06/10/2029 Procedure Pass [facility]PT 55 [place] [address] documented as of this encounter Visit Diagnoses Not on filedocumented in this encounter Care Teams Tailings Man Relationship Specialty Start Date End Date Whitney Kaur MD, MPH 70 [place] [address] [email or web address] PCP - General 02/06/17 02/24/18 Dajuan Hammer MD 55 [facility] [address] [place] [phone] [email or web address] PCP - General Rheumatology 02/25/18 04/16/18 Whitney Kaur MD, MPH 70 [place] [address] [email or web address] PCP - General Family Medicine 04/17/18 06/25/23 Kim Noel MD [address] [place] [address] PCP - General Internal Medicine 06/26/23 Freda Garg MD [address] [place] [address] [email or web address] Referring OBGYN Obstetrics and Gynecology 02/28/17 Mike Valladares MD [address] [place] [address], 2nd [place] [address] [email or web address] Historical LMR Provider 03/27/17 06/17/21 Freda Garg MD [address] [place] [address] Historical LMR Provider 03/27/17 Eren Mahoney MD 22 [facility], [address] [place] [address] julio Historical LMR Provider 03/27/17 06/17/21 Whitney Kaur MD, MPH 70 [place] [address] Historical LMR Provider 03/27/17 Dajuan Hammer MD [address] [place] [phone] [email or web address] .[email or web address] Referring Physician Rheumatology 04/17/18 documented as of this encounter Additional Source Comments The information contained in this document represents components of the legal health record. It is not the complete legal health record.[facility]
--- OUTSIDE RECORDS SUMMARY | 2025-04-22 13:55 | XMS_ITS | Encounter Summary ---
Author Organization [facility] Address [address] [facility] [address] [place] [address] Phone Care Team Providers Care Looping Inspector Name Role Phone Freda Garg MD Unavailable Mike Valladares MD Unavailable [phone] Freda Garg MD Unavailable Eren Mahoney MD Unavailable [phone] Whitney Kaur MD, MPH Unavailable [phone] Whitney Kaur MD, MPH Primary Care Provider + Dajuan Hammer MD Unavailable [phone] Kim Noel MD Primary Care Provide r Encounter Details Date Type Department Care Team (Latest Contact Info) Description 05/12/2021 Transcribe Orders Virtual Department 30 [place] [address] Syed Maharaj MD [address] [place] [id number] [email or web address] Encounter for preprocedure screening laboratory testing for [...] Date Author No 10/29/2016 8:45 AM Rosa Schfaer PA-C documented in this encounter Plan of Treatment Upcoming Encounters Date Type Department Care Team (Late st Contact Info) Description 10/22/2025 1:30 PM EDT Telemedicine [facility] Center [address] [place] [address], [address] [place] [address] Kvng Agarwal MD, DSc [address] [place] [address] [place] [address] [address] [email or web address] 06/10/2029 Procedure Pass [facility] PERIOPER[facility]IVE DEPT 55 [place] [address] documented as of this encounter Results * COVID-19 PCR Order (05/14/2021 3:25 PM EST) COVID-19 Comment [id number] [facility] COVID Testing Status Sent to [facility] Micro Lab [facility] Other 05/14/2021 3:25 PM EST 05/14/2021 6:11 PM EST us Syed Maharaj MD LAB GENERAL ORDERABLES Final Result Performing Organization Address City/State/[facility] Co de Phone Number [facility] [address] [place] [address] documented in this encounter Visit Diagnoses Diagnosis Encounter for preprocedure screening laboratory testing for COVID-19- Primary documented in this encounter Care Teams Looping Inspector Relationship Specialty Start Date End Date Whitney Kaur MD, MPH 70 [place] [address] [email or web address] PCP - General Family Medicine 04/17/18 06/25/23 Kim Noel MD [address] [address] PCP - General Internal Medicine 06/26/23 Freda Garg MD 22 [facility], [address] [place] [address] [email or web address] Referring OBGYN Obstetrics and Gynecology 02/28/17 Mike Valladares MD 22 [facility], 2nd [place] [address] Historical LMR Provider 03/27/17 06/17/21 Freda Garg MD [address] [place] [address] [email or web address] Historical LMR Provider 03/27/17 Eren Mahoney MD [address] [place] [address] julio Historical LMR Provider 03/27/17 06/17/21 Whitney Kaur MD, MPH [address] [place] [address] [email or web address] Historical LMR Provider 03/27/17 Dajuan Hammer MD [address] [place] [address] [address] [place] [phone] [email or web address] Referring Physician Rheumatology 04/17/18 documented as of this encounter Additional Source Comments The information contained in this document represents components of the legal health record. It is not the complete legal health record.[facility]
--- OUTSIDE RECORDS SUMMARY | 2025-04-22 13:55 | XMS_ITS | Encounter Summary ---
Author Organization [facility] Address [address] [place] [address] Phone Care Team Providers Care Project Associate Name Role Phone Freda Garg MD Unavailable Mike Valladares MD Unavailable [phone] Freda Garg MD Unavailable Eren Mahoney MD Unavailable [phone] Whitney Kaur MD, MPH Unavailable Whitney Kaur MD, MPH Primary Care Provider + Dajuan Hammer MD Unavailable [phone] Kim Noel MD Primary Care Provide r Reason for Referral * MRI/CAT Scan - Closed Specialty Diagnoses / Procedures Referred By Jennifer t Referred To Contact Radiology Diagnoses Lower abdominal pain Upper abdominal pain Nausea Constipation, unspecified constipation type Procedures CT Abdomen/Pelvis Isabela Carmona PA-C Phone: tel: fax: [email or web address] Referral ID Status Reason Start Date Expiration Date Visits Re quested Visits Authorized [id number] Closed 04/03/2021 04/03/2022 1 1 Encounter Details Date Type Department Care Team (Latest Contact Info) Description 04/03/2021 Transcribe Orders [facility] Department [address] [place] [address] Isabela Carmona PA-C [address], [address] [place] [address] [email or web address] Lower abdominal pain (Primary Dx); Upper abdominal [...] Info) Description 10/22/2025 1:30 PM EDT Telemedicine [facility] [address] [facility], [address] [place] [address] Kvng Agarwal MD, DSc 55 [facility] [address] [place] [address] [email or web address] 06/10/2029 Procedure Pass [facility]PT [address] [place] [phone] documented as of this encounter Results * [...] type documented in this encounter Care Teams Project Associate Relationship Specialty Start Date End Date Whitney Kaur MD, MPH 70 [place] [address] [email or web address] PCP - General Family Medicine 04/17/18 06/25/23 Kim Noel MD [address] [place] [address] PCP - General Internal Medicine 06/26/23 Freda Garg MD [address] [address] Referring OBGYN Obstetrics and Gynecology 02/28/17 Mike Valladares MD 22 [facility], 2nd [place] [address] [email or web address] Historical LMR Provider 03/27/17 06/17/21 Freda Garg MD [address] [address] Historical LMR Provider 03/27/17 Eren Mahoney MD [address] [place] [address] julio Historical LMR Provider 03/27/17 06/17/21 Whitney Kaur MD, MPH 70 [place] [address] Historical LMR Provider 03/27/17 Dajuan Hammer MD [address] [place] [phone] [email or web address] Referring Physician Rheumatology 04/17/18 documented as of this encounter Additional Source Comments The information contained in this document represents components of the legal health record. It is not the complete legal health record.[facility]
--- OUTSIDE RECORDS SUMMARY | 2025-04-22 13:55 | XMS_ITS | Encounter Summary ---
Author Organization [facility] Address [address] [place] [address] Phone Care Team Providers Care Cycle Repairer Name Role Phone Freda Garg MD Unavailable Freda Garg MD Unavailable Whitney Kaur MD, MPH Unavailable [phone] Whitney Kaur MD, MPH Primary Care Provider + Dajuan Hammer MD Unavailable [phone] Kim Noel MD Primary Care Provide r Encounter Details Date Type Department Care Team (Late st Contact Info) Description 02/16/2022 Procedure Pass [facility], [address] [address] Social History Tobacco Use Types Packs/Day Years [...] Info) Description 10/22/2025 1:30 PM EDT Telemedicine [address], [address] [place] [address] Kvng Agarwal MD, DSc [address] [place] [address] [address] [place] [address] [email or web address] 06/10/2029 Procedure Pass [facility]PT [address] [place] [phone] documented as of this encounter Visit Diagnoses Not on filedocumented in this encounter Care Teams Cycle Repairer Relationship Specialty Start Date End Date Whitney Kaur MD, MPH [address] [place] [address] [email or web address] PCP - General Family Medicine 04/17/18 06/25/23 Kim Noel MD [address] [address] PCP - General Internal Medicine 06/26/23 Freda Garg MD [address] [address] [email or web address] Referring OBGYN Obstetrics and Gynecology 02/28/17 Freda Garg MD [address] [address] [email or web address] Historical LMR Provider 03/27/17 Whitney Kaur MD, MPH [address] [place] [address] [email or web address] Historical LMR Provider 03/27/17 Dajuan Hammer MD [address] [place] [phone] [email or web address] Referring Physician Rheumatology 04/17/18 documented as of this encounter Additional Source Comments The information contained in this document represents components of the legal health record. It is not the complete legal health record.[facility]
--- OUTSIDE RECORDS SUMMARY | 2025-04-22 13:55 | XMS_ITS | Encounter Summary ---
Author Organization [facility] Address [address] [place] [address] Phone Care Team Providers Care Meat Wrapper Name Role Phone Freda Garg MD Unavailable Mike Valladares MD Unavailable Freda Garg MD Unavailable Eren Mahoney MD Unavailable [phone] Whitney Kaur MD, MPH Unavailable Whitney Kaur MD, MPH Primary Care Provider + Dajuan Hammer MD Unavailable [phone] Kim Noel MD Primary Care Provide r Encounter Details Date Type Department Care Team (Latest Contact Info) Description 03/31/2021 Transcribe Orders [facility] Phleb Sarvani [address] [place] [address] Isabela Carmona PA-C [address] [place] [address] [email or web address] Constipation, unspecified constipation type (Primary Dx); Lower [...] EDT Telemedicine [facility] [address] [place] [address], [address] [place] [address] Kvng Agarwal MD, DSc [address] [place] [address] [address] [place] [address] [email or web address] 06/10/2029 Procedure Pass [facility] PERIOPER[facility]IVE DEPT [address] [place] [id number] documented as of this encounter Results * TSH (03/31/2021 3:48 PM EDT) TSH 1.94 0.27 - 4.20 uIU/mL [facility] Blood 03/31/2021 3:48 PM EDT 03/31/2021 3:53 PM EDT us Isabela Carmona PA-C LAB BLOOD BKR ORDERABLES Final Result Performing Organization Address City/[facility]/ZIP Co de Phone Number [address] [address] * (ABNORMAL) Lipase (03/31/2021 3:48 PM EDT) LIPASE 64(H) 16 - 63 U/L [facility] Blood 03/31/2021 3:48 PM EDT 03/31/2021 3:53 PM EDT us Isabela Carmona PA-C LAB BLOOD BKR ORDERABLES Final Result Performing Organization Address City/[facility]/ZIP Co de Phone Number [address] [address] * (ABNORMAL) C-Reactive Protein (03/31/2021 3:48 PM EDT) C REACTIVE PROTEIN 10.3(H) 0.0 - 4.0 mg/L [facility] Blood 03/31/2021 3:48 PM EDT 03/31/2021 3:53 PM EDT us Isabela Carmona PA-C LAB BLOOD BKR ORDERABLES Final Result [address] [address] * (ABNORMAL) Comprehensive metabolic panel (03/31/2021 3:48 PM EDT) SODIUM 142 133 - 146 mmol/L [facility] POTASSIUM 4.3 3.3 - 5.1 mmol/L [facility] CHLORIDE 101 96 - 108 mmol/L [facility] CO2 32 21 - 35 mmol/L [facility] BUN 22(H) 6 - 19 mg/dL [facility] CREATININE 0.90 0.5 - 1.5 mg/dL [facility] GLUCOSE 83 70 - 99 mg/dL [facility] ALBUMIN 4.1 3.9 - 4.8 g/dL [facility] TOTAL PROTEIN 7.1 6.5 - 8.0 g/dL [facility] CALCIUM 9.3 8.4 - 10.3 mg/dL [facility] ALKALINE PHOSPHATASE 82 39 - 117 U/L [facility] TOTAL BILIRUBIN 0.3 0.0 - 1.2 mg/dL [facility] AST 25 0 - 37 U/L [facility] ALT 16 0 - 40 U/L [facility] GLOBULIN 3.0 1 - 4.8 g/dL [facility] EGFR 65 >59 mL/min/1.7 3m2 [facility] Comment:Estimated glomerular filtration rate calculated using the CKD-EPI equation. ANION GAP 13 10 - 20 mmol/L [facility] Blood 03/31/2021 3:48 PM EDT 03/31/2021 3:53 PM EDT us Isabela Carmona PA-C LAB BLOOD BKR ORDERABLES Final Result [address] [address] * (ABNORMAL) CBC (03/31/2021 3:48 PM EDT) WBC 9.82 4.00 - 11.00 K/uL [facility] RBC 3.97 3.72 - 5.30 M/uL [facility] HGB 12.8 11.4 - 15.9 g/dL [facility] HCT 39.9 34.2 - 46.8 % [facility] PLT 275 140 - 430 K/uL [facility] MCV 100.5(H) 78.0 - 97.0 fL [facility] MCH 32.2 25.0 - 33.0 pg [facility] MCHC 32.1 32.0 - 36.0 g/dL [facility] RDW 14.3 11.0 - 16.0 % [facility] MPV 11.6 8.4 - 12.8 fl [facility] NRBC 0.00 0 /100 WBCs [facility] ABSOLUTE NRBC 0.00 0 K/uL [facility] Blood 03/31/2021 3:48 PM EDT 03/31/2021 3:53 PM EDT us Isabela Carmona PA-C LAB BLOOD BKR ORDERABLES Final Result Performing Organization Address City/[facility] Co de Phone Number [address] [address] * Immunoglobulin A (03/31/2021 3:48 PM EDT) IgA 225 70 - 400 mg/dL [facility] Blood 03/31/2021 3:48 PM EDT 03/31/2021 3:53 PM EDT us Isabela Carmona PA-C LAB BLOOD BKR ORDERABLES Final Result Performing Organization Address City/[facility] Co de Phone Number [address] [address] * Tissue transglutaminase IgA (03/31/2021 3:48 PM EDT) TTG IGA ANTIBODY <1.2 <4.0 (Negative) U/mL [facility] Blood 03/31/2021 3:48 PM EDT 03/31/2021 3:53 PM EDT us Isabela Carmona PA-C LAB BLOOD BKR ORDERABLES Final Result [facility] [address] [place] [address] documented in this encounter Visit Diagnoses Diagnosis Constipation, unspecified constipation type- Primary Lower abdominal pain Abdominal pain, other specified site Upper abdominal pain Nausea Nausea alone documented in this encounter Care Teams Meat Wrapper Relationship Specialty Start Date End Date Whitney Kaur MD, MPH [address] [place] [address] PCP - General Family Medicine 04/17/18 06/25/23 Kim Noel MD [address] [place] [id number] PCP - General Internal Medicine 06/26/23 Freda Garg MD [address] [place] [address] Referring OBGYN Obstetrics and Gynecology 02/28/17 Mike Valladares MD [address] [place] [address], [address] [place] [address] Historical LMR Provider 03/27/17 06/17/21 Freda Garg MD [address] [place] [address] Historical LMR Provider 03/27/17 Eren Mahoney MD [address] [place] [phone] julio Historical LMR Provider 03/27/17 06/17/21 Whitney Kaur MD, MPH [address] [place] [address] [email or web address] Historical LMR Provider 03/27/17 Dajuan Hammer MD 55 [facility] [address] [place] [address] [email or web address] Referring Physician Rheumatology 04/17/18 documented as of this encounter Additional Source Comments The information contained in this document represents components of the legal health record. It is not the complete legal health record.[facility]
--- OUTSIDE RECORDS SUMMARY | 2025-04-22 13:55 | XMS_ITS | Encounter Summary ---
Author Organization [facility] Address [id number] [place] [address] Phone Care Team Providers Care Front Desk Assistant Name Role Phone Freda Garg MD Unavailable Freda Garg MD Unavailable Whitney Kaur MD, MPH Unavailable [phone] Dajuan Hammer MD Unavailable [phone] Kim Noel MD Primary Care Provide r Encounter Details Date Type Department Care Team (Late st Contact Info) Description 04/01/2024 Procedure Pass [facility] [address] [place] [address] Social History Tobacco Use Types Packs/Day Years [...] 10/22/2025 1:30 PM EDT Telemedicine [facility] [address] [facility], [address] [place] [address] Kvng Agarwal MD, DSc [address] [facility] [address] [place] [address] [email or web address] 06/10/2029 Procedure Pass [facility] [address] [place] [phone] documented as of this encounter Visit Diagnoses Not on filedocumented in this encounter Care Teams Front Desk Assistant Relationship Specialty Start Date End Date Kim Noel MD [address] [address] PCP - General Internal Medicine 06/26/23 Freda Garg MD 22 [facility] [address] [place] [address] [email or web address] Referring OBGYN Obstetrics and Gynecology 02/28/17 Freda Garg MD 22 [facility] [address] [place] [address] [email or web address] Historical LMR Provider 03/27/17 Whitney Kaur MD, MPH [address] [place] [address] [email or web address] Historical LMR Provider 03/27/17 Dajuan Hammer MD 55 [facility] [place] [address] [place] [phone] [email or web address] Referring Physician Rheumatology 04/17/18 documented as of this encounter Additional Source Comments The information contained in this document represents components of the legal health record. It is not the complete legal health record.[facility]
--- OUTSIDE RECORDS SUMMARY | 2025-04-22 13:55 | XMS_ITS | Encounter Summary ---
Author Organization [facility] Address [address] [facility] [address] [place] [address] Phone Care Team Providers Care Brim [place] Name Role Phone Freda Garg MD Unavailable Freda Garg MD Unavailable Whitney Kaur MD, MPH Unavailable [phone] Whitney Kaur MD, MPH Primary Care Provider + Dajuan Hammer MD Unavailable [phone] Kim Noel MD Primary Care Provide r Encounter Details Date Type Department Care Team (Late st Contact Info) Description 07/25/2021 Procedure Pass MRI, [facility] [address] [address] [facility], [address] [place] [address] Social History Tobacco Use Types [...] Info) Description 10/22/2025 1:30 PM EDT Telemedicine [facility] Clinical Center [address] [place] [address], [address] [place] [address] Kvng Agarwal MD, DSc [address] [facility] [address] [place] [address] [email or web address] 06/10/2029 Procedure Pass [facility] [address] [place] [phone] documented as of this encounter Visit Diagnoses Not on filedocumented in this encounter Care Teams Brim [place] Relationship Specialty Start Date End Date Whitney Kaur MD, MPH [address] [place] [address] [email or web address] PCP - General Family Medicine 04/17/18 06/25/23 Kim Noel MD [address] [address] PCP - General Internal Medicine 06/26/23 Freda Garg MD [address] [address] [email or web address] Referring OBGYN Obstetrics and Gynecology 02/28/17 Freda Garg MD [address] [address] [email or web address] Historical LMR Provider 03/27/17 Whitney Kaur MD, MPH [address] [place] [address] [email or web address] Historical LMR Provider 03/27/17 Dajuan Hammer MD [address] [place], [place] [address] [phone] [email or web address] Referring Physician Rheumatology 04/17/18 documented as of this encounter Additional Source Comments The information contained in this document represents components of the legal health record. It is not the complete legal health record.[facility]
--- OUTSIDE RECORDS SUMMARY | 2025-04-22 13:55 | XMS_ITS | Clinical Summary ---
Author Organization [facility] Address [address] [place] [address] Phone Care Team Providers Care Battalion Chief Name Role Phone Freda Garg MD Unavailable Freda Garg MD Unavailable Whitney Kaur MD, MPH Unavailable [phone] Dajuan Hammer MD Unavailable [phone] Kim Yen MD Primary Care Provide r Allergies Active Allergy Reactions Criticality Noted Date Comments Ciprofloxacin Rash Low 07/25/2023 Levaquin (Levofloxacin) Itching,Rash Medium 11/17/2014 Medications simvastatin (ZOCOR) 40 MG tablet 40 mg nightly. Dose: Not available; Form: Not available; Route: PO; Frequency: Not available; Directions: As directed; Details: Dispense: Tablet(s); Date: 11/17/2014 11/18/19 15 Active pantoprazole (PROTONIX) 40 MG tablet Take 40 mg by mouth daily. 07/24/19 22 Active losartan (COZAAR) 100 MG tablet 07/24/19 23 Active acetaminophen (TYLENOL) 325 mg tablet Take 2 tablets (650 mg total) by mouth every 6 (six) hours as needed. 07/26/19 23 Active calcium carbonate-chris min D3 600 mg-12.5 mcg (500 unit) Cap Take 1 capsule by mouth daily. 30 capsule 11 09/28/19 24 Active sertraline (ZOLOFT) 25 MG tablet Take 25 mg by mouth. 02/26/20 25 Active cabergoline (DOSTINEX) 0.5 mg tablet TAKE 1 TABLET (0.5 MG TOTAL) BY MOUTH 4 (FOUR) TIMES A WEEK. PLEASE TAKE AT BEDTIME WITH SMALL SNACK 48 tablet 3 04/20/20 25 Active sertraline (ZOLOFT) 50 MG tablet Take 1 tablet by mouth daily. 11/18/19 15 025 Discontinued buPROPion (WELLBUTRIN) 100 MG immediate release tablet 150 mg 2 (two) times a day. Dose: Variable: See CML for Details; Form: Take 1 TABLET; Route: PO; Frequency: Not available; Directions: Not available; Details: Dispense: Tablet(s); Date: 11/17/2014 11/18/19 15 025 Discontinued metoprolol tartrate (LOPRESSOR) 100 MG tablet Take 0.5 tablets (50 mg total) by mouth 2 (two) times a day. Dose: Variable: See [facility] for Details; Form: Take 1 TABLET; Route: PO; Frequency: Not available; Directions: Not available; Details: Dispense: Tablet(s); Date: 11/17/2014 06/20/19 19 025 Discontinued cabergoline (DOSTINEX) 0.5 mg tablet TAKE 1 TABLET (0.5 MG TOTAL) BY MOUTH 4 (FOUR) TIMES A WEEK. PLEASE TAKE AT BEDTIME WITH SMALL SNACK 48 tablet 3 10/15/19 25 025 Discontinued(Re order) Active Problems Problem Noted Date Diagnosed Date [...] wall only present with standing or walking. BLINTZE ROLLER exam is benign Assessment & Plan (07/26/2023 1:27 PM EST): Symptoms persist, GI recommended evaluation here. I find no evidence of prolapse on exam today Requested copy of the abd/CT from [facility] to review Assessment & Plan (09/26/2021 10:47 AM EDT): Pain is reportedly new since she last had a pelvic ultrasound and abdominal pelvic CT in January and April 2021 respectively. Although I highly doubt any BLINTZE ROLLER etiology and she has had multiple imaging studies of the pelvis over the years, another pelvic ultrasound is ordered today. 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 Benign neoplasm of pituitary gland [...] lower extremity 06/25/2015 Undifferentiated inflammatory arthritis 02/10/20 15 Overview (06/25/2015): She has been followed by [...] 03/19/2019 Immunosuppressed status 09/12/201703/10 Hypertension 06/25/2015 02/25/2018 Encounters Date Type Department Care Team Description 04/20/2025 3:00 PM EST Telemedicine [facility] [address] [place] [address], [address] [place] [address] Kvng Agarwal MD, DSc Heather disease (Primary Dx); Benign neoplasm of pituitary gland and craniopharyngeal duct (pouch); Personal history of radiation therapy; Vitamin D deficiency, unspecified from Last 3 Months Immunizations Immunization Administration Dates Next Due Influenza [...] Info) Description 10/22/2025 1:30 PM EDT Telemedicine [facility] [address] [facility], [address] [place] [address] Kvng Agarwal MD, DSc [address] [facility] [address] [place] [address] [email or web address] 06/10/2029 Procedure Pass [facility] [address] [place] [address] Health Maintenance Due Date Last Done Comments COLOGUARD 1996 FIT TEST 1996 FOBT 1996 SIGMOIDOSCOPY 1996 VIRTUAL COLONOSCOPY 1996 DEPRESSION SCREENING 04/18/2018 04/18/2017 LIPID PANEL 02/10/2020 02/09/2015, 01/25/2015 MAMMOGRAM 03/03/2021 03/03/2019, 01/07/2017 PAP SMEAR 09/20/2021 11/28/2015, 11/21/2015 POTASSIUM LEVEL 07/13/2023 07/13/2022, 09/0 02/2022, 03/31/2021, Additional history exists Adult Td,Tdap Booster 10/31/2023 10/30/2013, 012 BLOOD PRESSURE 01/23/2024 07/25/2023 INFLUENZA VACCINE (#1) 2025 3, 06/21/2022, 03/15/2021, Additional history exists COVID-19 VACCINE ( season) 2025 04/02/2023, 10/02/2022, 03/21/2022, Additional history exists CREATININE LEVEL 04/20/2026 04/20/2025, 12/2024, 10/14/2024, Additional history exists COLONOSCOPY 06/26/2033 06/26/2023 COLORECTAL CANCER SCREENING 06/26/2033 HEPATITIS C SCREENING Completed 09/09/2014 , 09/09/2014, 09/09/2014 ZOSTER VACCINES Completed 07/22/2019, 05/05/2019 PNEUMOCOCCAL VACCINES (50+ years) Completed 12/24/2022, 06/11/2015 RSV VACCINE Completed 04/26/2023 OSTEOPOROSIS SCREENING INITIAL (ONE-TIME) Completed 10/01/2023, 08/23/2021, 08/21/2019 SMOKING STATUS SCREENING (Once After 26 Yrs) Completed 04/20/2025 HEPATITIS A VACCINES Aged Out No long er eligible based on patient's age to complete this topic HIB VACCINES Aged Out No longer eligi ble based on patient's age to complete this topic IPV VACCINES Aged Out No longer eligi ble based on patient's age to complete this topic MENINGOCOCCAL VACCINES (ACWY) Aged Out No longer eligible based on patient's age to complete this topic MENINGOCOCCAL VACCINES (B) Aged Out N o longer eligible based on patient's age to complete this topic Medical Devices Implanted Type Area Slag Wheeler Device Identifier Shelf Expiration Date Model / Serial / Lot Prosthetic Joint Prosthetic Joint Left: Hip Bilateral Feet Pin,Left Thr [employer] Description:Per [email or web address] m, safe to 3T [id number] 06/24/17 Procedures Procedure Name Priority Date/Time Associated Diagnosis Comments BD DXA HIP AND FOREARM Routine 10/01/2023 9:47 AM EDT 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 Z score 0 point. This is in the osteopenia range.No statistically significant change compared with 08/23/2021. The right hip (total) has a total bone mineral density of 0.841 g/so8tfih a T- score of -0.8. No statistically [...] Duarte MD - 06/26/2023 10:04 AM EST [facility] Patient Name: Isa Bello Attending MD:: SYED DUARTE MD, Procedure Date: 06/26/2023 10:04 AM Date of : 1950 Age: 72 Admit Type: Outpatient Gender: Female Room: [place] [address] Referring MD: KIM YEN Exam Type: Colonoscopy Indications: Pelvic pain Medications: [...] 10:04 AM Procedure Code(s): --- Professional --- 99547, Colonoscopy, flexible; diagnostic, including collection of specimen(s) by brushing or washing, when performed (separateprocedure) --- Technical --- 08472, Colonoscopy, flexible; diagnostic, including collection of specimen(s) by brushing or washing, when performed (separateprocedure) Diagnosis Code(s): --- Professional --- R10.2, Pelvic and perineal pain K57.30, Diverticulosis of large intestine without perforation or abscess without bleeding --- Technical --- R10.2, Pelvic and perineal pain K57.30, Diverticulosis of large intestine without perforation or abscess without bleeding CPT copyright 2021 [employer]. All rights reserved. The codes documented in this report are preliminary and upon oil well services dispatcher reviewmay be revised to meet current compliance requirements. Procedure Date: 06/26/2023 10:04:[address] [place] [address] [place] Kim Yen MD GI PROCEDURE ORDERABL ES Final Result * (ABNORMAL) Basic metabolic panel (07/13/2022 1:57 PM EST) SODIUM 140 135 - 145 mmol/L [facility] CHLORIDE 99(L) 100 - 108 mmol/L [facility] POTASSIUM 4.9 3.5 - 5.0 mmol/L [facility] CO2 30 23.0 - 31.9 mmol/L [facility] BUN 37(H) 8 - 25 mg/dL [facility] CREATININE 1.41 0.6 - 1.5 mg/dL [facility] GLUCOSE 76 70 - 110 mg/dL [facility] CALCIUM 9.6 8.5 - 10.0 mg/dL [facility] EGFR 40(L) >59 mL/min/1.7 3m2 [facility] Comment:Estimated glomerular filtration rate calculated using the CKD-EPI refit equation. ANION GAP 11 3 - 15 mmol/L [facility] 07/13/2022 1:57 PM EST 07/13/2022 2:50 PM EST Ricardo Ratliff MD LAB BLOOD BKR ORDERABLES Fin al Result [facility] [address] [place] [address], [facility] * MAMMOGRAPHY FOR RESULT ENTRY ONLY (03/03/2019) Freda Garg MD HEALTH MAINTENANCE Final Result * PAP SMEAR FOR RESULT ENTRY ONLY (11/21/2015) Pap smear NIL, HPV Negative (-16/-18) Sophia Dillard MD HEALTH MAINTENANCE Final Result * Lipid panel (02/09/2015 10:58 PM EDT) High Density Lipoprotein 58 35 - 100 mg/dL [facility] Cholesterol 207 mg/dL [facility] Comment:DESIRABLE: <200 Triglycerides 131 40 - 150 mg/dL [facility] Low Density Lipoprotein 123 mg/dL [facility] Comment:DESIRABLE: <130 Cardiac Risk Ratio 3.6 [facility] Comment:NORMAL RISK RATIO: 5 .0 OR LESS 02/09/2015 10:5 8 PM EDT 02/09/2015 10:58 PM EDT Comment:BLOOD Eliazar Carr MD LAB BLOOD BKR ORDERABLES Edited Result - Final [facility] [address] [place] [address] * HCV antibody, qualitative (09/09/2014 5:23 PM EDT) HCV Antibody Negative [facility] Comment: Antibodies to HCV not detected. Does not exclude the possibility of exposure to HCV. 09/09/2014 5:23 PM EDT 09/09/2014 8:57 PM EDT Comment:BLOOD Malia Reis MD LAB BLOOD BKR ORDERABLES Final Result [facility] [address] [place] [address] from Last 3 Months or Most Recently Relevant to Health Maintenance Insurance * Guarantor: Isa Bello Bladimir Account Type Relation to Patient Date of Phone Billing Address Personal/Family Self [address] [place] [address] MEDICARE PART A & B [facility] MEDICARE SUPPLEMENT * Guarantor: Isa Bello Account Type Relation to Patient Date of Phone Billing Address Personal/Family Self 1950 [address] [place] [address] MEDICARE PART A & B Member Subscriber Plan / Payer (Ef fective 2016-Present) Name:Isa Bello Bladimir Member ID:[id number] Relation to Subscriber:Self Name:Isa Bello Bladimir Subscriber ID:[id number] Payer ID:[id number] Group ID:Not on file Type:Medicare Address: [employer] [address] [place] [address] [place] [address] EXTENSION MEDICARE SUPPLEMENT * Guarantor: EugeniaIsa norris Bladimir Account Type Relation to Patient Date of Phone Billing Address Personal/Family Self 1950 [address] [place] [address] MEDICARE PART A & B MEDICARE PART A & B * Guarantor: Isa Bello Account Type Relation to Patient Date of Phone Billing Address Personal/Family Self 1950 [address] [place] [address] MEDICARE PART A & B [email or web address] MEDICARE SUPPLEMENT * Guarantor: Isa Bello Account Type Relation to Patient Date of Phone Billing Address Personal/Family Self 1950 [address] [place] [address] MEDICARE PART A & B [employer] MEDICARE SUPPLEMENT * Guarantor: Isa Bello Account Type Relation to Patient Date of Phone Billing Address Personal/Family Self 1950 [address] [place] [address] MEDICARE PART A & B [facility] MEDICARE SUPPLEMENT * Guarantor: Isa Bello Account Type Relation to Patient Date of Phone Billing Address Personal/Family Self 1950 [address] [place] [address] MEDICARE PART A & B * Guarantor: Isa Bello Account Type Relation to Patient Date of Phone Billing Address Personal/Family Self [address] [place] [address] MEDICARE PART A & B [facility] MEDICARE SUPPLEMENT [employer] DENTAL Advance Directives For more information, please contact: [phone] (9AM - 5PM [facility], Saturday-Saturday) Documents on File Type Date Recorded Patient Solder Sprayer Expl anation Healthcare Proxy 10/30/2016 1:39 PM HEALTH CARE PROXY- 10/30/16 * Full Code (Latest Code Status on File) Date Activated Date Inactivated Comments 07/26/2022 12:33 PM Question Answer Comments Code Status Confirmed With: Patient * Full Code (Presumed) Date Activated Date Inactivated Comments 05/14/2017 12:54 PM 05/24/2017 5:27 PM Care Teams Battalion Chief Relationship Specialty Start Date End Date Kim Yen MD [address] [address] PCP - General Internal Medicine 06/26/23 Freda Garg MD [address] [address] [email or web address] Referring OBGYN Obstetrics and Gynecology 02/28/17 Freda Garg MD [address] [address] [email or web address] Historical LMR Provider 03/27/17 Whtiney Kaur MD, MPH [address] [place] [address] [email or web address] Historical LMR Provider 03/27/17 Dajuan Hammer MD [address] [place] [phone] [email or web address] Referring Physician Rheumatology 04/17/18 Additional Source Comments The information contained in this document represents components of the legal health record. It is not the complete legal health record.[facility]
--- OUTSIDE RECORDS SUMMARY | 2025-04-22 13:55 | XMS_ITS | Encounter Summary ---
Author Organization [facility] Address [address] [place] [address] Phone Care Team Providers Care Peat Shredder Tender Name Role Phone Freda Garg MD Unavailable Freda Garg MD Unavailable Whitney Kaur MD, MPH Unavailable [phone] Whitney Kaur MD, MPH Primary Care Provider + Dajuan Hammer MD Unavailable [phone] Kim Noel MD Primary Care Provide r Encounter Details Date Type Department Care Team (Late st Contact Info) Description 07/26/2022 Procedure Pass OR Admitting Dept - Virtual Department [address] [place] [address] Social History Tobacco Use Types Packs/Day Years [...] Info) Description 10/22/2025 1:30 PM EDT Telemedicine [address], [address] [place] [address] Kvng Agarwal MD, DSc [address] [place] [address] [address] [place] [address] [email or web address] 06/10/2029 Procedure Pass [facility] [address] [place] [phone] documented as of this encounter Visit Diagnoses Not on filedocumented in this encounter Care Teams Peat Shredder Tender Relationship Specialty Start Date End Date Whitney Kaur MD, MPH [address] [place] [address] [email or web address] PCP - General Family Medicine 04/17/18 06/25/23 Kim Noel MD [address] [address] PCP - General Internal Medicine 06/26/23 Freda Garg MD [address] [address] [email or web address] Referring OBGYN Obstetrics and Gynecology 02/28/17 Freda Garg MD [address] [address] [email or web address] Historical LMR Provider 03/27/17 Whitney Kaur MD, MPH [address] [place] [address] [email or web address] Historical LMR Provider 03/27/17 Dajuan Hammer MD [address] [place], [place] [address] [phone] [email or web address] Referring Physician Rheumatology 04/17/18 documented as of this encounter Additional Source Comments The information contained in this document represents components of the legal health record. It is not the complete legal health record.[facility]
--- OUTSIDE RECORDS SUMMARY | 2025-04-22 13:55 | XMS_ITS | Encounter Summary ---
Author Organization [facility] Address [address] [place] [address] Phone Care Team Providers Care Chief Ophthalmic Technician Name Role Phone Whitney Kaur MD, MPH Primary Care Provider + Freda Garg MD Unavailable Mike Valladares MD Unavailable Freda Garg MD Unavailable Eren Mahoney MD Unavailable [phone] Whitney Kaur MD, MPH Unavailable Dajuan Hammer MD Primary Care Provider [phone] Whitney Kaur MD, MPH Primary Care Provider + Dajuan Hammer MD Unavailable [phone] Kim Noel MD Primary Care Provide r Encounter Details Date Type Department Care Team (Late st Contact Info) Description 06/25/2017 Procedure Pass [facility] [address] [facility], [address]th [place] [address] Social History Tobacco Use Types Packs/Day Years [...] Info) Description 10/22/2025 1:30 PM EDT Telemedicine [facility] [address] [place] [address], [address] [place] [address] Kvng Agarwal MD, DSc [address] [place] [address] [id number] [place] [address] [email or web address] 06/10/2029 Procedure Pass [facility] [address] [place] [phone] documented as of this encounter Visit Diagnoses Not on filedocumented in this encounter Care Teams Chief Ophthalmic Technician Relationship Specialty Start Date End Date Whitney Kaur MD, MPH [address] [place] [address] [email or web address] PCP - General 02/06/17 02/24/18 Dajuan Hammer MD 55 [facility] [address] [address] [email or web address] PCP - General Rheumatology 02/25/18 04/16/18 Whitney Kaur MD, MPH [address] [place] [address] [email or web address] PCP - General Family Medicine 04/17/18 06/25/23 Kim Noel MD [address] [place] [address] PCP - General Internal Medicine 06/26/23 Freda Garg MD [address] [place] [address], [address] [place] [address] [email or web address] Referring OBGYN Obstetrics and Gynecology 02/28/17 Mike Valladares MD [address] [place] [address], [address] [place] [address] [email or web address] Historical LMR Provider 03/27/17 06/17/21 Freda Garg MD 22 [facility], [address] [place] [address] Historical LMR Provider 03/27/17 Eren Mahoney MD 22 [facility], [address] [address] [email or web address] Historical LMR Provider 03/27/17 06/17/21 Whitney Kaur MD, MPH [address] [place] [address] Historical LMR Provider 03/27/17 Dajuan Hammer MD [address] [place] [phone] [email or web address] Referring Physician Rheumatology 04/17/18 documented as of this encounter Additional Source Comments The information contained in this document represents components of the legal health record. It is not the complete legal health record.[facility]
== END 2025-04-22 11:05 | disposition home or self-care (01) ==
LOC: HO.MAMMO 11:04
PROVIDERS: PCP Internal Medicine; Visit Provider Internal Medicine
DX: Z12.31 Encounter for screening mammogram for malignant neoplasm of breast (principal)
CPT/HCPCS: 77063; 77067

== ENCOUNTER → 2025-04-22 11:45 | Outpatient (BNV) | payer MEDICARE, OTHER, SELFPAY | PROVIDERS: PCP Internal Medicine; Visit Provider Internal Medicine | DX: Z12.31 Encounter for screening mammogram for malignant neoplasm of breast (principal) | CPT/HCPCS: 77063; 77067 ==

== ENCOUNTER 2025-04-27 14:04 | Outpatient (REF) | payer SELFPAY ==
--- OUTSIDE RECORDS SUMMARY | 2016-02-22 23:00 | XMS_ITS | Encounter Summary ---
Author Organization [facility] General [facility] Address [address] [place] [address] Phone Care Team Providers Care Swaging Machine Operator Name Role Phone Heidi Solano MD Primary Care Provider + Reason for Visit * MRI/CAT Scan - Closed Specialty Diagnoses / Procedures Referred By Jennifer jama Referred To Contact Radiology Procedures MRI Spine (Neuro) Outside (No Interpretation) Dimitry Kent MD [address] [place] [address] Phone: tel: fax: mailto:[email or web address] Referral ID Status Reason Start Date Expiration Date Visits Re quested Visits Authorized [id number] Closed 02/24/2016 02/23/2017 1 1 Encounter Details Date Type Department Care Team (Late st Contact Info) Description 02/23/2016 Hospital Encounter [facility] [address] [place] [address] Dimitry Kent MD [address] [place] [phone] [email or web address] Social History Tobacco Use Types Packs/Day Years [...] Info) Description 10/22/2025 1:30 PM EDT Telemedicine [facility] [address] [place] [address], [address] [place] [address] Kvng Agarwal MD, DSc [address] [facility] [address] [place] [address] [email or web address] 06/10/2029 Procedure Pass [facility] PERIOPERATIVE DEPT [address] [place] [address] [phone] documented as of this encounter Procedures Procedure Name Priority Date/Time Associated Diagnosis Comments MRI SPINE NEUROLOGIC FOCUS OUTSIDE (NO INTERPRETATION) Routine 02/23/2016 12:00 AM EDT documented in this encounter Results * MRI Spine (Neuro) Outside (No Interpretation) (02/23/2016 12:00 AM EDT) Narrative [facility] IMG INTERFACES - 02/24/2016 2:00 PM EDT This study is for PACS storage only and not for interpretation. Procedure Note SYSTEMGENERATED, DOCUMENTATION - 02/24/2016 This study is for PACS storage only and not for interpretation. us Dimitry Kent MD IMG OUTSIDE IMAGING W/OUT INT ERPRETATION Final Result [facility] IMG INTERFACES documented in this encounter Visit Diagnoses Not on filedocumented in this encounter Care Teams Swaging Machine Operator Relationship Specialty Start Date End Date Heidi Sloano MD [email or web address] PCP - General Family Medicine 08/12/14 10/23/16 documented as of this encounter Additional Source Comments The information contained in this document represents components of the legal health record. It is not the complete legal health record.[facility]
--- OUTSIDE RECORDS SUMMARY | 2016-07-13 | XMS_ITS | Encounter Summary ---
Author Organization [facility] Address [address] [place] [address] Phone Care Team Providers Care Rush Seater Name Role Phone Heidi Solano MD Primary Care Provider + Reason for Visit * MRI/CAT Scan - Closed Specialty Diagnoses / Procedures Referred By Jennifer mcdaniel Referred To Contact Procedures CT Spine (Neuro) Focus Outside (No Interpretation) Eliazar Peace MD [address] [facility] [address] [place] [address] Phone: tel: mailto:[email or web address] Referral ID Status Reason Start Date Expiration Date Visits Re quested Visits Authorized [id number] Closed 07/24/2016 07/24/2017 1 1 Encounter Details Date Type Department Care Team (Late st Contact Info) Description 07/13/2016 Hospital Encounter [facility] General Imaging [address] [place] [address] Eliazar Peace MD [address] [facility] [address] [place] [address] [email or web address] Social History Tobacco Use Types [...] Info) Description 10/22/2025 1:30 PM EDT Telemedicine [facility] Clinical Center [address] [place] [address], [address] [place] [address] Kvng Agarwal MD, DSc [address] [facility] [address] [place] [address] [email or web address] 06/10/[address] [facility] PERIOPER[facility]IVE DEPT [address] [place] [address] [phone] documented as of this encounter Procedures Procedure Name Priority Date/Time Associated Diagnosis Comments CT SPINE (NEURO) OUTSIDE (NO INTERPRETATION) Routine 07/13/2016 12:00 AM EST documented in this encounter Results * CT Spine (Neuro) Focus Outside (No Interpretation) (07/13/2016 12:00 AM EST) Narrative [facility] IMG INTERFACES - 07/24/2016 12:24 PM EST This study is for PACS storage only and not for interpretation. us Eliazar Peace MD IMG OUTSIDE IMAGING W/OUT INTE RPRETATION Final Result [facility] IMG INTERFACES documented in this encounter Visit Diagnoses Not on filedocumented in this encounter Care Teams Rush Seater Relationship Specialty Start Date End Date Heidi Solano MD [email or web address] PCP - General Family Medicine 08/12/14 10/23/16 documented as of this encounter Additional Source Comments The information contained in this document represents components of the legal health record. It is not the complete legal health record.[facility]
--- OUTSIDE RECORDS SUMMARY | 2025-04-28 08:33 | XMS_ITS | Patient Health Record ---
Author Organization [employer] [facility] Address [address] [address] Support Name Relationship Address Phone GRETEL MEEK Guarantor Unknown [phone] Reason For Referral No Information Medications Medication SIG (Take, Route, Frequency, Duration) Notes Start Date End Date Status Leflunomide 20MG ORAL; Duration: -3 [facility] 03/05/2014 Active Metoprolol Tartrate 100MG 1 ORAL twice d aily; Duration: -3 [facility] 12/28/2011 Active Wellbutrin XL 150MG 1 ORAL daily; Duration: -3 [facility] 12/28/2011 Active Vitamin B-12 100MCG ORAL; Duration: -3 [facility] 12/28/2011 Active hydroCHLOROthiazide 12.5MG 1 ORAL daily; Duration: -3 [facility] 02/20/2013 Active Hydroxychloroquine Sulfate 200MG ORAL; Duration: -3 [facility] 03/05/2014 Active Sertraline HCl 50MG 1 ORAL daily; Duration: -3 [facility] 12/28/2011 Active Simvastatin 40MG 1 ORAL DAILY; Duration: -3 [facility] 12/28/2011 Active Folic Acid 1MG 1 ORAL daily; Duration: -3 [facility] 12/28/2011 Active sulfaSALAzine 500MG ORAL; Duration: -3 [facility] 03/05/2014 Active Gabapentin 300MG 1 ORAL three times daily; Duration: -3 [facility] 12/28/2011 Active Terconazole 0.4% 1 Vaginal once daily at hs1; Duration: -3 [facility] 03/05/2014 Active Problems Problem Type SNOMED Code ICD Code Onset Dates Problem Status W/U Status Risk Notes Problem Hyperlipidemia (26589196) Other and unspecified hyperlipidemia (272.4) Active confirmed Major Problem Benign essential hypertension (5971724) Essential hypertension, benign (401.1) Active confirmed Major Problem Rheumatoid arthritis (42687085) Rheumatoid arthritis (714.0) Active confirmed Major Problem Gynecological examination normal (628423117801730) Routine gynecological examination (V72.31) Active confirmed Diag Problem Dietary management surveillance (599405988) Dietary surveillance and counseling (V65.3) Active confirmed Diag Problem Exercises teaching, guidance, and counseling (941255789) Exercise counseling (V65.41) Active confirmed Diag Plan Of Treatment No Information Insurance Providers Payer Name Payer Address Payer Phone Subscriber Number Group Number Insured Name Patient Relationship to Insured Coverage Start Date Coverage End Date [facility] [address] [place] [address] [id number] GRETEL MEEK Self - patient is the insured
--- OUTSIDE RECORDS SUMMARY | 2025-04-28 08:33 | XMS_ITS | Encounter Summary ---
Author Organization [facility] Address [address] [facility] [address] [place] [address] Phone Care Team Providers Care Small Engine Mechanic Name Role Phone Whitney Kaur MD, MPH Primary Care Provider + Freda Garg MD Unavailable Mike Valladares MD Unavailable Freda Garg MD Unavailable Eren Mahoney MD Unavailable [phone] Whitney Kaur MD, MPH Unavailable [phone] Dajuan Hammer MD Primary Care Provider [phone] Whitney Kaur MD, MPH Primary Care Provider + Dajuan Hammer MD Unavailable Kim Noel MD Primary Care Provide r Encounter Details Date Type Department Care Team (Late st Contact Info) Description 04/16/2017 Procedure Pass [facility], Goran 2 [address] [facility], 2nd Floor, [address] [place] [address] Social History Tobacco Use Types Packs/Day Years [...] Description 10/22/2025 1:30 PM EDT Telemedicine [address], [address] [place] [address] Kvng gAarwal MD, DSc [address] [place] [address] [address] [email or web address] 06/10/2029 Procedure Pass [facility] PERIOPERATIVE DEPT 55 [place] [phone] documented as of this encounter Visit Diagnoses Not on filedocumented in this encounter Care Teams Small Engine Mechanic Relationship Specialty Start Date End Date Whitney Kaur MD, MPH 70 [place] [address] [email or web address] PCP - General 02/06/17 02/24/18 Dajuan Hammer MD 55 [facility] [address] [address] [email or web address] PCP - General Rheumatology 02/25/18 04/16/18 Whitney Kaur MD, MPH 70 [place] [address] [email or web address] PCP - General Family Medicine 04/17/18 06/25/23 Kim Noel MD [address] [place] [address] PCP - General Internal Medicine 06/26/23 Freda Garg MD 22 [facility], [address] [place] [address] [email or web address] Referring OBGYN Obstetrics and Gynecology 02/28/17 Mike Valladares MD 22 [facility], 2nd [place] [address] [email or web address] Historical LMR Provider 03/27/17 06/17/21 Freda Gagr MD 22 [facility], [address] [address] [email or web address] Historical LMR Provider 03/27/17 Eren Mahoney MD 22 [facility], [address] [address] julio Historical LMR Provider 03/27/17 06/17/21 Whitney Kaur MD, MPH 70 [place] [address] Historical LMR Provider 03/27/17 Dajuan Hammer MD [address] [place] [phone] [email or web address] Referring Physician Rheumatology 04/17/18 documented as of this encounter Additional Source Comments The information contained in this document represents components of the legal health record. It is not the complete legal health record.[facility]
--- OUTSIDE RECORDS SUMMARY | 2025-04-28 08:33 | XMS_ITS | Encounter Summary ---
Author Organization [facility] Address [address] [facility] [address] [place] [address] Phone Care Team Providers Care Cost Specialist Name Role Phone Whitney Kaur MD, MPH Primary Care Provider + Freda Garg MD Unavailable Mike Valladares MD Unavailable Freda Garg MD Unavailable Eren Mahoney MD Unavailable Whitney Kaur MD, MPH Unavailable [phone] Dajuan Hammer MD Primary Care Provider [phone] Whitney Kaur MD, MPH Primary Care Provider + Dajuan Hammer MD Unavailable Kim Noel MD Primary Care Provide r Encounter Details Date Type Department Care Team (Late st Contact Info) Description 04/24/2017 Ancillary Orders [facility] Neurosurgery 55 [facility], 3rd Floor, [address] [place] [address] Saba Lai MD [address] [address] [email or web address] Pituitary tumor Social History Tobacco Use Types [...] Telemedicine [facility] Neuroendocrine Clinical Center [address] [place] [address], [address] [place] [address] Kvng Agarwal MD, DSc 55 [facility] [address] [place] [address] [email or web address] 06/10/2029 Procedure Pass [facility] PERIOPERATIVE DEPT 55 [place] [phone] documented as of this encounter Results * [place] Fluoroscopy Guidance - No Charge (05/14/2017 12:00 PM EST) 05/15/2017 12:2 2 AM EST Narrative [facility] - 05/15/2017 12:22 AM EST Dose (mGy): 1.09 mGy Dose Area Product (DAP): n/a Fluoro time (min): 8.3 sec Number of Spot Films: n/a Procedure Note Cane Stripper, Dictation - 05/15/2017 Dose (mGy): 1.09 mGy Dose Area Product (DAP): n/a Fluoro time (min): 8.3 sec Number of Spot Films: n/a us Saba Lai MD IMG [place] EXAMS Final Resul t [facility] [address] [facility] 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 documented in this encounter Care Teams Cost Specialist Relationship Specialty Start Date End Date Whitney Kaur MD, MPH [address] [place] [address] [email or web address] PCP - General 02/06/17 02/24/18 Dajuan Hammer MD [address] [place] [address] [place] [address] [place] [phone] [email or web address] PCP - General Rheumatology 02/25/18 04/16/18 Whitney Kaur MD, MPH 70 [place] [address] [email or web address] PCP - General Family Medicine 04/17/18 06/25/23 Kim Noel MD [address] [place] [address] PCP - General Internal Medicine 06/26/23 Freda Garg MD 22 [facility], [address] [address] [email or web address] Referring OBGYN Obstetrics and Gynecology 02/28/17 Mike Valladares MD 22 [facility], 2nd [place] [address] [email or web address] Historical LMR Provider 03/27/17 06/17/21 Freda Garg MD [address] [address] Historical LMR Provider 03/27/17 Eren Mahoney MD [address] [place] [address] julio Historical LMR Provider 03/27/17 06/17/21 Whitney Kaur MD, MPH 70 [place] [address] Historical LMR Provider 03/27/17 Dajuan Hammer MD [address] [address] [email or web address] Referring Physician Rheumatology 04/17/18 documented as of this encounter Additional Source Comments The information contained in this document represents components of the legal health record. It is not the complete legal health record.[facility]
--- OUTSIDE RECORDS SUMMARY | 2025-04-28 08:33 | XMS_ITS | Encounter Summary ---
Author Organization [facility] Address [address] [place] [address] Phone Care Team Providers Care Regional Psychiatric Director Name Role Phone Whitney Kaur MD, MPH Primary Care Provider + Freda Garg MD Unavailable Mike Valladares MD Unavailable Freda Garg MD Unavailable Eren Mahoney MD Unavailable Whitney Kaur MD, MPH Unavailable Dajuan Hamemr MD Primary Care Provider [phone] Whitney Kaur MD, MPH Primary Care Provider + Dajuan Hammer MD Unavailable [phone] Kim Noel MD Primary Care Provide r Encounter Details Date Type Department Care Team (Late st Contact Info) Description 05/14/2017 Procedure Pass [facility] [address] [place] [phone] Social History Tobacco Use Types Packs/Day Years [...] Info) Description 10/22/2025 1:30 PM EDT Telemedicine [address], [address] [place] [address] Kvng Agarwal MD, DSc [address] [place] [address] [place] [address] [email or web address] 06/10/2029 Procedure Pass [facility] 55 [place] [address] documented as of this encounter Visit Diagnoses Not on filedocumented in this encounter Care Teams Regional Psychiatric Director Relationship Specialty Start Date End Date Whitney Kaur MD, MPH 70 [place] [address] [email or web address] PCP - General 02/06/17 02/24/18 Dajuan Hammer MD 55 [facility] [address] [place] [phone] [email or web address] PCP - General Rheumatology 02/25/18 04/16/18 Whitney Kaur MD, MPH 70 [place] [address] [email or web address] PCP - General Family Medicine 04/17/18 06/25/23 Kim Noel MD [address] [place] [address] PCP - General Internal Medicine 06/26/23 Freda Garg MD [address] [place] [address] [email or web address] Referring OBGYN Obstetrics and Gynecology 02/28/17 Mike Valladares MD [address] [place] [address], 2nd [place] [address] [email or web address] Historical LMR Provider 03/27/17 06/17/21 Freda Garg MD [address] [place] [address] [place] [address] Historical LMR Provider 03/27/17 Eren Mahoney MD 22 [facility], [address] [address] julio Historical LMR Provider 03/27/17 06/17/21 Whitney Kaur MD, MPH 70 [place] [address] Historical LMR Provider 03/27/17 Dajuan Hammer MD 55 [facility] [address] [place] [address] [email or web address] .[email or web address] Referring Physician Rheumatology 04/17/18 documented as of this encounter Additional Source Comments The information contained in this document represents components of the legal health record. It is not the complete legal health record.[facility]
--- OUTSIDE RECORDS SUMMARY | 2025-04-28 08:34 | XMS_ITS | Encounter Summary ---
Author Organization [facility] Address [address] [place] [address] Phone Care Team Providers Care Contact Representative Name Role Phone Whitney Kaur MD, MPH Primary Care Provider + Freda Garg MD Unavailable Mike Valladares MD Unavailable [phone] Freda Garg MD Unavailable Eren Mahoney MD Unavailable Whitney Kaur MD, MPH Unavailable Dajuan Hammer MD Primary Care Provider [phone] Whitney Kaur MD, MPH Primary Care Provider + Dajuan Hammer MD Unavailable [phone] Kim Noel MD Primary Care Provide r Encounter Details Date Type Department Care Team (Late st Contact Info) Description 05/16/2017 Procedure Pass [facility] [place], [place] 6 [address] [facility], 6th [place] [address] Social History Tobacco Use Types Packs/Day Years [...] Info) Description 10/22/2025 1:30 PM EDT Telemedicine [facility] [address] [place] [address], [address] [place] [address] Kvng Agarwal MD, DSc [address] [place] [address] [place] [address] [email or web address] 06/10/2029 Procedure Pass [facility] PERIOPERATIVE DEPT 55 [place] [phone] documented as of this encounter Visit Diagnoses Not on filedocumented in this encounter Care Teams Contact Representative Relationship Specialty Start Date End Date Whitney Kaur MD, MPH 70 [place] [address] [email or web address] PCP - General 02/06/17 02/24/18 Dajuan Hammer MD 55 [facility] [address] [address] [email or web address] PCP - General Rheumatology 02/25/18 04/16/18 Whitney Kaur MD, MPH 70 [place] [address] [email or web address] PCP - General Family Medicine 04/17/18 06/25/23 Kim Noel MD [address] [place] [address] PCP - General Internal Medicine 06/26/23 Freda Garg MD [address] [place] [address], [address] [place] [address] [email or web address] Referring OBGYN Obstetrics and Gynecology 02/28/17 Mike Valladares MD [address] [place] [address], 2nd [place] [address] [email or web address] Historical LMR Provider 03/27/17 06/17/21 Freda Garg MD [address] [place] [address] [email or web address] Historical LMR Provider 03/27/17 Eren Mahoney MD [address] [place] [address] julio Historical LMR Provider 03/27/17 06/17/21 Whitney Kaur MD, MPH 70 [place] [address] [email or web address] Historical LMR Provider 03/27/17 Dajuan Hammer MD [address] [address] [email or web address] .[email or web address] Referring Physician Rheumatology 04/17/18 documented as of this encounter Additional Source Comments The information contained in this document represents components of the legal health record. It is not the complete legal health record.[facility]
--- OUTSIDE RECORDS SUMMARY | 2025-04-28 08:34 | XMS_ITS | Encounter Summary ---
Author Organization [facility] Address [address] [place] [address] Phone Care Team Providers Care Farmworker General Name Role Phone Whitney Kaur MD, MPH Primary Care Provider + Freda Garg MD Unavailable Mike Valladares MD Unavailable Freda Garg MD Unavailable Eren Mahoney MD Unavailable [phone] Whitney Kaur MD, MPH Unavailable Dajuan Hammer MD Primary Care Provider [phone] Whitney Kaur MD, MPH Primary Care Provider + Dajuan Hammer MD Unavailable [phone] Kim Noel MD Primary Care Provide r Encounter Details Date Type Department Care Team (Late st Contact Info) Description 04/16/2017 Procedure Pass [facility] MRI. [place] [address] [facility], 1st [place] [address] Social History Tobacco Use Types Packs/Day Years [...] Info) Description 10/22/2025 1:30 PM EDT Telemedicine [facility] [address] [place] [address], [address] [place] [address] Kvng Agarwal MD, DSc [address] [place] [address] [place] [address] [email or web address] 06/10/2029 Procedure Pass [facility] PERIOPERATIVE DEPT 55 [place] [phone] documented as of this encounter Visit Diagnoses Not on filedocumented in this encounter Care Teams Farmworker General Relationship Specialty Start Date End Date Whitney Kaur MD, MPH 70 [place] [address] [email or web address] PCP - General 02/06/17 02/24/18 Dajuan Hammer MD 55 [facility] [address] [address] [email or web address] PCP - General Rheumatology 02/25/18 04/16/18 Whitney Kaur MD, MPH 70 [place] [address] [email or web address] PCP - General Family Medicine 04/17/18 06/25/23 Kim Noel MD [address] [place] [address] PCP - General Internal Medicine 06/26/23 Freda Garg MD [address] [place] [address], [address] [place] [address] [email or web address] Referring OBGYN Obstetrics and Gynecology 02/28/17 Mike Valladares MD [address] [place] [address], 2nd [place] [address] [email or web address] Historical LMR Provider 03/27/17 06/17/21 Freda Garg MD [address] [place] [address] [email or web address] Historical LMR Provider 03/27/17 Eren Mahoney MD [address] [place] [address] julio Historical LMR Provider 03/27/17 06/17/21 Whitney Kaur MD, MPH [address] [place] [address] [email or web address] Historical LMR Provider 03/27/17 Dajuan Hammer MD [address] [address] [email or web address] Referring Physician Rheumatology 04/17/18 documented as of this encounter Additional Source Comments The information contained in this document represents components of the legal health record. It is not the complete legal health record.[facility]
--- OUTSIDE RECORDS SUMMARY | 2025-04-28 08:34 | XMS_ITS | Clinical Summary ---
Author Organization [employer] Address [address] [facility] 7t [place] [address] Care Team Providers Care Case Filler Name Role Phone Unavailable Primary Care Provider [...] Self 1950 [address] [place] [address] MEDICARE
--- OUTSIDE RECORDS SUMMARY | 2025-04-28 08:34 | XMS_ITS | Encounter Summary ---
Author Organization [facility] Address [address] [place] [address] Phone Care Team Providers Care Checker Dump Grounds Name Role Phone Freda Garg MD Unavailable Mike Valladares MD Unavailable [phone] Freda Garg MD Unavailable Eren Mahoney MD Unavailable [phone] Whitney Kaur MD, MPH Unavailable [phone] Whitney Kaur MD, MPH Primary Care Provider + Dajuan Hammer MD Unavailable [phone] Kim Noel MD Primary Care Provide r Encounter Details Date Type Department Care Team (Late st Contact Info) Description 08/10/2020 Procedure Pass [facility], [address] [address] Social History Tobacco Use Types Packs/Day Years [...] Info) Description 10/22/2025 1:30 PM EDT Telemedicine [facility] Neuroendocrine Clinical Center [address] [facility], [address] [place] [address] Kvng Agarwal MD, DSc [address] [facility] [address] [place] [address] [email or web address] 06/10/2029 Procedure Pass [facility] PERIOPERATIVE DEPT [address] [place] [phone] documented as of this encounter Visit Diagnoses Not on filedocumented in this encounter Care Teams Checker Dump Grounds Relationship Specialty Start Date End Date Whitney Kaur MD, MPH 70 [place] [address] PCP - General Family Medicine 04/17/18 06/25/23 Kim Noel MD [address] [place] [address] PCP - General Internal Medicine 06/26/23 Freda Garg MD [address] [place] [address] Referring OBGYN Obstetrics and Gynecology 02/28/17 Mike Valladares MD [address] [place] [address], 2nd [place] [address] Historical LMR Provider 03/27/17 06/17/21 Freda Garg MD [address] [place] [address] Historical LMR Provider 03/27/17 Eren Mahoney MD [address] [place] [address] julio Historical LMR Provider 03/27/17 06/17/21 Whitney Kaur MD, MPH [address] [place] [address] Historical LMR Provider 03/27/17 Dajuan Hammer MD [address] [place] [address] [facility] [address] [place] [address] [email or web address] Referring Physician Rheumatology 04/17/18 documented as of this encounter Additional Source Comments The information contained in this document represents components of the legal health record. It is not the complete legal health record.[facility]
--- OUTSIDE RECORDS SUMMARY | 2025-04-28 08:35 | XMS_ITS | Encounter Summary ---
Author Organization [facility] Address [address] [facility] [address] [place] [address] Phone Care Team Providers Care Core Drier Name Role Phone Whitney Kaur MD, MPH Primary Care Provider + Freda Garg MD Unavailable Mike Valladares MD Unavailable [phone] Fread Garg MD Unavailable Eren Mahoney MD Unavailable Whitney Kaur MD, MPH Unavailable Dajuan Hammer MD Primary Care Provider [phone] Whitney Kaur MD, MPH Primary Care Provider + Dajuan Hammer MD Unavailable [phone] Kim Noel MD Primary Care Provide r Encounter Details Date Type Department Care Team (Late st Contact Info) Description 07/26/2017 Documentation [facility] [address] [facility], 5th Floor, [address] [place] [address] Kevin Medina MD 55 [facility] [address] [place] [address] [email or web address] Social History Tobacco Use Types Packs/Day [...] Info) Description 10/22/2025 1:30 PM EDT Telemedicine [address], [address] [place] [address] Kvng Agarwal MD, DSc [address] [facility] [address] [place] [address] [email or web address] 06/10/2029 Procedure Pass [facility] PERIOPER[facility]IVE DEPT 55 [place] [phone] documented as of this encounter Visit Diagnoses Not on filedocumented in this encounter Care Teams Core Drier Relationship Specialty Start Date End Date Whitney Kaur MD, MPH 70 [place] [address] [email or web address] PCP - General 02/06/17 02/24/18 Daujan Hammer MD 55 [facility] [address] [place] [phone] [email or web address] PCP - General Rheumatology 02/25/18 04/16/18 Whitney Kaur MD, MPH 70 [place] [address] [email or web address] PCP - General Family Medicine 04/17/18 06/25/23 Kim Noel MD [address] [place] [address] PCP - General Internal Medicine 06/26/23 Freda Garg MD [address] [facility], [address] [place] [address] [email or web address] Referring OBGYN Obstetrics and Gynecology 02/28/17 Mike Valladares MD [address] [facility], 2nd [place] [address] Historical LMR Provider 03/27/17 06/17/21 Freda Garg MD [address] [place] [address] Historical LMR Provider 03/27/17 Eren Mahoney MD [address] [place] [address] julio Historical LMR Provider 03/27/17 06/17/21 Whitney Kaur MD, MPH 70 [place] [address] Historical LMR Provider 03/27/17 Dajuan Hammer MD 55 [facility] [address] [place] [address] [email or web address] .[facility] Referring Physician Rheumatology 04/17/18 documented as of this encounter Additional Source Comments The information contained in this document represents components of the legal health record. It is not the complete legal health record.[facility]
--- OUTSIDE RECORDS SUMMARY | 2025-04-28 08:35 | XMS_ITS | Patient Health Record ---
[facility] Organization [facility] Address [address] [place] [address] Care Team Providers Care Belt Machine Operator Name Role Phone Whitney Kaur MD Primary Care Provider Ricki Matson [phone] Allergies Allergen (clinical drug ingredient) Drug/Non Drug [...] Problem Acquired hammer toe of right foot (96591699731985 05) Other hammer toe(s) (acquired), right foot (M20.41) Active confirmed Problem Rheumatoid arthritis (08477594) Rheumatoid arthritis involving multiple sites with positive [...] X ray : Foot, right 3V 05/13/2012 82779- Debride <25 sq cm 05/30/2012 56263-VDVORTO SKIN/TISSUE 05/30/2012 76038-MGWDQIE SKIN/TISSUE 05/13/2012 Insurance Providers Payer Name Payer Address Payer Phone Subscriber Number Group Number Insured Name Patient Relationship to Insured Coverage Start Date Coverage End Date Medicare National [employer]t [employer] [address] [place] [address] [id number] Isa Bello Self - patient is the insured 7 [employer]) [address] [place] [address] [id number] Isa Bello Self - patient is [...] R 2-4 03/23/2021 Hospitalization History Reason Date(Month/Year) [facility] -2 days GI issues -Antibi otics given 05/2021
--- OUTSIDE RECORDS SUMMARY | 2025-04-28 08:36 | XMS_ITS | Encounter Summary ---
Author Organization [facility] Address [address] [place] [address] Phone Care Team Providers Care Printer Small Print Shop Name Role Phone Freda Garg MD Unavailable Freda Garg MD Unavailable Whitney Kaur MD, MPH Unavailable [phone] Whitney Kaur MD, MPH Primary Care Provider + Dajuan Hammer MD Unavailable [phone] Kim Noel MD Primary Care Provide r Encounter Details Date Type Department Care Team (Late st Contact Info) Description 07/13/2022 Procedure Pass [facility] - [facility], [facility] [address] [place] [address] Social History Tobacco Use Types Packs/Day Years [...] Info) Description 10/22/2025 1:30 PM EDT Telemedicine [address], [address] [place] [address] Kvng Agarwal MD, DSc [address] [place] [address] [address] [place] [address] [email or web address] 06/10/2029 Procedure Pass [facility] PERIOPERATIVE DEPT [address] [place] [phone] documented as of this encounter Visit Diagnoses Not on filedocumented in this encounter Care Teams Printer Small Print Shop Relationship Specialty Start Date End Date Whitney Kaur MD, MPH [address] [place] [address] [email or web address] PCP - General Family Medicine 04/17/18 06/25/23 Kim Noel MD [address] [address] PCP - General Internal Medicine 06/26/23 Freda Garg MD [address] [address] [email or web address] Referring OBGYN Obstetrics and Gynecology 02/28/17 Freda Garg MD [address] [address] [email or web address] Historical LMR Provider 03/27/17 Whitney Kaur MD, MPH [address] [place] [address] [email or web address] Historical LMR Provider 03/27/17 Dajuan Hammer MD [address] [place] [phone] [email or web address] Referring Physician Rheumatology 04/17/18 documented as of this encounter Additional Source Comments The information contained in this document represents components of the legal health record. It is not the complete legal health record.[facility]
--- OUTSIDE RECORDS SUMMARY | 2025-04-28 08:36 | XMS_ITS | Patient Health Record ---
Author Organization [facility] Address [address] [place] [address] Care Team Providers Care Payment Manager Name Role Phone Ricardo Shelton Unavailable [phone] Reason For Referral No Information Plan Of Treatment No Information
--- OUTSIDE RECORDS SUMMARY | 2025-04-28 08:36 | XMS_ITS | Encounter Summary ---
Author Organization [facility] Address [address] [facility] [address] [address] [place] [address] Phone Care Team Providers Care Water Quality Tester Name Role Phone Freda Garg MD Unavailable Mike Valladares MD Unavailable [phone] Freda Garg MD Unavailable Eren Mahoney MD Unavailable [phone] Whitney Kaur MD, MPH Unavailable [phone] Whitney Kaur MD, MPH Primary Care Provider + Dajuan Hammer MD Unavailable [phone] Kim Noel MD Primary Care Provide r Encounter Details Date Type Department Care Team (Late st Contact Info) Description 07/04/2018 Procedure Pass [facility] - MRI [address] [facility], 6th [place] [address] Social History Tobacco Use Types Packs/Day Years [...] Info) Description 10/22/2025 1:30 PM EDT Telemedicine [facility] Clinical Center [address] [facility], [address] [place] [address] Kvng Agarwal MD, DSc 55 [facility] [address] [place] [address] [email or web address] 06/10/2029 Procedure Pass [facility] PERIOPERATIVE DEPT [address] [place] [phone] documented as of this encounter Visit Diagnoses Not on filedocumented in this encounter Care Teams Water Quality Tester Relationship Specialty Start Date End Date Whitney Kaur MD, MPH [address] [place] [address] PCP - General Family Medicine 04/17/18 06/25/23 Kim Noel MD [address] [place] [address] PCP - General Internal Medicine 06/26/23 Freda Garg MD [address] [place] [address] Referring OBGYN Obstetrics and Gynecology 02/28/17 Mike Valladares MD [address] [place] [address], 2nd [place] [address] Historical LMR Provider 03/27/17 06/17/21 Freda Garg MD [address] [place] [address] Historical LMR Provider 03/27/17 Eren Mahoney MD [address] [place] [address] julio Historical LMR Provider 03/27/17 06/17/21 Whitney Kaur MD, MPH [address] [place] [address] Historical LMR Provider 03/27/17 Dajuan Hammer MD [address] [place] [address] [address] [place] [address] [email or web address] Referring Physician Rheumatology 04/17/18 documented as of this encounter Additional Source Comments The information contained in this document represents components of the legal health record. It is not the complete legal health record.[facility]
--- OUTSIDE RECORDS SUMMARY | 2025-04-28 08:36 | XMS_ITS | Encounter Summary ---
Author Organization [facility] Address [address] [place] [address] Phone Care Team Providers Care Belt Splicer Name Role Phone Whitney Kaur MD, MPH Primary Care Provider + Heidi Solano MD Primary Care Provider + Whitney Kaur MD, MPH Primary Care Provider + Freda Garg MD Unavailable Mike Valladares MD Unavailable Freda Garg MD Unavailable Eren Mahoney MD Unavailable [phone] Whitney Kaur MD, MPH Unavailable [phone] Dajuan Hammer MD Primary Care Provider [phone] Whitney Kaur MD, MPH Primary Care Provider + Dajuan Hammer MD Unavailable [phone] Kim Noel MD Primary Care Provide r Encounter Details Date Type Department Care Team (Late st Contact Info) Description 10/29/2016 Procedure Pass [facility] PERIOPERATIVE DEPT [address] [place] [address] Social History Tobacco Use Types [...] Info) Description 10/22/2025 1:30 PM EDT Telemedicine [address], [address] [place] [id number] Kvng Agarwal MD, DSc [address] [place] [address] [address] [place] [address] [email or web address] 06/10/2029 Procedure Pass [facility] PERIOPER[facility]IVE DEPT [address] [place] [phone] documented as of this encounter Visit Diagnoses Not on filedocumented in this encounter Care Teams Belt Splicer Relationship Specialty Start Date End Date Whitney Kaur MD, MPH [address] [place] [address] [email or web address] PCP - General Family Medicine 10/24/16 01/13/17 Heidi Solano MD [address] [place] [address] [email or web address] PCP - General Family Medicine 01/14/17 02/05/17 Whitney Kaur MD, MPH [address] [place] [address] [email or web address] PCP - General 02/06/17 02/24/18 Dajuan Hammer MD 55 [facility] [place] [address] [place] [phone] [email or web address] PCP - General Rheumatology 02/25/18 04/16/18 Whitney Kaur MD, MPH [address] [place] [address] [email or web address] PCP - General Family Medicine 04/17/18 06/25/23 Kim Noel MD [address] [place] [address] PCP - General Internal Medicine 06/26/23 Freda Garg MD [address] [address] Referring OBGYN Obstetrics and Gynecology 02/28/17 Mike Valladares MD 22 [facility], 2nd [place] [address] Historical LMR Provider 03/27/17 06/17/21 Freda Garg MD [address] [place] [address] Historical LMR Provider 03/27/17 Eren Mahoney MD [address] [place] [address] julio Historical LMR Provider 03/27/17 06/17/21 Whitney Kaur MD, MPH [address] [place] [address] Historical LMR Provider 03/27/17 Dajuan Hammer MD 55 [facility] [address] [place] [phone] [email or web address] Referring Physician Rheumatology 04/17/18 documented as of this encounter Additional Source Comments The information contained in this document represents components of the legal health record. It is not the complete legal health record.[facility]
--- OUTSIDE RECORDS SUMMARY | 2025-04-28 08:36 | XMS_ITS | Encounter Summary ---
Author Organization [facility] Address [address] [place] [address] Phone Care Team Providers Care Office Services Coordinator Name Role Phone Heidi Solano MD Primary Care Provider + Whitney Kaur MD, MPH Primary Care Provider + Heidi Solano MD Primary Care Provider + Whitney Kaur MD, MPH Primary Care Provider + Freda Garg MD Unavailable Mike Valladares MD Unavailable Freda Garg MD Unavailable Eren Mahoney MD Unavailable Whitney Kaur MD, MPH Unavailable [phone] Dajuan Hammer MD Primary Care Provider [phone] Whitney Kaur MD, MPH Primary Care Provider + Dajuan Hammer MD Unavailable [phone] Kim Noel MD Primary Care Provide r Encounter Details Date Type Department Care Team (Late st Contact Info) Description 07/24/2016 Procedure Pass [facility] [address] [place] [address] Social History Tobacco Use Types Packs/Day Years [...] [facility] [address] [facility], [address] [place] [address] Kvng Agarwal MD, DSc 55 [facility] [address] [place] [address] [email or web address] 06/10/[address] [facility] PER[facility]IVE DEPT [address] [place] [phone] documented as of this encounter Visit Diagnoses Not on filedocumented in this encounter Care Teams Office Services Coordinator Relationship Specialty Start Date End Date Heidi Solano MD [email or web address] PCP - General Family Medicine 08/12/14 10/23/16 Whitney Kaur MD, MPH [address] [place] [address] [email or web address] PCP - General Family Medicine 10/24/16 01/13/17 Heidi Solano MD [email or web address] PCP - General Family Medicine 01/14/17 02/05/17 Whitney Kaur MD, MPH [address] [place] [address] [email or web address] PCP - General 02/06/17 02/24/18 Dajuan Hammer MD 55 [facility] [address] [place] [address] [email or web address] PCP - General Rheumatology 02/25/18 04/16/18 Whitney Kaur MD, MPH [address] [place] [address] [email or web address] PCP - General Family Medicine 04/17/18 06/25/23 Kim Noel MD [address] [place] [address] PCP - General Internal Medicine 06/26/23 Freda Garg MD [address] [place] [address] [email or web address] Referring OBGYN Obstetrics and Gynecology 02/28/17 Mike Valladares MD [address] [place] [address], 2nd [place] [address] Historical LMR Provider 03/27/17 06/17/21 Freda Garg MD [address] [place] [address] Historical LMR Provider 03/27/17 Eren Mahoney MD 22 [facility], [address] [place] [address] julio [email or web address] Historical LMR Provider 03/27/17 06/17/21 Whitney Kaur MD, MPH [address] [place] [address] [email or web address] Historical LMR Provider 03/27/17 Dajuan Hammer MD [address] [place] [address] [email or web address] .[email or web address] Referring Physician Rheumatology 04/17/18 documented as of this encounter Additional Source Comments The information contained in this document represents components of the legal health record. It is not the complete legal health record.[facility]
--- OUTSIDE RECORDS SUMMARY | 2025-04-28 08:38 | XMS_ITS | Encounter Summary ---
Author Organization [facility] Address [address] [place] [address] Phone Care Team Providers Care Metal Machinist Name Role Phone Freda Garg MD Unavailable Mike Valladares MD Unavailable [phone] Freda Garg MD Unavailable Eren Mahoney MD Unavailable [phone] Whitney Kaur MD, MPH Unavailable [phone] Whitney Kaur MD, MPH Primary Care Provider + Dajuan Hammer MD Unavailable [phone] Kim Noel MD Primary Care Provide r Encounter Details Date Type Department Care Team (Late st Contact Info) Description 03/25/2019 Procedure Pass [facility] MRI, [address] [facility], 2nd [place] [address] Social History Tobacco Use Types Packs/Day Years [...] Telemedicine [facility] Clinical Center [address] [facility], [address] [place] [address] Kvng Agarwal MD, DSc 55 [facility] [address] [place] [address] [email or web address] 06/10/2029 Procedure Pass [facility] PERIOPERATIVE DEPT [address] [place] [phone] documented as of this encounter Visit Diagnoses Not on filedocumented in this encounter Care Teams Metal Machinist Relationship Specialty Start Date End Date Whitney Kaur MD, MPH [address] [place] [address] PCP - General Family Medicine 04/17/18 06/25/23 Kim Noel MD [address] [place] [address] PCP - General Internal Medicine 06/26/23 Freda Garg MD [address] [place] [address] Referring OBGYN Obstetrics and Gynecology 02/28/17 Mike Valladares MD [address] [place] [address], 2nd [place] [address] Historical LMR Provider 03/27/17 06/17/21 Freda Garg MD [address] [place] [address] Historical LMR Provider 03/27/17 Eren Mahoney MD [address] [place] [address] julio Historical LMR Provider 03/27/17 06/17/21 Whitney Kaur MD, MPH [address] [place] [address] Historical LMR Provider 03/27/17 Dajuan Hammer MD [address] [place] [address] [address] [place] [address] [email or web address] Referring Physician Rheumatology 04/17/18 documented as of this encounter Additional Source Comments The information contained in this document represents components of the legal health record. It is not the complete legal health record.[facility]
--- OUTSIDE RECORDS SUMMARY | 2025-04-28 08:39 | XMS_ITS | Encounter Summary ---
Author Organization [facility] Address [address] [place] [address] Phone Care Team Providers Care Licensed Investment Sales Assistant Name Role Phone Heidi Solano MD Primary Care Provider + Whitney Kaur MD, MPH Primary Care Provider + Freda Garg MD Unavailable Mike Valladares MD Unavailable Freda Garg MD Unavailable Eren Mahoney MD Unavailable Whitney Kaur MD, MPH Unavailable Dajuan Hammer MD Primary Care Provider [phone] Whitney Kaur MD, MPH Primary Care Provider + Dajuan Hammer MD Unavailable [phone] Kim Noel MD Primary Care Provide r Encounter Details Date Type Department Care Team (Latest Contact Info) Description 02/04/2017 Ancillary Orders [facility] NEUR[facility]ERY VIRTUAL DEPARTMENT [address] [place] [phone] Eliazar Peace MD [address] [place] [address] [email or web address] Other form of scoliosis of lumbar spine [...] Info) Description 10/22/2025 1:30 PM EDT Telemedicine [address], [address] [place] [address] Kvng Agarwal MD, DSc 55 [facility] [address] [place] [address] [email or web address] 06/10/2029 Procedure Pass [facility] PERIOPERATIVE DEPT [address] [place] [phone] documented as of this encounter Visit Diagnoses Diagnosis Other form of scoliosis of lumbar spine documented in this encounter Care Teams Licensed Investment Sales Assistant Relationship Specialty Start Date End Date Heidi Solano MD [email or web address] PCP - General Family Medicine 01/14/17 02/05/17 Whitney Kaur MD, MPH [address] [place] [address] [email or web address] PCP - General 02/06/17 02/24/18 Dajuan Hammer MD 55 [facility] [address] [place] [address] [email or web address] PCP - General Rheumatology 02/25/18 04/16/18 Whitney Kaur MD, MPH [address] [place] [address] [email or web address] PCP - General Family Medicine 04/17/18 06/25/23 Kim Noel MD [address] [address] PCP - General Internal Medicine 06/26/23 Freda Garg MD 22 [facility], [address] [place] [address] Referring OBGYN Obstetrics and Gynecology 02/28/17 Mike Valladares MD [address] [place] [address], 2nd [place] [address] Historical LMR Provider 03/27/17 06/17/21 Freda Garg MD [address] [place] [address] Historical LMR Provider 03/27/17 Eren Mahoney MD [address] [place] [address] julio Historical LMR Provider 03/27/17 06/17/21 Whitney Kaur MD, MPH [address] [place] [address] [email or web address] Historical LMR Provider 03/27/17 Dajuan Hammer MD [address] [place], [place] [address] [address] [email or web address] .[email or web address] Referring Physician Rheumatology 04/17/18 documented as of this encounter Additional Source Comments The information contained in this document represents components of the legal health record. It is not the complete legal health record.[facility]
--- OUTSIDE RECORDS SUMMARY | 2025-04-28 08:39 | XMS_ITS | Encounter Summary ---
Author Organization [facility] Address [address] [place] [address] Phone Care Team Providers Care Oil Rag Washer Name Role Phone Freda Garg MD Unavailable Freda Garg MD Unavailable Whitney Kaur MD, MPH Unavailable [phone] Dajuan Hammer MD Unavailable [phone] Kim Noel MD Primary Care Provide r Encounter Details Date Type Department Care Team (Late st Contact Info) Description 06/26/2023 Procedure Pass [facility]oscopy Admitting Dept Virtual Department [address] [place], [place] [phone] Social History Tobacco Use Types Packs/Day Years [...] Info) Description 10/22/2025 1:30 PM EDT Telemedicine [facility] Neuroendocrine Clinical Center [address] [facility], [address] [place] [address] Kvng Agarwal MD, DSc 55 [facility] [address] [place] [address] [email or web address] 06/10/2029 Procedure Pass [facility] PERIOPERATIVE DEPT [address] [place] [address] documented as of this encounter Visit Diagnoses Not on filedocumented in this encounter Care Teams Oil Rag Washer Relationship Specialty Start Date End Date Kim Noel MD [address] [address] PCP - General Internal Medicine 06/26/23 Freda Garg MD 22 [facility] [address] [place] [address] [email or web address] Referring OBGYN Obstetrics and Gynecology 02/28/17 Freda Garg MD 22 [facility] [address] [place] [address] [email or web address] Historical LMR Provider 03/27/17 Whitney Kaur MD, MPH 70 [place] [address] [email or web address] Historical LMR Provider 03/27/17 Dajuan Hammer MD 55 [facility] [place] [address] [place] [address] [email or web address] Referring Physician Rheumatology 04/17/18 documented as of this encounter Additional Source Comments The information contained in this document represents components of the legal health record. It is not the complete legal health record.[facility]
--- OUTSIDE RECORDS SUMMARY | 2025-04-28 08:41 | XMS_ITS | Encounter Summary ---
Author Organization [facility] Address [address] [place] [address] Phone Care Team Providers Care Telegraph Editor Name Role Phone Whitney Kaur MD, MPH Primary Care Provider + Freda Garg MD Unavailable Mike Valladares MD Unavailable [phone] Freda Garg MD Unavailable Eren Mahoney MD Unavailable Whitney Kaur MD, MPH Unavailable Dajuan Hammer MD Primary Care Provider [phone] Whitney Kaur MD, MPH Primary Care Provider + Dajuan Hammer MD Unavailable [phone] Kim Noel MD Primary Care Provide r Encounter Details Date Type Department Care Team (Late st Contact Info) Description 02/26/2017 Procedure Pass [facility] General Imaging [address] [place] [address] Social History Tobacco Use Types Packs/Day Years [...] 1:30 PM EDT Telemedicine [facility] [address] [place] [address], [address] [place] [address] Kvng Agarwal MD, DSc [address] [place] [address] [address]12 [place] [address] [email or web address] 06/10/2029 Procedure Pass [facility] [place] PERIOPER[facility]IVE DEPT 55 [place] [address] documented as of this encounter Visit Diagnoses Not on filedocumented in this encounter Care Teams Telegraph Editor Relationship Specialty Start Date End Date Whitney Kaur MD, MPH [address] [place] [address] [email or web address] PCP - General 02/06/17 02/24/18 Dajuan Hammer MD 55 [facility] [address] [place] [phone] [email or web address] PCP - General Rheumatology 02/25/18 04/16/18 Whitney Kaur MD, MPH [address] [place] [address] [email or web address] PCP - General Family Medicine 04/17/18 06/25/23 Kim Noel MD [address] [place] [address] PCP - General Internal Medicine 06/26/23 Freda Garg MD [address] [place] [address] [email or web address] Referring OBGYN Obstetrics and Gynecology 02/28/17 Mike Valladares MD [address] [place] [address], 2nd [place] [address] [email or web address] Historical LMR Provider 03/27/17 06/17/21 Freda Garg MD [address] [place] [address] [email or web address] Historical LMR Provider 03/27/17 Eren Mahoney MD 22 [facility], [address] [place] [address] julio Historical LMR Provider 03/27/17 06/17/21 Whitney Kaur MD, MPH [address] [place] [address] Historical LMR Provider 03/27/17 Dajuan Hammer MD [address] [place] [phone] [email or web address] Referring Physician Rheumatology 04/17/18 documented as of this encounter Additional Source Comments The information contained in this document represents components of the legal health record. It is not the complete legal health record.[facility]
--- OUTSIDE RECORDS SUMMARY | 2025-04-28 08:41 | XMS_ITS | Encounter Summary ---
Author Organization [facility] Address [address] [place] [address] Phone Care Team Providers Care Professor Of Social Work Name Role Phone Whitney Kaur MD, MPH Primary Care Provider + Freda Garg MD Unavailable Mike Valladares MD Unavailable Freda Garg MD Unavailable Eren Mahoney MD Unavailable Whitney Kaur MD, MPH Unavailable [phone] Dajuan Hammer MD Primary Care Provider [phone] Whitney Kaur MD, MPH Primary Care Provider + Dajuan Hammer MD Unavailable [phone] Kim Noel MD Primary Care Provide r Encounter Details Date Type Department Care Team (Late st Contact Info) Description 02/20/2017 Procedure Pass [facility] [place] [place] [address] [place] [phone] Social History Tobacco Use Types Packs/Day Years [...] Description 10/22/2025 1:30 PM EDT Telemedicine [address], [address] [place] [address] Kvng Agarwal MD, DSc [address] [place] [address] [address] [email or web address] 06/10/2029 Procedure Pass [facility] 55 [place] [address] documented as of this encounter Visit Diagnoses Not on filedocumented in this encounter Care Teams Professor Of Social Work Relationship Specialty Start Date End Date Whitney Kaur MD, MPH 70 [place] [address] [email or web address] PCP - General 02/06/17 02/24/18 Dajuan Hammer MD 55 [facility] 4BYAW [address] [place] [phone] [email or web address] PCP - General Rheumatology 02/25/18 04/16/18 Whitney Kaur MD, MPH 70 [place] [address] [email or web address] PCP - General Family Medicine 04/17/18 06/25/23 Kim Noel MD [address] [place] [address] PCP - General Internal Medicine 06/26/23 Freda Garg MD [address] [place] [address] [email or web address] Referring OBGYN Obstetrics and Gynecology 02/28/17 Mike Valladares MD [address] [place] [address], 2nd [place] [address] [email or web address] Historical LMR Provider 03/27/17 06/17/21 Freda Garg MD [address] [place] [address] Historical LMR Provider 03/27/17 Eren Mahoney MD 22 [facility], [address] [place] [address] julio Historical LMR Provider 03/27/17 06/17/21 Whitney Kaur MD, MPH 70 [place] [address] Historical LMR Provider 03/27/17 Dajuan Hammer MD [address] [place] [phone] [email or web address] Referring Physician Rheumatology 04/17/18 documented as of this encounter Additional Source Comments The information contained in this document represents components of the legal health record. It is not the complete legal health record.[facility]
--- OUTSIDE RECORDS SUMMARY | 2025-04-28 08:44 | XMS_ITS | Encounter Summary ---
Author Organization [facility] Address [address] [place] [address] Phone Care Team Providers Care Scratcher Name Role Phone Whitney Kaur MD, MPH Primary Care Provider + Freda Garg MD Unavailable Mike Valladares MD Unavailable Freda Garg MD Unavailable Eren Mahoney MD Unavailable [phone] Whitney Kaur MD, MPH Unavailable Dajuan Hammer MD Primary Care Provider [phone] Whitney Kaur MD, MPH Primary Care Provider + Dajuan Hammer MD Unavailable [phone] Kim Noel MD Primary Care Provide r Encounter Details Date Type Department Care Team (Late st Contact Info) Description 02/26/2017 Procedure Pass [facility] General Imaging [address] [place] [address] Social History Tobacco Use Types Packs/Day Years [...] Info) Description 10/22/2025 1:[address] [facility] [address] [place] [address], [address] [place] [address] Kvng Agarwal MD, DSc [address] [place] [address] [address] [place] [address] [email or web address] 06/10/2029 Procedure Pass [facility] 55 [place] [address] documented as of this encounter Visit Diagnoses Not on filedocumented in this encounter Care Teams Scratcher Relationship Specialty Start Date End Date Whitney Kaur MD, MPH 70 [place] [address] [email or web address] PCP - General 02/06/17 02/24/18 Dajuan Hammer MD 55 [facility] [address] [place] [phone] [email or web address] PCP - General Rheumatology 02/25/18 04/16/18 Whitney Kaur MD, MPH 70 [place] [address] [email or web address] PCP - General Family Medicine 04/17/18 06/25/23 Kim Noel MD [address] [place] [address] PCP - General Internal Medicine 06/26/23 Freda Garg MD [address] [place] [address] [email or web address] Referring OBGYN Obstetrics and Gynecology 02/28/17 Mike Valladares MD [address] [place] [address], 2nd [place] [address] [email or web address] Historical LMR Provider 03/27/17 06/17/21 Freda Garg MD [address] [place] [address] [email or web address] Historical LMR Provider 03/27/17 Eren Mahoney MD 22 [facility], [address] [place] [address] julio Historical LMR Provider 03/27/17 06/17/21 Whitney Kaur MD, MPH [address] [place] [address] Historical LMR Provider 03/27/17 Dajuan Hammer MD [address] [place] [phone] [email or web address] Referring Physician Rheumatology 04/17/18 documented as of this encounter Additional Source Comments The information contained in this document represents components of the legal health record. It is not the complete legal health record.[facility]
--- OUTSIDE RECORDS SUMMARY | 2025-04-28 08:45 | XMS_ITS | Encounter Summary ---
Author Organization [facility] Address [address] [place] [address] Phone Care Team Providers Care Slab Grinder Name Role Phone Whitney Kaur MD, MPH Primary Care Provider + Freda Garg MD Unavailable Mike Valladares MD Unavailable Freda Garg MD Unavailable Eren Mahoney MD Unavailable [phone] Whitney Kaur MD, MPH Unavailable [phone] Dajuan Hammer MD Primary Care Provider [phone] Whitney Kaur MD, MPH Primary Care Provider + Dajuan Hammer MD Unavailable [phone] Kim Noel MD Primary Care Provide r Encounter Details Date Type Department Care Team (Late st Contact Info) Description 03/27/2017 Procedure Pass [facility] General Imaging [address] [place] [address] Social History Tobacco Use Types Packs/Day Years [...] Info) Description 10/22/2025 1:30 PM EDT Telemedicine [facility] [address] [place] [address], [address] [place] [address] Kvng Agarwal MD, DSc [address] [place] [address] [address]12 [place] [address] [email or web address] 06/10/2029 Procedure Pass [facility] [place] [place]IOPER[facility]IVE [place]PT 55 [place] [address] documented as of this encounter Visit Diagnoses Not on filedocumented in this encounter Care Teams Slab Grinder Relationship Specialty Start Date End Date Whitney Kaur MD, MPH 70 [place] [address] [email or web address] PCP - General 02/06/17 02/24/18 Dajuan Hammer MD 55 [facility] [address]BY[address] [place] [phone] [email or web address] [email or web address] PCP - General Rheumatology 02/25/18 04/16/18 Whitney Kaur MD, MPH 70 [place] [address] [email or web address] PCP - General Family Medicine 04/17/18 06/25/23 Kim Noel MD [address] [place] [address] PCP - General Internal Medicine 06/26/23 Freda Garg MD [address] [place] [address] [email or web address] Referring OBGYN Obstetrics and Gynecology 02/28/17 Mike Valladares MD [address] [place] [address], 2nd [place] [address] [email or web address] Historical LMR Provider 03/27/17 06/17/21 Freda Garg MD [address] [place] [address] [email or web address] Historical LMR Provider 03/27/17 Eren Mahoney MD 22 [facility], [address] [place] [address] julio Historical LMR Provider 03/27/17 06/17/21 Whitney Kaur MD, MPH [address] [place] [address] Historical LMR Provider 03/27/17 Dajuan Hammer MD [address] [place] [phone] [email or web address] .[email or web address] Referring Physician Rheumatology 04/17/18 documented as of this encounter Additional Source Comments The information contained in this document represents components of the legal health record. It is not the complete legal health record.[facility]
--- OUTSIDE RECORDS SUMMARY | 2025-04-28 08:48 | XMS_ITS | Encounter Summary ---
Author Organization [facility] Address [address] [facility] [address] [place] [address] Phone Care Team Providers Care Clay Roaster Name Role Phone Freda Garg MD Unavailable Mike Valladares MD Unavailable [phone] Freda Garg MD Unavailable Eren Mahoney MD Unavailable Whitney Kaur MD, MPH Unavailable Whitney Kaur MD, MPH Primary Care Provider + Dajuan Hammer MD Unavailable [phone] Kim Noel MD Primary Care Provide r Encounter Details Date Type Department Care Team (Latest Contact Info) Description 05/12/2021 Transcribe Orders Virtual Department 30 [place] [address] Syed Maharaj MD [address] [place] [phone] [email or web address] Encounter for [...] Info) Description 10/22/2025 1:30 PM EDT Telemedicine [facility] [address] [place] [address], [address] [place] [address] Kvng Agarwal MD, DSc [address] [place] [address] [address] [email or web address] 06/10/2029 Procedure Pass [facility] PERIOPER[facility]IVE DEPT 55 [place] [address] documented as of this encounter Results * COVID-19 PCR Order (05/14/2021 3:25 PM EST) COVID-19 Comment [id number] [facility] COVID Testing Status Sent to [facility] Micro Lab [facility] Other 05/14/2021 3:25 PM EST 05/14/2021 6:11 PM EST us Syed Maharaj MD LAB GENERAL ORDERABLES Final Result Performing Organization Address City/State/[facility] Co de Phone Number [facility] [address] [place] [address] documented in this encounter Visit Diagnoses Diagnosis Encounter for preprocedure screening laboratory testing for COVID-19- Primary documented in this encounter Care Teams Clay Roaster Relationship Specialty Start Date End Date Whitney Kaur MD, MPH 70 [place] [address] [email or web address] PCP - General Family Medicine 04/17/18 06/25/23 Kim Noel MD [address] [address] PCP - General Internal Medicine 06/26/23 Freda Garg MD 22 [facility], [address] [place] [address] [email or web address] Referring OBGYN Obstetrics and Gynecology 02/28/17 Mike Valladares MD 22 [facility], 2nd [place] [address] Historical LMR Provider 03/27/17 06/17/21 Freda Garg MD [address] [place] [address] [email or web address] Historical LMR Provider 03/27/17 Eren Mahoney MD [address] [place] [address] julio Historical LMR Provider 03/27/17 06/17/21 Whitney Kaur MD, MPH [address] [place] [address] [email or web address] Historical LMR Provider 03/27/17 Dajuan Hammer MD [address] [place] [address] [address] [place] [phone] [email or web address] .[email or web address] Referring Physician Rheumatology 04/17/18 documented as of this encounter Additional Source Comments The information contained in this document represents components of the legal health record. It is not the complete legal health record.[facility]
--- OUTSIDE RECORDS SUMMARY | 2025-04-28 08:49 | XMS_ITS | Encounter Summary ---
Author Organization [facility] Address 399 [facility] [address] [place] [address] Phone Care Team Providers Care Elementary Math Tutor Name Role Phone Freda Garg MD Unavailable Freda Garg MD Unavailable Whitney Kaur MD, MPH Unavailable [phone] Whitney Kaur MD, MPH Primary Care Provider + Dajuan Hammer MD Unavailable [phone] Kim Noel MD Primary Care Provide r Encounter Details Date Type Department Care Team (Late st Contact Info) Description 07/25/2021 Procedure Pass MRI, [facility] [address] [address] [facility], [address] [place] [address] Social History Tobacco Use Types [...] Info) Description 10/22/2025 1:30 PM EDT Telemedicine [facility] Center [address] [place] [address], [address] [place] [address] Kvng Agarwal MD, DSc 55 [facility] [address] [place] [address] [email or web address] 06/10/2029 Procedure Pass [facility] PERI[facility]IVE DEPT [address] [place] [phone] documented as of this encounter Visit Diagnoses Not on filedocumented in this encounter Care Teams Elementary Math Tutor Relationship Specialty Start Date End Date Whitney Kaur MD, MPH [address] [place] [address] [email or web address] PCP - General Family Medicine 04/17/18 06/25/23 Kim Noel MD [address] [address] PCP - General Internal Medicine 06/26/23 Freda Garg MD [address] [address] [facility] [email or web address] Referring OBGYN Obstetrics and Gynecology 02/28/17 Freda Garg MD [address] [address] [email or web address] Historical LMR Provider 03/27/17 Whitney Kaur MD, MPH [address] [place] [address] [email or web address] Historical LMR Provider 03/27/17 Dajuan Hammer MD [address] [place], [place] [address] [phone] [email or web address] .[email or web address] Referring Physician Rheumatology 04/17/18 documented as of this encounter Additional Source Comments The information contained in this document represents components of the legal health record. It is not the complete legal health record.[facility]
--- OUTSIDE RECORDS SUMMARY | 2025-04-28 08:50 | XMS_ITS | Encounter Summary ---
Author Organization [facility] Address [address] [place] [address] Phone Care Team Providers Care Bottom Man Name Role Phone Whitney Kaur MD, MPH Primary Care Provider + Freda Garg MD Unavailable Mike Valladares MD Unavailable Freda Garg MD Unavailable Eren Mahoney MD Unavailable Whitney Kaur MD, MPH Unavailable [phone] Dajuan Hammer MD Primary Care Provider [phone] Whitney Kaur MD, MPH Primary Care Provider + Dajuan Hammer MD Unavailable Kim Noel MD Primary Care Provide r Encounter Details Date Type Department Care Team (Late st Contact Info) Description 06/25/2017 Procedure Pass [facility] - MRI [address] [facility], 6th [place] [address] Social History Tobacco Use Types Packs/Day Years [...] Info) Description 10/22/2025 1:30 PM EDT Telemedicine [facility] [address] [place] [address], [address] [place] [address] Kvng Agarwal MD, DSc [address] [place] [address] [address]12 [place] [address] [email or web address] 06/10/2029 Procedure Pass [facility] [place] 55 [place] [phone] documented as of this encounter Visit Diagnoses Not on filedocumented in this encounter Care Teams Bottom Man Relationship Specialty Start Date End Date Whitney Kaur MD, MPH 70 [place] [address] [email or web address] PCP - General 02/06/17 02/24/18 Dajuan Hammer MD 55 [facility] [address] [phone] [email or web address] PCP - General Rheumatology 02/25/18 04/16/18 Whitney Kaur MD, MPH 70 [place] [address] [email or web address] PCP - General Family Medicine 04/17/18 06/25/23 Kim Noel MD [address] [place] [address] PCP - General Internal Medicine 06/26/23 Freda Garg MD [address] [place] [address], [address] [place] [address] [email or web address] Referring OBGYN Obstetrics and Gynecology 02/28/17 Mike Valladares MD [address] [place] [address], 2nd [place] [address] [email or web address] Historical LMR Provider 03/27/17 06/17/21 Freda Garg MD 22 [facility], [address] [place] [address] Historical LMR Provider 03/27/17 Eren Mahoney MD 22 [facility], [address] [address] julio Historical LMR Provider 03/27/17 06/17/21 Whitney Kaur MD, MPH 70 [place] [address] Historical LMR Provider 03/27/17 Dajuan Hammer MD [address] [place] [phone] [email or web address] .[email or web address] Referring Physician Rheumatology 04/17/18 documented as of this encounter Additional Source Comments The information contained in this document represents components of the legal health record. It is not the complete legal health record.[facility]
--- OUTSIDE RECORDS SUMMARY | 2025-04-28 08:51 | XMS_ITS | Encounter Summary ---
Author Organization [facility] Address [address] [place] [address] Phone Care Team Providers Care Senior Sous Chef Name Role Phone Freda Garg MD Unavailable Freda Garg MD Unavailable Whitney Kaur MD, MPH Unavailable [phone] Whitney Kaur MD, MPH Primary Care Provider + Dajuan Hammer MD Unavailable [phone] Kim Noel MD Primary Care Provide r Encounter Details Date Type Department Care Team (Late st Contact Info) Description 02/16/2022 Procedure Pass [facility], [address] [address] Social History Tobacco Use Types Packs/Day Years [...] Info) Description 10/22/2025 1:30 PM EDT Telemedicine [address], [address] [place] [address] Kvng Agarwal MD, DSc [address] [place] [address] [address]00[address] [place] [address] [email or web address] 06/10/2029 Procedure Pass [facility] [address] [place] [phone] documented as of this encounter Visit Diagnoses Not on filedocumented in this encounter Care Teams Senior Sous Chef Relationship Specialty Start Date End Date Whitney Kaur MD, MPH [address] [place] [address] [email or web address] PCP - General Family Medicine 04/17/18 06/25/23 Kim Noel MD [address] [address] PCP - General Internal Medicine 06/26/23 Freda Garg MD [address] [address] [email or web address] Referring OBGYN Obstetrics and Gynecology 02/28/17 Freda Garg MD [address] [address] [email or web address] Historical LMR Provider 03/27/17 Whitney Kaur MD, MPH 70 [place] [address] [email or web address] Historical LMR Provider 03/27/17 Dajuan Hammer MD [address] [place] [phone] [email or web address] Referring Physician Rheumatology 04/17/18 documented as of this encounter Additional Source Comments The information contained in this document represents components of the legal health record. It is not the complete legal health record.[facility]
--- OUTSIDE RECORDS SUMMARY | 2025-04-28 08:52 | XMS_ITS | Encounter Summary ---
Author Organization [facility] Address [address] [place] [address] Phone Care Team Providers Care Shaker Plate Operator Name Role Phone Freda Garg MD Unavailable Freda Garg MD Unavailable Whitney Kaur MD, MPH Unavailable [phone] Whitney Kaur MD, MPH Primary Care Provider + Dajuan Hammer MD Unavailable [phone] Kim Noel MD Primary Care Provide r Encounter Details Date Type Department Care Team (Late st Contact Info) Description 07/26/2022 Procedure Pass [place] Admitting Dept - Virtual Department 30 [place] [address] Social History Tobacco Use Types Packs/Day Years [...] Info) Description 10/22/2025 1:30 PM EDT Telemedicine [address], [address] [place] [address] Kvng Agarwal MD, DSc [address] [place] [address] [address] [place] [address] [email or web address] 06/10/2029 Procedure Pass [facility] [address] [place] [phone] documented as of this encounter Visit Diagnoses Not on filedocumented in this encounter Care Teams Shaker Plate Operator Relationship Specialty Start Date End Date Whitney Kaur MD, MPH 70 [place] [address] [email or web address] PCP - General Family Medicine 04/17/18 06/25/23 Kim Noel MD [address] [address] PCP - General Internal Medicine 06/26/23 Freda Garg MD [address] [address] [email or web address] Referring OBGYN Obstetrics and Gynecology 02/28/17 Freda Garg MD [address] [address] [email or web address] Historical LMR Provider 03/27/17 Whitney Kaur MD, MPH 70 [place] [address] [email or web address] Historical LMR Provider 03/27/17 Dajuan Hammer MD [address] [place], [place] [address] [phone] [email or web address] Referring Physician Rheumatology 04/17/18 documented as of this encounter Additional Source Comments The information contained in this document represents components of the legal health record. It is not the complete legal health record.[facility]
--- OUTSIDE RECORDS SUMMARY | 2025-04-28 08:53 | XMS_ITS | Encounter Summary ---
Author Organization [facility] Address [address] [place] [address] Phone Care Team Providers Care Acid Strength Inspector Name Role Phone Freda Garg MD Unavailable Freda Garg MD Unavailable Whitney Kaur MD, MPH Unavailable [phone] Dajuan Hammer MD Unavailable [phone] Kim Noel MD Primary Care Provide r Encounter Details Date Type Department Care Team (Late st Contact Info) Description 04/01/2024 Procedure Pass [facility] [address] [place] [address] Social History Tobacco Use Types Packs/Day Years [...] Info) Description 10/22/2025 1:30 PM EDT Telemedicine [facility] [address] [facility], [address] [place] [address] Kvng Agarwal MD, DSc 55 [facility] [address]00[address] [place] [address] [email or web address] 06/10/2029 Procedure Pass [facility] 55 [place] [phone] documented as of this encounter Visit Diagnoses Not on filedocumented in this encounter Care Teams Acid Strength Inspector Relationship Specialty Start Date End Date Kim Noel MD [address] [address] PCP - General Internal Medicine 06/26/23 Freda Garg MD 22 [facility] [address] [place] [address] [email or web address] Referring OBGYN Obstetrics and Gynecology 02/28/17 Freda Garg MD 22 [facility] 102 [place] [address] [email or web address] Historical LMR Provider 03/27/17 Whitney Kaur MD, MPH 70 [place] [address] [email or web address] Historical LMR Provider 03/27/17 Dajuan Hammer MD 55 [facility] [place] [place] [phone] [email or web address] Referring Physician Rheumatology 04/17/18 documented as of this encounter Additional Source Comments The information contained in this document represents components of the legal health record. It is not the complete legal health record.[facility]
--- OUTSIDE RECORDS SUMMARY | 2025-04-28 08:54 | XMS_ITS | Encounter Summary ---
Author Organization [facility] Address [id number] [place] [address] Phone Care Team Providers Care Computed Tomography Scanner Operator Name Role Phone Freda Garg MD Unavailable Mike Valladares MD Unavailable Freda Garg MD Unavailable Eren Mahoney MD Unavailable Whitney Kaur MD, MPH Unavailable Whitney Kaur MD, MPH Primary Care Provider + Dajuan Hammer MD Unavailable [phone] Kim Noel MD Primary Care Provide r Encounter Details Date Type Department Care Team (Latest Contact Info) Description 03/31/2021 Transcribe Orders [facility] Phleb Sravani [address] [place] [address] Isabela Carmona PA-C [address] [place] [address] [email or web address] Constipation, unspecified constipation type (Primary Dx); Lower [...] EDT Telemedicine [facility] [address] [place] [address], [address] [place] [address] Kvng Agarwal MD, DSc [address] [place] [address] [address] [place] [address] [email or web address] 06/10/2029 Procedure Pass [facility] [address] [place] [phone] documented as of this encounter Results * TSH (03/31/2021 3:48 PM EDT) TSH 1.94 0.27 - 4.20 uIU/mL [facility] Blood 03/31/2021 3:48 PM EDT 03/31/2021 3:53 PM EDT us Isabela Carmona PA-C LAB BLOOD BKR ORDERABLES Final Result Performing Organization Address City/[facility]/ZIP Co de Phone Number [address] [address] * (ABNORMAL) Lipase (03/31/2021 3:48 PM EDT) LIPASE 64(H) 16 - 63 U/L [facility] Blood 03/31/2021 3:48 PM EDT 03/31/2021 3:53 PM EDT us Isabela Carmona PA-C LAB BLOOD BKR ORDERABLES Final Result Performing Organization Address City/[facility]/ZIP Co de Phone Number [address] [address] * (ABNORMAL) C-Reactive Protein (03/31/2021 3:48 PM EDT) C REACTIVE PROTEIN 10.3(H) 0.0 - 4.0 mg/L [facility] Blood 03/31/2021 3:48 PM EDT 03/31/2021 3:53 PM EDT us Isabela Carmona PA-C LAB BLOOD BKR ORDERABLES Final Result [address] [address] * (ABNORMAL) Comprehensive metabolic panel (03/31/2021 3:48 PM EDT) SODIUM 142 133 - 146 mmol/L [facility] POTASSIUM 4.3 3.3 - 5.1 mmol/L [facility] CHLORIDE 101 96 - 108 mmol/L [facility] CO2 32 21 - 35 mmol/L [facility] BUN 22(H) 6 - 19 mg/dL [facility] CREATININE 0.90 0.5 - 1.5 mg/dL [facility] GLUCOSE 83 70 - 99 mg/dL [facility] ALBUMIN 4.1 3.9 - 4.8 g/dL [facility] TOTAL PROTEIN 7.1 6.5 - 8.0 g/dL [facility] CALCIUM 9.3 8.4 - 10.3 mg/dL [facility] ALKALINE PHOSPHATASE 82 39 - 117 U/L [facility] TOTAL BILIRUBIN 0.3 0.0 - 1.2 mg/dL [facility] AST 25 0 - 37 U/L [facility] ALT 16 0 - 40 U/L [facility] GLOBULIN 3.0 1 - 4.8 g/dL [facility] EGFR 65 >59 mL/min/1.7 3m2 [facility] Comment:Estimated glomerular filtration rate calculated using the CKD-EPI equation. ANION GAP 13 10 - 20 mmol/L [facility] Blood 03/31/2021 3:48 PM EDT 03/31/2021 3:53 PM EDT us Isabela Carmona PA-C LAB BLOOD BKR ORDERABLES Final Result [address] [address] * (ABNORMAL) CBC (03/31/2021 3:48 PM EDT) WBC 9.82 4.00 - 11.00 K/uL [facility] RBC 3.97 3.72 - 5.30 M/uL [facility] HGB 12.8 11.4 - 15.9 g/dL [facility] HCT 39.9 34.2 - 46.8 % [facility] PLT 275 140 - 430 K/uL [facility] MCV 100.5(H) 78.0 - 97.0 fL [facility] MCH 32.2 25.0 - 33.0 pg [facility] MCHC 32.1 32.0 - 36.0 g/dL [facility] RDW 14.3 11.0 - 16.0 % [facility] MPV 11.6 8.4 - 12.8 fl [facility] NRBC 0.00 0 /100 WBCs [facility] ABSOLUTE NRBC 0.00 0 K/uL [facility] Blood 03/31/2021 3:48 PM EDT 03/31/2021 3:53 PM EDT us Isabela Carmona PA-C LAB BLOOD BKR ORDERABLES Final Result Performing Organization Address City/[facility] Co de Phone Number [address] [address] * Immunoglobulin A (03/31/2021 3:48 PM EDT) IgA 225 70 - 400 mg/dL [facility] Blood 03/31/2021 3:48 PM EDT 03/31/2021 3:53 PM EDT us Isabela Carmona PA-C LAB BLOOD BKR ORDERABLES Final Result Performing Organization Address City/[facility] Co de Phone Number [address] [address] * Tissue transglutaminase IgA (03/31/2021 3:48 PM EDT) TTG IGA ANTIBODY <1.2 <4.0 (Negative) U/mL [facility] Blood 03/31/2021 3:48 PM EDT 03/31/2021 3:53 PM EDT us Isabela Carmona PA-C LAB BLOOD BKR ORDERABLES Final Result [facility] [place] [place] [address] documented in this encounter Visit Diagnoses Diagnosis Constipation, unspecified constipation type- Primary Lower abdominal pain Abdominal pain, other specified site Upper abdominal pain Nausea Nausea alone documented in this encounter Care Teams Computed Tomography Scanner Operator Relationship Specialty Start Date End Date Whitney Kaur MD, MPH [address] [place] [address] PCP - General Family Medicine 04/17/18 06/25/23 Kim Noel MD [address] [place] [address] PCP - General Internal Medicine 06/26/23 Freda Garg MD [address] [place] [address] Referring OBGYN Obstetrics and Gynecology 02/28/17 Mike Valladares MD [address] [place] [address], [address] [place] [address] Historical LMR Provider 03/27/17 06/17/21 Freda Garg MD [address] [place] [address] Historical LMR Provider 03/27/17 Eren Mahoney MD [address] [place] [address] julio Historical LMR Provider 03/27/17 06/17/21 Whitney Kaur MD, MPH 70 [place] [address] [email or web address] Historical LMR Provider 03/27/17 Dajuan Hammer MD 55 [facility] [address] [place] [address] [email or web address] Referring Physician Rheumatology 04/17/18 documented as of this encounter Additional Source Comments The information contained in this document represents components of the legal health record. It is not the complete legal health record.[facility]
--- OUTSIDE RECORDS SUMMARY | 2025-04-28 08:54 | XMS_ITS | Clinical Summary ---
Author Organization [facility] Address [address] [place] [address] Phone Care Team Providers Care Lead Software Qa Engineer Name Role Phone Freda Garg MD Unavailable Freda Garg MD Unavailable Whitney Karu MD, MPH Unavailable [phone] Dajuan Hammer MD Unavailable [phone] Kim Yen MD Primary Care Provide r [...] (two) times a day. Dose: Variable: See [facility] for Details; Form: Take 1 TABLET; Route: [...] wall only present with standing or walking. COVER STRIPPER exam is benign Assessment & Plan (07/26/2023 [...] 2021 respectively. Although I highly doubt any COVER STRIPPER etiology and she has had multiple imaging [...] Team Description 04/20/2025 3:00 PM EST Telemedicine [facility] [address] [place] [address], [address] [place] [address] Kvng Agarwal MD, DSc Heather disease (Primary [...] Info) Description 10/22/2025 1:30 PM EDT Telemedicine [facility] [address] [facility], [address] [place] [address] Kvng Agarwal MD, DSc 55 [facility] [address] [place] [address] [email or web address] 06/10/2029 Procedure Pass [facility] [address] [place] [address] Health Maintenance Due Date Last [...] 04/20/2025, 12/2024, 10/14/2024, Additional history exists COLONOSCOPY 06/26/2028 06/26/2023 COLORECTAL CANCER SCREENING 06/26/2028 HEPATITIS C SCREENING Completed 09/09/2014 , 09/09/2014, [...] this topic Medical Devices Implanted Type Area [employer] Sheets Supervisor Device Identifier Shelf Expiration Date Model / Serial / Lot Prosthetic Joint Prosthetic Joint Left: Hip Bilateral Feet Pin,Left Thr [employer] Description:Per [email or web address] m, safe to 3T [id number] 06/24/17 Procedures Procedure Name Priority Date/Time Associated Diagnosis Comments BD DXA HIP AND FOREARM Routine 10/01/2023 9:47 AM EDT [place] disease Benign neoplasm of pituitary gland and [...] a total bone mineral density of 0.459 g/gk3kofo a T- score of -2.1. Z score 0 point. This is in the osteopenia range.No statistically significant change compared with 08/23/2021. The right hip (total) has a total bone mineral density of 0.841 g/zp3amic a T- score of -0.8. No statistically [...] Duarte MD - 06/26/2023 10:04 AM EST [facility] Patient Name: Isa Bello Attending MD:: SYED DUARTE MD, Procedure Date: 06/26/2023 10:04 AM Date of : 1950 Age: 72 Admit Type: Outpatient Gender: Female Room: [address] [address] Referring MD: KIM YEN Exam Type: Colonoscopy [...] 10:04 AM Procedure Code(s): --- Professional --- 80623, Colonoscopy, flexible; diagnostic, including collection of specimen(s) by brushing or washing, when performed (separateprocedure) --- Technical --- 25089, Colonoscopy, flexible; diagnostic, including collection of specimen(s) by brushing or washing, when performed (separateprocedure) Diagnosis Code(s): --- Professional --- R10.2, Pelvic and perineal pain K57.30, Diverticulosis of large intestine without perforation or abscess without bleeding --- Technical --- R10.2, Pelvic and perineal pain K57.30, Diverticulosis of large intestine without perforation or abscess without bleeding CPT copyright 2021 [employer]. All rights reserved. The codes documented in this report are preliminary and upon finisher hot strip reviewmay be revised to meet current compliance requirements. Procedure Date: 06/26/2023 10:04:[address] [place] [address] us Kim Yen MD GI PROCEDURE ORDERABL ES Final Result * (ABNORMAL) Basic metabolic panel (07/13/2022 1:57 PM EST) SODIUM 140 135 - 145 mmol/L [facility] CHLORIDE 99(L) 100 - 108 mmol/L [facility] POTASSIUM 4.9 3.5 - 5.0 mmol/L [facility] CO2 30 23.0 - 31.9 mmol/L [facility] BUN 37(H) 8 - 25 mg/dL [facility] CREATININE 1.41 0.6 - 1.5 mg/dL [facility] GLUCOSE 76 70 - 110 mg/dL [facility] CALCIUM 9.6 8.5 - 10.0 mg/dL [facility] EGFR 40(L) >59 mL/min/1.7 3m2 [facility] Comment:Estimated glomerular filtration rate calculated using the CKD-EPI refit equation. ANION GAP 11 3 - 15 mmol/L [facility] 07/13/2022 1:57 PM EST 07/13/2022 2:50 PM EST Ricardo Ratliff MD LAB BLOOD BKR ORDERABLES Fin al Result [facility] [address] [place] [address], [facility] * MAMMOGRAPHY FOR RESULT ENTRY ONLY (03/03/2019) Freda Garg MD HEALTH MAINTENANCE Final Result * PAP SMEAR FOR RESULT ENTRY ONLY (11/21/2015) Pap smear NIL, HPV Negative (-16/-18) Sophia Dillard MD HEALTH MAINTENANCE Final Result * Lipid panel (02/09/2015 10:58 PM EDT) High Density Lipoprotein 58 35 - 100 mg/dL [facility] Cholesterol 207 mg/dL [facility] Comment:DESIRABLE: <200 Triglycerides 131 40 - 150 mg/dL [facility] Low Density Lipoprotein 123 mg/dL [facility] Comment:DESIRABLE: <130 Cardiac Risk Ratio 3.6 [facility] Comment:NORMAL RISK RATIO: 5 .0 OR LESS 02/09/2015 10:5 8 PM EDT 02/09/2015 10:58 PM EDT Comment:BLOOD Eliazar Carr MD LAB BLOOD BKR ORDERABLES Edited Result - Final [facility] [address] [place] [address] * HCV antibody, qualitative (09/09/2014 5:23 PM EDT) HCV Antibody Negative [facility] Comment: Antibodies to HCV not detected. Does not exclude the possibility of exposure to HCV. 09/09/2014 5:23 PM EDT 09/09/2014 8:57 PM EDT Comment:BLOOD Malia Reis MD LAB BLOOD BKR ORDERABLES Final Result [facility] [address] [facility] [facility] [place] [address] from Last 3 Months or Most Recently Relevant to Health Maintenance Insurance * Guarantor: Isa Bello Bladimir Account Type Relation to Patient Date of Phone Billing Address Personal/Family Self [address] [place] [address] MEDICARE PART A & B [facility] EXTENSION MEDICARE SUPPLEMENT * Guarantor: Isa Bello Account Type Relation to Patient Date of Phone Billing Address Personal/Family Self 1950 [address] [place] [address] MEDICARE PART A & B Member Subscriber Plan / Payer (Ef fective 2016-Present) Name:Isa Bello Bladimir Member ID:[id number] Relation to Subscriber:Self Name:Isa Bello Bladimir Subscriber ID:[id number] Payer ID:[id number] Group ID:Not on file Type:Medicare Address: [employer] [address] [place] [address] [place] [address] EXTENSION MEDICARE SUPPLEMENT * Guarantor: EugeniaIsa norris Bladimir Account Type Relation to Patient Date of Phone Billing Address Personal/Family Self 1950 [address] [place] [address] MEDICARE PART A & B MEDICARE PART A & B * Guarantor: Isa Bello Account Type Relation to Patient Date of Phone Billing Address Personal/Family Self 1950 [address] [place] [address] MEDICARE PART A & B [employer] MEDICARE SUPPLEMENT * Guarantor: Isa Bello Account Type Relation to Patient Date of Phone Billing Address Personal/Family Self 1950 [address] [place] [address] MEDICARE PART A & B [employer] MEDICARE SUPPLEMENT * Guarantor: Isa Bello Account Type Relation to Patient Date of Phone Billing Address Personal/Family Self 1950 [address] [place] [address] MEDICARE PART A & B [facility] MEDICARE SUPPLEMENT * Guarantor: Isa Bello Account Type Relation to Patient Date of Phone Billing Address Personal/Family Self 1950 [address] [place] [address] MEDICARE PART A & B * Guarantor: Isa Bello Account Type Relation to Patient Date of Phone Billing Address Personal/Family Self [address] [place] [address] MEDICARE PART A & B [facility] EXTENSION MEDICARE SUPPLEMENT [employer] DENTAL Advance Directives For more information, please contact: [phone] (9AM - 5PM Fátima/[facility], Saturday-Saturday) Documents on File Type Date Recorded Patient Senior Marketing Engineer Expl anation Healthcare Proxy 10/30/2016 1:39 PM HEALTH CARE PROXY- 10/30/16 * Full Code (Latest Code Status on File) Date Activated Date Inactivated Comments 07/26/2022 12:33 PM Question Answer Comments Code Status Confirmed With: Patient * Full Code (Presumed) Date Activated Date Inactivated Comments 05/14/2017 12:54 PM 05/24/2017 5:27 PM Care Teams Lead Software Qa Engineer Relationship Specialty Start Date End Date Kim Yen MD [address] [address] PCP - General Internal Medicine 06/26/23 Freda Garg MD [address] [address] [email or web address] Referring OBGYN Obstetrics and Gynecology 02/28/17 Freda Garg MD [address] [address] [email or web address] Historical LMR Provider 03/27/17 Whitney Kaur MD, MPH [address] [place] [address] [email or web address] Historical LMR Provider 03/27/17 Dajuan Hammer MD [address] [place] [phone] [email or web address] [email or web address] Referring Physician Rheumatology 04/17/18 Additional Source Comments The information contained in this document represents components of the legal health record. It is not the complete legal health record.[facility]
--- OUTSIDE RECORDS SUMMARY | 2025-04-28 08:54 | XMS_ITS | Encounter Summary ---
Author Organization [facility] Address [address] [place] [address] Phone Care Team Providers Care Parts Clerk Plant Maintenance Name Role Phone Freda Garg MD Unavailable Mike Valladares MD Unavailable [phone] Freda Garg MD Unavailable Eren Mahoney MD Unavailable [phone] Whitney Kaur MD, MPH Unavailable [phone] Whitney Kaur MD, MPH Primary Care Provider + Dajuan Hammer MD Unavailable [phone] Kim Noel MD Primary Care Provide r Reason for Referral * MRI/CAT Scan - Closed Specialty Diagnoses / Procedures Referred By Jennifer t Referred To Contact Radiology Diagnoses Lower abdominal pain Upper abdominal pain Nausea Constipation, unspecified constipation type Procedures CT Abdomen/Pelvis Isabela Carmona PA-C Phone: tel: fax: mailto: Referral ID Status Reason Start Date Expiration Date Visits Re quested Visits Authorized [id number] Closed 04/03/2021 04/03/2022 1 1 Encounter Details Date Type Department Care Team (Latest Contact Info) Description 04/03/2021 Transcribe Orders [facility] Department [address] [place] [address] Isabela aCrmona PA-C [address], [address]. [address] [place] [address] [email or web address] Lower abdominal pain (Primary Dx); Upper abdominal [...] Info) Description 10/22/2025 1:30 PM EDT Telemedicine [facility] Neuroendocrine Clinical Center [address] [facility], [address] [place] [address] Kvng Agarwal MD, DSc 55 [facility] [address] [place] [address] [email or web address] 06/10/2029 Procedure Pass [facility] PERIOPERATIVE DEPT [address] [place] [id number] documented as of this encounter Results * [...] type documented in this encounter Care Teams Parts Clerk Plant Maintenance Relationship Specialty Start Date End Date Whitney Kaur MD, MPH [address] [place] [address] [email or web address] PCP - General Family Medicine 04/17/18 06/25/23 Kim Noel MD [address] [place] [address] PCP - General Internal Medicine 06/26/23 Freda Garg MD [address] [address] Referring OBGYN Obstetrics and Gynecology 02/28/17 Mike Valladares MD 22 [facility], 2nd [place] [address] [email or web address] Historical LMR Provider 03/27/17 06/17/21 Freda Garg MD [address] [address] Historical LMR Provider 03/27/17 Eren Mahoney MD [address] [place] [address] julio Historical LMR Provider 03/27/17 06/17/21 Whitney Kaur MD, MPH [address] [place] [address] Historical LMR Provider 03/27/17 Dajuan Hammer MD [address] [place] [id number] [email or web address] Referring Physician Rheumatology 04/17/18 documented as of this encounter Additional Source Comments The information contained in this document represents components of the legal health record. It is not the complete legal health record.[facility]
== END 2025-04-27 14:05 | disposition home or self-care (01) ==
LOC: HO.HAP 14:04
PROVIDERS: Visit Provider Internal Medicine
DX: Z13.89 Encounter for screening for other disorder (principal)

== ENCOUNTER 2025-05-17 15:00 | Outpatient (REF) | payer MEDICARE, OTHER, SELFPAY ==
--- OUTSIDE RECORDS SUMMARY | 2016-02-22 23:00 | XMS_ITS | Encounter Summary ---
Author Organization [facility] Address [address] [place] [address] Phone Care Team Providers Care Power Transformer Inspector Name Role Phone Heidi Solano MD Primary Care Provider + Reason for Visit * MRI/CAT Scan - Closed Specialty Diagnoses / Procedures Referred By Jennifer jama Referred To Contact Radiology Procedures MRI Spine (Neuro) Outside (No Interpretation) Dimitry Kent MD [address] [place] [address] Phone: tel: fax: mailto:[email or web address] Referral ID Status Reason Start Date Expiration Date Visits Re quested Visits Authorized [id number] Closed 02/24/2016 02/23/2017 1 1 Encounter Details Date Type Department Care Team (Late st Contact Info) Description 02/23/2016 Hospital Encounter [facility] [address] [place] [address] Dimitry Kent MD [address] [place] [phone] [email or web address] Social History Tobacco Use Types Packs/Day [...] Info) Description 10/22/2025 1:30 PM EDT Telemedicine [facility] Clinical Center [address] [place] [address], [address] [place] [address] Kvng Agarwal MD, DSc [address] [facility] [address] [place] [address] [email or web address] 06/10/[address] [facility] PERIOPERATIVE DEPT [address] [place] [address] [phone] documented as of this encounter Procedures Procedure Name Priority Date/Time Associated Diagnosis Comments MRI SPINE NEUROLOGIC FOCUS OUTSIDE (NO INTERPRETATION) Routine 02/23/2016 12:00 AM EDT documented in this encounter Results * MRI Spine (Neuro) Outside (No Interpretation) (02/23/2016 12:00 AM EDT) Narrative [facility] IMG INTERFACES - 02/24/2016 2:00 PM EDT This study is for PACS storage only and not for interpretation. Procedure Note SYSTEMGENERATED, DOCUMENTATION - 02/24/2016 This study is for PACS storage only and not for interpretation. us Dimitry Kent MD IMG OUTSIDE IMAGING W/OUT INT ERPRETATION Final Result [facility] IMG INTERFACES documented in this encounter Visit Diagnoses Not on filedocumented in this encounter Care Teams Power Transformer Inspector Relationship Specialty Start Date End Date Heidi Solano MD [email or web address] PCP - General Family Medicine 08/12/14 10/23/16 documented as of this encounter Additional Source Comments The information contained in this document represents components of the legal health record. It is not the complete legal health record.[facility]
--- OUTSIDE RECORDS SUMMARY | 2016-07-13 | XMS_ITS | Encounter Summary ---
Author Organization [facility] General [facility] Address [address] [place] [address] Phone Care Team Providers Care Ground Service Equipment Mechanic Name Role Phone Heidi Solano MD Primary Care Provider + Reason for Visit * MRI/CAT Scan - Closed Specialty Diagnoses / Procedures Referred By Jennifer mcdaniel Referred To Contact Procedures CT Spine (Neuro) Focus Outside (No Interpretation) Eliazar Peace MD [address] [facility] [address] [place] [address] Phone: tel: mailto:[email or web address] Referral ID Status Reason Start Date Expiration Date Visits Re quested Visits Authorized [id number] Closed 07/24/2016 07/24/2017 1 1 Encounter Details Date Type Department Care Team (Late st Contact Info) Description 07/13/2016 Hospital Encounter [facility] General Imaging [address] [place] [address] Eliazar Peace MD [address] [facility] [address] [place] [address] [email or web address] Social History Tobacco Use Types Packs/Day [...] Info) Description 10/22/2025 1:30 PM EDT Telemedicine [facility] Clinical Center [address] [place] [address], [address] [place] [address] Kvng Agarwal MD, DSc [address] [facility] [address] [place] [address] [email or web address] 06/10/2029 Procedure Pass [facility] PERIOPER[facility]IVE DEPT [address] [place] [address] [phone] documented as of this encounter Procedures Procedure Name Priority Date/Time Associated Diagnosis Comments CT SPINE (NEURO) OUTSIDE (NO INTERPRETATION) Routine 07/13/2016 12:00 AM EST documented in this encounter Results * CT Spine (Neuro) Focus Outside (No Interpretation) (07/13/2016 12:00 AM EST) Narrative [facility] IMG INTERFACES - 07/24/2016 12:24 PM EST This study is for PACS storage only and not for interpretation. us Eliazar Peace MD IMG OUTSIDE IMAGING W/OUT INTE RPRETATION Final Result [facility] IMG INTERFACES documented in this encounter Visit Diagnoses Not on filedocumented in this encounter Care Teams Ground Service Equipment Mechanic Relationship Specialty Start Date End Date Heidi Solano MD [email or web address] PCP - General Family Medicine 08/12/14 10/23/16 documented as of this encounter Additional Source Comments The information contained in this document represents components of the legal health record. It is not the complete legal health record.[facility]
--- OUTSIDE RECORDS SUMMARY | 2025-05-12 23:59 | XMS_ITS | Continuity of Care Document ---
Author Organization [facility] Address [address] [place] [address]- Care Team Providers Care Benzene Worker Name Role Phone Bert RODRIGUEZ, Kim Covarrubias Primary Care Physician [phone] Encounter [facility] Date(s): 04/12/25 - 05/12/25 [facility] [address] [place], [place] [address] Attending Physician: Corby Wilson Admitting Physician: Corby Wilson Referring Physician: Katie ArOtf Encounter Type: Triage Allergies, Adverse Reactions, Alerts Substance Criticality Severity Reaction Reaction Severity Status ciprofloxacin rash, itching Ac tive Levaquin itching,rash Active Other Environmental Allergy cat dander Active Immunizations Given and Recorded Vaccine Date Status Refusal Reason SARS-CoV-2(COVID-19)mRNA-LNP vac([id number]) 03/05/25 Recorded SARS-CoV-2(COVID-19)mRNA-LNP vac([id number]) 10/01/24 Recorded SARS-CoV-2(COVID-19)mRNA-LNP vac([id number]) 02/16/24 Recorded influenza virus vaccine, inactivated 02/25/25 Give n influenza virus vaccine, inactivated 02/16/24 Palomo rded influenza virus vaccine, inactivated 03/26/23 Give n influenza virus vaccine, inactivated 06/21/22 [place]omo rded influenza virus vaccine, inactivated 03/15/21 [place]omo rded influenza virus vaccine, inactivated 03/16/20 [place] rded influenza virus vaccine, inactivated 04/08/19 [place] rded influenza virus vaccine, inactivated 04/07/18 [place]omo rded influenza virus vaccine, inactivated 04/04/17 [place]omo rded influenza virus vaccine, inactivated 04/29/15 [place] rded influenza virus vaccine, inactivated 05/20/13 [place]omo rded influenza virus vaccine, inactivated 03/14/12 Palomo rded tetanus/diphtheria/pertussis, acel(Tdap) 02/20/24 Recorded tetanus/diphtheria/pertussis, acel(Tdap) 03/14/12 Recorded RSV vaccine preF3, recombinant 04/26/23 Recorded SARS-CoV-2(COVID-19)mRNA-LNP vac([id number]) 04/02/23 Recorded pneumococcal 20-valent conjugate vaccine 12/24/22 Given [id number] bivalent booster vax 10/02/22 Given [id number] bivalent booster vax 03/21/22 Recorded SARS-CoV-2 (COVID-19) mRNA-1273 vaccine 11/03/21 R ecorded SARS-CoV-2 (COVID-19) mRNA-1273 vaccine 04/13/21 R ecorded SARS-CoV-2 (COVID-19) mRNA-1273 vaccine 08/27/20 R ecorded SARS-CoV-2 (COVID-19) mRNA-1273 vaccine 07/30/20 R ecorded zoster vaccine, inactivated 07/22/19 Recorded zoster vaccine, inactivated 05/05/19 Recorded pneumococcal 23-valent vaccine 06/11/15 Given tetanus-diphtheria toxoids (Td) 10/30/13 Recorded Medications bisacodyl 10 mg rectal suppository 1 supp = 10 mg, Rectally, Daily, PRN Constipation, 0 Refills, Maintenance, 05/01/25 9:38:00 AM EST,Suppository, Partial fill upon patient request if the prescription is for a schedule II opioid drug. Start Date: 05/01/25 Status: Ordered Medication Dispense Status: Completed Total Allowed Fills: 1 Fills Dispensed: 0 Cabergoline See Instructions, 0.5 mg By Mouth 4 times a week, pt reports taking on saturday, , saturday and saturday, 0 Refills, Maintenance, 05/21/18 3:14:42 PM EST Start Date: 05/21/18 Status: Ordered Medication Dispense Status: Completed Total Allowed Fills: 1 Fills Dispensed: 0 Calcium 600 +D 1 tablet, By Mouth, Daily, 0 Refills, Maintenance, 10/24/16 1:41:04 PM EDT Start Date: 10/24/16 Status: Ordered Medication Dispense Status: Completed Total Allowed Fills: 1 Fills Dispensed: 0 Enoxaparin 0.4 mL = 40 mg, Subcutaneous Injection, Daily, 0 Refills, Maintenance, 05/01/25 9:38:00 AM EST, Injection, Partial fill upon patient request if the prescription is for a schedule II opioid drug. Start Date: 05/01/25 Stop Date: 05/06/25 Status: Ordered Medication Dispense Status: Completed Total Allowed Fills: 1 Fills Dispensed: 0 Indications: Diaphragmatic hernia without obstruction or gangrene; ibuprofen 600 mg oral tablet 600 mg, By Mouth, 3 times a day, PRN, Refills 0, Maintenance, Pain , Mild, 05/01/25 9:38:00 AM EST,Partial fill upon patient request if the prescription is for a schedule II opioid drug. Start Date: 05/01/25 Status: Ordered Medication Dispense Status: Completed Total Allowed Fills: 1 Fills Dispensed: 0 losartan 100 mg oral tablet 1 tablet, By Mouth, Daily, # 90 tablet, 1 Refills, Maintenance, 04/10/25 9:44:00 PM EDT, [facility] ST[id number], 164, cm, 02/25/25 10:32:00 EDT, Height, 55.7, kg, 02/13/25 16:42:00 EDT, Dry Weight Start Date: 04/10/25 Status: Ordered Medication Dispense Status: Completed Quantity: 90.0 Unit: tablet Total Allowed Fills: 1 Fills Dispensed: 0 Metoprolol Tartrate 50 mg oral tablet 1 tablet, By Mouth, 2 times a day, # 180 tablet, 1 Refills, Maintenance, 03/29/25 5:39:00 PM EDT, [facility]ORE 23501, 164, cm, 02/25/25 10:32:00 EDT, Height, 55.7, kg, 02/13/25 16:42:00 EDT, Dry Weight Start Date: 03/29/25 Status: Ordered Medication Dispense Status: Completed Quantity: 180.0 Unit: tablet Total Allowed Fills: 1 Fills Dispensed: 0 MiraLax Powder 1 pack/packet = 17 Gm, By Mouth, Daily, 0 Refills, Maintenance, 05/01/25 9:38:00 AM EST, Powder, Partial fill upon patient request if the prescription is for a schedule II opioid drug. Start Date: 05/01/25 Status: Ordered Medication Dispense Status: Completed Total Allowed Fills: 1 Fills Dispensed: 0 oxyCODONE 5 mg oral tablet 5 mg, By Mouth, Every 4 hours, PRN, Refills 0, Tot. Refills 0, Maintenance, Pain , Moderate, 05/01/25 9:38:00 AM EST, Partial fill upon patient request if the prescription is for a schedule II opioiddrug. Start Date: 05/01/25 Status: Ordered Medication Dispense Status: Completed Total Allowed Fills: 1 Fills Dispensed: 0 Indications: Diaphragmatic hernia without obstruction or gangrene; pantoprazole 40 mg oral delayed release tablet 1 tablet = 40 mg, By Mouth, Daily in AM, # 60 tablet, 0 Refills, Maintenance, 10/02/22 1:12:00 PM EDT, CR Tablet Start Date: 10/02/22 Status: Ordered Medication Dispense Status: Completed Quantity: 60.0 Unit: tablet Total Allowed Fills: 1 Fills Dispensed: 0 sertraline 25 mg oral tablet 1 tablet = 25 mg, By Mouth, Daily, # 90 tablet, 0 Refills, Maintenance, 02/25/25 10:34:00 AM EDT, Tablet, Partial fill upon patient request if the prescription is for a schedule II opioid drug. Start Date: 02/25/25 Status: Ordered Medication Dispense Status: Completed Quantity: 90.0 Unit: tablet Total Allowed Fills: 1 Fills Dispensed: 0 sertraline 25 mg oral tablet 1 tablet = 25 mg, By Mouth, Daily, Maintenance, 04/30/25 5:15:00 PM EST, Tablet, Partial fill upon patient request if the prescription is for a schedule II opioid drug. Start Date: 04/30/25 Status: Ordered Medication Dispense Status: Completed Total Allowed Fills: 1 Fills Dispensed: 0 simvastatin 40 mg oral tablet 1, tablet, By Mouth, Daily, # 90 tablet, Refills 3, Maintenance, 12/01/24 9:53:00 AM EDT, Route to Pharmacy Electronically, [facility], 160.25, cm, 10/13/24 12:58:00 EDT, Height, 60.7, kg, 08/10/23 6:29:00 EST, Dry Weight Start Date: 12/01/24 Status: Ordered Medication Dispense Status: Completed Quantity: 90.0 Unit: tablet Total Allowed Fills: 1 Fills Dispensed: 0 Sodium Chloride 1000 mg oral tablet = 1 Gm, By Mouth, 2 times a day, # 14 tablet, 0 Refills, Maintenance, 02/16/25 10:58:00 AM EDT, Tablet, [facility]/pharmacy #[id number], Partial fill upon patient request if the prescription is for a schedule II opioid drug., 164, cm, 02/15/25 22:54:00 EDT, Height, 55.7, kg, 02/13/25 16:42:00 EDT, Dry Weight Start Date: 02/16/25 Stop Date: 02/23/25 Status: Ordered Medication Dispense Status: Completed Quantity: 14.0 Unit: tablet Total Allowed Fills: 1 Fills Dispensed: 0 Tylenol 325 mg oral tablet 650 mg, By Mouth, Every 4 hours, Refills 0, Maintenance, 05/02/25 8:16:00 AM EST, Partial fill uponpatient request if the prescription is for a schedule II opioid drug. Start Date: 05/02/25 Status: Ordered Medication Dispense Status: Completed Total Allowed Fills: 1 Fills Dispensed: 0 Problem List Condition Confirmation Course Effective Dates Status Health Status Informant Pain in the abdomen Confirmed Active Adverse drug effect Confirmed Active Change in bowel habits Confirmed Active Ataxia Confirmed Active Hearing loss sensory, bilateral Confirmed Active Breast cancer screening Confirmed Active Chronic diarrhea Confirmed Active Diaphragmatic hernia type 3 Confirmed Active Constipation Confirmed Active Vaccine counseling Confirmed Active Optic neuropathy, bilateral Confirmed Active Early satiety Confirmed Active Sinus bradycardia on ECG Confirmed Active Elevated hemidiaphragm Confirmed Active Enteritis Confirmed Active Former tobacco use Confirmed Active Multiple fractures Confirmed Active TARA (generalized anxiety disorder) Confirmed Active History of pulmonary embolism Confirmed Active Hiatal hernia Confirmed Active History of subdural hematoma Confirmed Active Hyperprolactinemia Confirmed Active Hypertension Confirmed Active Hypochloremia Confirmed Active Hypoglycemia Confirmed Active Hyponatremia Confirmed Active Head injury, acute Confirmed Active Lactose intolerance Confirmed Active Mild major depression, single episode Confirmed Active Osteoporosis Confirmed Active Paraesophageal hernia Confirmed Active Colon cancer screening Confirmed Active Medicare annual wellness visit, subsequent Confirmed Active 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 Proctitis Confirmed Active Seronegative inflammatory arthritis Confirmed Active Spinal stenosis Confirmed Active Hepatic steatosis Confirmed Active Syncope and collapse Confirmed Active SIADH (syndrome of inappropriate ADH production) Confirmed Active Unintended weight loss Confirmed Active Urinary incontinence Confirmed Active Vaginal irritation Confirmed Active Vitamin D deficiency Confirmed Active Social History Social History Type Response Smoking Status Never (less than 100 in lifetime) entered on: 04/12/25 Sexual Orientation Self described orien tation: ; Straight or heterosexual Sex Sex Representation Female (finding) Patient Care team information Care Team Personnel Name: Danii Garcia RN Position: [facility] RN Member Role: Primary Care Nurse Name: Kim Noel MD Position: [facility] Physician - Primary Care Member Role: PCP Address: [address] [place] [address], [address] [place] [address]- Telecom: Name: Yuliya Alvarez RN Position: [facility] ED RN W/OE and Tasks Member Role: Primary Care Nurse Name: Alek Gardiner MD Position: [facility] Physician - Behavioral Health Member Role: Lifetime Consulting Physician Address: [address] [place] [address]- [place] Telecom: Name: Ronny Kim MD Position: [facility] Renal MD Member Role: Lifetime Consulting Physician Address: [address] [place] [address] [address] [facility] [place] [address]- [place] Telecom: Name: Trisha Machuca RN Position: [facility] RN Member Role: Primary Care Nurse Name: Sergio Dupont DO Position: [facility] Renal MD Member Role: Lifetime Consulting Physician Address: [address] [place] [address] [address] [facility] [place] [place] [address]- [place] Telecom: Name: Ruthy Kerns RN Position: [facility] RN Member Role: Primary Care Nurse Name: Edis Salazar MD Position: [facility] Renal MD Member Role: Lifetime Consulting Physician Address: [address] [facility] [address] [facility] [address] Telecom: Name: Lisandra Chilel RN Position: S RN Member Role: Primary Care Nurse Name: Marlee Spain RN Position: S RN Member Role: Primary Care Nurse Name: Yuliya Gutiérrez RN Position: S RN Member Role: Primary Care Nurse Care Team Related Persons Name: DYLAN MEEK Name: WALDEMAR MEEK Name: CHUY ERNST Insurance Providers Guarantor name: GRETEL MEEK Health Plan Information #: 1 Payer: MEDICARE B Payer Identifier: BRITTANY Member Number: [id number] Group Number: NA Subscriber Identifier: NA Relationship to Subscriber: self Coverage Type: NA Coverage Verification Date: NA Telecom: NA Address: Health Plan Information #: 2 Payer: [facility] [employer] Payer Identifier: BRITTANY Member Number: [id number] Group Number: [id number] Subscriber Identifier: NA Relationship to Subscriber: self Coverage Type: Commercial Indemnity Coverage Verification Date: NA Telecom: Address:
--- NOTE | ~2025-05-17 | MM_ITS ---
EXAMINATION(S): MM DIAGNOSTIC DIGITAL BREAST TOMOSYNTHESIS, RIGHT CLINICAL INFORMATION: Callback from screening for right breast abnormality. BREAST COMPOSITION: There are scattered areas of fibroglandular density. Patient has been recently admitted to the [facility]. Details of the procedure or surgery are not available for review. A full field ML 90 degrees view was obtained today, and showed moderate amount of subcutaneous emphysema in the upper breast. This is probably related to the recent hospital admission. At this point, it was decided to abort further imaging. The subcutaneous emphysema will limit evaluation of the area of mammographic concern and would obscure local sonographic evaluation. Patient will be rescheduled in a few weeks, when the subcutaneous emphysema is expected to be significantly improved. Today's study will be considered a no-charge exam. ASSESSMENT: BI-RADS: Not applicable. RECOMMENDATION: Additional Imaging required Electronically signed by: Pako Baig MD 05/17/2025 04:16 PM [facility]
--- OUTSIDE RECORDS SUMMARY | 2025-05-18 00:25 | XMS_ITS | Encounter Summary ---
Author Organization [facility] Address [address] [facility] [address] [place] [address] Phone Care Team Providers Care Type Proof Reproducer Name Role Phone Whitney Kaur MD, MPH Primary Care Provider + Freda Garg MD Unavailable Mike Valladares MD Unavailable Freda Garg MD Unavailable Eren Mahoney MD Unavailable [phone] Whitney Kaur MD, MPH Unavailable Dajuan Hammer MD Primary Care Provider [phone] Whitney Kaur MD, MPH Primary Care Provider + Dajuan Hammer MD Unavailable Kim Noel MD Primary Care Provide r Encounter Details Date Type Department Care Team (Late st Contact Info) Description 04/24/2017 Ancillary Orders [facility] Neuro[facility] [address] [facility], 3rd Floor, [address] [place] [address] Saba Lai MD [address] [address] [email or web address] Pituitary tumor Social History Tobacco Use Types [...] Info) Description 10/22/2025 1:30 PM EDT Telemedicine [facility] Neuro[facility] Clinical Center [address] [place] [address], [address] [place] [address] Kvng Agarwal MD, DSc 55 [facility] [address] [place] [address] [email or web address] 06/10/2029 Procedure Pass [facility] PERIOPERATIVE DEPT [address] [place] [phone] documented as of this encounter Results * [place] Fluoroscopy Guidance - No Charge (05/14/2017 12:00 PM EST) 05/15/2017 12:2 2 AM EST Narrative [facility] RAD - 05/15/2017 12:22 AM EST Dose (mGy): 1.09 mGy Dose Area Product (DAP): n/a Fluoro time (min): 8.3 sec Number of Spot Films: n/a Procedure Note Soccer Coach, Dictation - 05/15/2017 Dose (mGy): 1.09 mGy Dose Area Product (DAP): n/a Fluoro time (min): 8.3 sec Number of Spot Films: n/a us Saba Lai MD IMG FL EXAMS Final Resul t [facility] [address] [facility] 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 documented in this encounter Care Teams Type Proof Reproducer Relationship Specialty Start Date End Date Whitney Kaur MD, MPH [address] [place] [address] [email or web address] PCP - General 02/06/17 02/24/18 Dajuan Hammer MD [address] [place] [address] [address] [place] [id number] [email or web address] PCP - General Rheumatology 02/25/18 04/16/18 Whitney Kaur MD, MPH [address] [place] [address] [email or web address] PCP - General Family Medicine 04/17/18 06/25/23 Kim Noel MD [address] [place] [address] PCP - General Internal Medicine 06/26/23 Freda Garg MD 22 [facility], [address] [address] [email or web address] Referring OBGYN Obstetrics and Gynecology 02/28/17 Mike Valladares MD 22 [facility], 2nd [place] [address] [email or web address] Historical LMR Provider 03/27/17 06/17/21 Freda Garg MD [address] [address] Historical LMR Provider 03/27/17 Eren Mahoney MD [address] [place] [address] julio Historical LMR Provider 03/27/17 06/17/21 Whitney Kaur MD, MPH [address] [place] [address] Historical LMR Provider 03/27/17 Dajuan Hammer MD [address] [address] [email or web address] Referring Physician Rheumatology 04/17/18 documented as of this encounter Additional Source Comments The information contained in this document represents components of the legal health record. It is not the complete legal health record.[facility]
--- OUTSIDE RECORDS SUMMARY | 2025-05-18 00:25 | XMS_ITS | Encounter Summary ---
Author Organization [facility] Address [address] [facility] [address] [place] [address] Phone Care Team Providers Care Lucerne Farmer Name Role Phone Whitney Kaur MD, MPH Primary Care Provider + Freda Garg MD Unavailable Mike Valladares MD Unavailable Freda Garg MD Unavailable Eren Mahoney MD Unavailable [phone] Whitney Kaur MD, MPH Unavailable [phone] Dajuan Hammer MD Primary Care Provider [phone] Whitney Kaur MD, MPH Primary Care Provider + Dajuan Hamemr MD Unavailable Kim Noel MD Primary Care Provide r Encounter Details Date Type Department Care Team (Late st Contact Info) Description 07/26/2017 Documentation [facility] [address] [facility], 5th Floor, [address] [place] [address] Kevin Medina MD 55 [facility] [id number] [place] [address] [email or web address] Social History Tobacco Use Types Packs/Day [...] Info) Description 10/22/2025 1:30 PM EDT Telemedicine [address], [address] [place] [address] Kvng Agarwal MD, DSc [address] [facility] [address] [place] [address] [email or web address] 06/10/2029 Procedure Pass [facility] PERIOPERATIVE DEPT [address] [place] [phone] documented as of this encounter Visit Diagnoses Not on filedocumented in this encounter Care Teams Lucerne Farmer Relationship Specialty Start Date End Date Whitney Kaur MD, MPH [address] [place] [address] [email or web address] PCP - General 02/06/17 02/24/18 Dajuan Hammer MD [address] [facility] [address] [place] [phone] [email or web address] PCP - General Rheumatology 02/25/18 04/16/18 Whitney Kaur MD, MPH [address] [place] [address] [email or web address] PCP - General Family Medicine 04/17/18 06/25/23 Kim Noel MD [address] [place] [address] PCP - General Internal Medicine 06/26/23 Freda Garg MD 22 [facility], [address] [place] [address] [email or web address] Referring OBGYN Obstetrics and Gynecology 02/28/17 Mike Valladares MD 22 [facility], 2nd [place] [address] Historical LMR Provider 03/27/17 06/17/21 Freda Garg MD [address] [place] [address] Historical LMR Provider 03/27/17 Eren Mahoney MD [address] [place] [address] julio Historical LMR Provider 03/27/17 06/17/21 Whitney Kaur MD, MPH [address] [place] [address] Historical LMR Provider 03/27/17 Dajuan Hammer MD 55 [facility] [address] [place] [address] [email or web address] Referring Physician Rheumatology 04/17/18 documented as of this encounter Additional Source Comments The information contained in this document represents components of the legal health record. It is not the complete legal health record.[facility]
--- OUTSIDE RECORDS SUMMARY | 2025-05-18 00:25 | XMS_ITS | Encounter Summary ---
Author Organization [facility] Address [address] [facility] 985 [place] [address] Phone Care Team Providers Care Digital Engineer Name Role Phone Whitney Kaur MD, MPH Primary Care Provider + Freda Garg MD Unavailable Mike Valladares MD Unavailable [phone] Freda Garg MD Unavailable Eren Mahoney MD Unavailable Whitney Kaur MD, MPH Unavailable Dajuan Hammer MD Primary Care Provider [phone] Whitney Kaur MD, MPH Primary Care Provider + Dajuan Hammer MD Unavailable [phone] Kim Noel MD Primary Care Provide r Encounter Details Date Type Department Care Team (Late st Contact Info) Description 04/16/2017 Procedure Pass [facility] [place], [place] 2 [address] [facility], 2nd Floor, [address] [place] [address] Social History Tobacco Use Types Packs/Day Years [...] Info) Description 10/22/2025 1:30 PM EDT Telemedicine [address], [address] [place] [address] Kvng Agarwal MD, DSc [address] [place] [address] [address] [email or web address] 06/10/2029 Procedure Pass [facility]IVE [facility]PT 55 [place] [phone] documented as of this encounter Visit Diagnoses Not on filedocumented in this encounter Care Teams Digital Engineer Relationship Specialty Start Date End Date Whitney Kaur MD, MPH 70 [place] [address] [email or web address] PCP - General 02/06/17 02/24/18 Dajuan Hammer MD 55 [facility] [address] [address] [email or web address] PCP - General Rheumatology 02/25/18 04/16/18 Whitney Kaur MD, MPH 70 [place] [address] [email or web address] PCP - General Family Medicine 04/17/18 06/25/23 Kim Noel MD [address] [place] [address] PCP - General Internal Medicine 06/26/23 Freda Garg MD [address] [facility], [address] [place] [address] [email or web address] Referring OBGYN Obstetrics and Gynecology 02/28/17 Mike Valladares MD 22 [facility], 2nd [place] [address] [email or web address] Historical LMR Provider 03/27/17 06/17/21 Freda Garg MD 22 [facility], [address] [address] [email or web address] Historical LMR Provider 03/27/17 Eren Mahoney MD 22 [facility], [address] [address] julio Historical LMR Provider 03/27/17 06/17/21 Whitney Kaur MD, MPH 70 [place] [address] Historical LMR Provider 03/27/17 Dajuan Hammer MD [address] [place] [phone] [email or web address] Referring Physician Rheumatology 04/17/18 documented as of this encounter Additional Source Comments The information contained in this document represents components of the legal health record. It is not the complete legal health record.[facility]
--- OUTSIDE RECORDS SUMMARY | 2025-05-18 00:25 | XMS_ITS | Clinical Summary ---
Author Organization [employer] Address [address] [facility] 7t [place] [address] Care Team Providers Care Journeyman Powerhouse Operator Name Role Phone Unavailable Primary Care Provider [...] Self 1950 [address] [place] [address] MEDICARE
--- OUTSIDE RECORDS SUMMARY | 2025-05-18 00:25 | XMS_ITS | Encounter Summary ---
Author Organization [facility] Address [address] [place] [address] Phone Care Team Providers Care Workers Compensation Claims Assistant Name Role Phone Freda Garg MD Unavailable Mike Valladares MD Unavailable [phone] Freda Garg MD Unavailable Eren Mahoney MD Unavailable [phone] Whitney Kaur MD, MPH Unavailable [phone] Whitney Kaur MD, MPH Primary Care Provider + Dajuan Hammer MD Unavailable [phone] Kim Noel MD Primary Care Provide r Encounter Details Date Type Department Care Team (Late st Contact Info) Description 08/10/2020 Procedure Pass [facility], [address] [address] Social History Tobacco Use Types Packs/Day Years [...] Info) Description 10/22/2025 1:30 PM EDT Telemedicine [facility] Center [address] [facility], [address] [place] [address] Kvng Agarwal MD, DSc [address] [facility] [address] [place] [address] [email or web address] 06/10/2029 Procedure Pass [facility] PERIOPERATIVE DEPT [address] [place] [phone] documented as of this encounter Visit Diagnoses Not on filedocumented in this encounter Care Teams Workers Compensation Claims Assistant Relationship Specialty Start Date End Date Whitney Kaur MD, MPH 70 [place] [address] PCP - General Family Medicine 04/17/18 06/25/23 Kim Noel MD [address] [place] [address] PCP - General Internal Medicine 06/26/23 Freda Garg MD [address] [place] [address] Referring OBGYN Obstetrics and Gynecology 02/28/17 Mike Valladares MD [address] [place] [address], 2nd [place] [address] Historical LMR Provider 03/27/17 06/17/21 Freda Garg MD [address] [place] [address] Historical LMR Provider 03/27/17 Eren Mahoney MD [address] [place] [address] julio Historical LMR Provider 03/27/17 06/17/21 Whitney Kaur MD, MPH [address] [place] [address] Historical LMR Provider 03/27/17 Dajuan Hammer MD [address] [place] [address] [facility] [address] [place] [address] [email or web address] Referring Physician Rheumatology 04/17/18 documented as of this encounter Additional Source Comments The information contained in this document represents components of the legal health record. It is not the complete legal health record.[facility]
--- OUTSIDE RECORDS SUMMARY | 2025-05-18 00:25 | XMS_ITS | Encounter Summary ---
Author Organization [facility] Address [id number] [place] [address] Phone Care Team Providers Care Continuous Improvement Analyst Name Role Phone Whitney Kaur MD, MPH Primary Care Provider + Freda Garg MD Unavailable Mike Valladares MD Unavailable Freda Garg MD Unavailable Eren Mahoney MD Unavailable Whitney Kaur MD, MPH Unavailable Dajuan Hammer MD Primary Care Provider [phone] Whitney Kaur MD, MPH Primary Care Provider + Dajuan Hammer MD Unavailable [phone] Kim Noel MD Primary Care Provide r Encounter Details Date Type Department Care Team (Late st Contact Info) Description 05/16/2017 Procedure Pass [facility] [place], [place] [address] [facility], 6th [place] [address] Social History Tobacco Use Types Packs/Day Years [...] Info) Description 10/22/2025 1:30 PM EDT Telemedicine [facility] [address] [place] [address], [address] [place] [address] Kvng Agarwal MD, DSc [address] [place] [address] [place] [address] [email or web address] 06/10/2029 Procedure Pass [facility] [place] [place] 55 [place] [phone] documented as of this encounter Visit Diagnoses Not on filedocumented in this encounter Care Teams Continuous Improvement Analyst Relationship Specialty Start Date End Date Whitney Kaur MD, MPH 70 [place] [address] [email or web address] PCP - General 02/06/17 02/24/18 Dajuan Hammer MD 55 [facility] [address] [address] [email or web address] PCP - General Rheumatology 02/25/18 04/16/18 Whitney Kaur MD, MPH 70 [place] [address] [email or web address] PCP - General Family Medicine 04/17/18 06/25/23 Kim Noel MD [address] [place] [address] PCP - General Internal Medicine 06/26/23 Freda Garg MD [address] [place] [address], [address] [place] [address] [email or web address] Referring OBGYN Obstetrics and Gynecology 02/28/17 Mike Valladares MD [address] [place] [address], 2nd [place] [address] [email or web address] Historical LMR Provider 03/27/17 06/17/21 Freda Garg MD [address] [place] [address] [email or web address] Historical LMR Provider 03/27/17 Eren Mahoney MD [address] [place] [address] julio Historical LMR Provider 03/27/17 06/17/21 Whitney Kaur MD, MPH 70 [place] [address] [email or web address] Historical LMR Provider 03/27/17 Dajuan Hammer MD [address] [address] [email or web address] Referring Physician Rheumatology 04/17/18 documented as of this encounter Additional Source Comments The information contained in this document represents components of the legal health record. It is not the complete legal health record.[facility]
--- OUTSIDE RECORDS SUMMARY | 2025-05-18 00:25 | XMS_ITS | Encounter Summary ---
Author Organization [facility] Address [address] [place] [address] Phone Care Team Providers Care Housing Management Officer Name Role Phone Heidi Solano MD Primary Care Provider + Whitney Kaur MD, MPH Primary Care Provider + Heidi Solano MD Primary Care Provider + Whitney Kaur MD, MPH Primary Care Provider + Freda Garg MD Unavailable Mike Valladares MD Unavailable Freda Garg MD Unavailable Eren Mahoney MD Unavailable Whitney Kaur MD, MPH Unavailable Dajuan Hammer MD Primary Care Provider [phone] Whitney Kaur MD, MPH Primary Care Provider + Dajuan Hammer MD Unavailable [phone] Kim Noel MD Primary Care Provide r Encounter Details Date Type Department Care Team (Late st Contact Info) Description 07/24/2016 Procedure Pass [facility] 55 [place] [address] Social History Tobacco Use Types Packs/Day Years [...] Info) Description 10/22/2025 1:30 PM EDT Telemedicine [facility] [address] [facility], [address] [place] [address] Kvng Agarwal MD, DSc 55 [facility] [address] [place] [address] [email or web address] 06/10/2029 Procedure Pass [facility] PERIOPER[facility]IVE DEPT 55 [place] [phone] documented as of this encounter Visit Diagnoses Not on filedocumented in this encounter Care Teams Housing Management Officer Relationship Specialty Start Date End Date Heidi Solano MD [email or web address] PCP - General Family Medicine 08/12/14 10/23/16 Whitney Kaur MD, MPH 70 [place] [address] [email or web address] PCP - General Family Medicine 10/24/16 01/13/17 Heidi Solano MD [email or web address] PCP - General Family Medicine 01/14/17 02/05/17 Whitney Kaur MD, MPH 70 [place] [address] [email or web address] PCP - General 02/06/17 02/24/18 Dajuan Hammer MD 55 [facility] [address] [place] [phone] [email or web address] PCP - General Rheumatology 02/25/18 04/16/18 Whitney Kaur MD, MPH 70 [place] [address] [email or web address] PCP - General Family Medicine 04/17/18 06/25/23 Kim Noel MD [address] [place] [address] PCP - General Internal Medicine 06/26/23 Freda Garg MD [address] [place] [address] [email or web address] Referring OBGYN Obstetrics and Gynecology 02/28/17 Mike Valladares MD [address] [place] [address], 2nd [place] [address] Historical LMR Provider 03/27/17 06/17/21 Freda Garg MD [address] [place] [address] Historical LMR Provider 03/27/17 Eren Mahoney MD 22 [facility], [address] [place] [address] julio [email or web address] Historical LMR Provider 03/27/17 06/17/21 Whitney Kaur MD, MPH [address] [place] [address] [email or web address] Historical LMR Provider 03/27/17 Dajuan Hammer MD [address] [place] [phone] [email or web address] Referring Physician Rheumatology 04/17/18 documented as of this encounter Additional Source Comments The information contained in this document represents components of the legal health record. It is not the complete legal health record.[facility]
--- OUTSIDE RECORDS SUMMARY | 2025-05-18 00:25 | XMS_ITS | Encounter Summary ---
Author Organization [facility] Address [address] [place] [address] Phone Care Team Providers Care Rotary Drill Operator Helper Name Role Phone Whitney Kaur MD, MPH Primary Care Provider + Freda Garg MD Unavailable Mike Valladares MD Unavailable [phone] Freda Garg MD Unavailable Eren Mahoney MD Unavailable [phone] Whitney Kaur MD, MPH Unavailable [phone] Dajuan Hammer MD Primary Care Provider [phone] Whitney Kaur MD, MPH Primary Care Provider + Dajuan Hammer MD Unavailable [phone] Kim Noel MD Primary Care Provide r Encounter Details Date Type Department Care Team (Late st Contact Info) Description 05/14/2017 Procedure Pass [facility] PERIOPERATIVE DEPT [address] [place] [phone] Social History Tobacco Use Types Packs/Day Years [...] Info) Description 10/22/2025 1:30 PM EDT Telemedicine [address], [address] [place] [address] Kvng Agarwal MD, DSc [address] [place] [address] [place] [address] [email or web address] 06/10/2029 Procedure Pass [facility] PERIOPERATIVE DEPT 55 [place] [phone] documented as of this encounter Visit Diagnoses Not on filedocumented in this encounter Care Teams Rotary Drill Operator Helper Relationship Specialty Start Date End Date Whitney Kaur MD, MPH 70 [place] [address] [email or web address] PCP - General 02/06/17 02/24/18 Dajuan Hammer MD 55 [facility] [address] [place] [phone] [email or web address] PCP - General Rheumatology 02/25/18 04/16/18 Whitney Kaur MD, MPH 70 [place] [address] [email or web address] PCP - General Family Medicine 04/17/18 06/25/23 Kim Noel MD [address] [place] [address] PCP - General Internal Medicine 06/26/23 Freda Garg MD [address] [place] [address] [email or web address] Referring OBGYN Obstetrics and Gynecology 02/28/17 Mike Valladares MD [address] [place] [address], 2nd [place] [address] [email or web address] Historical LMR Provider 03/27/17 06/17/21 Freda Garg MD [address] [place] [address] [place] [address] Historical LMR Provider 03/27/17 Eren Mahoney MD 22 [facility], [address] [place] [address] [address] julio Historical LMR Provider 03/27/17 06/17/21 Whitney Kaur MD, MPH 70 [place] [address] Historical LMR Provider 03/27/17 Dajuan Hammer MD 55 [facility] [address] [place] [address] [email or web address] Referring Physician Rheumatology 04/17/18 documented as of this encounter Additional Source Comments The information contained in this document represents components of the legal health record. It is not the complete legal health record.[facility]
--- OUTSIDE RECORDS SUMMARY | 2025-05-18 00:25 | XMS_ITS | Encounter Summary ---
Author Organization [facility] Address [address] [place] [address] Phone Care Team Providers Care Water Control Station Engineer Name Role Phone Whitney Kaur MD, MPH Primary Care Provider + Freda Garg MD Unavailable Mike Valladares MD Unavailable Freda Garg MD Unavailable Eren Mahoney MD Unavailable Whitney Kaur MD, MPH Unavailable [phone] Dajuan Hammer MD Primary Care Provider [phone] Whitney Kaur MD, MPH Primary Care Provider + Dajuan Hammer MD Unavailable [phone] Kim Noel MD Primary Care Provide r Encounter Details Date Type Department Care Team (Late st Contact Info) Description 04/16/2017 Procedure Pass [facility]. [employer] [address] [facility], 1st [place] [address] Social History Tobacco Use Types Packs/Day Years [...] EDT Telemedicine [facility] [address] [place] [address], [address] [place] [address] Kvng Agarwal MD, DSc [address] [place] [address] [place] [address] [email or web address] 06/10/2029 Procedure Pass [facility] PERIOPERATIVE DEPT 55 [place] [phone] documented as of this encounter Visit Diagnoses Not on filedocumented in this encounter Care Teams Water Control Station Engineer Relationship Specialty Start Date End Date Whitney Kaur MD, MPH 70 [place] [address] [email or web address] PCP - General 02/06/17 02/24/18 Dajuan Hammer MD 55 [facility] [address] [phone] [email or web address] PCP - General Rheumatology 02/25/18 04/16/18 Whitney Kaur MD, MPH 70 [place] [address] [email or web address] PCP - General Family Medicine 04/17/18 06/25/23 Kim Noel MD [address] [place] [address] PCP - General Internal Medicine 06/26/23 Freda Garg MD [address] [place] [address], [address] [place] [address] [email or web address] Referring OBGYN Obstetrics and Gynecology 02/28/17 Mike Valladares MD [address] [place] [address], 2nd [place] [address] [email or web address] Historical LMR Provider 03/27/17 06/17/21 Freda Garg MD [address] [place] [address] [email or web address] Historical LMR Provider 03/27/17 Eren Mahoney MD [address] [place] [address] julio Historical LMR Provider 03/27/17 06/17/21 Whitney Kaur MD, MPH 70 [place] [address] [email or web address] Historical LMR Provider 03/27/17 Dajuan Hammer MD [address] [phone] [email or web address] Referring Physician Rheumatology 04/17/18 documented as of this encounter Additional Source Comments The information contained in this document represents components of the legal health record. It is not the complete legal health record.[facility]
--- OUTSIDE RECORDS SUMMARY | 2025-05-18 00:26 | XMS_ITS | Encounter Summary ---
Author Organization [facility] Address [address] [facility] [address] [place] [address] Phone Care Team Providers Care Manager Marketing Sales Name Role Phone Freda Garg MD Unavailable Mike Valladares MD Unavailable Freda Garg MD Unavailable Eren Mahoney MD Unavailable [phone] Whitney Kaur MD, MPH Unavailable [phone] Whitney Kaur MD, MPH Primary Care Provider + Dajuan Hammer MD Unavailable [phone] Kim Noel MD Primary Care Provide r Encounter Details Date Type Department Care Team (Late st Contact Info) Description 04/03/2021 Procedure Pass [facility], [facility] Scan - [address] [id number] Social History Tobacco Use Types Packs/Day Years [...] Info) Description 10/22/2025 1:30 PM EDT Telemedicine [facility] [address] [place] [address], [address] [place] [address] Kvng Agarwal MD, DSc 55 [facility] [address] [place] [address] [email or web address] 06/10/2029 Procedure Pass [facility] PERIOPER[facility]IVE DEPT [address] [place] [phone] documented as of this encounter Visit Diagnoses Not on filedocumented in this encounter Care Teams Manager Marketing Sales Relationship Specialty Start Date End Date Whitney Kaur MD, MPH 70 [place] [address] [email or web address] PCP - General Family Medicine 04/17/18 06/25/23 Kim Noel MD [address] [place] [address] PCP - General Internal Medicine 06/26/23 Freda Garg MD [address] [place] [address] Referring OBGYN Obstetrics and Gynecology 02/28/17 Mike Valladares MD [address] [place] [address], 2nd [place] [address] Historical LMR Provider 03/27/17 06/17/21 Freda Garg MD [address] [place] [address] Historical LMR Provider 03/27/17 Eren Mahoney MD [address] [place] [address] julio Historical LMR Provider 03/27/17 06/17/21 Whitney Kaur MD, MPH [address] [place] [address] Historical LMR Provider 03/27/17 Dajuan Hammer MD [address] [place] [address] [address] [place] [address] [email or web address] Referring Physician Rheumatology 04/17/18 documented as of this encounter Additional Source Comments The information contained in this document represents components of the legal health record. It is not the complete legal health record.[facility]
--- OUTSIDE RECORDS SUMMARY | 2025-05-18 00:26 | XMS_ITS | Encounter Summary ---
Author Organization [facility] Address [address] [place] [address] Phone Care Team Providers Care Correctional Program Officer Name Role Phone Freda Garg MD Unavailable Freda Garg MD Unavailable Whitney Kaur MD, MPH Unavailable [phone] Whitney Kaur MD, MPH Primary Care Provider + Dajuan Hammer MD Unavailable [phone] Kim Noel MD Primary Care Provide r Encounter Details Date Type Department Care Team (Late st Contact Info) Description 02/16/2022 Procedure Pass [facility], [address] [address] Social History Tobacco Use Types Packs/Day Years [...] Info) Description 10/22/2025 1:30 PM EDT Telemedicine [address], [address] [place] [address] Kvng Agarwal MD, DSc [address] [place] [address] [address] [place] [address] [email or web address] 06/10/2029 Procedure Pass [facility] PERIOPER[facility]IVE DEPT [address] [place] [phone] documented as of this encounter Visit Diagnoses Not on filedocumented in this encounter Care Teams Correctional Program Officer Relationship Specialty Start Date End Date Whitney Kaur MD, MPH 70 [place] [address] [email or web address] PCP - General Family Medicine 04/17/18 06/25/23 Kim Noel MD [address] [address] PCP - General Internal Medicine 06/26/23 Freda Garg MD [address] [address] [email or web address] Referring OBGYN Obstetrics and Gynecology 02/28/17 Freda Garg MD [address] [address] [email or web address] Historical LMR Provider 03/27/17 Whitney Kaur MD, MPH 70 [place] [address] [email or web address] Historical LMR Provider 03/27/17 Dajuan Hammer MD [address] [place] [phone] [email or web address] .[facility] Referring Physician Rheumatology 04/17/18 documented as of this encounter Additional Source Comments The information contained in this document represents components of the legal health record. It is not the complete legal health record.[facility]
--- OUTSIDE RECORDS SUMMARY | 2025-05-18 00:26 | XMS_ITS | Encounter Summary ---
Author Organization [facility] Address [address] [place] [address] Phone Care Team Providers Care Instructional Interventionist Name Role Phone Heidi Solano MD Primary Care Provider + Whitney Kaur MD, MPH Primary Care Provider + Freda Garg MD Unavailable Mike Valladares MD Unavailable Freda Garg MD Unavailable Eren Mahoney MD Unavailable Whitney Kaur MD, MPH Unavailable Dajuan Hammer MD Primary Care Provider [phone] Whitney Kaur MD, MPH Primary Care Provider + Dajuan Hammer MD Unavailable [phone] Kim Noel MD Primary Care Provide r Encounter Details Date Type Department Care Team (Latest Contact Info) Description 02/04/2017 Ancillary Orders [facility] [address] [place] [phone] Eliazar Peace MD [address] [place] [address] [email or web address] Other form of scoliosis of lumbar spine [...] Description 10/22/2025 1:30 PM EDT Telemedicine [address], [address] [place] [address] Kvng Agarwal MD, DSc 55 [facility] [address]00[address] [place] [address] [email or web address] 06/10/2029 Procedure Pass [facility] 55 [place] [phone] documented as of this encounter Visit Diagnoses Diagnosis Other form of scoliosis of lumbar spine documented in this encounter Care Teams Instructional Interventionist Relationship Specialty Start Date End Date Heidi Solano MD [email or web address] PCP - General Family Medicine 01/14/17 02/05/17 Whitney Kaur MD, MPH 70 [place] [address] [email or web address] PCP - General 02/06/17 02/24/18 Dajuan Hammer MD 55 [facility] [address] [place] [phone] [email or web address] PCP - General Rheumatology 02/25/18 04/16/18 Whitney Kaur MD, MPH 70 [place] [address] [email or web address] PCP - General Family Medicine 04/17/18 06/25/23 Kim Noel MD [address] [address] PCP - General Internal Medicine 06/26/23 Freda Garg MD 22 [facility], [address] [place] [address] Referring OBGYN Obstetrics and Gynecology 02/28/17 Mike Valladares MD [address] [place] [address], 2nd [place] [address] Historical LMR Provider 03/27/17 06/17/21 Freda Garg MD [address] [place] [address] Historical LMR Provider 03/27/17 Eren Mahoney MD [address] [place] [address] julio Historical LMR Provider 03/27/17 06/17/21 Whitney Kaur MD, MPH [address] [place] [address] [email or web address] Historical LMR Provider 03/27/17 Dajuan Hammer MD [address] [place], [place] [address] [address] [email or web address] [email or web address] Referring Physician Rheumatology 04/17/18 documented as of this encounter Additional Source Comments The information contained in this document represents components of the legal health record. It is not the complete legal health record.[facility]
--- OUTSIDE RECORDS SUMMARY | 2025-05-18 00:26 | XMS_ITS | Encounter Summary ---
Author Organization [facility] Address [address] [place] [address] Phone Care Team Providers Care Edi Consultant Name Role Phone Whitney Kaur MD, MPH Primary Care Provider + Heidi Solano MD Primary Care Provider + Whitney Kaur MD, MPH Primary Care Provider + Freda Garg MD Unavailable Mike Valladares MD Unavailable Freda Garg MD Unavailable Eren Mahoney MD Unavailable [phone] Whitney Kaur MD, MPH Unavailable Dajuan Hammer MD Primary Care Provider [phone] Whitney Kaur MD, MPH Primary Care Provider + Dajuan Hammer MD Unavailable [phone] Kim Noel MD Primary Care Provide r Encounter Details Date Type Department Care Team (Late st Contact Info) Description 10/29/[address] [facility] [address] [place] [address] Social History Tobacco Use Types [...] Info) Description 10/22/2025 1:30 PM EDT Telemedicine [address] [place] [address], [address] [place] [phone] Kvng Agarwal MD, DSc [address] [place] [address] [address]00[address] [place] [address] [email or web address] 06/10/[address] [facility] 55 [place] [phone] documented as of this encounter Visit Diagnoses Not on filedocumented in this encounter Care Teams Edi Consultant Relationship Specialty Start Date End Date Whitney Kaur MD, MPH 70 [place] [address] [email or web address] PCP - General Family Medicine 10/24/16 01/13/17 Heidi Solano MD 70 [place] [address] PCP - General Family Medicine 01/14/17 02/05/17 Whitney Kaur MD, MPH 70 [place] [address] [email or web address] PCP - General 02/06/17 02/24/18 Dajuan Hammer MD 55 [facility] [address] [place] [phone] [email or web address] PCP - General Rheumatology 02/25/18 04/16/18 Whitney Kaur MD, MPH 70 [place] [address] [email or web address] PCP - General Family Medicine 04/17/18 06/25/23 Kim Noel MD [address] [place] [address] PCP - General Internal Medicine 06/26/23 Freda Garg MD [address] [address] Referring OBGYN Obstetrics and Gynecology 02/28/17 Mike Valladares MD 22 [facility], 2nd [place] [address] Historical LMR Provider 03/27/17 06/17/21 Freda Garg MD [address] [place] [address] Historical LMR Provider 03/27/17 Eren Mahoney MD [address] [place] [address] julio Historical LMR Provider 03/27/17 06/17/21 Whitney Kaur MD, MPH 70 [place] [address] Historical LMR Provider 03/27/17 Dajuan Hammer MD 55 [facility] [address] [place] [phone] [email or web address] Referring Physician Rheumatology 04/17/18 documented as of this encounter Additional Source Comments The information contained in this document represents components of the legal health record. It is not the complete legal health record.[facility]
--- OUTSIDE RECORDS SUMMARY | 2025-05-18 00:26 | XMS_ITS | Encounter Summary ---
Author Organization [facility] Address [address] [place] [address] Phone Care Team Providers Care Drivers License Examiner Name Role Phone Freda Garg MD Unavailable Freda Garg MD Unavailable Whitney Kaur MD, MPH Unavailable [phone] Dajuan Hammer MD Unavailable [phone] Kim Noel MD Primary Care Provide r Encounter Details Date Type Department Care Team (Late st Contact Info) Description 06/26/2023 Procedure Pass [facility] Admitting Dept Virtual Department [address] [place], [place] [phone] Social History Tobacco Use Types Packs/Day Years [...] Info) Description 10/22/2025 1:30 PM EDT Telemedicine [facility] Neuro[facility] Clinical Center [address] [facility], [address] [place] [address] Kvng Agarwal MD, DSc 55 [facility] [address] [place] [address] [email or web address] 06/10/2029 Procedure Pass [facility] PERIOPERATIVE DEPT 55 [place] [address] documented as of this encounter Visit Diagnoses Not on filedocumented in this encounter Care Teams Drivers License Examiner Relationship Specialty Start Date End Date Kim Noel MD [address] [address] PCP - General Internal Medicine 06/26/23 Freda Garg MD 22 [facility] 102 [place] [address] [email or web address] Referring OBGYN Obstetrics and Gynecology 02/28/17 Freda Garg MD 22 [facility] 102 [place] [address] [email or web address] Historical LMR Provider 03/27/17 Whitney Kaur MD, MPH 70 [place] [address] [email or web address] Historical LMR Provider 03/27/17 Dajuan Hammer MD 55 [facility] [address] [place] [phone] [email or web address] Referring Physician Rheumatology 04/17/18 documented as of this encounter Additional Source Comments The information contained in this document represents components of the legal health record. It is not the complete legal health record.[facility]
--- OUTSIDE RECORDS SUMMARY | 2025-05-18 00:26 | XMS_ITS | Encounter Summary ---
Author Organization [facility] Address [address] [facility] [address] [place] [address] Phone Care Team Providers Care Landscape Crew Leader Name Role Phone Freda Garg MD Unavailable Mike Valladares MD Unavailable [phone] Freda Garg MD Unavailable Eren Mahoney MD Unavailable Whitney Kaur MD, MPH Unavailable [phone] Whitney Kaur MD, MPH Primary Care Provider + Dajuan Hammer MD Unavailable [phone] Kim Noel MD Primary Care Provide r Encounter Details Date Type Department Care Team (Latest Contact Info) Description 05/12/2021 Transcribe Orders Virtual Department 30 [place] [address] Syed Maharaj MD [address] [place] [address] [phone] [email or web address] Encounter for preprocedure screening laboratory testing for [...] Info) Description 10/22/2025 1:30 PM EDT Telemedicine [facility] [address] [place] [address], [address] [place] [address] Kvng Agarwal MD, DSc [address] [place] [address] [address] [email or web address] 06/10/2029 Procedure Pass [facility] 55 [place] [address] documented as of this encounter Results * COVID-19 PCR Order (05/14/2021 3:25 PM EST) COVID-19 Comment [id number] [facility] COVID Testing Status Sent to [facility] Other 05/14/2021 3:25 PM EST 05/14/2021 6:11 PM EST us Syed Maharaj MD LAB GENERAL ORDERABLES Final Result Performing Organization Address City/State/[facility] Co de Phone Number [facility] 30 [place] [address] documented in this encounter Visit Diagnoses Diagnosis Encounter for preprocedure screening laboratory testing for COVID-19- Primary documented in this encounter Care Teams Landscape Crew Leader Relationship Specialty Start Date End Date Whitney Kaur MD, MPH 70 [place] [address] [email or web address] PCP - General Family Medicine 04/17/18 06/25/23 Kim Noel MD [address] [address] PCP - General Internal Medicine 06/26/23 Freda Garg MD 22 [facility], [address] [place] [address] [email or web address] Referring OBGYN Obstetrics and Gynecology 02/28/17 Mike Valladares MD 22 [facility], 2nd [place] [address] Historical LMR Provider 03/27/17 06/17/21 Freda Garg MD [address] [place] [address] [email or web address] Historical LMR Provider 03/27/17 Eren Mahoney MD [address] [place] [address] julio Historical LMR Provider 03/27/17 06/17/21 Whitney Kaur MD, MPH [address] [place] [address] [email or web address] Historical LMR Provider 03/27/17 Dajuan Hammer MD [address] [place] [address] [address] [place] [phone] [email or web address] Referring Physician Rheumatology 04/17/18 documented as of this encounter Additional Source Comments The information contained in this document represents components of the legal health record. It is not the complete legal health record.[facility]
--- OUTSIDE RECORDS SUMMARY | 2025-05-18 00:26 | XMS_ITS | Encounter Summary ---
Author Organization [facility] Address [address] [place] [address] Phone Care Team Providers Care Medical Superintendent Name Role Phone Freda Garg MD Unavailable Freda Garg MD Unavailable Whitney Kaur MD, MPH Unavailable [phone] Whitney Kaur MD, MPH Primary Care Provider + Dajuan Hammer MD Unavailable [phone] Kim Noel MD Primary Care Provide r Encounter Details Date Type Department Care Team (Late st Contact Info) Description 03/22/2023 Procedure Pass [facility], [address] [address] Social History Tobacco Use Types Packs/Day Years [...] Description 10/22/2025 1:30 PM EDT Telemedicine [address], [address] [place] [address] Kvng Agarwal MD, DSc [address] [place] [address] [place] [address] [email or web address] 06/10/2029 Procedure Pass [facility] PERI[facility]IVE DEPT 55 [place] [address] documented as of this encounter Visit Diagnoses Not on filedocumented in this encounter Care Teams Medical Superintendent Relationship Specialty Start Date End Date Whitney Kaur MD, MPH 70 [place] [address] [email or web address] PCP - General Family Medicine 04/17/18 06/25/23 Kim Noel MD [address] [place] [address] PCP - General Internal Medicine 06/26/23 Freda Garg MD [address] [address] [email or web address] Referring OBGYN Obstetrics and Gynecology 02/28/17 Freda Garg MD [address] [address] [email or web address] Historical LMR Provider 03/27/17 Whitney Kaur MD, MPH 70 [place] [address] [email or web address] Historical LMR Provider 03/27/17 Dajuan Hammer MD [address] [phone] [email or web address] Referring Physician Rheumatology 04/17/18 documented as of this encounter Additional Source Comments The information contained in this document represents components of the legal health record. It is not the complete legal health record.[facility]
--- OUTSIDE RECORDS SUMMARY | 2025-05-18 00:26 | XMS_ITS | Encounter Summary ---
Author Organization [facility] Address [address] [place] [address] Phone Care Team Providers Care Certified Medical Dosimetrist Name Role Phone Freda Garg MD Unavailable Mike Valladares MD Unavailable [phone] Freda Garg MD Unavailable Eren Mahoney MD Unavailable [phone] Whitney Kaur MD, MPH Unavailable [phone] Whitney Kaur MD, MPH Primary Care Provider + Dajuan Hammer MD Unavailable [phone] Kim Noel MD Primary Care Provide r Reason for Referral * MRI/CAT Scan - Closed Specialty Diagnoses / Procedures Referred By Jennifer t Referred To Contact Radiology Diagnoses Lower abdominal pain Upper abdominal pain Nausea Constipation, unspecified constipation type Procedures CT Abdomen/Pelvis Isabela Carmona PA-C Phone: tel: fax: mailto: Referral ID Status Reason Start Date Expiration Date Visits Re quested Visits Authorized [id number] Closed 04/03/2021 04/03/2022 1 1 Encounter Details Date Type Department Care Team (Latest Contact Info) Description 04/03/2021 Transcribe Orders [facility] Department [address] [place] [address] Isabela Carmona PA-C [address], [address]. [address] [place] [address] [email or web address] Lower abdominal pain (Primary Dx); Upper abdominal [...] Description 10/22/2025 1:30 PM EDT Telemedicine [facility] Neuro[facility]ocrine Clinical Center [address] [facility], [address] [place] [address] Kvng Agarwal MD, DSc 55 [facility] [address]00[address] [place] [address] [email or web address] 06/10/2029 Procedure Pass [facility] PERIOPERATIVE DEPT [address] [place] [phone] documented as of this encounter Results * [...] type documented in this encounter Care Teams Certified Medical Dosimetrist Relationship Specialty Start Date End Date Whitney Kaur MD, MPH 70 [place] [address] [email or web address] PCP - General Family Medicine 04/17/18 06/25/23 Kim Noel MD [address] [place] [address] PCP - General Internal Medicine 06/26/23 Freda Garg MD [address] [address] Referring OBGYN Obstetrics and Gynecology 02/28/17 Mike Valladares MD 22 [facility], 2nd [place] [address] [email or web address] Historical LMR Provider 03/27/17 06/17/21 Freda Garg MD [address] [address] Historical LMR Provider 03/27/17 Eren Mahoney MD [address] [place] [address] julio Historical LMR Provider 03/27/17 06/17/21 Whitney Kaur MD, MPH 70 [place] [address] Historical LMR Provider 03/27/17 Dajuan Hammer MD [address] [place] [address] [email or web address] Referring Physician Rheumatology 04/17/18 documented as of this encounter Additional Source Comments The information contained in this document represents components of the legal health record. It is not the complete legal health record.[facility]
--- OUTSIDE RECORDS SUMMARY | 2025-05-18 00:26 | XMS_ITS | Encounter Summary ---
Author Organization [facility] Address [address] [place] [address] Phone Care Team Providers Care Stress Engineer Name Role Phone Whitney Kaur MD, MPH Primary Care Provider + Freda Garg MD Unavailable Mike Valladares MD Unavailable [phone] Freda Garg MD Unavailable Eren Mahoney MD Unavailable Whitney Kaur MD, MPH Unavailable Dajuan Hammer MD Primary Care Provider [phone] Whitney Kaur MD, MPH Primary Care Provider + Dajuan Hammer MD Unavailable [phone] Kim Noel MD Primary Care Provide r Encounter Details Date Type Department Care Team (Late st Contact Info) Description 03/27/2017 Procedure Pass [facility] General Imaging [address] [place] [address] Social History Tobacco Use Types Packs/Day Years [...] EDT Telemedicine [facility] [address] [place] [address], [address] [place] [address] Kvng Agarwal MD, DSc [address] [place] [address] [address] [place] [address] [email or web address] 06/10/2029 Procedure Pass [facility] PERI[facility]IVE DEPT 55 [place] [address] documented as of this encounter Visit Diagnoses Not on filedocumented in this encounter Care Teams Stress Engineer Relationship Specialty Start Date End Date Whitney Kaur MD, MPH 70 [place] [address] [email or web address] PCP - General 02/06/17 02/24/18 Dajuan Hammer MD 55 [facility] [address] [place] [phone] [email or web address] .[email or web address] PCP - General Rheumatology 02/25/18 04/16/18 Whitney Kaur MD, MPH 70 [place] [address] [email or web address] PCP - General Family Medicine 04/17/18 06/25/23 Kim Noel MD [address] [place] [address] PCP - General Internal Medicine 06/26/23 Freda Garg MD [address] [place] [address] [email or web address] Referring OBGYN Obstetrics and Gynecology 02/28/17 Mike Valladares MD [address] [place] [address], 2nd [place] [address] [email or web address] Historical LMR Provider 03/27/17 06/17/21 Freda Garg MD [address] [place] [address] [email or web address] Historical LMR Provider 03/27/17 Eren Mahoney MD 22 [facility], [address] [place] [address] julio Historical LMR Provider 03/27/17 06/17/21 Whitney Kaur MD, MPH [address] [place] [address] Historical LMR Provider 03/27/17 Dajuan Hammer MD [address] [place] [phone] [email or web address] .[email or web address] Referring Physician Rheumatology 04/17/18 documented as of this encounter Additional Source Comments The information contained in this document represents components of the legal health record. It is not the complete legal health record.[facility]
--- OUTSIDE RECORDS SUMMARY | 2025-05-18 00:26 | XMS_ITS | Encounter Summary ---
Author Organization [facility] Address [address] [place] [address] Phone Care Team Providers Care Stenographer Secretary Name Role Phone Freda Garg MD Unavailable Mike Valladares MD Unavailable [phone] Freda Garg MD Unavailable Eren Mahoney MD Unavailable [phone] Whitney Kaur MD, MPH Unavailable [phone] Whitney Kaur MD, MPH Primary Care Provider + Dajuan Hammer MD Unavailable [phone] Kim Noel MD Primary Care Provide r Encounter Details Date Type Department Care Team (Late st Contact Info) Description 03/25/2019 Procedure Pass [facility] MRI, [address] [facility], 2nd [place] [address] Social History Tobacco Use Types Packs/Day Years [...] Info) Description 10/22/2025 1:30 PM EDT Telemedicine [facility] [address] [facility], [address] [place] [address] Kvng Agarwal MD, DSc 55 [facility] [address] [place] [address] [email or web address] 06/10/2029 Procedure Pass [facility] PERIOPERATIVE DEPT [address] [place] [phone] documented as of this encounter Visit Diagnoses Not on filedocumented in this encounter Care Teams Stenographer Secretary Relationship Specialty Start Date End Date Whitney Kaur MD, MPH [address] [place] [address] PCP - General Family Medicine 04/17/18 06/25/23 Kim Noel MD [address] [place] [address] PCP - General Internal Medicine 06/26/23 Freda Garg MD [address] [place] [address] Referring OBGYN Obstetrics and Gynecology 02/28/17 Mike Valladares MD [address] [place] [address], 2nd [place] [address] Historical LMR Provider 03/27/17 06/17/21 Freda Garg MD [address] [place] [address] Historical LMR Provider 03/27/17 Eren Mahoney MD [address] [place] [address] julio Historical LMR Provider 03/27/17 06/17/21 Whitney Kaur MD, MPH [address] [place] [address] Historical LMR Provider 03/27/17 Dajuan Hammer MD [address] [place] [address] [address] [place] [address] [email or web address] Referring Physician Rheumatology 04/17/18 documented as of this encounter Additional Source Comments The information contained in this document represents components of the legal health record. It is not the complete legal health record.[facility]
--- OUTSIDE RECORDS SUMMARY | 2025-05-18 00:26 | XMS_ITS | Encounter Summary ---
Author Organization [facility] Address [address] [place] [address] Phone Care Team Providers Care Repair Department Manager Name Role Phone Whitney Kaur MD, MPH Primary Care Provider + Freda Garg MD Unavailable Mike Valladares MD Unavailable Freda Garg MD Unavailable Eren Mahoney MD Unavailable Whitney Kaur MD, MPH Unavailable [phone] Dajuan Hammer MD Primary Care Provider [phone] Whitney Kaur MD, MPH Primary Care Provider + Dajuan Hammer MD Unavailable Kim Noel MD Primary Care Provide r Encounter Details Date Type Department Care Team (Late st Contact Info) Description 02/26/2017 Procedure Pass [facility] General Imaging [address] [place] [address] Social History Tobacco Use Types Packs/Day Years [...] Info) Description 10/22/2025 1:30 PM EDT Telemedicine [facility] Clinical Center [address] [place] [address], [address] [place] [address] Kvng Agarwal MD, DSc [address] [place] [address] [id number] [place] [address] [email or web address] 06/10/[address] [facility] PERIOPERATIVE DEPT 55 [place] [address] documented as of this encounter Visit Diagnoses Not on filedocumented in this encounter Care Teams Repair Department Manager Relationship Specialty Start Date End Date Whitney Kaur MD, MPH 70 [place] [address] [email or web address] PCP - General 02/06/17 02/24/18 Dajuan Hammer MD 55 [facility] [address] [place] [phone] [email or web address] PCP - General Rheumatology 02/25/18 04/16/18 Whitney Kaur MD, MPH 70 [place] [address] [email or web address] PCP - General Family Medicine 04/17/18 06/25/23 Kim Noel MD [address] [place] [address] PCP - General Internal Medicine 06/26/23 Freda Garg MD [address] [place] [address] [email or web address] Referring OBGYN Obstetrics and Gynecology 02/28/17 Mike Valladares MD [address] [place] [address], 2nd [place] [address] [email or web address] Historical LMR Provider 03/27/17 06/17/21 Freda Garg MD [address] [place] [address] [email or web address] Historical LMR Provider 03/27/17 Eren Mahoney MD 22 [facility], [address] [place] [address] julio Historical LMR Provider 03/27/17 06/17/21 Whitney Kaur MD, MPH [address] [place] [address] Historical LMR Provider 03/27/17 Dajuan Hammer MD [address] [place] [phone] [email or web address] Referring Physician Rheumatology 04/17/18 documented as of this encounter Additional Source Comments The information contained in this document represents components of the legal health record. It is not the complete legal health record.[facility]
--- OUTSIDE RECORDS SUMMARY | 2025-05-18 00:26 | XMS_ITS | Encounter Summary ---
Author Organization [facility] Address [address] [place] [address] Phone Care Team Providers Care Haulage Engine Operator Name Role Phone Whitney Kaur MD, MPH Primary Care Provider + Freda Garg MD Unavailable Mike Valladares MD Unavailable [phone] Freda Garg MD Unavailable Eren Mahoney MD Unavailable [phone] Whitney Kaur MD, MPH Unavailable Dajuan Hammer MD Primary Care Provider [phone] Whitney Kaur MD, MPH Primary Care Provider + Dajuan Hammer MD Unavailable [phone] Kim Noel MD Primary Care Provide r Encounter Details Date Type Department Care Team (Late st Contact Info) Description 03/27/2017 Procedure Pass [facility] General Imaging [address] [place] [address] Social History Tobacco Use Types Packs/Day Years [...] EDT Telemedicine [facility] Clinical Center [address] [place] [address], [address] [place] [address] Kvng Agarwal MD, DSc [address] [place] [address] [address] [place] [address] [email or web address] 06/10/2029 Procedure Pass [facility] PERIOPERATIVE DEPT 55 [place] [address] documented as of this encounter Visit Diagnoses Not on filedocumented in this encounter Care Teams Haulage Engine Operator Relationship Specialty Start Date End Date Whitney Kaur MD, MPH 70 [place] [address] [email or web address] PCP - General 02/06/17 02/24/18 Dajuan Hammer MD 55 [facility] [address]BY[address] [place] [phone] [email or web address] PCP - General Rheumatology 02/25/18 04/16/18 Whitney Kaur MD, MPH [address] [place] [address] [email or web address] PCP - General Family Medicine 04/17/18 06/25/23 Kim Noel MD [address] [place] [address] PCP - General Internal Medicine 06/26/23 Freda Garg MD [address] [place] [address] [email or web address] Referring OBGYN Obstetrics and Gynecology 02/28/17 Mike Valladares MD [address] [place] [address], 2nd [place] [address] [email or web address] Historical LMR Provider 03/27/17 06/17/21 Freda Garg MD [address] [place] [address] [email or web address] Historical LMR Provider 03/27/17 Eren Mahoney MD 22 [facility], [address] [place] [address] julio Historical LMR Provider 03/27/17 06/17/21 Whitney Kaur MD, MPH [address] [place] [address] Historical LMR Provider 03/27/17 Dajuan Hammer MD [address] [place] [phone] [email or web address] Referring Physician Rheumatology 04/17/18 documented as of this encounter Additional Source Comments The information contained in this document represents components of the legal health record. It is not the complete legal health record.[facility]
--- OUTSIDE RECORDS SUMMARY | 2025-05-18 00:26 | XMS_ITS | Clinical Summary ---
Author Organization [facility] Address [address] [place] [address] Phone Care Team Providers Care Vp Ad Products And Planning Name Role Phone Freda Garg MD Unavailable Fread Garg MD Unavailable Whitney Kaur MD, MPH Unavailable [phone] Dajuan Hammer MD Unavailable [phone] Kim Yen MD Primary Care Provide r [...] (two) times a day. Dose: Variable: See [facility] for Details; Form: Take 1 TABLET; Route: [...] wall only present with standing or walking. 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 Although I highly doubt any ROLLER SKATE REPAIRER etiology and she has had multiple imaging [...] Team Description 04/20/2025 3:00 PM EST Telemedicine [facility] Neuro[facility]ocrine Clinical Center [address] [place] [address], [address] [place] [address] Kvng Agarwal MD, DSc Drumright disease (Primary Dx); Benign neoplasm of pituitary [...] Info) Description 10/22/2025 1:30 PM EDT Telemedicine [facility] Neuro[facility] Clinical Center [address] [facility], [address] [place] [address] Kvng Agarwal MD, DSc 55 [facility] [address] [place] [address] [email or web address] 06/10/2029 Procedure Pass [facility] PERIOPERATIVE DEPT 55 [place] [address] Health Maintenance Due Date Last [...] this topic Medical Devices Implanted Type Area Revenue Field Agent Device Identifier Shelf Expiration Date Model / Serial / Lot Prosthetic Joint Prosthetic Joint Left: Hip Bilateral Feet Pin,Left Thr [employer] Description:Per [email or web address] m, safe to 3T [id number] 06/24/17 Procedures Procedure Name Priority Date/Time Associated Diagnosis Comments BD DXA HIP AND FOREARM Routine 10/01/2023 9:47 AM EDT 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 Z score 0 point. This is in the osteopenia range.No statistically significant change compared with 08/23/2021. The right hip (total) has a total bone mineral density of 0.841 g/ya2jwaq a T- score of -0.8. No statistically [...] Duarte MD - 06/26/2023 10:04 AM EST [facility] Patient Name: Isa Eugenia Attending MD:: SYED DUARTE MD, Procedure Date: 06/26/2023 10:04 AM Date of : 1950 Age: 72 Admit Type: Outpatient Gender: Female Room: [address] [address] Referring MD: KIM YEN Exam Type: Colonoscopy [...] 10:04 AM Procedure Code(s): --- Professional --- 88261, Colonoscopy, flexible; diagnostic, including collection of specimen(s) by brushing or washing, when performed (separateprocedure) --- Technical --- 26427, Colonoscopy, flexible; diagnostic, including collection of specimen(s) by brushing or washing, when performed (separateprocedure) Diagnosis Code(s): --- Professional --- R10.2, Pelvic and perineal pain K57.30, Diverticulosis of large intestine without perforation or abscess without bleeding --- Technical --- R10.2, Pelvic and perineal pain K57.30, Diverticulosis of large intestine without perforation or abscess without bleeding CPT copyright 2021 [employer]. All rights reserved. The codes documented in this report are preliminary and upon section laborer reviewmay be revised to meet current compliance requirements. Procedure Date: 06/26/2023 10:04:02 AM 30 [place] [address] us Kim Yen MD GI PROCEDURE ORDERABL ES Final Result * (ABNORMAL) Basic metabolic panel (07/13/2022 1:57 PM EST) SODIUM 140 135 - 145 mmol/L [facility] CHLORIDE 99(L) 100 - 108 mmol/L [facility] POTASSIUM 4.9 3.5 - 5.0 mmol/L [facility] CO2 30 23.0 - 31.9 mmol/L [facility] BUN 37(H) 8 - 25 mg/dL [facility] CREATININE 1.41 0.6 - 1.5 mg/dL [facility] GLUCOSE 76 70 - 110 mg/dL [facility] CALCIUM 9.6 8.5 - 10.0 mg/dL [facility] EGFR 40(L) >59 mL/min/1.7 3m2 [facility] Comment:Estimated glomerular filtration rate calculated using the CKD-EPI refit equation. ANION GAP 11 3 - 15 mmol/L [facility] 07/13/2022 1:57 PM EST 07/13/2022 2:50 PM EST us Ricardo Ratliff MD LAB BLOOD BKR ORDERABLES Fin al Result [facility] [address] * MAMMOGRAPHY FOR RESULT ENTRY ONLY (03/03/2019) Freda Garg MD HEALTH MAINTENANCE Final Result * PAP SMEAR FOR RESULT ENTRY ONLY (11/21/2015) Pap smear NIL, HPV Negative (-16/-18) Sophia Dillard MD HEALTH MAINTENANCE Final Result * Lipid panel (02/09/2015 10:58 PM EDT) High Density Lipoprotein 58 35 - 100 mg/dL [facility] Cholesterol 207 mg/dL [facility] Comment:DESIRABLE: <200 Triglycerides 131 40 - 150 mg/dL [facility] Low Density Lipoprotein 123 mg/dL [facility] Comment:DESIRABLE: <130 Cardiac Risk Ratio 3.6 [facility] Comment:NORMAL RISK RATIO: 5 .0 OR LESS 02/09/2015 10:5 8 PM EDT 02/09/2015 10:58 PM EDT Comment:BLOOD Eliazar Carr MD LAB BLOOD BKR ORDERABLES Edited Result - Final Performing Organization Address [facility] Co de Phone Number [facility] [address] [place] [address] * HCV antibody, qualitative (09/09/2014 5:23 PM EDT) HCV Antibody Negative [facility] Comment: Antibodies to HCV not detected. Does not exclude the possibility of exposure to HCV. 09/09/2014 5:23 PM EDT 09/09/2014 8:57 PM EDT Comment:BLOOD Malia Reis MD LAB BLOOD BKR ORDERABLES Final Result [address] [address] from Last 3 Months or Most Recently Relevant to Health Maintenance Insurance * Guarantor: EugeniaIsa norris Bladimir Account Type Relation to Patient Date of Phone Billing Address Personal/Family Self 1950 [address] [place] [address] MEDICARE PART A & B [employer] MEDICARE SUPPLEMENT * Guarantor: Eugenia Isa Bladimir Account Type Relation to Patient Date of Phone Billing Address Personal/Family Self 1950 [address] [place] [address] MEDICARE PART A & B [employer] MEDICARE SUPPLEMENT * Guarantor: Isa Bello Account Type Relation to Patient Date of Phone Billing Address Personal/Family Self 1950 [address] [place] [address] MEDICARE PART A & B * Guarantor: Isa Bello Bladimir Account Type Relation to Patient Date of Phone Billing Address Personal/Family Self [address] [place] [address] MEDICARE PART A & B * Guarantor: EugeniaIsa norris Bladimir Account Type Relation to Patient Date of Phone Billing Address Personal/Family Self [address] [place] [address] MEDICARE PART A & B [employer] MEDICARE SUPPLEMENT * Guarantor: Isa Bello Bladimir Account Type Relation to Patient Date of Phone Billing Address Personal/Family Self [address] [place] [address] MEDICARE PART A & B [employer] MEDICARE SUPPLEMENT * Guarantor: Isa Bello Account Type Relation to Patient Date of Phone Billing Address Personal/Family Self 1950 [address] [place] [address] MEDICARE PART A & B [facility] [employer] MEDICARE SUPPLEMENT * Guarantor: Isa Bello Account Type Relation to Patient Date of Phone Billing Address Personal/Family Self 1950 [address] [place] [address] MEDICARE PART A & B * Guarantor: Isa Bello Account Type Relation to Patient Date of Phone Billing Address Personal/Family Self [address] [place] [address] MEDICARE PART A & B [facility] [employer] MEDICARE SUPPLEMENT [employer] DENTAL Advance Directives For more information, please contact: [phone] (9AM - 5PM [facility], Saturday-Saturday) Documents on File Type Date Recorded Patient Reexaminer Expl anation Healthcare Proxy 10/30/2016 1:39 PM HEALTH CARE PROXY- 10/30/16 * Full Code (Latest Code Status on File) Date Activated Date Inactivated Comments 07/26/2022 12:33 PM Question Answer Comments Code Status Confirmed With: Patient * Full Code (Presumed) Date Activated Date Inactivated Comments 05/14/2017 12:54 PM 05/24/2017 5:27 PM Care Teams Vp Ad Products And Planning Relationship Specialty Start Date End Date Kim Yen MD [address] [address] PCP - General Internal Medicine 06/26/23 Freda Garg MD [address] [address] [email or web address] Referring OBGYN Obstetrics and Gynecology 02/28/17 Freda Garg MD [address] [address] [email or web address] Historical LMR Provider 03/27/17 Whitney Kaur MD, MPH 70 [place] [address] [email or web address] Historical LMR Provider 03/27/17 Dajuan Hammer MD [address] [place] [phone] [email or web address] Referring Physician Rheumatology 04/17/18 Additional Source Comments The information contained in this document represents components of the legal health record. It is not the complete legal health record.[facility]
--- OUTSIDE RECORDS SUMMARY | 2025-05-18 00:26 | XMS_ITS | Encounter Summary ---
Author Organization [facility] Address [address] [place] [address] Phone Care Team Providers Care Primary Care Coordinator Name Role Phone Whitney Kaur MD, MPH Primary Care Provider + Freda Garg MD Unavailable Mike Valladares MD Unavailable Freda Garg MD Unavailable Eren Mahoney MD Unavailable Whitney Kaur MD, MPH Unavailable [phone] Dajuan Hammer MD Primary Care Provider [phone] Whitney Kaur MD, MPH Primary Care Provider + Dajuan Hammer MD Unavailable [phone] Kim Noel MD Primary Care Provide r Encounter Details Date Type Department Care Team (Late st Contact Info) Description 02/26/2017 Procedure Pass [facility] General Imaging [address] [place] [address] Social History Tobacco Use Types Packs/Day Years [...] Info) Description 10/22/2025 1:30 PM EDT Telemedicine [facility] Clinical Center [address] [place] [address], [address] [place] [address] Kvng Agarwal MD, DSc [address] [place] [address] [id number] [place] [address] [email or web address] 06/10/2029 Procedure Pass [facility] PERIOPERATIVE DEPT [address] [place] [address] documented as of this encounter Visit Diagnoses Not on filedocumented in this encounter Care Teams Primary Care Coordinator Relationship Specialty Start Date End Date Whitney Kaur MD, MPH [address] [place] [address] [email or web address] PCP - General 02/06/17 02/24/18 Dajuan Hammer MD 55 [facility] [address] [place] [phone] [email or web address] PCP - General Rheumatology 02/25/18 04/16/18 Whitney Kaur MD, MPH [address] [place] [address] [email or web address] PCP - General Family Medicine 04/17/18 06/25/23 Kim Noel MD [address] [place] [address] PCP - General Internal Medicine 06/26/23 Freda Garg MD [address] [place] [address] [email or web address] Referring OBGYN Obstetrics and Gynecology 02/28/17 Mike Valladares MD [address] [place] [address], 2nd [place] [address] [email or web address] Historical LMR Provider 03/27/17 06/17/21 Freda Garg MD [address] [place] [address] [email or web address] Historical LMR Provider 03/27/17 Eren Mahoney MD [address] [facility], [address] [place] [address] julio Historical LMR Provider 03/27/17 06/17/21 Whitney Kaur MD, MPH [address] [place] [address] Historical LMR Provider 03/27/17 Dajuan Hammer MD [address] [place] [phone] [email or web address] Referring Physician Rheumatology 04/17/18 documented as of this encounter Additional Source Comments The information contained in this document represents components of the legal health record. It is not the complete legal health record.[facility]
--- OUTSIDE RECORDS SUMMARY | 2025-05-18 00:26 | XMS_ITS | Encounter Summary ---
Author Organization [facility] Address [address] [place] [address] Phone Care Team Providers Care 3D Designer Name Role Phone Freda Garg MD Unavailable Freda Garg MD Unavailable Whitney Kaur MD, MPH Unavailable [phone] Whitney Kaur MD, MPH Primary Care Provider + Dajuan Hammer MD Unavailable [phone] Kim Noel MD Primary Care Provide r Encounter Details Date Type Department Care Team (Late st Contact Info) Description 07/25/2021 Procedure Pass MRI, [facility] - [address] [address] [facility], [address] [place] [address] Social History Tobacco Use Types [...] Info) Description 10/22/2025 1:30 PM EDT Telemedicine [place] [address] [place] [address], [address] [place] [address] Kvng Agarwal MD, DSc [address] [facility] [address] [place] [address] [email or web address] 06/10/2029 Procedure Pass [facility] PER[facility]IVE DEPT [address] [place] [phone] documented as of this encounter Visit Diagnoses Not on filedocumented in this encounter Care Teams 3D Designer Relationship Specialty Start Date End Date Whitney Kaur MD, MPH [address] [place] [address] [email or web address] PCP - General Family Medicine 04/17/18 06/25/23 Kim Noel MD [address] [address] PCP - General Internal Medicine 06/26/23 Freda Garg MD [address] [address] [email or web address] Referring OBGYN Obstetrics and Gynecology 02/28/17 Freda Garg MD [address] [address] [email or web address] Historical LMR Provider 03/27/17 Whitney Kaur MD, MPH [address] [place] [address] [email or web address] Historical LMR Provider 03/27/17 Dajuan Hammer MD [address] [place], [place] [address] [phone] [email or web address] Referring Physician Rheumatology 04/17/18 documented as of this encounter Additional Source Comments The information contained in this document represents components of the legal health record. It is not the complete legal health record.[facility]
--- OUTSIDE RECORDS SUMMARY | 2025-05-18 00:26 | XMS_ITS | Encounter Summary ---
Author Organization [facility] Address [address] [facility] [address] [place] [address] Phone Care Team Providers Care Mail Sorting Supervisor Name Role Phone Freda Garg MD Unavailable Mike Valladares MD Unavailable [phone] Freda Garg MD Unavailable Eren Mahoney MD Unavailable [phone] Whitney Kaur MD, MPH Unavailable [phone] Whitney Kaur MD, MPH Primary Care Provider + Dajuan Hammer MD Unavailable [phone] Kim Noel MD Primary Care Provide r Encounter Details Date Type Department Care Team (Late st Contact Info) Description 07/04/2018 Procedure Pass [facility] - MRI [address] [facility], [address]th [place] [address] Social History Tobacco Use Types Packs/Day Years [...] EDT Telemedicine [facility] [address] [facility], [address] [place] [address] Kvng Agarwal MD, DSc 55 [facility] [address] [place] [address] [email or web address] [email or web address] 06/10/2029 Procedure Pass [facility] [address] [place] [address] [phone] documented as of this encounter Visit Diagnoses Not on filedocumented in this encounter Care Teams Mail Sorting Supervisor Relationship Specialty Start Date End Date Whitney Kaur MD, MPH 70 [place] [address] PCP - General Family Medicine 04/17/18 06/25/23 Kim Noel MD [address] [place] [address] PCP - General Internal Medicine 06/26/23 Freda Garg MD [address] [place] [address] Referring OBGYN Obstetrics and Gynecology 02/28/17 Mike Valladares MD [address] [place] [address], 2nd [place] [address] Historical LMR Provider 03/27/17 06/17/21 Freda Garg MD [address] [place] [address] Historical LMR Provider 03/27/17 Eren Mahoney MD [address] [place] [address] julio Historical LMR Provider 03/27/17 06/17/21 Whitney Kaur MD, MPH 70 [place] [address] Historical LMR Provider 03/27/17 Dajuan Hammer MD [address] [place] [address] [address] [place] [address] [email or web address] Referring Physician Rheumatology 04/17/18 documented as of this encounter Additional Source Comments The information contained in this document represents components of the legal health record. It is not the complete legal health record.[facility]
--- OUTSIDE RECORDS SUMMARY | 2025-05-18 00:26 | XMS_ITS | Encounter Summary ---
Author Organization [facility] Address [address] [place] [address] Phone Care Team Providers Care Integration Project Manager Name Role Phone Freda Garg MD Unavailable Freda Garg MD Unavailable Whitney Kaur MD, MPH Unavailable [phone] Whitney Kaur MD, MPH Primary Care Provider + Dajuan Hammer MD Unavailable [phone] Kim Noel MD Primary Care Provide r Encounter Details Date Type Department Care Team (Late st Contact Info) Description 07/26/2022 Procedure Pass [place] Admitting Dept - Virtual Department 30 [place] [address] Social History Tobacco Use Types Packs/Day Years [...] Description 10/22/2025 1:30 PM EDT Telemedicine [address], [address] [place] [address] Kvng Agarwal MD, DSc [address] [place] [address] [address] [place] [address] [email or web address] 06/10/2029 Procedure Pass [facility] [address] [place] [address] [phone] documented as of this encounter Visit Diagnoses Not on filedocumented in this encounter Care Teams Integration Project Manager Relationship Specialty Start Date End Date Whitney Kaur MD, MPH [address] [place] [address] [email or web address] PCP - General Family Medicine 04/17/18 06/25/23 Kim Noel MD [address] [address] PCP - General Internal Medicine 06/26/23 Freda Garg MD [address] [address] [email or web address] Referring OBGYN Obstetrics and Gynecology 02/28/17 Freda Garg MD [address] [address] [email or web address] Historical LMR Provider 03/27/17 Whitney Kaur MD, MPH 70 [place] [address] [email or web address] Historical LMR Provider 03/27/17 Dajuan Hammer MD [address] [place], [place] [address] [phone] [email or web address] .[email or web address] Referring Physician Rheumatology 04/17/18 documented as of this encounter Additional Source Comments The information contained in this document represents components of the legal health record. It is not the complete legal health record.[facility]
--- OUTSIDE RECORDS SUMMARY | 2025-05-18 00:26 | XMS_ITS | Encounter Summary ---
Author Organization [facility] Address [address] [place] [address] Phone Care Team Providers Care Naval Aircrewman Name Role Phone Whitney Kaur MD, MPH Primary Care Provider + Freda Garg MD Unavailable Mike Valladares MD Unavailable Freda Garg MD Unavailable Eren Mahoney MD Unavailable Whitney Kaur MD, MPH Unavailable [phone] Dajuan Hammer MD Primary Care Provider [phone] Whitney Kaur MD, MPH Primary Care Provider + Dajuan Hammer MD Unavailable [phone] Kim Noel MD Primary Care Provide r Encounter Details Date Type Department Care Team (Late st Contact Info) Description 02/20/2017 Procedure Pass [facility]PT [address] [place] [phone] Social History Tobacco Use Types Packs/Day Years [...] Info) Description 10/22/2025 1:30 PM EDT Telemedicine [address], [address] [place] [address] Kvng Agarawl MD, DSc [address] [place] [address] [address] [email or web address] 06/10/2029 Procedure Pass [facility]PT [address] [place] [phone] documented as of this encounter Visit Diagnoses Not on filedocumented in this encounter Care Teams [employer] Aircrew[employer] Relationship Specialty Start Date End Date Whitney Kaur MD, MPH 70 [place] [address] [email or web address] PCP - General 02/06/17 02/24/18 Dajuan Hammer MD 55 [facility] [address] [place] [phone] [email or web address] PCP - General Rheumatology 02/25/18 04/16/18 Whitney Kaur MD, MPH 70 [place] [address] [email or web address] PCP - General Family Medicine 04/17/18 06/25/23 Kim Noel MD [address] [place] [address] PCP - General Internal Medicine 06/26/23 Freda Garg MD [address] [place] [address] [email or web address] Referring OBGYN Obstetrics and Gynecology 02/28/17 Mike Valladares MD [address] [place] [address], 2nd [place] [address] [email or web address] Historical LMR Provider 03/27/17 06/17/21 Freda Garg MD [address] [place] [address] Historical LMR Provider 03/27/17 Eren Mahoney MD 22 [facility], [address] [place] [address] julio Historical LMR Provider 03/27/17 06/17/21 Whitney Kaur MD, MPH 70 [place] [address] Historical LMR Provider 03/27/17 Dajuan Hammer MD [address] [place] [phone] [email or web address] Referring Physician Rheumatology 04/17/18 documented as of this encounter Additional Source Comments The information contained in this document represents components of the legal health record. It is not the complete legal health record.[facility]
--- OUTSIDE RECORDS SUMMARY | 2025-05-18 00:26 | XMS_ITS | Encounter Summary ---
Author Organization [facility] Address [address] [place] [address] Phone Care Team Providers Care Patient Monitor Name Role Phone Freda Garg MD Unavailable Freda Garg MD Unavailable Whitney Kaur MD, MPH Unavailable [phone] Dajuan Hammer MD Unavailable [phone] Kim Noel MD Primary Care Provide r Encounter Details Date Type Department Care Team (Late st Contact Info) Description 04/01/2024 Procedure Pass [facility] [address] [place] [address] Social History Tobacco Use Types Packs/Day Years [...] Description 10/22/2025 1:30 PM EDT Telemedicine [facility] [address] [facility], [address] [place] [address] Kvng Agarwal MD, DSc 55 [facility] [address] [place] [address] [email or web address] 06/10/2029 Procedure Pass [facility] PERI[facility]IVE DEPT 55 [place] [phone] documented as of this encounter Visit Diagnoses Not on filedocumented in this encounter Care Teams Patient Monitor Relationship Specialty Start Date End Date Kim Noel MD [address] [address] PCP - General Internal Medicine 06/26/23 Freda Garg MD 22 [facility] [address] [place] [address] [email or web address] Referring OBGYN Obstetrics and Gynecology 02/28/17 Freda Garg MD 22 [facility] 102 [place] [address] [email or web address] Historical LMR Provider 03/27/17 Whitney Kaur MD, MPH 70 [place] [address] [email or web address] Historical LMR Provider 03/27/17 Dajuan Hammer MD 55 [facility] [address] [place] [phone] [email or web address] Referring Physician Rheumatology 04/17/18 documented as of this encounter Additional Source Comments The information contained in this document represents components of the legal health record. It is not the complete legal health record.[facility]
--- OUTSIDE RECORDS SUMMARY | 2025-05-18 00:26 | XMS_ITS | Encounter Summary ---
Author Organization [facility] Address [address] [place] [address] Phone Care Team Providers Care Sealing Machine Operator Name Role Phone Freda Garg MD Unavailable Frdea Garg MD Unavailable Whitney Kaur MD, MPH Unavailable [phone] Whitney Kaur MD, MPH Primary Care Provider + Dajuan Hammer MD Unavailable [phone] Kim Noel MD Primary Care Provide r Encounter Details Date Type Department Care Team (Late st Contact Info) Description 07/13/2022 Procedure Pass [facility] - MRI, [facility] [address] [place] [address] Social History Tobacco Use Types Packs/Day Years [...] Info) Description 10/22/2025 1:30 PM EDT Telemedicine [address], [address] [place] [address] Kvng Agarwal MD, DSc [address] [place] [address] [address] [place] [address] [email or web address] 06/10/2029 Procedure Pass [facility] [address] [place] [phone] documented as of this encounter Visit Diagnoses Not on filedocumented in this encounter Care Teams Sealing Machine Operator Relationship Specialty Start Date End Date Whitney Kaur MD, MPH 70 [place] [address] [email or web address] PCP - General Family Medicine 04/17/18 06/25/23 Kim Noel MD [address] [address] PCP - General Internal Medicine 06/26/23 Freda Garg MD [address] [address] [email or web address] Referring OBGYN Obstetrics and Gynecology 02/28/17 Freda Garg MD [address] [address] [email or web address] Historical LMR Provider 03/27/17 Whitney Kaur MD, MPH 70 [place] [address] [email or web address] Historical LMR Provider 03/27/17 Dajuan Hammer MD [address] [place] [phone] [email or web address] .[email or web address] Referring Physician Rheumatology 04/17/18 documented as of this encounter Additional Source Comments The information contained in this document represents components of the legal health record. It is not the complete legal health record.[facility]
--- OUTSIDE RECORDS SUMMARY | 2025-05-18 00:26 | XMS_ITS | Encounter Summary ---
Author Organization [facility] Address [address] [place] [address] Phone Care Team Providers Care Services Tech Name Role Phone Whitney Kaur MD, MPH Primary Care Provider + Freda Garg MD Unavailable Mike Valladares MD Unavailable Freda Garg MD Unavailable Eren Mahoney MD Unavailable [phone] Whitney Kaur MD, MPH Unavailable [phone] Dajuan Hammer MD Primary Care Provider [phone] Whitney Kaur MD, MPH Primary Care Provider + Dajuan Hammer MD Unavailable [phone] Kim Noel MD Primary Care Provide r Encounter Details Date Type Department Care Team (Late st Contact Info) Description 06/25/2017 Procedure Pass [facility] - MRI [address] [facility], 6th [place] [address] Social History Tobacco Use Types Packs/Day Years [...] Info) Description 10/22/2025 1:30 PM EDT Telemedicine [facility] [address] [place] [address], [address] [place] [address] Kvng Agarwal MD, DSc [address] [place] [address] [address] [place] [address] [email or web address] 06/10/2029 Procedure Pass [facility] 55 [place] [phone] documented as of this encounter Visit Diagnoses Not on filedocumented in this encounter Care Teams Services Tech Relationship Specialty Start Date End Date Whitney Kaur MD, MPH [address] [place] [address] [email or web address] PCP - General 02/06/17 02/24/18 Dajuan Hammer MD 55 [facility] [address] [phone] [email or web address] PCP - General Rheumatology 02/25/18 04/16/18 Whitney Kaur MD, MPH [address] [place] [address] [email or web address] PCP - General Family Medicine 04/17/18 06/25/23 Kim Noel MD [address] [place] [address] PCP - General Internal Medicine 06/26/23 Freda Garg MD [address] [place] [address], [address] [place] [address] [email or web address] Referring OBGYN Obstetrics and Gynecology 02/28/17 Mike Valladares MD [address] [place] [address], 2nd [place] [address] [email or web address] Historical LMR Provider 03/27/17 06/17/21 Freda Garg MD 22 [facility], [address] [place] [address] Historical LMR Provider 03/27/17 Eren Mahoney MD 22 [facility], [address] [address] julio Historical LMR Provider 03/27/17 06/17/21 Whitney Kaur MD, MPH [address] [place] [address] Historical LMR Provider 03/27/17 Dajuan Hammer MD [address] [place] [phone] [email or web address] Referring Physician Rheumatology 04/17/18 documented as of this encounter Additional Source Comments The information contained in this document represents components of the legal health record. It is not the complete legal health record.[facility]
--- OUTSIDE RECORDS SUMMARY | 2025-05-18 00:27 | XMS_ITS | Encounter Summary ---
Author Organization [facility] Address [id number] [place] [address] Phone Care Team Providers Care Brooch Maker Novelty Name Role Phone Freda Garg MD Unavailable Mike Valladares MD Unavailable Freda Garg MD Unavailable Eren Mahoney MD Unavailable Whitney Kaur MD, MPH Unavailable [phone] Whitney Kaur MD, MPH Primary Care Provider + Dajuan Hammer MD Unavailable [phone] Kim Noel MD Primary Care Provide r Encounter Details Date Type Department Care Team (Latest Contact Info) Description 03/31/2021 Transcribe Orders [facility] Phleb Srav[address] [place] [address] Isabela Carmona PA-C [address] [place] [address] [email or web address] Constipation, unspecified constipation type (Primary Dx); Lower [...] Info) Description 10/22/2025 1:30 PM EDT Telemedicine [facility] [address] [place] [address], [address] [place] [address] Kvng Agarwal MD, DSc [address] [place] [address] [address] [place] [address] [email or web address] 06/10/2029 Procedure Pass [facility] PERIOPERATIVE DEPT [address] [place] [id number] documented as of this encounter Results * TSH (03/31/2021 3:48 PM EDT) TSH 1.94 0.27 - 4.20 uIU/mL [facility] Blood 03/31/2021 3:48 PM EDT 03/31/2021 3:53 PM EDT us Isabela Carmona PA-C LAB BLOOD BKR ORDERABLES Final Result Performing Organization Address City/[facility]/ZIP Co de Phone Number [address] [address] * (ABNORMAL) Lipase (03/31/2021 3:48 PM EDT) LIPASE 64(H) 16 - 63 U/L [facility] Blood 03/31/2021 3:48 PM EDT 03/31/2021 3:53 PM EDT us Isabela Carmona PA-C LAB BLOOD BKR ORDERABLES Final Result Performing Organization Address City/[facility]/ZIP Co de Phone Number [address] [address] * (ABNORMAL) C-Reactive Protein (03/31/2021 3:48 PM EDT) C REACTIVE PROTEIN 10.3(H) 0.0 - 4.0 mg/L [facility] Blood 03/31/2021 3:48 PM EDT 03/31/2021 3:53 PM EDT us Isabela Carmona PA-C LAB BLOOD BKR ORDERABLES Final Result [address] [address] * (ABNORMAL) Comprehensive metabolic panel (03/31/2021 3:48 PM EDT) SODIUM 142 133 - 146 mmol/L [facility] POTASSIUM 4.3 3.3 - 5.1 mmol/L [facility] CHLORIDE 101 96 - 108 mmol/L [facility] CO2 32 21 - 35 mmol/L [facility] BUN 22(H) 6 - 19 mg/dL [facility] CREATININE 0.90 0.5 - 1.5 mg/dL [facility] GLUCOSE 83 70 - 99 mg/dL [facility] ALBUMIN 4.1 3.9 - 4.8 g/dL [facility] TOTAL PROTEIN 7.1 6.5 - 8.0 g/dL [facility] CALCIUM 9.3 8.4 - 10.3 mg/dL [facility] ALKALINE PHOSPHATASE 82 39 - 117 U/L [facility] TOTAL BILIRUBIN 0.3 0.0 - 1.2 mg/dL [facility] AST 25 0 - 37 U/L [facility] ALT 16 0 - 40 U/L [facility] GLOBULIN 3.0 1 - 4.8 g/dL [facility] EGFR 65 >59 mL/min/1.7 3m2 [facility] Comment:Estimated glomerular filtration rate calculated using the CKD-EPI equation. ANION GAP 13 10 - 20 mmol/L [facility] Blood 03/31/2021 3:48 PM EDT 03/31/2021 3:53 PM EDT us Isabela Camrona PA-C LAB BLOOD BKR ORDERABLES Final Result [address] [address] * (ABNORMAL) CBC (03/31/2021 3:48 PM EDT) WBC 9.82 4.00 - 11.00 K/uL [facility] RBC 3.97 3.72 - 5.30 M/uL [facility] HGB 12.8 11.4 - 15.9 g/dL [facility] HCT 39.9 34.2 - 46.8 % [facility] PLT 275 140 - 430 K/uL [facility] MCV 100.5(H) 78.0 - 97.0 fL [facility] MCH 32.2 25.0 - 33.0 pg [facility] MCHC 32.1 32.0 - 36.0 g/dL [facility] RDW 14.3 11.0 - 16.0 % [facility] MPV 11.6 8.4 - 12.8 fl [facility] NRBC 0.00 0 /100 WBCs [facility] ABSOLUTE NRBC 0.00 0 K/uL [facility] Blood 03/31/2021 3:48 PM EDT 03/31/2021 3:53 PM EDT us Isabela Carmona PA-C LAB BLOOD BKR ORDERABLES Final Result Performing Organization Address City/[facility] Co de Phone Number [address] [address] * Immunoglobulin A (03/31/2021 3:48 PM EDT) IgA 225 70 - 400 mg/dL [facility] Blood 03/31/2021 3:48 PM EDT 03/31/2021 3:53 PM EDT us Isabela Carmona PA-C LAB BLOOD BKR ORDERABLES Final Result Performing Organization Address City/[facility] Co de Phone Number [address] [address] * Tissue transglutaminase IgA (03/31/2021 3:48 PM EDT) TTG IGA ANTIBODY <1.2 <4.0 (Negative) U/mL [facility] Blood 03/31/2021 3:48 PM EDT 03/31/2021 3:53 PM EDT us Isabela Carmona PA-C LAB BLOOD BKR ORDERABLES Final Result [facility] [place] [address] documented in this encounter Visit Diagnoses Diagnosis Constipation, unspecified constipation type- Primary Lower abdominal pain Abdominal pain, other specified site Upper abdominal pain Nausea Nausea alone documented in this encounter Care Teams Brooch [employer] Novelty Relationship Specialty Start Date End Date Whitney Kaur MD, MPH [address] [place] [address] PCP - General Family Medicine 04/17/18 06/25/23 Kim Noel MD [address] [place] [address] PCP - General Internal Medicine 06/26/23 Freda Garg MD [address] [place] [address] Referring OBGYN Obstetrics and Gynecology 02/28/17 Mike Valladares MD [address] [place] [address], [address] [place] [address] Historical LMR Provider 03/27/17 06/17/21 Freda Garg MD [address] [place] [id number] Historical LMR Provider 03/27/17 Eren Mahoney MD [address] [place] [address] julio Historical LMR Provider 03/27/17 06/17/21 Whitney Kaur MD, MPH [address] [place] [address] [email or web address] Historical LMR Provider 03/27/17 Dajuan Hammer MD [address] [facility] [address] [place] [address] [email or web address] Referring Physician Rheumatology 04/17/18 documented as of this encounter Additional Source Comments The information contained in this document represents components of the legal health record. It is not the complete legal health record.[facility]
== END 2025-05-17 15:01 | disposition home or self-care (01) ==
LOC: HO.MAMMO 15:00
PROVIDERS: PCP Internal Medicine; Visit Provider Internal Medicine
DX: R92.8 Other abnormal and inconclusive findings on diagnostic imaging of breast (principal); N64.89 Other specified disorders of breast
CPT/HCPCS: 77061; 77065

== ENCOUNTER → 2025-05-17 15:00 | Outpatient (BNV) | payer MEDICARE, OTHER, SELFPAY | PROVIDERS: PCP Internal Medicine; Visit Provider Radiology Body Imaging | DX: R92.8 Other abnormal and inconclusive findings on diagnostic imaging of breast (principal) | CPT/HCPCS: 77065; G0279 ==